=== PATIENT | female | born 1950 | race Caucasian/White ===

== ENCOUNTER 2023-09-02 16:12 | Inpatient (IN) | payer OTHER, SELFPAY ==
[2023-09-02] VITALS (14 sets, daily range): BP systolic 115–148; BP diastolic 41–96; BMI 27.7; BMI 26.8
[2023-09-02 12:37] LABS: % Basophils 0.7 % (0-2); % Eosinophils 0.2 % (0-6); % Immature Granulocytes 1.4 % (0-0.5); % Lymphocytes 5.1 % (20.5-51.1); % Monocytes 4.2 % (1.7-9.3); % Neutrophils 88.4 % (42.2-75.2); Absolute Basophils 0.1 10^3/uL (0-0.2); Absolute Immature Granulocytes 0.2 10^3/uL (0-0.05); Absolute Lymphocytes 0.6 10^3/uL (1.2-3.4); Absolute Monocytes 0.5 10^3/uL (0.1-0.6); Absolute Neutrophils 9.5 10^3/uL (1.4-6.5); Mean Corp Hgb Conc. 31.5 g/dL (33.0-37.0); Mean Corpuscular Hgb 29.1 pg (27.0-31.0); Mean Corpuscular Volume 92.5 fL (81.0-99.0); Mean Platelet Volume 11.7 fL (7.4-10.4); Nucleated Red Blood Cells % 0.3 %; Platelet Count 225 10^3/uL (130-400); Red Blood Cell Count 2.13 10^6/uL (4.20-5.40); Red Cell Dist. Width 14.7 % (11.5-14.5); White Blood Cell Count 10.7 10^3/uL (4.8-10.8)
[2023-09-02 12:46] LABS: Hematocrit 19.7 % (37.0-47.0); Hemoglobin 6.2 g/dL (12.0-16.0)
[2023-09-02 12:59] LABS: Lactic Acid 2.3 mmol/L (0.7-2.0)
[2023-09-02 13:05] LABS: ALT (SGPT) 12 U/L (0-35); AST (SGOT) 21 U/L (14-36); Albumin 3.8 g/dl (3.5-5.0); Alkaline Phosphatase 58 U/L (38-126); Blood Urea Nitrogen 110 mg/dl (7-17); Calcium 8.9 mg/dl (8.4-10.2); Carbon Dioxide 23 mmol/L (22-30); Chloride 100 mmol/L (98-107); Estimated Creatinine Clearance 21 ml/min; Glucose 164 mg/dl (70-99); Potassium 3.6 mmol/L (3.5-5.1); Sodium 133 mmol/L (135-145); Total Bilirubin 0.3 mg/dl (0.2-1.3); Total Protein 6.1 g/dl (6.3-8.2); eGFR 22.81
--- NOTE | 2023-09-02 13:30 | ED.GENMED ---
History of Present Illness
General
Chief Complaint: Breathing Problem
Source: patient and family (Daughter)
Time Seen by Provider: 09/02/23 12:30
Travel History
Have you had any contact with someone who has COVID-19?: No
Do you have any symptoms of coronavirus? Fever > 100 degrees, chills, cough, shortness of breath, sore throat, loss of taste or smell, muscle aches, or headache?: No
History of Present Illness
History of Present Illness:
73-year-old female presents emergency room complaint shortness of breath. Patient states she noticed increased shortness of breath over the past 3 to 4 days. Patient does have a history of COPD. She was using her rescue inhaler without
improvement. She is on home oxygen at 4 L. Patient is about 2 weeks status post endovascular stent placement in her right leg. This was performed at [place]. Patient denies any swelling in her groins. Her visiting nurse from [place] checked her groin
yesterday and everything looked good. Patient denies chest pain. She denies fever or chills. She has a cough which is minimally productive.
Past History
Past History
ED Past Medical History: CAD (2 stents), Cancer (lung-finshed 5 txs of XRT in November 2018), COPD, CVA (TIA), HTN and Hypercholesterolemia
ED Past Surgical History: Cardiac (cath w/ 2 stents) and Other (Carotid endarterectomy)
Social History
Tobacco: Former smoker (Quit July 2017)
Alcohol: None
Drug: None
Personal: Other
Living: with family
Employment: Other
Family History
Family History: Hypertension
Phy Exam
Physical Exam
Physical Exam:
General: Awake, Alert, Oriented X3. No acute distress, appears chronically ill, appears somewhat pale
Vitals: unremarkable
Head: Atraumatic
Eyes: Pupils equal, EOMI
Throat: Airway intact, no exudates
Neck: Trachea midline
Lungs: Clear and equal b/l
Heart: Regular rate, no murmurs
Abd: Soft, Nontender, No pulsatile mass
Rectal:
Neuro: Nonfocal
Skin: Warm, dry, no rash
Extremities: pulses equal b/l, no edema, no pseudoaneurysm or abnormal groin swelling noted
Scores
Heart Failure Risk
Heart Failure Risk Score: Not Applicable
Course
Orders/Labs/Results
Orders:
Orders
09/02/23 12:19
Electrocardiogram (*1) Urgent
Reason for Study: Other
Other Reason for Exam: Possible Sepsis
Cardiac Monitoring- Treatment ONCE
EKG- Treatment ONCE
IV Insert/Care/Rem.- Treatment PRN
O2 Therapy [RESP] Urgent
Titrate/Wean O2 to maintain O2 sat greater than (%): 93
Special Instructions: TO MAINTAIN CONTINUOUS O2 SATS > OR = 93%
Pulse Ox/cont/shift [RESP] Urgent
Quantity: 1
Special Instructions: CONTINUOUS
09/02/23 12:22
Complete Blood Count/With Diff Urgent
Comprehensive Metabolic Panel Urgent
Lactic Acid Q4H
Comment: ON ICE, CANCEL 2ND ORDER IF FIRST LACTIC ACID LEVEL <2
Blood Culture Q30M
CHUY Source: Blood/Venous
Specimen Description:
Comment: FROM 2 SEPARATE SITES
09/02/23 13:00
Blood Culture Q30M
[facility] Source: Blood/Venous
Specimen Description:
Comment: FROM 2 SEPARATE SITES
09/02/23 13:10
Type+Screen Urgent
09/02/23 13:26
* Blood Bank Products Urgent
Blood Bank Products: *Packed RBC Leuko(PRBC's)
Quantity: 2
Transfuse Today: Yes
Reason: Anemia
IV Insert/Care/Rem.- Treatment PRN
Pantoprazole 80 mg/100 ml Nss [Protonix] 80 mg in 100 ml IV NOW
Pantoprazole [Protonix IV] 80 mg IV NOW STA
09/02/23 16:30
Lactic Acid Q4H
Comment: ON ICE, CANCEL 2ND ORDER IF FIRST LACTIC ACID LEVEL <2
Abnormal Lab Results
09/02/23 09/02/23
12:22 13:10
RBC 2.13 L 10^6/uL
(4.20-5.40)
Hgb 6.2 L* g/dL
(12.0-16.0)
Hct 19.7 L* %
(37.0-47.0)
MCHC 31.5 L g/dL
(33.0-37.0)
RDW 14.7 H %
(11.5-14.5)
MPV 11.7 H fL
(7.4-10.4)
Abs Immat Gran (auto) 0.2 H 10^3/uL
(0-0.05)
Absolute Neuts (auto) 9.5 H 10^3/uL
(1.4-6.5)
Absolute Lymphs (auto) 0.6 L 10^3/uL
(1.2-3.4)
Immature Gran % 1.4 H %
(0-0.5)
Neutrophils % 88.4 H %
(42.2-75.2)
Lymphocytes % 5.1 L %
(20.5-51.1)
Sodium 133 L mmol/L
(135-145)
BUN 110 H* mg/dl
(7-17)
Creatinine 2.2 H mg/dL
(0.6-1.0)
Glucose 164 H mg/dl
(70-99)
Lactic Acid 2.3 H mmol/L
(0.7-2.0)
Total Protein 6.1 L g/dl
(6.3-8.2)
Crossmatch IS Only See Detail
09/02/23 12:22
09/02/23 12:22
Vital Signs
Initial and Last Documented VS:
Initial Vital Signs
Temp
98.5 F
09/02/23 12:14
Last Documented Vital Signs
Temp Pulse Resp BP Pulse Ox
98.5 F 72 15 122/50 99
09/02/23 12:14 09/02/23 13:15 09/02/23 13:15 09/02/23 13:00 09/02/23 12:30
MDM/Problems Addressed
Differential Diagnosis Includes:
COPD exacerbation, anemia, pneumonia, pneumothorax
MDM/Problems Addressed:
Patient presents with significant shortness of breath. Testing reveals a hemoglobin of 6.2. Patient does endorse change in her stools to very black stools over the past couple days. She denies any abdominal pain. Patient does take Plavix and
aspirin 81 mg. She has also been taking ibuprofen from time to time for the groin and leg pain. We will transfuse her 2 units. Protonix drip started. Admit to the hospitalist. Will also let GI know about her
Chronic conditions affecting care: CAD and COPD
*Pulse Oximetry
Patient hypoxic: no
*EKG
Interpreted by ED Provider?: Yes
Interpretation: normal
Heart Rate: 77
Rate: normal
Rhythm: sinus
Interval: first degree heart block
QRS Pattern: normal QRS
Ischemia: no ischemia
*Chair Trimmer Interpretation
Rate: normal
Heart Rate: 77
Rhythm: sinus
*Critical Care Note
Total Time (30-74mins, 75-104mins- exclusive of procedures): 35 min
comment:
Critical care statement: A total of 35 minutes of critical care time was provided for this patient. This includes management of unstable vital signs, evaluation of the patient at bedside, reviewing the patient's pertinent medical records, discussion
with consultants, review of old EKGs and review of pertinent medical records. This time with separate from time utilized to perform the aforementioned documented procedures
ED Attending Note
-
Portions of this chart may have been created with voice recognition software.� Occasional wrong word or��sound alike� substitutions may have occurred due to the inherent limitations of voice recognition software.
Discharge Plan
Departure
Patient Disposition: Admit
Date of Disposition: 09/02/23
Time of Disposition: 13:37
Admit to: IMU
Presentation/result/management discussed w/ accepting MD/DO: Hospitalist
Condition: Fair
Discharge Problem:
Acute dyspnea, Acute upper GI bleeding, Symptomatic anemia
Prescriptions:
No Action
acetaminophen [Tylenol] 325 mg Tablet
650 mg PO Q4HPRN PRN (Reason: mild pain)
bumetanide [Bumex] 2 mg Tablet
6 mg PO BID
albuterol sulfate 2.5 mg /3 mL (0.083 %) Solution For Nebulization
2.5 mg INHALATION R Q4HPRN PRN (Reason: sob)
polyethylene glycol 3350 [Miralax] 17 gram Powder In Packet
17 g PO DAILYPRN PRN (Reason: constipation)
potassium chloride 10 mEq Tablet Extended Release
10 meq PO DAILYPRN PRN (Reason: when taking metolazone)
aspirin 81 mg Tablet,Delayed Release (Dr/Ec)
81 mg PO DAILY
spironolactone 25 mg Tablet
25 mg PO DAILY
alprazolam [Xanax] 0.25 mg Tablet
0.25 mg PO BID
levothyroxine [Synthroid] 50 mcg Tablet
50 mcg PO DAILY
pantoprazole [Protonix] 40 mg Tablet,Delayed Release (Dr/Ec)
40 mg PO DAILY
ferrous sulfate 325 mg (65 mg iron) Tablet
325 mg PO DAILY
albuterol sulfate [ProAir HFA] 90 mcg/actuation Hfa Aerosol Inhaler
2 puff INHALATION R Q6HPRN PRN (Reason: sob)
rosuvastatin [Crestor] 10 mg Tablet
10 mg PO DAILY
cholecalciferol (vitamin D3) [Vitamin D3] 50 mcg (2,000 unit) Tablet
50 mcg PO DAILY
Opsumit 10 mg Tablet
10 mg PO DAILY
Anoro Ellipta 62.5-25 mcg/actuation Blister With Device
1 inh INHALATION R DAILY
tadalafil (pulm. hypertension) 20 mg Tablet
40 mg PO DAILY
Referrals:
Reza Ortiz DO [Family Provider] -
Interventions
Interventions:
*Risk Screen - Suicide Last Done: 09/02/23 12:18
*General Assessment Last Done: 09/02/23 12:16
*Neglect/Abuse Screening Last Done: 09/02/23 12:18
ED- Fall Risk Assessment Last Done: 09/02/23 12:29
*ED COVID-19 Vaccine History Last Done: 09/02/23 12:16
ED- Cardiac Assessment Last Done: 09/02/23 12:29
ED- Pulmonary Assessment Last Done: 09/02/23 12:29
Discharge Date and Time
Print Language: LITHUANIAN
[2023-09-02] MEDS: PROTONIX IV 80 MG IV (13:41)
[2023-09-02] MEDS: PROTONIX 100 IV ×2 (13:41→22:32)
--- NOTE | 2023-09-02 14:59 | CON.GI ---
Addendum entered and electronically signed by MIGUEL Pittman 09/03/23 06:50:
Pt also with hx scleraderma and chronic pericardial effusion
Addendum entered and electronically signed by Hernandez Nuñez MD 09/02/23 17:12:
I saw and examined the patient.
The PA's note was reviewed and I agree with the note.
Comment:
Pt is a 73 year old female with h/o CAD s/p stent, COPD, CHF, lung CA with prior radiation, TIA, HTN, CEA, CKD, hypothyroidism, and PAD with recent LE pain with stent placement at [place] 2 weeks ago p/w fatigue, dyspnea, and melena. Pt had
progressively worsening fatigue and had multiple melena yesterday. Admits to taking Ibuprofen up to 12 tabs daily for months. With stent placement she was started back on Plavix in addition to ASA 81mg daily. Hgb was 10.0 on day of surgery
(08/19) and 8.8 post-op. Hgb on admission is down to 6.2 and BUN 110 and lactate 2.3. NO prior EGD. Colonoscopy 2008 with benign polyps.
Impression / Rec:
1. Fatigue, dyspnea, melena - having symptomatic anemia in setting of likely UGIB evidenced by melena. Admits to significant NSAID use, although stopped using NSAIDs about 2 weeks ago after her vascular surgery (stent). Currently on DAPT for her
vascular stent. She also has CKD which is likely contributing to her anemia. Will plan on EGD for further eval/possible treatment (limited intervention given DAPT), keep NPO from midnight for possible scope tomorrow. Will follow Hgb.
Original Note:
Consultation
-
Date/Time Consultation Requested: 09/02/23 1345
Date/Time Consultation Performed: 09/02/23 1500
Requesting Provider: Keenan Pratt DO
Performing Provider: MIGUEL Pacheco, Hernandez Nuñez MD
Reason for Consultation: anemia
Medical History
Chief Complaint / HPI
Chief Complaint: weakness, shortness of breath
History of Present Illness:
Pt is a 73yo presents with hx cardiac stent, COPD CHF with cardiac mems, lung CA with prior radiation, TIA, HTN, CEA, PAD, CKD, hypothyroidism with recent LE pain with stent placement at [place] [address] Arun Choudhury. Pt reports prior to
stent placement she was having increased leg pain with NSAID use and admits to taking Ibuprofen up to 12 tabs daily for months. With stent placement she was started back on Plavix as had taken several years ago in addition to ASA 81mg daily. hbg
was 10.0 08/20/23 on day of surgery and 8.8 08/11/23 post -op. She now presents with increased shortness of breath with dizziness and noted with hbg 6.2 and BUN 110 and lactate 2.3.
Pt admits to some indigestion with antiacid use but could not recall name and also profound dizziness. She also saw black stool yesterday prior to admission. She otherwise denies dysphagia, nausea, vomiting, abdominal pain, diarrhea, or
red stools. No prior EGD. Last colonoscopy [address] Trivedi with benign polyps in rectum and diverticulosis. No urinary bleeding or recent falls.
Past Medical History
Past Medical History: CAD (with prior stents ), Cancer (lung CA with 5 treatment XRT November 2018 ), CHF, COPD, CVA (TIA), HTN, Hypercholesterolemia, Hypothyroidism, Renal Failure (CKD) and Other (pericardial effusion, pulm HTN, scleroderma, PAD,
former smoker, SAURABH)
Past Surgical History: Other (caroid endarterectomy, recent LE stent x 2 at [place])
Social History
Tobacco: Former Smoker (quit 2017)
Alcohol: None
Drug: None
Living: With Family
Employment: Retired
Family History
Family History: Other (no family hx colon Ca or GI cancers )
Allergies / Home Medications
Allergy/AdvReac Type Severity Reaction Status Date / Time
iodine Allergy allergic Verified 09/02/23 12:18
to shrimp
shrimp Allergy VIOLENTLY Verified 09/02/23 12:18
SICK
�Medication �Instructions �Recorded
acetaminophen 325 mg tablet 650 mg PO Q4HPRN PRN mild pain 09/02/23
(Tylenol)
albuterol sulfate 2.5 mg/3 mL 2.5 mg inhalation R Q4HPRN PRN sob 09/02/23
(0.083 %) solution for nebulization
albuterol sulfate 90 mcg/actuation 2 puff inhalation R Q6HPRN PRN sob 09/02/23
aerosol inhaler (ProAir HFA)
alprazolam 0.25 mg tablet (Xanax) 0.25 mg PO BID Mental 09/02/23
Health/Anxiety
aspirin 81 mg tablet,delayed 81 mg PO DAILY Blood Clot 09/02/23
release Prevention/Tx
bumetanide 2 mg tablet 6 mg PO BID Fluid 09/02/23
Retention/Swelling
cholecalciferol (vitamin D3) 50 50 mcg PO DAILY Supplement 09/02/23
mcg (2,000 unit) tablet (Vitamin
D3)
ferrous sulfate 325 mg (65 mg 325 mg PO DAILY Supplement 09/02/23
iron) tablet
levothyroxine 50 mcg tablet 50 mcg PO DAILY Thyroid 09/02/23
(Synthroid)
macitentan 10 mg tablet (Opsumit) 10 mg PO DAILY Lung Issues 09/02/23
pantoprazole 40 mg tablet,delayed 40 mg PO DAILY Gastrointestinal 09/02/23
release (Protonix) Issue
polyethylene glycol 3350 17 gram 17 g PO DAILYPRN PRN constipation 09/02/23
oral powder packet (Miralax)
potassium chloride 10 mEq 10 meq PO DAILYPRN PRN when taking 09/02/23
tablet,extended release metolazone
rosuvastatin 10 mg tablet (Crestor) 10 mg PO DAILY High Cholesterol 09/02/23
spironolactone 25 mg tablet 25 mg PO DAILY Heart 09/02/23
Disease/Condition
tadalafil (pulm. hypertension) 20 40 mg PO DAILY pulmonary 09/02/23
mg tablet (pulmonary hypertension) hypertension
umeclidinium 62.5 mcg-vilanterol 1 inh inhalation R DAILY 09/02/23
25 mcg/actuation powdr for Lung/Breathing Issues
inhalation (Anoro Ellipta)
Review of Systems
-
History Source: Patient
Constitutional: Reports Fatigue
EENT: Reports No Symptoms
Respiratory: Reports Trouble Breathing
Cardiac: Reports No Symptoms
Abdomen/GI: Reports Black Stools and Other (+ GERD)
: Reports No Symptoms
Musculoskeletal: Reports No Symptoms
Skin: Reports No Symptoms
Neurological: Reports Dizzy
Endocrine: Reports No Symptoms
Hematologic/Lymphatic: Reports Bleeding
Vital Signs
Temp Pulse Resp BP Pulse Ox
98.5 F 70 16 118/41 98
09/02/23 14:50 09/02/23 14:50 09/02/23 14:50 09/02/23 14:50 09/02/23 14:50
Physical Exam
Exam
General: Other (elderly female with mild dyspnea at rest )
HEENT: Normocephalic and Anicteric
Respiratory: Other (decreased )
Cardiac: Regular Rhythm
GI: Soft, Non Tender and Non Distended
Rectal: Other (no rectal but stool examined green/black heme +)
Musculoskeletal: No Clubbing and No Cyanosis
Skin: Warm and Dry
Neuro: Awake, Alert and AO x 3
Psych: Calm
Results
WBC 10.7 10^3/uL (4.8-10.8) 09/02/23 12:22
Hgb 6.2 g/dL (12.0-16.0) L* 09/02/23 12:22
Hct 19.7 % (37.0-47.0) L* 09/02/23 12:22
MCV 92.5 fL (81.0-99.0) 09/02/23 12:22
Plt Count 225 10^3/uL (130-400) 09/02/23 12:22
Absolute Neuts (auto) 9.5 10^3/uL (1.4-6.5) H 09/02/23 12:22
Sodium 133 mmol/L (135-145) L 09/02/23 12:22
Potassium 3.6 mmol/L (3.5-5.1) 09/02/23 12:22
Chloride 100 mmol/L (98-107) 09/02/23 12:22
Carbon Dioxide 23 mmol/L (22-30) 09/02/23 12:22
BUN 110 mg/dl (7-17) H* 09/02/23 12:22
Creatinine 2.2 mg/dL (0.6-1.0) H 09/02/23 12:22
Calcium 8.9 mg/dl (8.4-10.2) 09/02/23 12:22
Total Bilirubin 0.3 mg/dl (0.2-1.3) 09/02/23 12:22
AST 21 U/L (14-36) 09/02/23 12:22
ALT 12 U/L (0-35) 09/02/23 12:22
Alkaline Phosphatase 58 U/L (38-126) 09/02/23 12:22
Diagnostic Image Results:
Prior GI Procedures:
EGD: none
Colonoscopy: [address] Trivedi with benign polyps in rectum and diverticulosis.
Assessment / Plan
-
Pt is a 73yo presents with hx cardiac stent, COPD CHF with cardiac mems, lung CA with prior radiation, TIA, HTN, CEA, PAD, CKD, hypothyroidism with recent LE pain with stent placement at [place] [address] Arun Choudhury. Pt reports prior to
stent placement she was having increased leg pain with NSAID use and admits to taking Ibuprofen up to 12 tabs daily for months. With stent placement she was started back on Plavix as had taken several years ago in addition to ASA 81mg daily. hbg
was 10.0 410/24 on day of surgery and 8.8 08/11/23 post -op. She now presents with increased shortness of breath with dizziness, black stools and noted with hbg 6.2 and BUN 110 and lactate 2.3. NO prior EGD. Colonoscopy 2008 with benign polyps.
-symptomatic anemia
-melena
-recent NSAID use
-PAD recent right femoral endarterectomy with popliteal stent with restart of Plavix an continued ASA therapy
other medical problems:
-CAD with prior cardiac stents
-CHF
-cardiac mems
-COPD
-TIA
-CEA
-HTN
-CKD
-hypothyroidism
PLAN:
etiology of anemia with black stool related to PUD with recent increased NSAID use, vascular ectasia, mass vs other
may also be multi factorial with CKD with baseline hbg 10 on 08/19 and 8.8 on 08/21
plan for EGD in AM if medically stable overnight with transfusion
agree with transfusion
trend hbg
PPI gtt
monitor stool output
stressed to patient and family with hx GI bleeding and renal disease should avoid NSAID use
will follow
-
-
Thank you for consultation and allowing me to participate in the patient's care. Please call the construction equipment mechanic helper GI physician during the after hours with any questions or concerns.
--- NOTE | 2023-09-02 15:48 | HPS.HSE ---
Family Physician
-
Family Physician: Reza Ortiz
Chief Complaint
-
Shortness of breath with weakness and fatigue
History of Present Illness
Patient with history of CAD and prior coronary stents also has PAD. 2 weeks ago she had a right carotid endarterectomy and according to her vascular surgeon had a popliteal stent as well. Postsurgery she was placed on aspirin and Plavix. She is
normally on aspirin for her CAD.
She had used Plavix in the past after coronary stents.
Prior to surgery because of the leg pain she was using ibuprofen which according to the daughter may be as high as 800 milligrams twice a day.
After surgery she was feeling okay in the immediate postop. But later on she started to have shortness of breath with exertion. She was feeling exhausted and fatigued. She was sleeping a lot. Her appetite was poor. Yesterday she had dark stools.
Denies any prior history of GI bleed.
Denies any history of gastric issues including ulcers. No dyspepsia symptoms.
Last colonoscopy she thinks was in 2008.
No chest pains or palpitations.
No fever.
History of COPD and normally on 4 L. Denies any cough or productive phlegm. No recent steroid use either.
Medical History
Past Medical History
Past Medical History: Reports CAD, COPD, HTN, Hypercholesterolemia and Other (Pulmonary hypertension)
Past Surgical History: Reports Cardiac (Coronary stents) and Other (Right carotid stent, right femoral endarterectomy with popliteal stent recently)
Social History
Tobacco: Non-smoker
Alcohol: None
Living: With Family
Family History
Family History: Not pertinent
Allergies / Home Medications
Allergies reflects when Allergies were last updated in [employer].
Home Medications with original date entered in [employer]
Allergy/Medication List:
Allergies
Allergy/AdvReac Type Severity Reaction Status Date / Time
iodine Allergy allergic Verified 09/02/23 12:18
to shrimp
shrimp Allergy VIOLENTLY Verified 09/02/23 12:18
SICK
Home Medications
acetaminophen 325 mg tablet (Tylenol) 650 mg PO Q4HPRN PRN mild pain 09/02/23
albuterol sulfate 2.5 mg/3 mL (0.083 %) solution for nebulization 2.5 mg inhalation R Q4HPRN PRN sob 09/02/23
albuterol sulfate 90 mcg/actuation aerosol inhaler (ProAir HFA) 2 puff inhalation R Q6HPRN PRN sob 09/02/23
alprazolam 0.25 mg tablet (Xanax) 0.25 mg PO BID Mental Health/Anxiety 09/02/23
aspirin 81 mg tablet,delayed release 81 mg PO DAILY Blood Clot Prevention/Tx 09/02/23
bumetanide 2 mg tablet 6 mg PO BID Fluid Retention/Swelling 09/02/23
cholecalciferol (vitamin D3) 50 mcg (2,000 unit) tablet (Vitamin D3) 50 mcg PO DAILY Supplement 09/02/23
ferrous sulfate 325 mg (65 mg iron) tablet 325 mg PO DAILY Supplement 09/02/23
levothyroxine 50 mcg tablet (Synthroid) 50 mcg PO DAILY Thyroid 09/02/23
macitentan 10 mg tablet (Opsumit) 10 mg PO DAILY Lung Issues 09/02/23
pantoprazole 40 mg tablet,delayed release (Protonix) 40 mg PO DAILY Gastrointestinal Issue 09/02/23
polyethylene glycol 3350 17 gram oral powder packet (Miralax) 17 g PO DAILYPRN PRN constipation 09/02/23
potassium chloride 10 mEq tablet,extended release 10 meq PO DAILYPRN PRN when taking metolazone 09/02/23
rosuvastatin 10 mg tablet (Crestor) 10 mg PO DAILY High Cholesterol 09/02/23
spironolactone 25 mg tablet 25 mg PO DAILY Heart Disease/Condition 09/02/23
tadalafil (pulm. hypertension) 20 mg tablet (pulmonary hypertension) 40 mg PO DAILY pulmonary hypertension 09/02/23
umeclidinium 62.5 mcg-vilanterol 25 mcg/actuation powdr for inhalation (Anoro Ellipta) 1 inh inhalation R DAILY Lung/Breathing Issues 09/02/23
Review of Systems
-
A 12 point ROS was completed and negative except as noted: Yes
Physical Exam
Vital Signs
Vital Signs
Temp Pulse Resp BP Pulse Ox
98.4 F 74 15 148/47 100
09/02/23 15:05 09/02/23 15:30 09/02/23 15:30 09/02/23 15:05 09/02/23 15:30
Physical Exam
General: No Apparent Distress
HEENT: Moist mucous membranes
Respiratory: Non Labored Respirations and Other (On nasal cannula); No Wheezes, Crackles or Accessory Resp Muscle Use
Cardiac: S1/S2 and Regular Rhythm; No Tachycardia
GI: Soft, Non Tender, Non Distended and Normal Bowel Sounds
Neuro: AO x 3
Psych: Calm; No Confused
Laboratory Results
-
09/02/23 12:22
09/02/23 12:22
Laboratory Results
Lactic Acid 2.3 mmol/L (0.7-2.0) H 09/02/23 12:22
Total Bilirubin 0.3 mg/dl (0.2-1.3) 09/02/23 12:22
AST 21 U/L (14-36) 09/02/23 12:22
ALT 12 U/L (0-35) 09/02/23 12:22
Alkaline Phosphatase 58 U/L (38-126) 09/02/23 12:22
Data Reviewed
-
Lab Data: Labs Reviewed by me
Impression/Plan
-
Severe symptomatic anemia with acute GI blood loss-patient with recent history of right leg vascular surgery and stent placement. Currently on aspirin and Plavix and prior to that she was taking ibuprofen. Concerned about NSAID use gastric
pathology. She is currently hemodynamically stable. Keep her n.p.o. until seen by GI. Sidhu for home meds and sips of clears. Follow H&H closely. Transfuse as ordered in the ER. Start on Protonix pump. Hold Plavix. But in view of multiple
stents including recent 1 will continue with aspirin. GI consulted.
PAD-patient had recent right carotid endarterectomy and right popliteal stent. Spoke with Dr. Chalo Pollock the vascular surgeon today at [facility]. Resume Plavix when stable from GI standpoint.
CAD with prior coronary stents. Asymptomatic without chest pain or CHF. Continue with her home medication.
COPD with pulmonary hypertension-no acute exacerbation. Consult pulmonary for pre-endoscopic pulmonary eval.
Hypertension-continue home medication as BP permits.
Full code
--- NOTE | 2023-09-02 17:12 | W.PN.UPDATE ---
Update Note
Progress Note Update
billing note
--- NOTE | 2023-09-02 17:37 | CON.PUL ---
Consultation
Consultation Request
Date/Time Consultation Requested: 09/02/2023
Date/Time Consultation Performed: 09/02/2023
Requesting Provider: Dr. Lemus
Performing Provider: Dr. Dom Galo
Reason for Consultation: Shortness of breath due to anemia on top of pulmonary hypertension severe C
Medical History
-
History of Present Illness:
73-year-old woman with history of coronary Tory disease, prior coronary stents, peripheral arterial disease, about 2 weeks ago underwent right carotic endarterectomy and popliteal stents as well.
He was placed on aspirin and Plavix postoperatively.
He usually takes aspirin on a daily basis.
She has been taking NSAIDs as well.
Patient reports progressive shortness of breath, fatigue. In general she is able to walk and drive and run errands.
She felt really tired and was not able to perform any activity without developing shortness of breath.
Reports some dark stools yesterday.
We were consulted regarding her COPD.
She has severe COPD and also pulmonary hypertension. Follows up at [facility].
Currently on 4 L of supplemental oxygen which is her baseline.
Denies any cough, wheezing or phlegm production.
Denies LE edema.
She was able to tolerate vascular surgery with no problems.
She has been compliant with her pulmonary vasodilators.
Last acute exacerbation of COPD was in 2021.
Past Medical History
Past Medical History: Other (See assessment and plan section)
Social History
Tobacco: Non-smoker
Alcohol: None
Living: With Family
Employment: Retired
Family History
Family History: Reviewed & Not Pertinent
Allergies / Home Medications
Allergies
Allergy/AdvReac Type Severity Reaction Status Date / Time
iodine Allergy allergic Verified 09/02/23 12:18
to shrimp
shrimp Allergy VIOLENTLY Verified 09/02/23 12:18
SICK
Home Medications
�Medication �Instructions �Recorded �Confirmed �Last Taken �Type
acetaminophen 325 mg tablet 650 mg PO Q4HPRN PRN mild pain 09/02/23 09/02/23 Unknown History
(Tylenol)
albuterol sulfate 2.5 mg/3 mL 2.5 mg inhalation R Q4HPRN PRN sob 09/02/23 09/02/23 Unknown History
(0.083 %) solution for nebulization
albuterol sulfate 90 mcg/actuation 2 puff inhalation R Q6HPRN PRN sob 09/02/23 09/02/23 Unknown History
aerosol inhaler (ProAir HFA)
alprazolam 0.25 mg tablet (Xanax) 0.25 mg PO BID Mental 09/02/23 09/02/23 09/02/23 History
Health/Anxiety
aspirin 81 mg tablet,delayed 81 mg PO DAILY Blood Clot 09/02/23 09/02/23 09/02/23 History
release Prevention/Tx
bumetanide 2 mg tablet 6 mg PO BID Fluid 09/02/23 09/02/23 09/02/23 History
Retention/Swelling
cholecalciferol (vitamin D3) 50 50 mcg PO DAILY Supplement 09/02/23 09/02/23 09/02/23 History
mcg (2,000 unit) tablet (Vitamin
D3)
ferrous sulfate 325 mg (65 mg 325 mg PO DAILY Supplement 09/02/23 09/02/23 09/02/23 History
iron) tablet
levothyroxine 50 mcg tablet 50 mcg PO DAILY Thyroid 09/02/23 09/02/23 09/02/23 History
(Synthroid)
macitentan 10 mg tablet (Opsumit) 10 mg PO DAILY Lung Issues 09/02/23 09/02/23 09/02/23 History
pantoprazole 40 mg tablet,delayed 40 mg PO DAILY Gastrointestinal 09/02/23 09/02/23 09/02/23 History
release (Protonix) Issue
polyethylene glycol 3350 17 gram 17 g PO DAILYPRN PRN constipation 09/02/23 09/02/23 Unknown History
oral powder packet (Miralax)
potassium chloride 10 mEq 10 meq PO DAILYPRN PRN when taking 09/02/23 09/02/23 Unknown History
tablet,extended release metolazone
rosuvastatin 10 mg tablet (Crestor) 10 mg PO DAILY High Cholesterol 09/02/23 09/02/23 09/02/23 History
spironolactone 25 mg tablet 25 mg PO DAILY Heart 09/02/23 09/02/23 09/02/23 History
Disease/Condition
tadalafil (pulm. hypertension) 20 40 mg PO DAILY pulmonary 09/02/23 09/02/23 09/02/23 History
mg tablet (pulmonary hypertension) hypertension
umeclidinium 62.5 mcg-vilanterol 1 inh inhalation R DAILY 09/02/23 09/02/23 09/02/23 History
25 mcg/actuation powdr for Lung/Breathing Issues
inhalation (Anoro Ellipta)
Review of Systems
-
History Source: Patient
All other systems: Negative unless noted
Vitals / Labs / Diagnostic Testing
Vital Signs
Temp Pulse Resp BP Pulse Ox
98.2 F 68 18 120/46 98
09/02/23 17:06 09/02/23 17:06 09/02/23 17:06 09/02/23 17:06 09/02/23 17:06
Lab Data
09/02/23 12:22
09/02/23 12:22
Diagnostic Testing:
Physical Exam
-
HEENT: Normocephalic
Cardiovascular: S1/S2
Respiratory: Non-Labored Respirations
GI: Soft and Non Distended
Neurology: Awake, Alert, Oriented and AO x 3
Skin: Warm
General: Respiratory Distress (n)
Assessment
-
Shortness of breath due to acute blood loss anemia. Hemoglobin on admission 6.2.
Symptomatic anemia-from GI losses.
Possible upper GI bleed in the setting of aspirin/Plavix and NSAIDs.
Conditions present prior admission:
Status post carotic endarterectomy and popliteal stents about 2 months ago.
Pulmonary hypertension: group 1 (CTD, scleroderma), group 2 (LHD), group 3 (lung disease an/or hypoxia): on taladafil and ambrisentan
Scleroderma
HFpEF, moderate to severe LVH
Stage III DD
Mild MR, mild to moderate TR
Mildly enlarged RV size with normal systolic function
COPD, O2 at 3LPM
CAD s/p RCA stents 2002, on clopidogrel
Chronic pericardial effusion
Lung cancer, s/p XRT till November 2018
TIA, s/p R CEA
HTN
Hypothyroidism
Chronic kidney disease
HLD
Moderate to large pericardial effusion, chronic, never tapped
Former smoker, quit July 2017
Assessment and plan:
From the pulmonary perspective appears to be baseline.
Not bronchospastic on exam
On usual oxygen requirements.
Tolerated vascular surgery without complications about 2 weeks ago.
Symptoms are driven by severe anemia on top of her underlying severe COPD and pulmonary hypertension.
-
Continue with usual inhalers.
Continue with oxygen supplementation
Incentive spirometry
Minimize sedatives as able
Continue pulmonary vasodilators without change
-
Follow H&H, monitor respiratory status posttransfusion.
For EGD tomorrow, may proceed without additional interventions form pulmonary perspective.
PPI
Antiplatelets on hold for now per primary team
-
Will follow
-
DVT prophylaxis with SCDs
-
Family updated at the bedside by Dr. Galo 09/02/2023
[2023-09-02 20:32] LABS: Hematocrit 21.4 % (37.0-47.0); Hemoglobin 7.1 g/dL (12.0-16.0)
[2023-09-02] MEDS: XANAX 0.25 MG PO (22:29)
[2023-09-02] MEDS: BUMEX 6 MG PO (22:29)
[2023-09-02] MEDS: NSS 1000 IV (22:32)
[2023-09-03] VITALS (12 sets, daily range): BP systolic 14–143; BP diastolic 42–85; PULSE 70–80; BMI 26.8; BMI 26.6
--- NOTE | 2023-09-03 | PTCARENOTE ---
Pt is aaox3, no c/o pain. pt is assisted to bed x1. pt denies lightheadedness or dizziness, but is RIVERA w/ 4L O2. pt is on 4l at home. pt oriented to room w/ call pak in reach.
pt is ordered PRBC - 1unit transfused on the floor. VSS. no reaction noted.
[2023-09-03 00:36] LABS: Lactic Acid 0.7 mmol/L (0.7-2.0)
[2023-09-03] MEDS: SYNTHROID 50 MCG PO (04:22)
[2023-09-03 04:24] LABS: Hematocrit 23.5 % (37.0-47.0); Hemoglobin 7.8 g/dL (12.0-16.0); Mean Corp Hgb Conc. 33.2 g/dL (33.0-37.0); Mean Corpuscular Hgb 29.9 pg (27.0-31.0); Mean Platelet Volume 10.8 fL (7.4-10.4); Platelet Count 196 10^3/uL (130-400); Red Blood Cell Count 2.61 10^6/uL (4.20-5.40); White Blood Cell Count 7.3 10^3/uL (4.8-10.8)
[2023-09-03 04:59] LABS: Blood Urea Nitrogen 96 mg/dl (7-17); Calcium 8.7 mg/dl (8.4-10.2); Carbon Dioxide 24 mmol/L (22-30); Chloride 106 mmol/L (98-107); Estimated Creatinine Clearance 21 ml/min; Glucose 106 mg/dl (70-99); Potassium 3.5 mmol/L (3.5-5.1); Sodium 138 mmol/L (135-145); eGFR 24.12
[2023-09-03] MEDS: BUMEX 6 MG PO ×2 (08:58→19:53)
[2023-09-03] MEDS: VITAMIN D3 (cholecalciferol) 50 MCG PO (08:59)
[2023-09-03] MEDS: XANAX 0.25 MG PO ×2 (08:59→19:53)
[2023-09-03] MEDS: ASPIR LOW (ENTERIC COATED) 81 MG PO (08:59)
[2023-09-03] MEDS: ALDACTONE 25 MG PO (08:59)
[2023-09-03] MEDS: CRESTOR 10 MG PO (08:59)
--- NOTE | 2023-09-03 11:44 | W.PN.PUL3 ---
Today's Communication / Plan
-
From the pulmonary perspective continue with current care
Sign off
Outpatient pulmonary follow-up at [facility].
Assessment
-
Shortness of breath due to acute blood loss anemia. Hemoglobin on admission 6.2.
Symptomatic anemia-from GI losses.
Possible upper GI bleed in the setting of aspirin/Plavix and NSAIDs.
Conditions present prior admission:
Status post carotic endarterectomy and popliteal stents about 2 months ago.
Pulmonary hypertension: group 1 (CTD, scleroderma), group 2 (LHD), group 3 (lung disease an/or hypoxia): on taladafil and ambrisentan
Scleroderma
HFpEF, moderate to severe LVH
Stage III DD
Mild MR, mild to moderate TR
Mildly enlarged RV size with normal systolic function
COPD, O2 at 3LPM
CAD s/p RCA stents 2002, on clopidogrel
Chronic pericardial effusion
Lung cancer, s/p XRT till November 2018
TIA, s/p R CEA
HTN
Hypothyroidism
Chronic kidney disease
HLD
Moderate to large pericardial effusion, chronic, never tapped
Former smoker, quit July 2017
Assessment and plan:
Patient at baseline from the pulmonary perspective
Tolerated EGD well: Results noted. No active bleeding noted.GI following.
Angiectasia's and some erosions noted.
-
On usual oxygen requirements.
-
Symptoms are driven by severe anemia on top of her underlying severe COPD and pulmonary hypertension.
-
Continue with usual inhalers.
Continue with oxygen supplementation
Incentive spirometry
Minimize sedatives as able
Continue pulmonary vasodilators without change
-
Follow H&H, monitor respiratory status posttransfusion.
Hemoglobin is stable
PPI
-
Antiplatelets on hold for now per primary team
-
DVT prophylaxis with SCDs
-
Family updated at the bedside by Dr. Galo 09/02/2023
-
No additional recommendation from the pulmonary perspective.
Continue follow-up at [facility] With her pulmonary doctor.
Sign off
Subjective Data
-
Date of Service:
Date of Service: September 03, 2023
Chief Complaint: Pulmonary Follow Up (COPD/pulmonary hypertension)
Subjective:
No pulmonary complaints.
Stable oxygen needs.
Review of Systems
General: Fever (n)
Cardiopulmonary: Dyspnea (none at rest)
GI: Abdominal Pain (n) and Nausea (n)
Objective Data
Data Reviewed
Vital Signs / I&O / Oxygen:
Vital Signs
Temp Pulse Resp BP Pulse Ox
98.0 F 65 17 126/48 98
09/03/23 10:45 09/03/23 10:45 09/03/23 10:45 09/03/23 10:45 09/03/23 10:45
Intake and Output
09/02/23 09/03/23 09/04/23
06:59 06:59 06:59
Intake Total 1100 / 1100
Output Total 1575 / 1575
Balance -475 / -475
SaO2 98
Nasal Cannula flow liters per 4
minute
Physical Exam
General: Respiratory Distress (n) and Comfortable
HEENT: Normocephalic
Cardiovascular: S1-S2
Respiratory: Clear and Non-Labored Respirations
GI: Soft and Non Distended
Neurology: Awake
Skin: Warm
Labs/Micro/Reports
Lab Data
09/03/23 04:16
[2023-09-03 11:49] LABS: Hematocrit 23.5 % (37.0-47.0); Hemoglobin 7.8 g/dL (12.0-16.0)
--- NOTE | 2023-09-03 12:16 | CM ---
Patient seen bedside, initial assessment completed. Patient reports she lives in a multiple story home, one step to enter from [facility], with her daughter, daughters boyfriend, and grandchildren. Patient on home O2 through [facility], denies
other DME. Patient current with [facility], denies SNF. Patient confirms PCP Reza Ortiz, pharmacy [facility] in [place], confirms she has prescription coverage. Patient denies food insecurities. CM will send updated clinicals to [facility], will continue
to follow for discharge planning needs.
Plan; return home with [facility] when stable.
[2023-09-03] MEDS: PROTONIX IV (13:20)
--- NOTE | 2023-09-03 14:17 | W.PN.HOSP.TC ---
Addendum entered and electronically signed by Irene Thorpe MD 09/04/23 11:53:
Borderline troponin [id number] type-secondary to renal failure and also anemia
Addendum entered and electronically signed by Irene Thorpe MD 09/03/23 15:32:
Non-[place] troponin elevation likely secondary to anemia. Check 1 more set
Original Note:
Today's Communication/Plan
-
Repeat hemoglobin later tonight, if dropping will give 1 more unit of blood
We will start Plavix tomorrow
His hemoglobin is stable.
Repeat hemoglobin again tomorrow
If stable discharge tomorrow
Assessment / Plan
Assessment / Plan
72-year-old female admitted because of shortness of breath weakness and fatigue.
CVS: S1-S2 normal, SM at apex
Chest: CTA B/L
Abdomen: Soft, NT / Bowel sounds present
Extremities: No edema, normal pulses
# Severe symptomatic anemia with acute GI blood loss
Patient on aspirin and Plavix currently and was taking ibuprofen prior to that.
EGD-09/03/2023-multiple erosions and 3 small AVMs treated with APC
Hemodynamically stable
Got 2 units of packed red blood cells
Continue PPI twice daily
Started diet per GI
Check Iron and B 12 levels
# Mild lactic acidosis-likely secondary to anemia-resolved
# History of right lower extremity vascular disease with stents
Continue aspirin. Plavix can be restarted per GI will restart tomorrow.
#PAD-patient had recent right carotid endarterectomy and right popliteal stent.
Dr. Chalo Pollock the vascular surgeon at [facility].
Restart Plavix
#CAD with prior coronary stents. Asymptomatic without chest pain
History of RCA stents
Continue Plavix, aspirin, statin
#COPD with pulmonary hypertension-no acute exacerbation.
Chronic hypoxic respiratory failure on 3 L of oxygen at home
Tadalafil and Ambrisentan
Continue Anoro Ellipta or equivalent
Continue Opsumit
Continue albuterol
# Chronic pericardial effusion
# Mild MR and mild to moderate TR
# Hypertension-continue Aldactone
# Hyperlipidemia-continue Crestor
# Hypothyroidism-continue Synthroid
# Anxiety-continue Xanax as needed
# Chronic heart failure. Ejection fraction, moderate to severe LVH, stage III diastolic dysfunction
Continue Bumex
# Lung cancer with history of radiation treatment till November 2018
# History of TIA status post right CEA
# CKD Stage 4
# [id number] in July 2017
# DVT prophylaxis-SCDs
# Full code
D/W GI
D/W Daughter and updated.
Anticipated Discharge: Within 24 hours
Subjective/Interval History
-
Date of Service: September 03, 2023
Objective Data
-
Labs:
Laboratory Results
09/03/23 09/03/23 09/03/23
04:16 04:16 04:16
WBC 7.3
Hgb Cancelled 7.8 L
Hct Cancelled 23.5 L
Plt Count 196
Sodium 138
Potassium 3.5
Chloride 106
Carbon Dioxide 24
BUN 96 H
Creatinine 2.1 H
Glucose 106 H
Calcium 8.7
09/03/23
11:37
WBC
Hgb 7.8 L
Hct 23.5 L
Plt Count
Sodium
Potassium
Chloride
Carbon Dioxide
BUN
Creatinine
Glucose
Calcium
Vital Signs:
Vital Signs
Temp Pulse Resp BP Pulse Ox
97.8 F 64 18 141/52 98
09/03/23 12:16 09/03/23 12:16 09/03/23 12:16 09/03/23 12:16 09/03/23 12:16
I&O
09/02/23 09/03/23 09/04/23
06:59 06:59 06:59
Intake Total 1100 / 1100
Output Total 1575 / 1575
Balance -475 / -475
[2023-09-03 14:55] LABS: Iron 142 ug/dl (37-170)
[2023-09-03 15:04] LABS: Percent Saturation 32 % (20-50); Total Iron Binding Capacity 442 ug/dl (265-497)
[2023-09-03 15:09] LABS: Troponin I 0.051 ng/ml
[2023-09-03] MEDS: NSS IV (15:11)
[2023-09-03 15:45] LABS: Vitamin B12 > 1000 pg/ml (239-931)
[2023-09-03 18:37] LABS: Hematocrit 23.4 % (37.0-47.0); Hemoglobin 7.6 g/dL (12.0-16.0)
[2023-09-03] MEDS: PROTONIX 40 MG PO (19:53)
[2023-09-04 06:00] VITALS: BMI 26.5
[2023-09-04] MEDS: SYNTHROID 50 MCG PO (06:34)
[2023-09-04 07:30] VITALS: BP 128/54
[2023-09-04 07:44] LABS: Hematocrit 24.3 % (37.0-47.0); Hemoglobin 7.9 g/dL (12.0-16.0)
[2023-09-04] MEDS: ALDACTONE 25 MG PO (08:22)
[2023-09-04] MEDS: FEOSOL 325 MG PO (08:23)
[2023-09-04] MEDS: VITAMIN D3 (cholecalciferol) 50 MCG PO (08:23)
[2023-09-04] MEDS: CRESTOR 10 MG PO (08:23)
[2023-09-04] MEDS: BUMEX 6 MG PO ×2 (08:23→19:52)
[2023-09-04] MEDS: PROTONIX 40 MG PO ×2 (08:23→19:51)
[2023-09-04] MEDS: ASPIR LOW (ENTERIC COATED) 81 MG PO (08:23)
[2023-09-04] MEDS: XANAX 0.25 MG PO ×2 (08:23→19:52)
[2023-09-04] MEDS: ZOFRAN 4 MG IV (10:18)
[2023-09-04 11:39] VITALS: BP 107/56
--- NOTE | 2023-09-04 11:47 | W.PN.HOSP.TC ---
Today's Communication/Plan
-
See how pt feels with nausea
Assessment / Plan
Assessment / Plan
72-year-old female admitted because of shortness of breath weakness and fatigue.
CVS: S1-S2 normal, SM at apex
Chest: CTA B/L
Abdomen: Soft, NT / Bowel sounds present
Extremities: No edema, normal pulses
# Severe symptomatic anemia with acute GI blood loss
Patient on aspirin and Plavix currently and was taking ibuprofen prior to that.
EGD-09/03/2023-multiple erosions and 3 small AVMs treated with APC
Hemodynamically stable
Got 2 units of packed red blood cells
Continue PPI twice daily
Started diet per GI
No TOPHER or B 12 Def
She has some nausea today
# Mild lactic acidosis-likely secondary to anemia-resolved
# History of right lower extremity vascular disease with stents
Continue aspirin. Plavix can be restarted
#PAD-patient had recent right carotid endarterectomy and right popliteal stent.
Dr. Chalo Pollock the vascular surgeon at [facility].
Restart Plavix
#CAD with prior coronary stents. Asymptomatic without chest pain
History of RCA stents
Continue Plavix, aspirin, statin
#COPD with pulmonary hypertension-no acute exacerbation.
Chronic hypoxic respiratory failure on 3 L of oxygen at home
Tadalafil and Ambrisentan
Continue Anoro Ellipta or equivalent
Continue Opsumit
Continue albuterol
# Chronic pericardial effusion
# Mild MR and mild to moderate TR
# Hypertension-continue Aldactone
# Hyperlipidemia-continue Crestor
# Hypothyroidism-continue Synthroid
# Anxiety-continue Xanax as needed
# Chronic heart failure. Ejection fraction, moderate to severe LVH, stage III diastolic dysfunction
Continue Bumex
# Lung cancer with history of radiation treatment till November 2018
# History of TIA status post right CEA
# CKD Stage 4
# [id number] in July 2017
# DVT prophylaxis-SCDs
# Full code
D/W RN at bed side
D/W Daughter and updated 09/03/23
Anticipated Discharge: Within 24 hours
Subjective/Interval History
-
Date of Service: September 04, 2023
Objective Data
-
Labs:
Laboratory Results
09/04/23
06:51
Hgb 7.9 L
Hct 24.3 L
Vital Signs:
Vital Signs
Temp Pulse Resp BP Pulse Ox
97.7 F 80 18 107/56 98
09/04/23 11:39 09/04/23 11:39 09/04/23 11:39 09/04/23 11:39 09/04/23 11:39
I&O
09/03/23 09/04/23 09/05/23
06:59 06:59 06:59
Intake Total 1100 / 1100 1440 / 1440
Output Total 1575 / 1575 2850 / 2850
Balance -475 / -475 -1410 / -1410
[2023-09-04] MEDS: PLAVIX 75 MG PO (12:48)
[2023-09-04 15:39] VITALS: BP 132/48
[2023-09-04 19:10] VITALS: BP 142/47
[2023-09-04 23:17] VITALS: BP 120/65
[2023-09-05 03:15] VITALS: BP 138/54
[2023-09-05] MEDS: SYNTHROID 50 MCG PO (05:41)
[2023-09-05 06:00] VITALS: BMI 26.1
[2023-09-05 07:10] LABS: Hematocrit 27.8 % (37.0-47.0); Hemoglobin 8.7 g/dL (12.0-16.0)
[2023-09-05 07:30] VITALS: BP 108/45
[2023-09-05] MEDS: BUMEX 6 MG PO (08:27)
[2023-09-05] MEDS: XANAX 0.25 MG PO (08:27)
[2023-09-05] MEDS: CRESTOR 10 MG PO (08:27)
[2023-09-05] MEDS: FEOSOL 325 MG PO (08:27)
[2023-09-05] MEDS: PLAVIX 75 MG PO (08:27)
[2023-09-05] MEDS: ASPIR LOW (ENTERIC COATED) 81 MG PO (08:27)
[2023-09-05] MEDS: PROTONIX 40 MG PO (08:27)
[2023-09-05] MEDS: VITAMIN D3 (cholecalciferol) 50 MCG PO (08:27)
[2023-09-05] MEDS: ALDACTONE 25 MG PO (08:27)
[2023-09-05 08:54] VITALS: BP 108/45
[2023-09-05 11:44] VITALS: BP 120/80; PULSE 86; O2SAT 96
--- NOTE | 2023-09-05 11:54 | W.PN.HOSP.TC ---
Today's Communication/Plan
-
Discharge
Assessment / Plan
Assessment / Plan
72-year-old female admitted because of shortness of breath weakness and fatigue.
CVS: S1-S2 normal, SM at apex
Chest: CTA B/L
Abdomen: Soft, NT / Bowel sounds present
Extremities: No edema, normal pulses
feels '100% better'
# Severe symptomatic anemia with acute GI blood loss
Patient on aspirin and Plavix currently and was taking ibuprofen prior to that.
EGD-09/03/2023-multiple erosions and 3 small AVMs treated with APC
Hemodynamically stable
Got 2 units of packed red blood cells
Continue PPI twice daily
Started diet per GI
No TOPHER or B 12 Def
Tolerating diet
# Mild lactic acidosis-likely secondary to anemia-resolved
# History of right lower extremity vascular disease with stents
Continue aspirin. Plavix restarted
#PAD-patient had recent right carotid endarterectomy and right popliteal stent.
Dr. Chalo Pollock the vascular surgeon at [facility].
Plavix
#CAD with prior coronary stents. Asymptomatic without chest pain
History of RCA stents
Continue Plavix, aspirin, statin
#COPD with pulmonary hypertension-no acute exacerbation.
Chronic hypoxic respiratory failure on 3 L of oxygen at home
Tadalafil and Ambrisentan
Continue Anoro Ellipta or equivalent
Continue Opsumit
Continue albuterol
# Chronic pericardial effusion
# Mild MR and mild to moderate TR
# Hypertension-continue Aldactone
# Hyperlipidemia-continue Crestor
# Hypothyroidism-continue Synthroid
# Anxiety-continue Xanax as needed
# Chronic heart failure. Ejection fraction, moderate to severe LVH, stage III diastolic dysfunction
Continue Bumex
# Lung cancer with history of radiation treatment till November 2018
# History of TIA status post right CEA
# CKD Stage 4
# [id number] in July 2017
# DVT prophylaxis-SCDs
# Full code
D/W RN at bed side
D/W Case management
Discharge time 31 min
Anticipated Discharge: Today
Subjective/Interval History
-
Date of Service: September 05, 2023
Objective Data
-
Labs:
Laboratory Results
09/05/23
06:52
Hgb 8.7 L
Hct 27.8 L
Vital Signs:
Vital Signs
Temp Pulse Resp BP Pulse Ox
98.3 F 66 18 108/45 100
09/05/23 07:30 09/05/23 07:30 09/05/23 07:30 09/05/23 07:30 09/05/23 08:40
I&O
09/04/23 09/05/23 09/06/23
06:59 06:59 06:59
Intake Total 1440 / 1440 840 / 840
Output Total 2850 / 2850 2200 / 2200
Balance -1410 / -1410 -1360 / -1360
--- NOTE | 2023-09-05 11:55 | W.DS.TRANS ---
Addendum entered and electronically signed by Irene Thorpe MD 09/05/23 16:43:
Dictation- [id number]
Original Note:
DC Summary - [employer]
-
Discharge Instructions:
Sleep Apnea Risk Intermediate
Discharge Diagnosis/Procedures Severe symptomatic anemia, acute GI blood loss,
patient vascular disease, coronary artery
disease with history of stents, COPD with
pulmonary hypertension, mild mitral
regurgitation and mild to moderate TR,
hypertension, hyperlipidemia, hypothyroidism,
anxiety, chronic heart failure with preserved
ejection fraction, history of lung cancer,
history of TIA, chronic kidney disease
Diet Restrict fluids to 48 oz,2 Gram Sodium
Activity As tolerated
Driving Restrictions As prior to admission
Blood Work cbc,bmp 1 week
Other Services VN
Specialty Instructions Weigh Daily
Instructions:
Stand-Alone Forms:
Changes to Home Medications: Yes
Discharge Medications:
DC Medications w/original date entered in [facility]
acetaminophen 325 mg tablet (Tylenol) 650 mg PO Q4HPRN PRN mild pain 09/02/23
albuterol sulfate 2.5 mg/3 mL (0.083 %) solution for nebulization 2.5 mg inhalation R Q4HPRN PRN sob 09/02/23
albuterol sulfate 90 mcg/actuation aerosol inhaler (ProAir HFA) 2 puff inhalation R Q6HPRN PRN sob 09/02/23
alprazolam 0.25 mg tablet (Xanax) 0.25 mg PO BID Mental Health/Anxiety 09/02/23
aspirin 81 mg tablet,delayed release 81 mg PO DAILY Blood Clot Prevention/Tx 09/02/23
bumetanide 2 mg tablet 6 mg PO BID Fluid Retention/Swelling 09/02/23
cholecalciferol (vitamin D3) 50 mcg (2,000 unit) tablet (Vitamin D3) 50 mcg PO DAILY Supplement 09/02/23
ferrous sulfate 325 mg (65 mg iron) tablet 325 mg PO DAILY Supplement 09/02/23
levothyroxine 50 mcg tablet (Synthroid) 50 mcg PO DAILY Thyroid 09/02/23
macitentan 10 mg tablet (Opsumit) 10 mg PO DAILY Lung Issues 09/02/23
polyethylene glycol 3350 17 gram oral powder packet (Miralax) 17 g PO DAILYPRN PRN constipation 09/02/23
potassium chloride 10 mEq tablet,extended release 10 meq PO DAILYPRN PRN when taking metolazone 09/02/23
rosuvastatin 10 mg tablet (Crestor) 10 mg PO DAILY High Cholesterol 09/02/23
spironolactone 25 mg tablet 25 mg PO DAILY Heart Disease/Condition 09/02/23
tadalafil (pulm. hypertension) 20 mg tablet (pulmonary hypertension) 40 mg PO DAILY pulmonary hypertension 09/02/23
umeclidinium 62.5 mcg-vilanterol 25 mcg/actuation powdr for inhalation (Anoro Ellipta) 1 inh inhalation R DAILY Lung/Breathing Issues 09/02/23
clopidogrel 75 mg tablet 75 mg PO DAILY Blood clot prevention/tx #0 tabs 09/04/23
pantoprazole 40 mg tablet,delayed release 40 mg PO BID Gastrointestinal issue #60 tabs 09/04/23
Home Medication Changes
new
PPI changed to BID
Pending Results: No
--- NOTE | 2023-09-05 12:01 | CM ---
Addendum entered by Amarilis Smith 09/05/23 12:49:
Fax for [facility] :
[phone]
Original Note:
Patient seen bedside, discussed plan for discharge today. Patient reports her daughter is on her way to bring her home. CM reviewed IMM, signed, placed in patients chart. CM will send updated clinicals to [place] .
Plan; home with return of care [facility] .
[2023-09-05 12:40] VITALS: BP 120/80
== END 2023-09-05 13:38 | disposition home health service (06) | DRG 378 ==
LOC: 4 WEST ACU 16:12
PROVIDERS: ADMITTING PHYSICIAN Internal Medicine; ATTENDING PHYSICIAN Hospitalist; CONSULT PHYSICIAN Internal Medicine Critical Care Medicine; CONSULT PHYSICIAN Internal Medicine Gastroenterology; EMERGENCY PHYSICIAN Emergency Medicine; FAMILY PHYSICIAN Family Medicine
PROC: 30233N1 Transfusion of Nonautologous Red Blood Cells into Peripheral Vein, Percutaneous Approach (ICD-10-PCS; 2023-09-02)
PROC: 0D568ZZ Destruction of Stomach, Via Natural or Artificial Opening Endoscopic (ICD-10-PCS; 2023-09-03)
DX: K31.811 Angiodysplasia of stomach and duodenum with bleeding (principal); D62 Acute posthemorrhagic anemia; I50.32 Chronic diastolic (congestive) heart failure; I13.0 Hypertensive heart and chronic kidney disease with heart failure and stage 1 through stage 4 chronic kidney disease, or unspecified chronic kidney disease; J96.11 Chronic respiratory failure with hypoxia; I31.39 Other pericardial effusion (noninflammatory); N18.4 Chronic kidney disease, stage 4 (severe); E87.20 Acidosis, unspecified; I44.0 Atrioventricular block, first degree; E89.0 Postprocedural hypothyroidism; I27.21 Secondary pulmonary arterial hypertension; I27.23 Pulmonary hypertension due to lung diseases and hypoxia; D50.9 Iron deficiency anemia, unspecified; F41.9 Anxiety disorder, unspecified; I07.1 Rheumatic tricuspid insufficiency; M34.9 Systemic sclerosis, unspecified; I73.9 Peripheral vascular disease, unspecified; J44.9 Chronic obstructive pulmonary disease, unspecified; E78.00 Pure hypercholesterolemia, unspecified; I25.10 Atherosclerotic heart disease of native coronary artery without angina pectoris; Z99.81 Dependence on supplemental oxygen; Z95.820 Peripheral vascular angioplasty status with implants and grafts; Z92.3 Personal history of irradiation; Z85.118 Personal history of other malignant neoplasm of bronchus and lung; Z87.891 Personal history of nicotine dependence; Z95.5 Presence of coronary angioplasty implant and graft; Z86.73 Personal history of transient ischemic attack (TIA), and cerebral infarction without residual deficits; Z79.890 Hormone replacement therapy; Z79.82 Long term (current) use of aspirin; Z79.51 Long term (current) use of inhaled steroids; Z91.041 Radiographic dye allergy status; Z91.013 Allergy to seafood; Z79.02 Long term (current) use of antithrombotics/antiplatelets
CPT/HCPCS: 80048; 80053; 82607; 82728; 83540; 83550; 83605; 84484; 85014; 85018; 85025; 85027; 86850; 86900; 86901; 86920; 87040; 93005; 96374; 96376; 97161; 99291; P9016

== ENCOUNTER 2024-04-22 19:48 | Inpatient (IN) | payer OTHER, SELFPAY ==
[2024-04-22] VITALS (8 sets, daily range): BP systolic 131–152; BP diastolic 46–134; BMI 23.9
[2024-04-22 16:18] LABS: % Basophils 0.5 % (0-2); % Immature Granulocytes 0.5 % (0-0.5); % Lymphocytes 3.3 % (20.5-51.1); % Monocytes 2.7 % (1.7-9.3); Absolute Lymphocytes 0.2 10^3/uL (1.2-3.4); Absolute Monocytes 0.2 10^3/uL (0.1-0.6); Absolute Neutrophils 6.1 10^3/uL (1.4-6.5); Hematocrit 28.1 % (37.0-47.0); Mean Corp Hgb Conc. 28.5 g/dL (33.0-37.0); Mean Corpuscular Hgb 20.7 pg (27.0-31.0); Mean Corpuscular Volume 72.8 fL (81.0-99.0); Mean Platelet Volume 10.7 fL (7.4-10.4); Nucleated Red Blood Cells % 0 %; Platelet Count 209 10^3/uL (130-400); Red Blood Cell Count 3.86 10^6/uL (4.20-5.40); White Blood Cell Count 6.6 10^3/uL (4.8-10.8)
[2024-04-22 16:22] LABS: Normal RBC Morphology No
[2024-04-22 16:23] LABS: Anisocytosis 1+; Hypochromasia 1+; Macrocytosis 2+; Microcytosis Slight
[2024-04-22 16:24] LABS: Ovalocytes 1+; Target Cells Slight
[2024-04-22 16:27] LABS: Stomatocytes Slight
[2024-04-22 16:34] LABS: NT-proBNP > 27000 pg/ml
[2024-04-22 16:36] LABS: ALT (SGPT) 13 U/L (0-35); AST (SGOT) 20 U/L (14-36); Albumin 4.4 g/dl (3.5-5.0); Alkaline Phosphatase 57 U/L (38-126); Calcium 8.8 mg/dl (8.4-10.2); Carbon Dioxide 25 mmol/L (22-30); Chloride 91 mmol/L (98-107); Glucose 160 mg/dl (70-99); Potassium 3.7 mmol/L (3.5-5.1); Sodium 135 mmol/L (135-145); Total Bilirubin 0.7 mg/dl (0.2-1.3); Total Protein 7.1 g/dl (6.3-8.2); eGFR 15.02
[2024-04-22 16:59] LABS: Blood Urea Nitrogen 124 mg/dl (7-17)
--- NOTE | 2024-04-22 18:03 | ED.GENMED ---
History of Present Illness
General
Chief Complaint: Breathing Problem
Source: patient, records and family
Exam Limitations: none
Time Seen by Provider: 04/22/24 17:29
Nursing documentation reviewed up to this point in time: agreed with
History of Present Illness
History of Present Illness:
74-year-old female acute on chronic shortness of breath COPD heart failure she is on Bumex twice daily metolazone as needed she has had anemia previously followed previously by Dr. White also by heart failure specialist at [facility]
[place] she has a device implanted they can tell her when fluid is high around her heart, she had a call from her air reduction equipment operator today apparently was feeling dizzy told to come to the ER, no dark or bloody stools, been compliant with her diuretic
Past History
Past History
ED Past Medical History: Arrthythmia, CAD (2 stents), Cancer (lung-finshed 5 txs of XRT in November 2018), CHF, COPD, CVA (TIA), HTN and Hypercholesterolemia
ED Past Surgical History: Cardiac (cath w/ 2 stents) and Other (Carotid endarterectomy)
Social History
Tobacco: Former smoker (Quit July 2017)
Alcohol: None
Drug: None
Personal: Other
Living: with family
Employment: Retired
Family History
Family History: Hypertension
Review of Systems
Review of Systems
All Other Systems: Not applicable
Constitutional: Denies fever, fatigue or chills
EENT: Reports no symptoms
Respiratory: Reports cough and trouble breathing
Cardiac: Reports no symptoms
ABD/GI: Reports no symptoms
: Reports no symptoms
Musculoskeletal: Reports no symptoms
Endocrine: Reports no symptoms
Hematologic/Lymphatic: Reports no symptoms
Psychiatric: Reports no symptoms
Phy Exam
Physical Exam
Physical Exam:
Insert Arvind physical
Scores
Heart Failure Risk
Heart Failure Risk Score: Yes
History of Stroke or TIA: No
History of intubation for respiratory distress: No
Heart rate on ED arrival >/= 110: No
SaO2 <90% on arrival on room air: Yes
HR >/=110 during 3min walk test (or too ill to perform test): Yes
ECG has acute ischemic changes: No
Urea >/=12mmol/L (BUN 33.6mg/dL): Yes
Serum CO2>/=35mmol/L: Yes
Troponin I or T elevated to [place] Level (0.4mg/dL): No
NT-proBNP >/=5,000ng/L (5,000pg/ml): Yes
HF Risk Score: 7
Admission Status: VERY HIGH RISK 69.8% Consider admission to hospital
Course
Orders/Labs/Results
Orders:
Orders
04/22/24 Dinner
Cholesterol Lowering
At Your Request: Limited Participation
Does patient need a safe tray?: No
Cholesterol Lowering: Sodium, 2 Gram
04/22/24 15:35
Electrocardiogram (*1) Urgent
Reason for Study: Shortness of Breath
EKG- Treatment ONCE
04/22/24 16:03
Complete Blood Count/With Diff Urgent
Comprehensive Metabolic Panel Urgent
NT-proBNP Urgent
04/22/24 17:03
CR Chest - 2 Views Urgent
Comment:
Reason For Exam: sooob
04/22/24 17:50
Bumetanide [Bumex] 2 mg IV NOW STA
Ipratropium/Albuterol Sulfate [Duoneb] 3 ml INH R NOW STA
04/22/24 19:16
Admit/Transfer Patient As Directed
Co-Sign Provider:
Level of Care: Inpatient admission
Assign to:: Telemetry
Physician / Group: Monica Sanchez
Diagnosis: HF exacerbation
Reason for Telemetry: Acute Heart Failure
Date to Stop Telemetry: 04/25/24
Time to Stop Telemetry: 11:00
Reason for Hospitalization: HF exacerbation
Expected length of stay greater than two midnights?: Yes
ELOS- Estimated Length of Stay in days: 3
I certify the patient meets the requirements for IP care: Yes
PRN Pain Medication Management As Directed
May give lesser potent ordered pain med per pt: Yes
preference::
Protocol:: Medication orders for pain may be administered in a
manner that supports deferring to patient preference
when the pt is:
- Requesting an ordered lesser potent pain medication.
Least to most potent pain medications are defined
as: acetaminophen < NSAID < tramadol < opioids
(morphine, oxycodone, hydromorphone).
- Requesting a lesser dose of the same medication IF
ORDERED.
- Requesting a less intrusive route of administration
if both routes are prescribed by the provider (PO <
IV).
04/22/24 19:18
Code Status As Directed
Resuscitation Status: Do not resuscitate
Reached after discussion with pt or family/Healthcare POA: Yes
Decision communicated with: Patient
DNR Bracelet Application ONCE
04/22/24 20:46
Albuterol Nebs [Ventolin Nebules] 2.5 mg INH R Q4HPRN PRN
Albuterol [ProAIR HFA INHALER] 2 puff INH R Q6HPRN PRN
Alprazolam [Xanax] 0.25 mg PO DAILYPRN PRN
04/22/24 20:46
CARDIOLOGY CONSULT Routine
Consulting Provider: Dick Schafer
Was physician already notified: Yes
HF DIETARY CONSULT Routine
HF EDUCATOR CONSULT Routine
Comment:
Activity As Directed
Activity Level: Ambulate
Intake/ Output As Directed
Frequency: Per unit guidelines
Patient Education As Directed
Type: CHF folder
Comment: give on admission. Document in Interdisciplinary Education record
Sleep Apnea Assessment by RN As Directed
Comment:
Physician Instructions:
Vital Signs As Directed
Frequency: Other
Additional Instructions:: Q12 or per unit guidelines if more frequent.
Weight As Directed
Frequency: Daily
Type of Scale: Standing Scale
Comment: Daily morning weight. If unable to stand, use balanced bed scale.
Weight As Directed
Frequency: Once
Type of Scale: Standing Scale
Comment: Upon Admission. If unable to stand, use balanced bed scale.
Pulse Ox/cont/shift [RESP] Routine
Quantity: 1
Special Instructions: Daily pulse oximetry at rest. If greater than 92% at rest also obtain pulse oximetry
while ambulating as tolerated.
DX Deep Vein Thrombosis Video Routine
04/22/24 22:00
Alprazolam [Xanax] 0.25 mg PO HS
04/23/24 00:00
Heparin 5,000 units SC Q8
04/23/24 06:00
Echo 2D MMode Color/Doppler IN AM
Reason for Study: heart failure
Basic Metabolic Panel IN AM
Cardiovascular Evaluation IN AM
Complete Blood Count/No Diff IN AM
Levothyroxine [Synthroid] 50 mcg PO DAILY @ 0600
04/23/24 08:00
Aspirin Low Dose EC [Aspir Low (Enteric Coated)] 81 mg PO DAILY
Bumetanide [Bumex] 4 mg PO BID@0800,1600
Cholecalciferol (Vitamin D3) [VITAMIN D3 (cholecalciferol)] 50 mcg PO DAILY
Clopidogrel Bisulfate [Plavix] 75 mg PO DAILY
Ferrous Sulfate [Feosol] 325 mg PO Q48H
Fluoxetine HCl [Prozac] 20 mg PO DAILY
Pantoprazole [Protonix] 40 mg PO DAILY
Rosuvastatin Calcium [Crestor] 10 mg PO DAILY
Spironolactone [Aldactone] 25 mg PO DAILY
macitentan [Opsumit] 10 mg PO DAILY
tadalafil (pulm. hypertension) 40 mg PO DAILY
umeclidinium-vilanterol [Anoro Ellipta] 1 inh INH R DAILY
04/24/24 06:00
Basic Metabolic Panel IN AM
Complete Blood Count/No Diff IN AM
04/25/24 06:00
Basic Metabolic Panel IN AM
Complete Blood Count/No Diff IN AM
04/25/24 11:00
DC Protocol for Telemetry ONCE
Abnormal Lab Results
04/22/24
16:03
RBC 3.86 L 10^6/uL
(4.20-5.40)
Hgb 8.0 L g/dL
(12.0-16.0)
Hct 28.1 L %
(37.0-47.0)
MCV 72.8 L fL
(81.0-99.0)
MCH 20.7 L pg
(27.0-31.0)
MCHC 28.5 L g/dL
(33.0-37.0)
RDW 18.0 H %
(11.5-14.5)
MPV 10.7 H fL
(7.4-10.4)
Absolute Lymphs (auto) 0.2 L 10^3/uL
(1.2-3.4)
Neutrophils % 93.0 H %
(42.2-75.2)
Lymphocytes % 3.3 L %
(20.5-51.1)
Chloride 91 L mmol/L
(98-107)
BUN 124 H* mg/dl
(7-17)
Creatinine 3.1 H mg/dL
(0.6-1.0)
Glucose 160 H mg/dl
(70-99)
12/12/24 16:03
04/22/24 16:03
Vital Signs
Initial and Last Documented VS:
Initial Vital Signs
Temp Pulse Resp BP Pulse Ox
98.1 F 50 22 131/46 94
04/22/24 15:32 04/22/24 15:32 04/22/24 15:32 04/22/24 15:32 04/22/24 15:32
Last Documented Vital Signs
Temp Pulse Resp BP Pulse Ox
97.7 F 50 20 137/60 99
04/22/24 20:50 04/22/24 20:50 04/22/24 20:50 04/22/24 20:50 04/22/24 20:50
MDM/Problems Addressed
Differential Diagnosis Includes:
Heart failure pneumonia less likely DVT or PE
MDM/Problems Addressed:
Shortness of breath
Chronic conditions affecting care: HTN, Cardiomyopathy, Arrhythmia and COPD
Acute Exacerbation and/or Progression of Chronic Illness: HTN, Cardiomyopathy, Arrhythmia and COPD
*EKG
Interpreted by ED Provider?: Yes
Interpretation: abnormal
Comparison EKG: no comparison EKG present
Heart Rate: 78
Rate: normal
Rhythm: sinus
Ischemia: non-specific ST changes
*Equipment Specialist Interpretation
Rate: normal
Interpretation: normal
Heart Rate: 78
Rhythm: sinus
*Critical Care Note
Total Time (30-74mins, 75-104mins- exclusive of procedures): 12
Data Reviewed
Review of Other/Old Records Reveals: Labs and Discharge Summary
Source: patient and spouse
Prescriptions/Medications Considered But Not Given:
Packed cells
Further Testing Considered But Not Given:
CT scan
Patient Management
Social determinants of health affecting care: Living situation
Discussion with other providers: Hospitalist
Escalation/DeEscalation of care consider admission/obs:
Patient medically complex already on high dose of diuretic will require
ED Attending Note
-
Portions of this chart may have been created with voice recognition software.� Occasional wrong word or��sound alike� substitutions may have occurred due to the inherent limitations of voice recognition software.
Discharge Plan
Departure
Patient Disposition: Admit
Date of Disposition: 04/22/24
Time of Disposition: 18:13
Presentation/result/management discussed w/ accepting MD/DO: Hospitalist
Patient with high blood pressure during this ER visit?: No
Condition: Fair
Covid-19: Not Applicable
Discharge Problem:
Pulmonary hypertension, Chronic hypoxemic respiratory failure, CAD (coronary artery disease), Diabetes, Hypothyroid, Peripheral edema, History of lung cancer, CKD (chronic kidney disease), Scleroderma, Chronic obstructive pulmonary disease, Acute
dyspnea, CKD (chronic kidney disease), stage IV, Chronic heart failure with preserved ejection fraction (HFpEF)
Interventions
Interventions:
*Risk Screen - Suicide Last Done: 04/22/24 21:42
*General Assessment Last Done: 04/22/24 15:32
*Neglect/Abuse Screening Last Done: 04/22/24 15:32
*ED COVID-19 Vaccine History Last Done: 04/22/24 21:42
*Nursing Disposition Last Done: 04/22/24 21:09
ED- Cardiac Assessment Last Done: 04/22/24 16:04
ED- Pulmonary Assessment Last Done: 04/22/24 16:04
Discharge Date and Time
Discharge Date/Time: 04/22/24 21:09
[2024-04-22] MEDS: DUONEB 3 ML INH (18:08)
[2024-04-22] MEDS: BUMEX 2 MG IV (18:08)
--- NOTE | 2024-04-22 18:25 | HPS.HSE ---
Family Physician
-
Family Physician: Reza Ortiz
Chief Complaint
-
Shortness of breath with exertion
History of Present Illness
Patient is a 74-year-old female with past medical history significant for HFpEF, pulmonary hypertension, CAD, COPD, HTN, hypercholesterolemia and hypothyroidism who presented to [place] ED for evaluation of shortness of breath with exertion.
Patient states she has had increased shortness of breath with exertion since but yesterday and today was significantly worse. Today she reached out to her heart failure doctor, Dr. Elliott Toro with [facility], to read her Cardiomems
reading. Cardiomems is an implanted device in her pulmonary artery for pressure readings. She states they want reading </=30 and today was 35 so office told her to report to hospital for CHF exacerbation. She denies any recent fever, chills, cough,
chest pain, nausea, vomiting, constipation, diarrhea or urinary symptoms. She utilizes home oxygen at 4 Liters continuous and is on 4Liters here with SpO2 in low 90s.
Medical History
Past Medical History
Past Medical History: Reports Other
Additional Past Medical History:
HFpEF
pulmonary hypertension
CAD
COPD
HTN
hypercholesterolemia
hypothyroidism
Past Surgical History: Reports Other
Additional Past Surgical History:
coronary stents
right carotid stent
right femoral endarterectomy with popliteal stent
hysterectomy
Social History
Tobacco: Former Smoker
Alcohol: None
Drug: None
Living: With Family
Employment: Retired
Family History
Family History: Not pertinent
Allergies / Home Medications
Allergies reflects when Allergies were last updated in [facility].
Home Medications with original date entered in [facility]
Allergy/Medication List:
Allergies
Allergy/AdvReac Type Severity Reaction Status Date / Time
iodine Allergy allergic Verified 04/22/24 15:36
to shrimp
shrimp Allergy VIOLENTLY Verified 04/22/24 15:36
SICK
Home Medications
acetaminophen 325 mg tablet (Tylenol) 975 mg PO Q6HPRN PRN mild pain/headache 09/02/23
albuterol sulfate 2.5 mg/3 mL (0.083 %) solution for nebulization 2.5 mg inhalation R Q4HPRN PRN sob 09/02/23
alprazolam 0.25 mg tablet (Xanax) 0.25 mg PO HS Mental Health/Anxiety 09/02/23
aspirin 81 mg tablet,delayed release 81 mg PO DAILY Blood Clot Prevention/Tx 09/02/23
bumetanide 2 mg tablet 6 mg PO BID Fluid Retention/Swelling 09/02/23
cholecalciferol (vitamin D3) 50 mcg (2,000 unit) tablet (Vitamin D3) 50 mcg PO DAILY Supplement 09/02/23
ferrous sulfate 325 mg (65 mg iron) tablet 325 mg PO Q48H Supplement 09/02/23
levothyroxine 50 mcg tablet (Synthroid) 50 mcg PO DAILY Thyroid 09/02/23
macitentan 10 mg tablet (Opsumit) 10 mg PO DAILY Lung Issues 09/02/23
polyethylene glycol 3350 17 gram oral powder packet (Miralax) 17 g PO DAILYPRN PRN constipation 09/02/23
potassium chloride 10 mEq tablet,extended release 10 meq PO DAILYPRN PRN when taking metolazone 09/02/23
rosuvastatin 10 mg tablet (Crestor) 10 mg PO DAILY High Cholesterol 09/02/23
spironolactone 25 mg tablet 25 mg PO DAILY Heart Disease/Condition 09/02/23
tadalafil (pulm. hypertension) 20 mg tablet (pulmonary hypertension) 40 mg PO DAILY pulmonary hypertension 09/02/23
umeclidinium 62.5 mcg-vilanterol 25 mcg/actuation powdr for inhalation (Anoro Ellipta) 1 inh inhalation R DAILY Lung/Breathing Issues 09/02/23
clopidogrel 75 mg tablet 75 mg PO DAILY Blood clot prevention/tx #0 tabs 09/04/23
albuterol sulfate 90 mcg/actuation aerosol inhaler 2 puff inhalation R Q6HPRN PRN sob 04/22/24
alprazolam 0.25 mg tablet 0.25 mg PO DAILYPRN PRN anxiety 04/22/24
fluoxetine 20 mg capsule 20 mg PO DAILY 04/22/24
hydrocortisone 2.5 % topical ointment 1 applic topical BIDPRN PRN psoriasis 04/22/24
methylprednisolone 4 mg tablets in a dose pack 0 mg PO PER PKG DIR 04/22/24
metolazone 2.5 mg tablet 2.5 mg PO DAILYPRN PRN when instructed by cardiology 04/22/24
pantoprazole 40 mg tablet,delayed release 40 mg PO DAILY Gastrointestinal issue 04/22/24
tramadol 50 mg tablet 50 mg PO Q6HPRN PRN severe pain 04/22/24
Review of Systems
-
History Source: Patient
Constitutional: Reports No Symptoms
EENT: Reports No Symptoms
Respiratory: Reports Trouble Breathing (shortness of breath with exertion)
Cardiac: Reports No Symptoms
Abdomen/GI: Reports No Symptoms
: Reports No Symptoms
Musculoskeletal: Reports No Symptoms
Skin: Reports No Symptoms
Neurological: Reports No Symptoms
Endocrine: Reports No Symptoms
Hematologic/Lymphatic: Reports No Symptoms
Psych: Reports No Symptoms
Physical Exam
Vital Signs
Vital Signs
Temp Pulse Resp BP Pulse Ox
98.1 F 46 14 152/134 97
04/22/24 15:32 04/22/24 18:08 04/22/24 17:00 04/22/24 18:08 04/22/24 17:00
Physical Exam
General: Well Developed, Well Nourished, No Apparent Distress, Comfortable and Conversant
HEENT: NormoCephalic, Moist mucous membranes, Atraumatic, Nose Appears Normal and Ears Appear Normal
Respiratory: Clear, Rhonchi, Accessory Resp Muscle Use and Decreased Breath Sounds
Cardiac: S1/S2 and Regular Rhythm; No Murmur, Rub or Gallop
Breast: Deferred by me
GI: Soft, Non Tender, Non Distended and Normal Bowel Sounds; No Organomegaly
Rectal: Deferred by Provider
Genito-urinary: Deferred by me
Musculoskeletal: No Clubbing, No Cyanosis and No Edema
Skin: Warm and IV/Catheter Site; No Rash
Neuro: Awake, Alert, AO x 3 and Nonfocal/grossly intact
Hematologic/Lymphatic: No Lymphadenopathy
Psych: Calm and Intact Judgment/Insight
Laboratory Results
-
04/22/24 16:03
04/22/24 16:03
Laboratory Results
Total Bilirubin 0.7 mg/dl (0.2-1.3) 04/22/24 16:03
AST 20 U/L (14-36) 04/22/24 16:03
ALT 13 U/L (0-35) 04/22/24 16:03
Alkaline Phosphatase 57 U/L (38-126) 04/22/24 16:03
Data Reviewed
-
Diagnostic Radiology: Report Reviewed by me (CXR: Increased left midlung probable atelectasis/scarring.)
Medical Tests (Nuc Med, Echo, EKG etc): Report Reviewed by me (EKG: SINUS RHYTHM WITH 2ND DEGREE A-V BLOCK (MOBITZ I) WITH 2:1 A-V CONDUCTION RIGHTWARD AXIS INCOMPLETE RIGHT BUNDLE BRANCH BLOCK ANTERIOR INFARCT (CITED ON OR BEFORE 30-JUL-2021))
Lab Data: Labs Reviewed by me (Hgb 8.0, Hct 28.1, BUN 124, Creat 3.1, BNP >93534, )
Impression/Plan
-
IMPRESSION/PLAN:
#HFpEF exacerbation
Implanted CardioMems device to read pressures by Heart Failure doctor
Pressures elevated today and office instructed to go to ED for evaluation and treatment
- Admit Telemetry
- Consult Cardiology
- Echo
- IV Bumex
#pulmonary hypertension
- continue Ellipta, Opsumit, and tadalafil
#CAD
- continue aspirin and rosuvastatin
#COPD
CXR: Increased left midlung probable atelectasis/scarring.
- continue albuterol Nebs PRN
#HTN
- continue spironolactone
#hypercholesterolemia
- continue rosuvastatin
#hypothyroidism
- continue levothyroxine
#anxiety
- continue alprazolam and fluoxetine
Code Status: DNR
DVT Prophylaxis: Heparin Sq
--- NOTE | 2024-04-22 19:32 | W.PN.UPDATE ---
Update Note
Progress Note Update
This is an addendum to the H&P written by Lia Amado on 04/22/2024. Patient seen and examined independently with ASSOCIATE ENGINEER.
74-year-old female past medical history of CAD status post 2 stents, right lower extremity PAD with right popliteal stents, right carotid endarterectomy, non-small cell lung cancer status post radiation, scleroderma, CHF, mild MR, mild to moderate
TR, chronic pericardial effusion, COPD on 4 L baseline, pulmonary hypertension, CVA, hypertension, CKD 4, hypercholesteremia, hypothyroidism, diabetes, obesity, anemia, anxiety, presenting with shortness of breath with exertion/productive cough and
increased pulmonary artery pressure of 36 on Cardio Mems monitored at [place]. She states her pressure is usually 30.
Chest x-ray shows increased left midlung probable atelectasis/scarring. Cardiac BNP greater than 27,000 from 10,000 previously. Creatinine increased from 2.1-3.1. Patient went chronic microcytic anemia with hemoglobin 8 which is stable.
Patient likely with acute CHF exacerbation with right heart failure with STEVEN secondary to cardiorenal syndrome. Increase Bumex to 4 mg twice daily since she already takes 6 mg twice daily at baseline. May benefit from Metolazone but defer to
cardiology. Check echo. Cardiology consulted.
--- NOTE | 2024-04-22 20:50 | PTCARENOTE ---
Pt arrived from ED via stretcher and ambulated with the walker to bed. Pt is AAOx3, VSS sating 99% on 4L NC that she chronically wears at home, and w/o complaints of pain. Pt is resting comfortably with call pak within reach.
[2024-04-22] MEDS: XANAX 0.25 MG PO (22:30)
[2024-04-22] MEDS: HEPARIN 5000 UNITS SC (23:47)
[2024-04-23] VITALS (8 sets, daily range): BP systolic 126–174; BP diastolic 32–130; BMI 25.3; BMI 25.6
[2024-04-23] MEDS: SYNTHROID 50 MCG PO (05:17)
[2024-04-23] MEDS: VENTOLIN NEBULES 2.5 MG INH ×4 (05:54→19:10)
[2024-04-23] MEDS: STRIVERDI RESPIMAT 2 PUFF INH (07:48)
[2024-04-23] MEDS: SPIRIVA RESPIMAT 2.5 MCG 2 PUFF INH (07:48)
[2024-04-23] MEDS: TYLENOL 975 MG PO (08:01)
[2024-04-23] MEDS: VITAMIN D3 (cholecalciferol) 50 MCG PO (08:02)
[2024-04-23] MEDS: PROZAC 20 MG PO (08:02)
[2024-04-23] MEDS: PLAVIX 75 MG PO (08:02)
[2024-04-23] MEDS: PROTONIX 40 MG PO (08:02)
[2024-04-23] MEDS: ASPIR LOW (ENTERIC COATED) 81 MG PO (08:02)
[2024-04-23] MEDS: CRESTOR 10 MG PO (08:03)
[2024-04-23] MEDS: FEOSOL 325 MG PO (08:03)
[2024-04-23] MEDS: HEPARIN 5000 UNITS SC (08:03)
[2024-04-23] MEDS: ALDACTONE 25 MG PO (08:04)
[2024-04-23 10:48] LABS: Hematocrit 28.4 % (37.0-47.0); Mean Corp Hgb Conc. 28.2 g/dL (33.0-37.0); Mean Corpuscular Hgb 20.9 pg (27.0-31.0); Mean Corpuscular Volume 74.3 fL (81.0-99.0); Mean Platelet Volume 11.3 fL (7.4-10.4); Platelet Count 303 10^3/uL (130-400); Red Blood Cell Count 3.82 10^6/uL (4.20-5.40); Red Cell Dist. Width 18.1 % (11.5-14.5); White Blood Cell Count 7.5 10^3/uL (4.8-10.8)
[2024-04-23 10:53] LABS: Calcium 9.1 mg/dl (8.4-10.2); Carbon Dioxide 29 mmol/L (22-30); Chloride 93 mmol/L (98-107); Estimated Creatinine Clearance 11 ml/min; Glucose 123 mg/dl (70-99); HDL Cholesterol 51 mg/dl; LDL Cholesterol, Calculated 53 mg/dl; Potassium 3.4 mmol/L (3.5-5.1); Sodium 138 mmol/L (135-145); Total Cholesterol 148 mg/dl (50-199); Triglyceride 222 mg/dl (10-149); Very Low Density Lipoprotein 44 mg/dl (0-30); eGFR 13.93
--- NOTE | 2024-04-23 11:04 | CON.CAR ---
Addendum entered and electronically signed by Vidya Borjas MD 04/23/24 17:12:
I saw and examined the patient.
The Anode Builder's note was reviewed and I agree with the note.
Comment: Ms. Kelly is a 74-year-old female with significant past medical problems including hypertension, hyperlipidemia, former smoker, obstructive sleep apnea, hypothyroidism, type 2 diabetes mellitus, peripheral artery disease status post
carotid endarterectomy and lower extremity stents, most recently in August 2023 on dual antiplatelet therapy, history of TIA/CVA, lung cancer s/p radiation therapy in 2018, CKD stage III with baseline creatinines in the mid twos, severe pulmonary
hypertension due to scleroderma, chronic moderate pericardial effusion, coronary artery disease with inferior ST elevation IA with RCA stents in 2002, chronic hypoxemic respiratory failure secondary to COPD on 4 L of oxygen at home, chronic heart
failure with preserved ejection fraction with CardioMEMS device in place being followed at [facility] who presents today with progressive shortness of breath concerning for acute on chronic heart failure exacerbation. She also has
chronic anemia with baseline hemoglobins in the mid eights from unclear etiology. No documented or known history of atrial fibrillation.
On exam patient appears older than stated age, no acute distress, awake, alert and oriented x 3, regular rate, normal S1 and S2, no murmurs, rubs or gallops, morbidly obese, decreased breath sounds at bilateral bases, abdomen is obese but otherwise
soft, nontender, nondistended with active bowel sounds, warm extremities
Recommendations:
1. IV diuresis with strict ins and outs, daily upright weights and close monitoring of electrolytes with repletion as warranted.
2. With possible STEVEN on CKD, recommend nephrology input given she is not known to any one outside of the hospitalization.
3. Initiate IV heparin in the setting of atrial fibrillation noted on EKG given high CHADS2 Vascor. If seems to tolerate this well in the setting of chronic anemia, would consider discharging on Eliquis and aspirin to minimize risk for bleeding
and avoid triple therapy.
4. Awaiting callback/discussion with outpatient private investigator surveillance. I had reach out to him earlier this morning. We reviewed records sent over from [facility] from visit back in January where her creatinine was noted to be 2.1 and a
hemoglobin of 8.7. Patient does not really currently any complaints concerning for bleeding complications.
Vidya Borjas MD, [facility]
Original Note:
Consultation
Consultation Request
Date/Time Consultation Requested: 04/23/2024
Date/Time Consultation Performed: 04/23/2024
Requesting Provider: Dr. Sanchez
Performing Provider: Sonali Packer PA-C
Reason for Consultation: CHF
Medical History
-
History of Present Illness:
HPI: Yani is a 74 year old female with PMH of chronic respiratory failure on 4L NC, chronic HFpEF w/ cardioMEMs implant, CAD w/ prior stenting, chronic pericardial effusion, pulmonary hypertension, scleroderma, CKD, lung cancer, prior TIA,
carotid artery disease, PAD, HTN, HLD, SAURABH, and hypothyroidism. Presented to [facility] for evaluation of worsening SOB. Symptoms started a few weeks ago after Thanksgiving when she noted worsening SOB, however she states yesterday she felt dramatically
worse, so she called her private investigator surveillance and reported her CardioMEMs device showed she was at 35 mmHg and her goal she states is to be below 30 mmHg. She was told to come to ER for evaluation given concern for acute heart failure. She notes typically
she takes bumex 3mg BID as OP with metolazone 2.5mg PRN. She believes she took metolazone on Friday and Friday this week. Weight has been down trending over the past few weeks due to lack of appetite and she denies any worsening edema. On arrival
to ER, ProBNP was elevated at > 27,000. Creat elevated at 3.1. She was given a single dose of bumex 2mg in ER 12/12 PM, however states she did not notice any significant diuresis with this. She feels slightly better this AM compared to when she came
in to ER. Remains on 4L NC which she reports is her baseline.
PMH:
Chronic hypoxemic respiratory failure on 4L NC
Chronic HFpEF
CardioMEMs implant
CAD
Distant inferior wall IA with RCA stents 05/06/2003.
Chronic pericardial effusion
Severe Pulmonary hypertension
Scleroderma
Mild MR, mild to moderate TR
CKD 3
Lung CA s/p XRT
h/o TIA
s/p carotid endarterectomy 02/07/2012
PAD
HTN
HLD
Former smoker
SAURABH
Hypothyroidism
Past Medical History
Past Medical History: Other (In HPI)
Past Surgical History: Cardiac (PCI to mid RCA 05/06/2003) and Other (peripheral vascular stenting, carotid endarterectomy)
Social History
Tobacco: Former Smoker
Alcohol: None
Drug: None
Personal:
Employment: Retired
Family History
Family History: Hypertension
Allergies / Home Medications
Allergy/AdvReac Type Severity Reaction Status Date / Time
iodine Allergy allergic Verified 04/22/24 15:36
to shrimp
shrimp Allergy VIOLENTLY Verified 04/22/24 15:36
SICK
�Medication �Instructions �Recorded �Confirmed �Type
acetaminophen 325 mg tablet 975 mg PO Q6HPRN PRN mild 09/02/23 04/22/24 History
(Tylenol) pain/headache
albuterol sulfate 2.5 mg/3 mL 2.5 mg inhalation R Q4HPRN PRN sob 09/02/23 04/22/24 History
(0.083 %) solution for nebulization
alprazolam 0.25 mg tablet (Xanax) 0.25 mg PO HS Mental Health/Anxiety 09/02/23 04/22/24 History
aspirin 81 mg tablet,delayed 81 mg PO DAILY Blood Clot 09/02/23 04/22/24 History
release Prevention/Tx
bumetanide 2 mg tablet 6 mg PO BID Fluid 09/02/23 04/22/24 History
Retention/Swelling
cholecalciferol (vitamin D3) 50 50 mcg PO DAILY Supplement 09/02/23 04/22/24 History
mcg (2,000 unit) tablet (Vitamin
D3)
ferrous sulfate 325 mg (65 mg 325 mg PO Q48H Supplement 09/02/23 04/22/24 History
iron) tablet
levothyroxine 50 mcg tablet 50 mcg PO DAILY Thyroid 09/02/23 04/22/24 History
(Synthroid)
macitentan 10 mg tablet (Opsumit) 10 mg PO DAILY Lung Issues 09/02/23 04/22/24 History
polyethylene glycol 3350 17 gram 17 g PO DAILYPRN PRN constipation 09/02/23 04/22/24 History
oral powder packet (Miralax)
potassium chloride 10 mEq 10 meq PO DAILYPRN PRN when taking 09/02/23 04/22/24 History
tablet,extended release metolazone
rosuvastatin 10 mg tablet (Crestor) 10 mg PO DAILY High Cholesterol 09/02/23 04/22/24 History
spironolactone 25 mg tablet 25 mg PO DAILY Heart 09/02/23 04/22/24 History
Disease/Condition
tadalafil (pulm. hypertension) 20 40 mg PO DAILY pulmonary 09/02/23 04/22/24 History
mg tablet (pulmonary hypertension) hypertension
umeclidinium 62.5 mcg-vilanterol 1 inh inhalation R DAILY 09/02/23 04/22/24 History
25 mcg/actuation powdr for Lung/Breathing Issues
inhalation (Anoro Ellipta)
clopidogrel 75 mg tablet 75 mg PO DAILY Blood clot 09/04/23 04/22/24 Rx
prevention/tx #0 tabs
albuterol sulfate 90 mcg/actuation 2 puff inhalation R Q6HPRN PRN sob 04/22/24 04/22/24 History
aerosol inhaler
alprazolam 0.25 mg tablet 0.25 mg PO DAILYPRN PRN anxiety 04/22/24 04/22/24 History
fluoxetine 20 mg capsule 20 mg PO DAILY 04/22/24 04/22/24 History
hydrocortisone 2.5 % topical 1 applic topical BIDPRN PRN 04/22/24 04/22/24 History
ointment psoriasis
methylprednisolone 4 mg tablets in 0 mg PO PER PKG DIR 04/22/24 04/22/24 History
a dose pack
metolazone 2.5 mg tablet 2.5 mg PO DAILYPRN PRN when 04/22/24 04/22/24 History
instructed by cardiology
pantoprazole 40 mg tablet,delayed 40 mg PO DAILY Gastrointestinal 04/22/24 04/22/24 History
release issue
tramadol 50 mg tablet 50 mg PO Q6HPRN PRN severe pain 04/22/24 04/22/24 History
Review of Systems
-
History Source: Patient
All other systems: Negative unless noted
Physical Exam
Vital Signs
Temp Pulse Resp BP Pulse Ox
98.2 F 48 18 126/63 99
04/23/24 07:25 04/23/24 08:04 04/23/24 07:51 04/23/24 08:04 04/23/24 07:51
Lab Results
04/23/24 10:15
04/23/24 10:15
Unc-W-Igzspfeuigg Pept > 74322 pg/ml 04/22/24 16:03
Physical Exam
General: Well Developed, Well Nourished and No Apparent Distress
HEENT: Normocephalic, Anicteric and Moist Mucous Membranes
Respiratory: Non Labored Respirations
Cardiac: S1/S2 and Irregular Rhythm
Musculoskeletal: No Clubbing, No Cyanosis and No Edema
Skin: Warm and Dry
Neuro: AO x 3 and Nonfocal/Grossly Intact
Psych: Calm
Impression / Plan
-
PCP: Dr. Reza Ortiz
Repair Coil Winder: Dr. Elliott Stokes ([facility] [place])
Impression:
Presented with worsening SOB
Acute on chronic HFpEF
CardioMEMs implant
Chronic hypoxemic respiratory failure on 4L NC
Newly diagnosed atrial fibrillation
CAD
Distant inferior wall IA with RCA stents 05/06/2003.
Chronic pericardial effusion
Severe pulmonary hypertension
Scleroderma
Mild MR, mild to moderate TR
CKD 3
Lung CA s/p XRT
h/o TIA
s/p carotid endarterectomy 02/07/2012
PAD
HTN
HLD
Former smoker
SAURABH
Hypothyroidism
Echo November 2012: revealed normal LV function, LVH and mild mitral regurgitation.
Echo 07/23/2021: EF 60% with mod to severe LVH, mild MR, biatrial enlargement. Mild to moderate TR, PASP 69 mmHg. Moderate to large pericardial effusion without hemodynamic compromise, 2.7 posteriorly and 2.3 laterally, mildly dilated aortic root.
Echo 08/03/2021: EF 65-70%, moderate to large pericardial effusion without evidence of hemodynamic compromise
Echo 04/23/2024: Study completed, report pending.
Plan:
-Presented with worsening SOB. Admitted with acute heart failure. ProBNP >27,000.
-Given a single dose of IV bumex 2mg in ER, without significant response. On bumex 3mg BID as OP with PRN metolazone as OP.
-Will give an additional 4mg IV bumex this AM. Follow response.
-Will need to use caution w/ diuresis given creat up to 3.3. May consider nephrology consult if creat does not improve.
-Hold spironolactone.
-Continue tadalafil and Opsumit for pulmonary hypertension.
-Echo completed 04/23, report pending. Preliminary read w/ small-mod pericardial effusion.
-Continue aspirin and plavix. Patient reports recent peripheral vascular procedure in August or September 2023.
-Initial ECG reviewed, SR with 2nd degree AV block type 1.
-ECG from this AM appears to be rate controlled atrial fibrillation. Patient denies any known history of afib.
-HR stable, not on any rate control medications currently.
-Will follow on telemetry for now. Discussed anticoagulation with patient. She has h/o GIB related to NSAID use earlier in 2023.
-Hgb 8.0 this AM, no bleeding noted by patient. Will have CM assess the cost of Eliquis 5mg BID and plan to start.
-Continue Crestor 10mg daily. LDL 53
-K 3.4, will replete. Check mag.
-Check TSH w/ reflex to free T4
-Records requested from primary private investigator surveillance.
HPI: Yani is a 74 year old female with PMH of chronic respiratory failure on 4L NC, chronic HFpEF w/ cardioMEMs implant, CAD w/ prior stenting, chronic pericardial effusion, pulmonary hypertension, scleroderma, CKD, lung cancer, prior TIA,
carotid artery disease, PAD, HTN, HLD, SAURABH, and hypothyroidism. Presented to [facility] for evaluation of worsening SOB. Symptoms started a few weeks ago after Thanksgiving when she noted worsening SOB, however she states yesterday she felt dramatically
worse, so she called her private investigator surveillance and reported her CardioMEMs device showed she was at 35 mmHg and her goal she states is to be below 30 mmHg. She was told to come to ER for evaluation given concern for acute heart failure. She notes typically
she takes bumex 3mg BID as OP with metolazone 2.5mg PRN. She believes she took metolazone on Friday and Friday this week. Weight has been down trending over the past few weeks due to lack of appetite and she denies any worsening edema. On arrival
to ER, ProBNP was elevated at > 27,000. Creat elevated at 3.1. She was given a single dose of bumex 2mg in ER 12/12 PM, however states she did not notice any significant diuresis with this. She feels slightly better this AM compared to when she came
in to ER. Remains on 4L NC which she reports is her baseline.
Data Reviewed
-
EKG: Tracing Personally Visualized and interpreted
Radiology: Report Reviewed by me
Labs: Labs Reviewed by me
Old Records: Requested and Reviewed
[2024-04-23] MEDS: BUMEX 4 MG IV (11:11)
[2024-04-23] MEDS: KCL 40 MEQ PO (11:11)
[2024-04-23 11:12] LABS: Blood Urea Nitrogen 129 mg/dl (7-17)
--- NOTE | 2024-04-23 12:29 | CM ---
Addendum entered by Bonnie Frey 04/23/24 14:19:
Patient confirmed logistics and stated that she has 2 insurances and doesn't normally have to pay for any prescriptions. Patient declined coupon. Patient indicated that her O2 level at home is 4 liters. CM will continue to follow for discharge
planning needs.
plan; home with VN watch for home O2 needs.
Addendum entered by Bonnie Frey 04/23/24 13:02:
CM called to [facility] and they indicated the cost for Eliquis 5mg BID currently for patient would be zero.
Original Note:
Patient seen at bedside in [facility]. Patient was very uncomfortable and unable to continue the conversation. Patient previously had indicated that she lived in a basement apartment in daughter's house and was independent with care. Patient is on home
O2 through [facility]. CM will confirm patient PCP is still Dr. Ortiz and she still uses [facility] in [place]. CM will continue to follow for discharge planning needs.
Plan; home with VN/vs home with no needs; watch for home O2 increase or changes
[2024-04-23 14:20] LABS: Magnesium 2.3 mg/dl (1.6-2.3)
[2024-04-23] MEDS: XANAX 0.25 MG PO ×2 (15:54→22:52)
[2024-04-23 16:30] LABS: TSH Reflex To Free T4 4.95 uIU/ml (0.47-4.68)
--- NOTE | 2024-04-23 16:30 | W.PN.UPDATE ---
Update Note
Progress Note Update
Records received from primary food consultant, Dr. Wade. Summarized below:
PMH :
Chronic hypoxemic respiratory failure on 4L NC
Chronic HFpEF
CardioMEMs implant
CAD
Distant inferior wall NM with RCA stents 05/06/2003.
Chronic pericardial effusion
Severe Pulmonary hypertension
Scleroderma
Mild MR, mild to moderate TR
CKD 3 (Baseline creat 2.1)
Lung CA s/p XRT
h/o TIA
s/p carotid endarterectomy 02/07/2012
PAD
s/p fem/popliteal artery angioplasty/stent 08/20/2023
HTN
HLD
Former smoker
SAURABH
Hypothyroidism
Echo 06/13/2023: EF 75-80%, moderate cLVH, grade II diastolic dysfunction, mild MAC, trace MR, mild AI, trace TR, small-moderate pericardial effusion
On 6mg bumex BID (this AM patient reported 3mg BID, however may have meant she takes three 2mg tablets BID)
No h/o Afib noted.
[2024-04-23 16:44] LABS: APTT 28.5 Sec (23.4-35.0)
[2024-04-23] MEDS: HEPARIN 25000 UNITS/250 ML IV (16:56)
[2024-04-23 16:59] LABS: Free T4 1.58 ng/dl (0.78-2.19)
[2024-04-23 17:16] LABS: Hemoglobin 8.2 g/dL (12.0-16.0); Mean Corp Hgb Conc. 28.3 g/dL (33.0-37.0); Mean Corpuscular Hgb 20.9 pg (27.0-31.0); Mean Corpuscular Volume 73.8 fL (81.0-99.0); Mean Platelet Volume 10.8 fL (7.4-10.4); Platelet Count 311 10^3/uL (130-400); Red Blood Cell Count 3.93 10^6/uL (4.20-5.40); Red Cell Dist. Width 17.9 % (11.5-14.5); White Blood Cell Count 7.8 10^3/uL (4.8-10.8)
--- NOTE | 2024-04-23 18:28 | W.PN.HOSP.TC ---
Today's Communication/Plan
-
Nephro consult
check Fe studies, consider GI consult
Assessment / Plan
Assessment / Plan
#HFpEF exacerbation
BNP >81861
Implanted CardioMems device to read pressures by Heart Failure doctor
Pressures elevated today and office instructed to go to ED for evaluation and treatment
- Admit Telemetry
- Consult Cardiology
- Echo: Left ventricle is normal in size. Normal left ventricular systolic function.
Normal regional wall motion. LV ejection fraction is 65-70% by visual
assessment. Moderate concentric left ventricular hypertrophy. Diastolic
function indeterminate due to atrial fibrillation.
Normal right ventricular size and function.
Mild tricuspid regurgitation. Estimated pulmonary artery pressure of 35-40
mmHg. Assuming a right atrial pressure of 8 mmHg.
Small to moderate pericardial effusion without clear evidence of hemodynamic
compromise.
Compared to prior study dated 07/23/2021, estimated pulmonary artery systolic
pressure was previously 69 mmHg and pericardial effusion was previously
moderate to large in size.
- IV Bumex
As per cardiology contacting Dr. Wade office at [address] Office:
'Chronic hypoxemic respiratory failure on 4L NC
Chronic HFpEF
CardioMEMs implantCAD
Distant inferior wall [place] with RCA stents 05/06/2003.Chronic pericardial effusion
Severe Pulmonary hypertension
Scleroderma
Mild MR, mild to moderate TR
CKD 3 (Baseline creat 2.1)
Lung CA s/p XRT
h/o TIA
s/p carotid endarterectomy 02/07/2012
PAD
s/p fem/popliteal artery angioplasty/stent 08/20/2023HTN
HLD
Former smoker
SAURABH
Hypothyroidism'
#pulmonary hypertension
- continue Ellipta, Opsumit, and tadalafil
#CAD
- continue aspirin and rosuvastatin
Anemia
Hgb 8.2
will check Fe studies, in August was %sat 32% with Ferritin 20
follow Hgb, microcytic, hypochromic indices are concern for recurrent bleeding
consider GI consult
Hx of GI bleed
underwent EGD 09/03/23 with angioectasias noted in stomach with APC used for coagulation
#COPD
CXR: Increased left midlung probable atelectasis/scarring.
- continue albuterol Nebs PRN
STEVEN on CKD3b
BUN/Creat 129/3.3
in August 2023 was 96/2.1
Renal consult
#HTN
- continue spironolactone
#hypercholesterolemia
- continue rosuvastatin
#hypothyroidism
- continue levothyroxine
#anxiety
- continue alprazolam and fluoxetine
time spent in extensive review of chart and general management 60 minutes
Code Status: DNR
DVT Prophylaxis: Heparin Sq
Anticipated Discharge: > 48 hours
Subjective/Interval History
-
Date of Service: April 23, 2024
Currently comfortable
Objective Data
-
Labs:
Laboratory Results
04/23/24 04/23/24 04/23/24
10:15 16:27 23:00
WBC 7.5 7.8
Hgb 8.0 L 8.2 L
Hct 28.4 L 29.0 L
Plt Count 303 D 311
APTT 28.5 Pending
Sodium 138
Potassium 3.4 L
Chloride 93 L
Carbon Dioxide 29
BUN 129 H*
Creatinine 3.3 H
Glucose 123 H
Calcium 9.1
Vital Signs:
Vital Signs
Temp Pulse Resp BP Pulse Ox
97.3 F 51 16 151/52 97
04/23/24 15:10 04/23/24 15:10 04/23/24 15:10 04/23/24 15:10 04/23/24 15:10
I&O
04/22/24 04/23/24 04/24/24
06:59 06:59 06:59
Intake Total 480 / 480
Balance 480 / 480
Review of Systems
-
History Source: Patient and Coordinated Provider
Constitutional: Denies Fever
EENT: Reports No Symptoms Reported
Respiratory: Reports Trouble Breathing
Cardiac: Denies Chest Pain
Abdomen/GI: Reports No Symptoms
Genitourinary: Reports No Symptoms
Musculoskeletal: Reports No Symptoms
Neuro: Reports No Symptoms
Physical Exam
-
General: Well Developed, Well Nourished and No Apparent Distress
HEENT: Normocephalic, Atraumatic and Moist Mucous Membranes
Respiratory: Rales (bibasilar rales)
Cardiac: S1/S2 and Irregular Rhythm
GI: Soft, Nontender and Nondistended
Musculoskeletal: No Clubbing, No Cyanosis and No Edema
Neuro: Awake, Alert and Oriented
Psych: Calm
[2024-04-23 19:04] LABS: Glucose - Point of Care 200 mg/dl (70-99)
[2024-04-23 19:16] LABS: Hematocrit 29.7 % (37.0-47.0); Hemoglobin 8.6 g/dL (12.0-16.0); Mean Corpuscular Hgb 21.3 pg (27.0-31.0); Mean Corpuscular Volume 73.7 fL (81.0-99.0); Mean Platelet Volume 10.7 fL (7.4-10.4); Platelet Count 274 10^3/uL (130-400); Red Blood Cell Count 4.03 10^6/uL (4.20-5.40); Red Cell Dist. Width 18.2 % (11.5-14.5); White Blood Cell Count 9.8 10^3/uL (4.8-10.8)
[2024-04-23 19:25] LABS: INR 0.96; PT 13.1 Sec (11.4-14.6)
[2024-04-23 19:27] LABS: APTT 36.6 Sec (23.4-35.0)
[2024-04-23 19:31] LABS: B.E. -1.3 mmol/L; HCO3 24.3 mmol/L (21-28); PCO2 44 mmHg (32-35); PO2 117 mmHg (83-108); pH 7.35 (7.35-7.45)
[2024-04-23] MEDS: MORPHINE SULFATE 2 MG IV (19:33)
--- NOTE | 2024-04-23 19:40 | RR ---
A Rapid Response was called on this patient, please see Rapid Response form.
--- NOTE | 2024-04-23 19:40 | PTCARENOTE ---
pt out of bed to a bed side commode. Pt complained of extreme sob, states 'I can't breathe'. pt in 4L oxygen at baseline. pulse ox 95-99% on ear. Rapid Response called. pt transferred to IMU.
[2024-04-23 19:43] LABS: ALT (SGPT) 17 U/L (0-35); AST (SGOT) 26 U/L (14-36); Albumin 4.6 g/dl (3.5-5.0); Alkaline Phosphatase 67 U/L (38-126); Calcium 9.2 mg/dl (8.4-10.2); Carbon Dioxide 23 mmol/L (22-30); Chloride 93 mmol/L (98-107); Estimated Creatinine Clearance 12 ml/min; Glucose 234 mg/dl (70-99); Potassium 4.3 mmol/L (3.5-5.1); Sodium 135 mmol/L (135-145); Total Bilirubin 0.5 mg/dl (0.2-1.3); Total Protein 7.2 g/dl (6.3-8.2); eGFR 15.62
--- NOTE | 2024-04-23 19:44 | W.PN.UPDATE ---
Update Note
Progress Note Update
[employer] [employer] OPERATOR for respiratory distress
Per RN after getting back from [facility] pt started with resp distress. Increased WOB, tripoding. Receiving nebulizer at this time. Pt states nebulizer is not improving symptoms.
Lungs with wheezing throughout.
complex pt with hx of copd, heart failure, pulm HTN. She states she has received bumex iv today but does not feel like she has diuresed alot. 800ml urine documented for dayshift.
Plan: cxr, morphine iv, ABG,transfer to imu. Not sure she will be able to tolerate bipap.
1944 pt did feel some improvement after morphine
[2024-04-23 19:46] LABS: Troponin I 0.114 ng/ml
[2024-04-23 19:59] LABS: Blood Urea Nitrogen 127 mg/dl (7-17)
[2024-04-23] MEDS: NON-FORMULARY ITEM 10 MG PO (20:55)
[2024-04-23] MEDS: NON-FORMULARY ITEM 40 MG PO (20:55)
[2024-04-23 23:14] LABS: APTT 43.6 Sec (23.4-35.0)
[2024-04-24] VITALS (18 sets, daily range): BP systolic 127–176; BP diastolic 41–76; BMI 27.0
--- NOTE | 2024-04-24 00:44 | PTCARENOTE ---
pt transferred from floor post rapid response for trouble breathing. pt arrived from 4E on 6L oxygen. pt slightly SOB on exertion, tachypneic. very anxious. pt is 100% on 6L. PW placed on patient at this time d/t respiratory status. was given
morphine prior to transfer and stated it helped and she feels better. heparin gtt infusing at 750ml/hr into R FA. PTT drawn per orders and gtt adjusted accordingly. pt admits to breaking her left 2nd toe, toe is splinted. no c/o pain. pt oriented to
new room, call pak within reach, care ongoing.
[2024-04-24] MEDS: MORPHINE SULFATE 2 MG IV ×4 (02:29→23:52)
[2024-04-24 05:54] LABS: APTT 60.9 Sec (23.4-35.0)
[2024-04-24 06:09] LABS: Calcium 9.1 mg/dl (8.4-10.2); Carbon Dioxide 24 mmol/L (22-30); Chloride 96 mmol/L (98-107); Estimated Creatinine Clearance 15 ml/min; Glucose 112 mg/dl (70-99); Iron 44 ug/dl (37-170); Potassium 3.7 mmol/L (3.5-5.1); Sodium 137 mmol/L (135-145); eGFR 17.73
[2024-04-24] MEDS: SYNTHROID 50 MCG PO (06:20)
[2024-04-24 06:23] LABS: Blood Urea Nitrogen 132 mg/dl (7-17); Percent Saturation 9 % (20-50); Total Iron Binding Capacity 464 ug/dl (265-497); Troponin I 0.207 ng/ml
--- NOTE | 2024-04-24 06:30 | PTCARENOTE ---
pt with two more episodes of SOB, sitting on side of the bed having trouble breathing, tachypneic. oxygen stable 99% 6L, PRN morphine given during both episodes and patient stated it helped a lot. pt also having hand and leg tremors? pt did admit to
this RN that she was taking steroids at home d/t broken toe. care ongoing.
[2024-04-24 06:42] LABS: Ferritin 15.4 ng/ml (11.1-264.0)
[2024-04-24 07:20] LABS: Hematocrit 27.7 % (37.0-47.0); Hemoglobin 7.7 g/dL (12.0-16.0); Mean Corp Hgb Conc. 27.8 g/dL (33.0-37.0); Mean Corpuscular Hgb 20.6 pg (27.0-31.0); Mean Corpuscular Volume 74.3 fL (81.0-99.0); Platelet Count 245 10^3/uL (130-400); Red Blood Cell Count 3.73 10^6/uL (4.20-5.40)
[2024-04-24] MEDS: SPIRIVA RESPIMAT 2.5 MCG 2 PUFF INH (07:37)
[2024-04-24] MEDS: STRIVERDI RESPIMAT 2 PUFF INH (07:38)
--- NOTE | 2024-04-24 07:40 | W.PN.CARDCBS ---
Addendum entered and electronically signed by Ivan Sinha DO 04/24/24 09:59:
I saw and examined the patient.
The Fuel Cell Builder's note was reviewed and I agree with the note.
Comment:
Patient reporting mild improvement in her breathing overall. Still notes shortness of breath and conversational dyspnea. Telemetry demonstrated sinus rhythm/sinus bradycardia occasional PVC, brief NSVT.
A/P as below
Appreciate input from nephrology, unclear at this time if patient's respiratory status is related to acute on chronic heart failure, pulmonary hypertension, or pulmonary disease. Likely to benefit from input from pulmonology service and assistance
of her management. For now, we will attempt continued diuresis with IV Bumex and additional metolazone. Review of records reported from her primary office 365 consultant at [facility] notes that with elevated pulmonary artery
pressures measured by CardioMEMS device, patient receiving additional diuresis with metolazone. Monitor renal function. Tentative plan for right heart catheterization Friday for further assessment and evaluation of patient's ongoing
cardio/pulmonary status.
Original Note:
Today's Communication / Plan
-
Bumex 6 mg IV and metolazone 2.5 mg PO x1 on 04/24/24
Nephrology consulted
Hgb drifting down
Will hold off on transitioning Heparin gtt to Eliquis
Back in SR
57 min face to face, coordination of care
Impression / Plan
-
PCP: Dr. Reza Ortiz
Carrier Washer: Dr. Elliott Stokes ([facility] @ [place])
Impression:
Presented with worsening SOB
Acute on chronic HFpEF
CardioMEMs implant
Chronic hypoxemic respiratory failure on 4L NC
Newly diagnosed atrial fibrillation
CAD
Distant inferior wall NE with RCA stents 05/06/2003.
Chronic pericardial effusion
Severe pulmonary hypertension
Scleroderma
Mild MR, mild to moderate TR
CKD 3
Lung CA s/p XRT
h/o TIA
s/p carotid endarterectomy 02/07/2012
PAD
s/p fem/popliteal artery angioplasty/stent 08/20/2023
HTN
HLD
Former smoker
SAURABH
Hypothyroidism
Echo November 2012: revealed normal LV function, LVH and mild mitral regurgitation.
Echo 07/23/2021: EF 60% with mod to severe LVH, mild MR, biatrial enlargement. Mild to moderate TR, PASP 69 mmHg. Moderate to large pericardial effusion without hemodynamic compromise, 2.7 posteriorly and 2.3 laterally, mildly dilated aortic root.
Echo 08/03/2021: EF 65-70%, moderate to large pericardial effusion without evidence of hemodynamic compromise
Echo 06/13/2023: EF 75-80%, moderate cLVH, grade II diastolic dysfunction, mild MAC, trace MR, mild AI, trace TR, small-moderate pericardial effusion
Echo 04/23/2024: EF 65-70%, mod conc LVH, normal RV size and function, mild TR with PAP 35-40 mmHg
Plan:
-Overnight events noted, patient with respiratory distress after using commode and no improvement with nebulizers. Patient had received Bumex 4 mg IV x1 on 04/23/24 and reported less than expected urine output. Cardiology obtained records from
primary office 365 consultant that listed Bumex 6 mg PO BID as opposed to the '3 twice a day' that patient reported and assume patient meant three 2 mg tablets. Regardless, we now know that patient is chronically on Bumex 6 mg PO BID at home and takes
metolazone 2.5 mg daily as needed for increased volume based on CardioMEMS reports for that day.
-Ordered Bumex 6 mg IV and metolazone 2.5 mg PO x1 on 04/24/24 AM. Will follow weight and urine output.
-Cre as high as 3.3 this admission has improved to 2.7 on 04/24/24. Will follow Cre
-Nephrology consulted
-Outpatient dose of spironolactone 25 mg daily is on hold
-Patient is not chronically on BB due to wheezing and h/o Mobitz 1.
-EF preserved at 65% by echo 04/23/24 and stable compared to echo from primary office 365 consultant 06/13/23
-Patient with known severe PHTN and outpatient doses of tadalafil 40 mg daily and Opsumit 10 mg daily have been continued.
-Patient is chronically on aspirin and Plavix for PAD with fem/popliteal artery angioplasty/stent 08/20/2023
-Patient with an episode of paroxysmal Afib this admission seen on ECG 04/23/24. Tele reviewed by me 04/24/24 and patient is back in SR. No awareness of palpitations.
-Afib is a new diagnosis. Heparin gtt started when Afib seen so patient is now on Heparin gtt, aspirin and Plavix. Cont heparin gtt for now with plans for possible GI consult due ot h/o GIB.
-Eventually transition to Eliquis 5 mg BID (Cre 2.7, wt 64.9 kg, age 74). Would consider stopping aspirin or Plavix once on Eliquis.
-Potassium 3.7 on 04/24/24 and with plans for higher dose Bumex IV and metolazone will give additional KCl 40 meq now.
-Troponin up to 0.207 and 3rd Troponin pending for 04/24/24 AM. No chest pain and no acute ischemic changes on ECG. EF stable without WMA. Will manage as a nonischemic myocardial injury Troponin elevation due to STEVEN and CHF.
-Continue Crestor 10mg daily. LDL 53
HPI: Yani is a 74 year old female with PMH of chronic respiratory failure on 4L NC, chronic HFpEF w/ cardioMEMs implant, CAD w/ prior stenting, chronic pericardial effusion, pulmonary hypertension, scleroderma, CKD, lung cancer, prior TIA,
carotid artery disease, PAD, HTN, HLD, SAURABH, and hypothyroidism. Presented to [facility] for evaluation of worsening SOB. Symptoms started a few weeks ago after Thanksgiving when she noted worsening SOB, however she states yesterday she felt dramatically
worse, so she called her office 365 consultant and reported her CardioMEMs device showed she was at 35 mmHg and her goal she states is to be below 30 mmHg. She was told to come to ER for evaluation given concern for acute heart failure. She notes typically
she takes bumex 3mg BID as OP with metolazone 2.5mg PRN. She believes she took metolazone on Friday and Friday this week. Weight has been down trending over the past few weeks due to lack of appetite and she denies any worsening edema. On arrival
to ER, ProBNP was elevated at > 27,000. Creat elevated at 3.1. She was given a single dose of bumex 2mg in ER 12/ PM, however states she did not notice any significant diuresis with this. She feels slightly better this AM compared to when she came
in to ER. Remains on 4L NC which she reports is her baseline.
Progress Note - Carrier Washer
Subjective
Date of Service: April 24, 2024
Still SOB, does not feel urine output has been high enough
Objective
Labs:
04/24/24 05:14
04/24/24 05:14
Labs
Hgb 7.7 g/dL (12.0-16.0) L 04/24/24 05:14
Hct 27.7 % (37.0-47.0) L 04/24/24 05:14
Plt Count 245 10^3/uL (130-400) 04/24/24 05:14
PT 13.1 Sec (11.4-14.6) 04/23/24 19:12
INR 0.96 04/23/24 19:12
APTT 60.9 Sec (23.4-35.0) H 04/24/24 05:14
Sodium 137 mmol/L (135-145) 04/24/24 05:14
Potassium 3.7 mmol/L (3.5-5.1) 04/24/24 05:14
BUN 132 mg/dl (7-17) H* 04/24/24 05:14
Creatinine 2.7 mg/dL (0.6-1.0) H 04/24/24 05:14
Glucose 112 mg/dl (70-99) H 04/24/24 05:14
Troponins
04/23/24 04/24/24
19:12 05:14
Troponin I 0.114 H* 0.207 H*
Vital Signs and I&O:
Vital Signs
Temp Pulse Resp BP Pulse Ox
97.7 F 47 17 156/49 100
04/24/24 04:06 04/24/24 06:00 04/24/24 06:00 04/24/24 06:00 04/24/24 06:00
Vital Signs
Temp Pulse Resp BP Pulse Ox
97.7 F 47 17 156/49 100
04/24/24 04:06 04/24/24 06:00 04/24/24 06:00 04/24/24 06:00 04/24/24 06:00
Intake & Output
04/22/24 04/23/24 04/24/24 04/25/24
06:59 06:59 06:59 06:59
Intake Total 480 / 480 650 / 650
Output Total 800 / 800
Balance 480 / 480 -150 / -150
Physical Exam
Physical Exam
GEN: NAD, AAOx3
HEENT: EOMI
LUNGS: 5 L NC. No audible wheeze
CV: SR on tele.
ABD: ND
EXT: No edema B/L
NEURO: Gross non-focal
SKIN: No rash
--- NOTE | 2024-04-24 08:31 | W.CON.NEPH ---
Consultation
-
Date/Time Consultation Requested: 04/23/2024 10:00 PM
Date/Time Consultation Performed: 04/24/2024 8:30 AM
Requesting Provider: Dr. Ferro
Performing Provider: Dr. Loomis
Medical History
-
Chief Complaint: STEVEN
History of Present Illness:
Patient is a 74-year-old female with past medical history significant for HFpEF (maintained on Bumex metolazone and Aldactone), CKD (baseline creatinine around 2), pulmonary hypertension (with cardiomems inplant), CAD on plavix ,asa, and statin
therapy), COPD, HTN hypercholesterolemia and hypothyroidism who presented to [place] ED for evaluation of shortness of breath with exertion. Patient states she has had increased shortness of breath with exertion since Thanks but yesterday
and today was significantly worse. Today she reached out to her heart failure doctor, Dr. Elliott Toro with [facility], to read her Cardiomems reading. Cardiomems is an implanted device in her pulmonary artery for pressure readings. She states they
want reading </=30 and today was 35 so office told her to report to hospital for CHF exacerbation. She denies any recent fever, chills, cough, chest pain, nausea, vomiting, constipation, diarrhea or urinary symptoms. She utilizes home oxygen at 4
Liters continuous and is on 4Liters here with SpO2 in low 90s. Nephrology was consulted as her creatinine was 3.1 on admission off her baseline of 2 point with profound azotemia with a BUN level of 132)
Past Medical History
HFpEF
pulmonary hypertension
CAD
COPD
HTN
hypercholesterolemia
hypothyroidism
CKD 4 ~2
Social History
Tobacco: Former Smoker
Alcohol: None
Drug: None
Family History
no ckd
Allergies / Home Medications
Allergy/AdvReac Type Severity Reaction Status Date / Time
iodine Allergy allergic Verified 04/22/24 15:36
to shrimp
shrimp Allergy VIOLENTLY Verified 04/22/24 15:36
SICK
�Medication �Instructions �Recorded �Confirmed �Type
acetaminophen 325 mg tablet 975 mg PO Q6HPRN PRN mild 09/02/23 04/22/24 History
(Tylenol) pain/headache
albuterol sulfate 2.5 mg/3 mL 2.5 mg inhalation R Q4HPRN PRN sob 09/02/23 04/22/24 History
(0.083 %) solution for nebulization
alprazolam 0.25 mg tablet (Xanax) 0.25 mg PO HS Mental Health/Anxiety 09/02/23 04/22/24 History
aspirin 81 mg tablet,delayed 81 mg PO DAILY Blood Clot 09/02/23 04/22/24 History
release Prevention/Tx
bumetanide 2 mg tablet 6 mg PO BID Fluid 09/02/23 04/22/24 History
Retention/Swelling
cholecalciferol (vitamin D3) 50 50 mcg PO DAILY Supplement 09/02/23 04/22/24 History
mcg (2,000 unit) tablet (Vitamin
D3)
ferrous sulfate 325 mg (65 mg 325 mg PO Q48H Supplement 09/02/23 04/22/24 History
iron) tablet
levothyroxine 50 mcg tablet 50 mcg PO DAILY Thyroid 09/02/23 04/22/24 History
(Synthroid)
macitentan 10 mg tablet (Opsumit) 10 mg PO DAILY Lung Issues 09/02/23 04/22/24 History
polyethylene glycol 3350 17 gram 17 g PO DAILYPRN PRN constipation 09/02/23 04/22/24 History
oral powder packet (Miralax)
potassium chloride 10 mEq 10 meq PO DAILYPRN PRN when taking 09/02/23 04/22/24 History
tablet,extended release metolazone
rosuvastatin 10 mg tablet (Crestor) 10 mg PO DAILY High Cholesterol 09/02/23 04/22/24 History
spironolactone 25 mg tablet 25 mg PO DAILY Heart 09/02/23 04/22/24 History
Disease/Condition
tadalafil (pulm. hypertension) 20 40 mg PO DAILY pulmonary 09/02/23 04/22/24 History
mg tablet (pulmonary hypertension) hypertension
umeclidinium 62.5 mcg-vilanterol 1 inh inhalation R DAILY 09/02/23 04/22/24 History
25 mcg/actuation powdr for Lung/Breathing Issues
inhalation (Anoro Ellipta)
clopidogrel 75 mg tablet 75 mg PO DAILY Blood clot 09/04/23 04/22/24 Rx
prevention/tx #0 tabs
albuterol sulfate 90 mcg/actuation 2 puff inhalation R Q6HPRN PRN sob 04/22/24 04/22/24 History
aerosol inhaler
alprazolam 0.25 mg tablet 0.25 mg PO DAILYPRN PRN anxiety 04/22/24 04/22/24 History
fluoxetine 20 mg capsule 20 mg PO DAILY 04/22/24 04/22/24 History
hydrocortisone 2.5 % topical 1 applic topical BIDPRN PRN 04/22/24 04/22/24 History
ointment psoriasis
methylprednisolone 4 mg tablets in 0 mg PO PER PKG DIR 04/22/24 04/22/24 History
a dose pack
metolazone 2.5 mg tablet 2.5 mg PO DAILYPRN PRN when 04/22/24 04/22/24 History
instructed by cardiology
pantoprazole 40 mg tablet,delayed 40 mg PO DAILY Gastrointestinal 04/22/24 04/22/24 History
release issue
tramadol 50 mg tablet 50 mg PO Q6HPRN PRN severe pain 04/22/24 04/22/24 History
Review of Systems
-
History Source: Patient
All other systems: Negative unless noted
Respiratory: Trouble Breathing
Physical Exam
Vital Signs
Vital Signs
Temp Pulse Resp BP Pulse Ox
97.7 F 77 20 156/49 98
04/24/24 04:06 04/24/24 07:41 04/24/24 07:41 04/24/24 06:00 04/24/24 07:41
Lab Results
04/24/24 05:14
04/24/24 05:14
WBC 8.0 10^3/uL (4.8-10.8) 04/24/24 05:14
RBC 3.73 10^6/uL (4.20-5.40) L 04/24/24 05:14
Hgb 7.7 g/dL (12.0-16.0) L 04/24/24 05:14
Hct 27.7 % (37.0-47.0) L 04/24/24 05:14
Plt Count 245 10^3/uL (130-400) 04/24/24 05:14
Sodium 137 mmol/L (135-145) 04/24/24 05:14
Potassium 3.7 mmol/L (3.5-5.1) 04/24/24 05:14
Chloride 96 mmol/L (98-107) L 04/24/24 05:14
Carbon Dioxide 24 mmol/L (22-30) 04/24/24 05:14
BUN 132 mg/dl (7-17) H* 04/24/24 05:14
Creatinine 2.7 mg/dL (0.6-1.0) H 04/24/24 05:14
eGFR 17.73 04/24/24 05:14
Glucose 112 mg/dl (70-99) H 04/24/24 05:14
Calcium 9.1 mg/dl (8.4-10.2) 04/24/24 05:14
Szy-Z-Nnvebevokox Pept > 50455 pg/ml 04/22/24 16:03
Albumin 4.6 g/dl (3.5-5.0) 04/23/24 19:12
Physical Exam
General: AOx3, Nontoxic , moderate respiratory distress, muscle wasting
HEENT: PERRL, EOMI, Anicteric, Conjunctivae Clear, Ear/Nose Intact, Hearing Normal, Oropharynx Clear/Moist, Dentition Intact, Facial Symmetry, Neck Supple, Neck: Trachea Midline, No JVD and No Thyromegaly, no Bruits
Respiratory: Coarse with wheezing to auscultation bilaterally with normal lung excursion, profoundly decreased breath sounds bilaterally
Cardiac: S1/S2 and Regular Rate/Rhythm tachy
Breast: Deferred by me
Abdomen: Soft, Nontender, Nondistended, Normal Bowel Sounds and No Hepatosplenomegaly
Rectal: Deferred by Provider
Genito-urinary: No Costovertebral Tenderness
Extremities: No Clubbing, No Cyanosis and No Edema
Skin: No Rash or open lesions
Neuro: Nonfocal/Grossly Intact, CN II-XII (Intact) and Strength (Musculoskeletal exam 5 out of 5 both upper and lower extremities)
Hematologic/Lymphatic: No Cervical Lymphadenopathy, No Submandibular Lymphadenopathy and No Supraclavicular Lymphadenopathy
Psych: Mood/afflect pleasant, Insight/judgement good and Appropriate
Vascular: plus 2 pedal and radial pulses
Data Reviewed
-
Radiology: Image Personally Visualized and interpreted (Chest x-ray personally reviewed on admission mild interstitial edema)
Labs: Labs Reviewed by me (BMP CBC)
Old Records: Reviewed (Creatinine at 2.1 as per review of EMR records August 2023)
Assessment/Plan
-
Impression:
Congestive heart failure decompensated
Acute renal failure
Chronic kidney disease stage IV with baseline creatinine of 2
Pulmonary hypertension (has Cardiomems)
Coronary artery disease
COPD (home 4L O2)
Hypertension
Hypothyroidism
PAD
History of TIA
History of lung cancer status post XRT
New onset A-fib
Chronic pericardial effusion
History of endarterectomy in January 2012
Plan:
STEVEN:
-Likely a function of worsening cardiorenal syndrome in the setting of pulmonary hypertension
-I am not sure what I have to offer at this point in setting of profound azotemia potentiated by diuresis
-I would strongly suggest obtaining a right heart cath in the near future to evaluate for true volume status, patient says her weights were decreasing prior to ER admission (discussed case with cardiology)
-Shortness of breath could be simply related to worsening COPD
-Diuresis per cardiology
-Check bladder scan and kidney and bladder ultrasound to evaluate for obstructive process
-Hemodynamically stable
-check UA
[2024-04-24] MEDS: ASPIR LOW (ENTERIC COATED) 81 MG PO (08:32)
[2024-04-24] MEDS: VITAMIN D3 (cholecalciferol) 50 MCG PO (08:32)
[2024-04-24] MEDS: CRESTOR 10 MG PO (08:32)
[2024-04-24] MEDS: PROTONIX 40 MG PO (08:33)
[2024-04-24] MEDS: PLAVIX 75 MG PO (08:33)
[2024-04-24] MEDS: NON-FORMULARY ITEM 40 MG PO (08:33)
[2024-04-24] MEDS: PROZAC 20 MG PO (08:33)
[2024-04-24] MEDS: ZAROXOLYN 2.5 MG PO (08:33)
[2024-04-24] MEDS: NON-FORMULARY ITEM 10 MG PO (08:34)
[2024-04-24] MEDS: BUMEX 6 MG IV (08:42)
[2024-04-24 11:02] LABS: Hemoglobin 7.9 g/dL (12.0-16.0)
[2024-04-24 11:31] LABS: Troponin I 0.188 ng/ml
--- NOTE | 2024-04-24 12:29 | PTCARENOTE ---
pt w/ episode of SOB and needing to sit on side of bed. Pt did not desat. PRN morphine provided at this time. Pt w/ leg tremors, pt does state that this happens at home as well.
[2024-04-24 13:20] LABS: APTT 93.1 Sec (23.4-35.0)
--- NOTE | 2024-04-24 17:04 | W.PN.HOSP.TC ---
Today's Communication/Plan
-
transfuse 1 unit PRBC
IV Ferrlecit
stop oral Fe
Pulm consult
Assessment / Plan
Assessment / Plan
#HFpEF exacerbation
BNP >82942
Implanted CardioMems device to read pressures by Heart Failure doctor
Pressures elevated today and office instructed to go to ED for evaluation and treatment
- Admit Telemetry
- Consult Cardiology
- Echo: Left ventricle is normal in size. Normal left ventricular systolic function.
Normal regional wall motion. LV ejection fraction is 65-70% by visual
assessment. Moderate concentric left ventricular hypertrophy. Diastolic
function indeterminate due to atrial fibrillation.
Normal right ventricular size and function.
Mild tricuspid regurgitation. Estimated pulmonary artery pressure of 35-40
mmHg. Assuming a right atrial pressure of 8 mmHg.
Small to moderate pericardial effusion without clear evidence of hemodynamic
compromise.
Compared to prior study dated 07/23/2021, estimated pulmonary artery systolic
pressure was previously 69 mmHg and pericardial effusion was previously
moderate to large in size.
- IV Bumex now on hold
As per cardiology contacting Dr. Wade office at [address] Office:
'Chronic hypoxemic respiratory failure on 4L NC
Chronic HFpEF
CardioMEMs implantCAD
Distant inferior wall AL with RCA stents 05/06/2003.Chronic pericardial effusion
Severe Pulmonary hypertension
Scleroderma
Mild MR, mild to moderate TR
CKD 3 (Baseline creat 2.1)
Lung CA s/p XRT
h/o TIA
s/p carotid endarterectomy 02/07/2012
PAD
s/p fem/popliteal artery angioplasty/stent 08/20/2023HTN
HLD
Former smoker
SAURABH
Hypothyroidism'
#pulmonary hypertension
- continue Ellipta, Opsumit, and tadalafil
Cardio planning to do Rt heart Cath on 04/26. Cardio requesting input from puldaniel
Atrial Fibrillation
now back in NSR
#CAD
- continue aspirin and rosuvastatin
Anemia
Hgb 8.2-->7.7 this morning (on recheck noted to be 7.9) will transfuse 1 unit
Fe studies, in August was %sat 32% with Ferritin 20, now Fe sat 9%, Ferritin 15.4
will order 1 dose of Ferrlecit
follow Hgb, microcytic, hypochromic indices are concern for recurrent bleeding. Check stools for occult blood
consider GI consult, will wait until cardiac eval on 04/26
Hx of GI bleed
underwent EGD 09/03/23 with angioectasia noted in stomach with APC used for coagulation
#COPD
CXR: Increased left midlung probable atelectasis/scarring.
- continue albuterol Nebs PRN. On chronic oxygen 4 L/M at home
STEVEN on CKD3b
BUN/Creat 129/3.3-->132/2.7
in August 2023 was 96/2.1
Renal consult appreciated
#HTN
- continue spironolactone
#hypercholesterolemia
- continue rosuvastatin
#hypothyroidism
- continue levothyroxine
#anxiety
- continue alprazolam and fluoxetine
Hx of Lung Cancer
s/p XRT
Code Status: DNR
DVT Prophylaxis: Heparin Sq
Anticipated Discharge: > 48 hours
Subjective/Interval History
-
Date of Service: April 24, 2024
Remains weak, but feels better when compared to yesterday
Objective Data
-
Labs:
Laboratory Results
04/24/24 04/24/24 04/24/24
05:14 10:55 12:53
WBC 8.0
Hgb 7.7 L 7.9 L
Hct 27.7 L 28.0 L
Plt Count 245
APTT 60.9 H 93.1 H
Sodium 137
Potassium 3.7
Chloride 96 L
Carbon Dioxide 24
BUN 132 H*
Creatinine 2.7 H
Glucose 112 H
Calcium 9.1
04/24/24
19:00
WBC
Hgb
Hct
Plt Count
APTT Pending
Sodium
Potassium
Chloride
Carbon Dioxide
BUN
Creatinine
Glucose
Calcium
Vital Signs:
Vital Signs
Temp Pulse Resp BP Pulse Ox
97.9 F 46 19 176/48 100
04/24/24 16:30 04/24/24 14:51 04/24/24 14:51 04/24/24 14:51 04/24/24 14:51
I&O
04/23/24 04/24/24 04/25/24
06:59 06:59 06:59
Intake Total 480 / 480 650 / 650 0 / 0
Output Total 800 / 800
Balance 480 / 480 -150 / -150 0 / 0
Review of Systems
-
History Source: Patient, Physician (reviewed with Dr. Loomis and Dr. Hopson) and Coordinated Provider
Constitutional: Denies Fever
EENT: Reports No Symptoms Reported
Respiratory: Reports Trouble Breathing
Cardiac: Denies Chest Pain
Abdomen/GI: Reports No Symptoms
Genitourinary: Reports No Symptoms
Musculoskeletal: Reports No Symptoms
Neuro: Reports No Symptoms
Physical Exam
-
General: Well Developed, Well Nourished and No Apparent Distress
HEENT: Normocephalic, Atraumatic and Moist Mucous Membranes
Respiratory: Rales (bibasilar rales)
Cardiac: Regular Rhythm (was in A. Fib, now back in NSR) and S1/S2
GI: Soft, Nontender and Nondistended
Musculoskeletal: No Clubbing, No Cyanosis and No Edema
Neuro: Awake, Alert and Oriented
Psych: Calm
[2024-04-24] MEDS: HEPARIN 25000 UNITS/250 ML IV (17:29)
[2024-04-24] MEDS: TYLENOL 975 MG PO (19:25)
[2024-04-24 19:29] LABS: Urine Albumin Negative (Neg - Trace); Urine Bilirubin Negative (Negative); Urine Character Clear (Clear); Urine Color Yellow; Urine Glucose Negative (Negative); Urine Ketone Negative (Negative); Urine Leukocyte Trace (Negative); Urine Nitrite Negative (Negative); Urine Occult Blood Negative (Negative); Urine Specific Gravity 1.015 (<1.030); Urine Urobilinogen Negative (Neg - 1+)
[2024-04-24 19:58] LABS: Urine Red Blood Cell 0-2 /HPF (0-2); Urine Squamous Cell 0-2 /LPF (Few); Urine White Cell 0-2 /HPF (0-5)
[2024-04-24] MEDS: XANAX 0.25 MG PO (21:41)
[2024-04-25] VITALS (12 sets, daily range): BP systolic 116–141; BP diastolic 41–104; BMI 25.7
[2024-04-25] MEDS: SYNTHROID 50 MCG PO (04:30)
[2024-04-25] MEDS: VENTOLIN NEBULES 2.5 MG INH (04:48)
[2024-04-25 04:49] LABS: Hemoglobin 8.4 g/dL (12.0-16.0); Mean Corpuscular Hgb 21.5 pg (27.0-31.0); Mean Corpuscular Volume 74.4 fL (81.0-99.0); Platelet Count 258 10^3/uL (130-400); White Blood Cell Count 7.3 10^3/uL (4.8-10.8)
[2024-04-25 05:27] LABS: Calcium 9.4 mg/dl (8.4-10.2); Carbon Dioxide 24 mmol/L (22-30); Chloride 96 mmol/L (98-107); Estimated Creatinine Clearance 14 ml/min; Glucose 113 mg/dl (70-99); Sodium 136 mmol/L (135-145); eGFR 18.55
[2024-04-25 05:33] LABS: Blood Urea Nitrogen 128 mg/dl (7-17)
--- NOTE | 2024-04-25 05:47 | PTCARENOTE ---
assumed care of patient. pt AAOx3 able to make needs known, very anxious at times. PRN morphine given x1 so far for shift d/t SOB. neb treatment given for wheezes. PW in place. on 6L NC 99%. care ongoing.
[2024-04-25] MEDS: SPIRIVA RESPIMAT 2.5 MCG 2 PUFF INH (07:55)
[2024-04-25] MEDS: STRIVERDI RESPIMAT 2 PUFF INH (07:55)
--- NOTE | 2024-04-25 08:15 | W.PN.NEPH.PH ---
Today's Communication / Plan
-
Holding diuretic
Patient feeling better today
Creatinine down to 2.6
For right heart cath tomorrow to evaluate volume status
Assessment/Plan
-
Impression:
Congestive heart failure decompensated
Acute renal failure
Chronic kidney disease stage IV with baseline creatinine of 2
Pulmonary hypertension (has Cardiomems)
Coronary artery disease
COPD (home 4L O2)
Hypertension
Hypothyroidism
PAD
History of TIA
History of lung cancer status post XRT
New onset A-fib
Chronic pericardial effusion
History of endarterectomy in January 2012
Plan:
STEVEN:
-Likely a function of worsening cardiorenal syndrome in the setting of pulmonary hypertension
-Creatinine down to 2.6 with BUN of 128, remains nonoliguric with dropping weights, currently holding diuretics
-Status post 1 unit of blood provided yesterday with hemoglobin now up to 8.4
-I am not sure what I have to offer at this point in setting of profound azotemia potentiated by diuresis
- right heart cath tomorrow to evaluate for true volume status, patient says her weights were decreasing prior to ER admission (discussed case with cardiology)
-Shortness of breath could be simply related to worsening COPD
-Diuresis per cardiology
-Renal ultrasound reviewed: No hydronephrosis bilateral benign renal cyst noted associated focal area of intermediate echogenicity superior to right kidney likely within the right adrenal gland
-Hemodynamically stable
-check UA: bland
-
-
Date of Service: April 25, 2024
CC / HPI / ROS
-
Chief Complaint:
Chronic kidney disease
History of Present Illness:
Creatinine down to 2.6
Hemoglobin up to 8.4 after transfusion given on 04/24/2024
Hemodynamically stable
Review of Systems:
Weights down
Nonoliguric
No fever
Remain short of breath but somewhat better than yesterday
Labs
-
Labs:
WBC 7.3 10^3/uL (4.8-10.8) 04/25/24 04:34
RBC 3.90 10^6/uL (4.20-5.40) L 04/25/24 04:34
Hgb 8.4 g/dL (12.0-16.0) L 04/25/24 04:34
Hct 29.0 % (37.0-47.0) L 04/25/24 04:34
Plt Count 258 10^3/uL (130-400) 04/25/24 04:34
Sodium 136 mmol/L (135-145) 04/25/24 04:34
Potassium 4.0 mmol/L (3.5-5.1) 04/25/24 04:34
Chloride 96 mmol/L (98-107) L 04/25/24 04:34
Carbon Dioxide 24 mmol/L (22-30) 04/25/24 04:34
BUN 128 mg/dl (7-17) H* 04/25/24 04:34
Creatinine 2.6 mg/dL (0.6-1.0) H 04/25/24 04:34
eGFR 18.55 04/25/24 04:34
Glucose 113 mg/dl (70-99) H 04/25/24 04:34
Calcium 9.4 mg/dl (8.4-10.2) 04/25/24 04:34
Kbq-C-Gtbgzljgnmv Pept > 76829 pg/ml 04/22/24 16:03
Albumin 4.6 g/dl (3.5-5.0) 04/23/24 19:12
Physical Exam
-
Vital Signs:
Vital Signs
Temp Pulse Resp BP Pulse Ox
98.0 F 50 16 126/45 99
04/25/24 03:00 04/25/24 07:59 04/25/24 07:59 04/25/24 06:00 04/25/24 06:00
Cardiovascular:: Regular rate and rhythm
Respiratory:: Bilateral: Coarse and Bilateral: Wheeze
Lung Excursion:: Normal
Abdomen:: Nontender and Soft
Bowel Sounds:: Normal
Extremity Edema:: None: Bilateral:
Martin Catheter: No
[2024-04-25] MEDS: PROTONIX 40 MG PO (09:43)
[2024-04-25] MEDS: PLAVIX 75 MG PO (09:43)
[2024-04-25] MEDS: PROZAC 20 MG PO (09:43)
[2024-04-25] MEDS: CRESTOR 10 MG PO (09:43)
[2024-04-25] MEDS: ASPIR LOW (ENTERIC COATED) 81 MG PO (09:43)
[2024-04-25] MEDS: VITAMIN D3 (cholecalciferol) 50 MCG PO (09:43)
[2024-04-25] MEDS: NON-FORMULARY ITEM 10 MG PO (09:44)
[2024-04-25] MEDS: NON-FORMULARY ITEM 40 MG PO (09:45)
--- NOTE | 2024-04-25 10:20 | W.PN.CARDCBS ---
Today's Communication / Plan
-
Diuretic on hold, no evidence of significant volume overload on examination
Monitor on telemetry given AF, second-degree type I with possible high degree AV block
Tentative right heart catheterization tomorrow for reassessment of pulmonary pressures
Appreciate input from pulmonology and nephrology regarding her care and her multifactorial shortness of breath
Impression / Plan
-
PCP: Dr. Reza Ortiz
Elephant Tamer: Dr. Elliott Stokes ([facility] @ [place])
Impression:
Presented with worsening SOB, improving
Acute on chronic HFpEF, improving
CardioMEMs implant
Chronic hypoxemic respiratory failure on 4L NC
Newly diagnosed atrial fibrillation
Second-degree AV block type I, asymptomatic
History second-degree type I; currently rate controlled AF; noted high degree block on telemetry while sleeping (2: 1 versus complete heart block) no evidence during waking hours
No reported prior history of discussion of for possible pacemaker
CAD
Distant inferior wall MD with RCA stents 05/06/2003.
Chronic pericardial effusion
Severe pulmonary hypertension
Scleroderma
Mild MR, mild to moderate TR
CKD 3
Lung CA s/p XRT
h/o TIA
s/p carotid endarterectomy 02/07/2012
PAD
s/p fem/popliteal artery angioplasty/stent 08/20/2023
HTN
HLD
Former smoker
SAURABH
Hypothyroidism
Echo November 2012: revealed normal LV function, LVH and mild mitral regurgitation.
Echo 07/23/2021: EF 60% with mod to severe LVH, mild MR, biatrial enlargement. Mild to moderate TR, PASP 69 mmHg. Moderate to large pericardial effusion without hemodynamic compromise, 2.7 posteriorly and 2.3 laterally, mildly dilated aortic root.
Echo 08/03/2021: EF 65-70%, moderate to large pericardial effusion without evidence of hemodynamic compromise
Echo 06/13/2023: EF 75-80%, moderate cLVH, grade II diastolic dysfunction, mild MAC, trace MR, mild AI, trace TR, small-moderate pericardial effusion
Echo 04/23/2024: EF 65-70%, mod conc LVH, normal RV size and function, mild TR with PAP 35-40 mmHg
Plan:
-Overnight events noted, patient with respiratory distress after using commode and no improvement with nebulizers. Patient had received Bumex 4 mg IV x1 on 04/23/24 and reported less than expected urine output. Cardiology obtained records from
primary staff occupational therapist that listed Bumex 6 mg PO BID as opposed to the '3 twice a day' that patient reported and assume patient meant three 2 mg tablets. Regardless, we now know that patient is chronically on Bumex 6 mg PO BID at home and takes
metolazone 2.5 mg daily as needed for increased volume based on CardioMEMS reports for that day.
-Ordered Bumex 6 mg IV and metolazone 2.5 mg PO x1 on 04/24/24 AM. Will follow weight and urine output.; Diuretic on hold by nephrology
-Cre as high as 3.3 this admission has improved to 2.7 on 04/24/24, improved to 2.6. Will follow Cre
-Nephrology following
-Outpatient dose of spironolactone 25 mg daily is on hold
-Patient is not chronically on BB due to wheezing and h/o Mobitz 1.
-EF preserved at 65% by echo 04/23/24 and stable compared to echo from primary staff occupational therapist 06/13/23
-Patient with known severe PHTN and outpatient doses of tadalafil 40 mg daily and Opsumit 10 mg daily have been continued.
-Patient is chronically on aspirin and Plavix for PAD with fem/popliteal artery angioplasty/stent 08/20/2023
-Patient with an episode of paroxysmal Afib this admission seen on ECG 04/23/24. Tele reviewed by me 04/24/24 and patient is back in SR. No awareness of palpitations.
-Afib is a new diagnosis. Heparin gtt started when Afib seen so patient is now on Heparin gtt, aspirin and Plavix. Cont heparin gtt for now with plans for possible GI consult due ot h/o GIB.
-Eventually transition to Eliquis 5 mg BID (Cre 2.7, wt 64.9 kg, age 74). Would consider stopping aspirin or Plavix once on Eliquis.
-Troponin up to 0.207 and 3rd Troponin pending for 04/24/24 AM. No chest pain and no acute ischemic changes on ECG. EF stable without WMA. Will manage as a nonischemic myocardial injury Troponin elevation due to STEVEN and CHF.
-Continue Crestor 10mg daily. LDL 53
HPI: Yani is a 74 year old female with PMH of chronic respiratory failure on 4L NC, chronic HFpEF w/ cardioMEMs implant, CAD w/ prior stenting, chronic pericardial effusion, pulmonary hypertension, scleroderma, CKD, lung cancer, prior TIA,
carotid artery disease, PAD, HTN, HLD, SAURABH, and hypothyroidism. Presented to [facility] for evaluation of worsening SOB. Symptoms started a few weeks ago after Thanksgiving when she noted worsening SOB, however she states yesterday she felt dramatically
worse, so she called her staff occupational therapist and reported her CardioMEMs device showed she was at 35 mmHg and her goal she states is to be below 30 mmHg. She was told to come to ER for evaluation given concern for acute heart failure. She notes typically
she takes bumex 3mg BID as OP with metolazone 2.5mg PRN. She believes she took metolazone on Friday and Friday this week. Weight has been down trending over the past few weeks due to lack of appetite and she denies any worsening edema. On arrival
to ER, ProBNP was elevated at > 27,000. Creat elevated at 3.1. She was given a single dose of bumex 2mg in ER 12/12 PM, however states she did not notice any significant diuresis with this. She feels slightly better this AM compared to when she came
in to ER. Remains on 4L NC which she reports is her baseline.
Progress Note - Elephant Tamer
Subjective
Date of Service: April 25, 2024
Patient seen and examined. No acute events overnight. Telemetry demonstrated rate controlled atrial fibrillation. Patient had return to sinus rhythm while sleeping with what appears to be high degree AV block. Patient returned AF. Patient
denies any chest pain, palpitations, lightheadedness, dizziness, near-syncope, syncope, PND, orthopnea, edema, or weakness. Patient noting overall improvement in shortness of breath but still present. Patient laying flat, remains on oxygen.
Objective
Labs:
04/25/24 04:34
04/25/24 04:34
Labs
Hgb 8.4 g/dL (12.0-16.0) L 04/25/24 04:34
Hct 29.0 % (37.0-47.0) L 04/25/24 04:34
Plt Count 258 10^3/uL (130-400) 04/25/24 04:34
PT 13.1 Sec (11.4-14.6) 04/23/24 19:12
INR 0.96 04/23/24 19:12
APTT 140.0 Sec (23.4-35.0) H 04/25/24 04:34
Sodium 136 mmol/L (135-145) 04/25/24 04:34
Potassium 4.0 mmol/L (3.5-5.1) 04/25/24 04:34
BUN 128 mg/dl (7-17) H* 04/25/24 04:34
Creatinine 2.6 mg/dL (0.6-1.0) H 04/25/24 04:34
Glucose 113 mg/dl (70-99) H 04/25/24 04:34
Troponins
04/23/24 04/24/24 04/24/24
19:12 05:14 10:55
Troponin I 0.114 H* 0.207 H* 0.188 H*
Vital Signs and I&O:
Vital Signs
Temp Pulse Resp BP Pulse Ox
97.7 F 50 16 126/45 99
04/25/24 08:35 04/25/24 07:59 04/25/24 07:59 04/25/24 06:00 04/25/24 06:00
Vital Signs
Temp Pulse Resp BP Pulse Ox
97.7 F 50 16 126/45 99
04/25/24 08:35 04/25/24 07:59 04/25/24 07:59 04/25/24 06:00 04/25/24 06:00
Intake & Output
04/23/24 04/24/24 04/25/24 04/26/24
06:59 06:59 06:59 06:59
Intake Total 480 / 480 650 / 650 730 / 730
Output Total 800 / 800 600 / 600
Balance 480 / 480 -150 / -150 130 / 130
Physical Exam
Physical Exam
GENERAL: no acute distress, nasal cannula
EYE: sclera anicteric
NECK: Supple, no JVD, no carotid bruit appreciated
ENT: normal nose, moist mucosal membranes
CARDIAC: Irregularly irregular, rate controlled, +S1/S2, no murmur, rubs, or gallops
CHEST/PULMONARY: Global decreased breath sounds, no rales, rhonchi, wheeze
ABDOMEN: Soft, without focal tenderness or distention
NEUROLOGICAL: Alert and oriented x3
SKIN: Warm and dry, no rash; no edema
PSYCH: Normal and appropriate interaction.
--- NOTE | 2024-04-25 11:29 | CON.PUL ---
Consultation
Consultation Request
Date/Time Consultation Requested: 04/25/2024
Date/Time Consultation Performed: 04/25/2024
Requesting Provider: Dr. Ferro
Performing Provider: Dr. Dom Galo
Reason for Consultation: Hypoxemic respiratory failure/severe pulmonary hypertension
Medical History
-
History of Present Illness:
73-year-old woman with history of coronary artery disease, COPD on chronic oxygen therapy, scleroderma, pulmonary hypertension with multiple mechanism on pulmonary vasodilators, prior coronary stents, peripheral arterial disease, history of right
carotid endarterectomy 06/2023 and popliteal stents as well, GI bleed with symptomatic anemia August 2023. Who follows up at [facility].
-
Admitted to the hospital 04/22/2024 for evaluation of shortness of breath with exertion. Patient reports shortness of breath since Thanks[place] but the day prior admission was significantly worse with minimal activity.
The day of admission patient: Patient called her pulmonary doctor at [facility] Dr. Elliott Stokes and her Cardiomems and her readings where 35 mmHg and she was told to present for possible CHF exacerbation.
Patient denies any cough, fever, wheezing, hemoptysis, nausea vomiting or diarrhea.
Currently at baseline 4 L of supplemental oxygen.
She has been compliant with pulmonary vasodilators, her weight is not significantly elevated compared to prior. In fact, weight is trending lower.
We were consulted on 04/24/2024 for evaluation and possibility of an ongoing pulmonary decompensation.
-
Past Medical History
Past Medical History: Other (See assessment and plan)
Social History
Tobacco: Non-smoker
Alcohol: None
Drug: None
Living: With Family
Employment: Retired
Family History
Family History: Reviewed & Not Pertinent
Allergies / Home Medications
Allergies
Allergy/AdvReac Type Severity Reaction Status Date / Time
iodine Allergy allergic Verified 04/22/24 15:36
to shrimp
shrimp Allergy VIOLENTLY Verified 04/22/24 15:36
SICK
Home Medications
�Medication �Instructions �Recorded �Confirmed �Last Taken �Type
acetaminophen 325 mg tablet 975 mg PO Q6HPRN PRN mild 09/02/23 04/22/24 Unknown History
(Tylenol) pain/headache
albuterol sulfate 2.5 mg/3 mL 2.5 mg inhalation R Q4HPRN PRN sob 09/02/23 04/22/24 Unknown History
(0.083 %) solution for nebulization
alprazolam 0.25 mg tablet (Xanax) 0.25 mg PO HS Mental Health/Anxiety 09/02/23 04/22/24 09/02/23 History
aspirin 81 mg tablet,delayed 81 mg PO DAILY Blood Clot 09/02/23 04/22/24 09/02/23 History
release Prevention/Tx
bumetanide 2 mg tablet 6 mg PO BID Fluid 09/02/23 04/22/24 09/02/23 History
Retention/Swelling
cholecalciferol (vitamin D3) 50 50 mcg PO DAILY Supplement 09/02/23 04/22/24 09/02/23 History
mcg (2,000 unit) tablet (Vitamin
D3)
ferrous sulfate 325 mg (65 mg 325 mg PO Q48H Supplement 09/02/23 04/22/24 09/02/23 History
iron) tablet
levothyroxine 50 mcg tablet 50 mcg PO DAILY Thyroid 09/02/23 04/22/24 09/02/23 History
(Synthroid)
macitentan 10 mg tablet (Opsumit) 10 mg PO DAILY Lung Issues 09/02/23 04/22/24 09/02/23 History
polyethylene glycol 3350 17 gram 17 g PO DAILYPRN PRN constipation 09/02/23 04/22/24 Unknown History
oral powder packet (Miralax)
potassium chloride 10 mEq 10 meq PO DAILYPRN PRN when taking 09/02/23 04/22/24 Unknown History
tablet,extended release metolazone
rosuvastatin 10 mg tablet (Crestor) 10 mg PO DAILY High Cholesterol 09/02/23 04/22/24 09/02/23 History
spironolactone 25 mg tablet 25 mg PO DAILY Heart 09/02/23 04/22/24 09/02/23 History
Disease/Condition
tadalafil (pulm. hypertension) 20 40 mg PO DAILY pulmonary 09/02/23 04/22/24 09/02/23 History
mg tablet (pulmonary hypertension) hypertension
umeclidinium 62.5 mcg-vilanterol 1 inh inhalation R DAILY 09/02/23 04/22/24 09/02/23 History
25 mcg/actuation powdr for Lung/Breathing Issues
inhalation (Anoro Ellipta)
clopidogrel 75 mg tablet 75 mg PO DAILY Blood clot 09/04/23 04/22/24 Unknown Rx
prevention/tx #0 tabs
albuterol sulfate 90 mcg/actuation 2 puff inhalation R Q6HPRN PRN sob 04/22/24 04/22/24 Unknown History
aerosol inhaler
alprazolam 0.25 mg tablet 0.25 mg PO DAILYPRN PRN anxiety 04/22/24 04/22/24 Unknown History
fluoxetine 20 mg capsule 20 mg PO DAILY 04/22/24 04/22/24 Unknown History
hydrocortisone 2.5 % topical 1 applic topical BIDPRN PRN 04/22/24 04/22/24 Unknown History
ointment psoriasis
methylprednisolone 4 mg tablets in 0 mg PO PER PKG DIR 04/22/24 04/22/24 Unknown History
a dose pack
metolazone 2.5 mg tablet 2.5 mg PO DAILYPRN PRN when 04/22/24 04/22/24 Unknown History
instructed by cardiology
pantoprazole 40 mg tablet,delayed 40 mg PO DAILY Gastrointestinal 04/22/24 04/22/24 Unknown History
release issue
tramadol 50 mg tablet 50 mg PO Q6HPRN PRN severe pain 04/22/24 04/22/24 Unknown History
Review of Systems
Vitals / Labs / Diagnostic Testing
Vital Signs
Temp Pulse Resp BP Pulse Ox
97.7 F 50 16 126/45 99
04/25/24 08:35 04/25/24 07:59 04/25/24 07:59 04/25/24 06:00 04/25/24 06:00
Lab Data
04/25/24 04:34
04/25/24 04:34
Laboratory Results
04/24/24 04/24/24 04/25/24
12:53 19:17 04:34
APTT 93.1 H 110.0 H 140.0 H
Diagnostic Testing:
Physical Exam
-
HEENT: Normocephalic
Cardiovascular: Regular Rhythm
Respiratory: Clear, Non-Labored Respirations and Other (Prolonged expiratory phase)
GI: Soft and Non Distended
Neurology: Awake, Alert and No Motor Deficits
Skin: Warm
General: Respiratory Distress
Assessment
-
74-year-old woman with complex past medical history noted, admitted with progressive shortness of breath since . Her oxygen supplementation is at baseline. Evaluated by cardiology and nephrology. Difficult to evaluate volume status.
Given history of pulmonary arterial hypertension, scleroderma and COPD on chronic oxygen therapy pulmonary was consulted for evaluation of possible pulmonary source of worsening shortness of breath.
Exertional dyspnea: Suspect multiple mechanisms.
Chronic kidney disease with BUN greater than 100.
proBNP greater than 27,000
Chronic anemia-likely contributing to symptoms
Bradycardia with underlying atrial fibrillation-likely contributing to symptoms
COPD without acute exacerbation
Chest x-ray: Cardiomegaly without acute abnormalities.
Conditions present prior admission:
Upper GI bleed with symptomatic anemia on 08/2023
Status post carotid endarterectomy and popliteal stents 2023
Pulmonary hypertension: group 1 (CTD, scleroderma), group 2 (LHD), group 3 (lung disease an/or hypoxia): on taladafil and macitetan.
Scleroderma
History of atrial fibrillation-not on anticoagulants.
Chronic anemia
HFpEF, moderate to severe LVH
Stage III DD
Mild MR, mild to moderate TR
Mildly enlarged RV size with normal systolic function
COPD, O2 at 3LPM
CAD s/p RCA stents 2002, on clopidogrel
Peripheral arterial disease status post [place] popliteal artery angioplasty/stent 08/20/2023
Chronic pericardial effusion
Lung cancer, s/p XRT till November 2018
TIA, s/p R CEA
HTN
Obstructive sleep apnea
Hypothyroidism
Chronic kidney disease creatinine between 2 and 3.
HLD
Moderate to large pericardial effusion, chronic, never tapped
Former smoker, quit July 2017
Assessment and plan:
Exertional dyspnea-suspect multiple mechanisms as above.
From the pulmonary perspective I see no evidence for acute decompensation of COPD, chest x-ray without significant parenchymal lung abnormalities
Oxygen supplementation at baseline 4 L
-
Cardiology and nephrology correspondence reviewed: Patient's weight not significantly elevated and clinically difficult to evaluate volume status. Does not appear volume overloaded.
-
Patient bradycardic with underlying atrial fibrillation-now back to sinus. Being monitored for AV block. Atrial fibrillation is new for her.
Heparin drip started-follow PTT follow anemia, high risk for bleeding.
Paroxysmal atrial fibrillation may be contributing to symptoms if there is no other component to explain her shortness of breath.
There is a pericardial effusion that is moderate (apparently chronic) on echocardiogram, normal LVEF, normal right ventricular size and function, PA pressure 35 to 40 mmHg, may be contributing to symptoms as well.
-
Agree with right heart catheterization to determine if there is any decompensation of pulmonary arterial hypertension component versus postcapillary pulmonary hypertension from volume overload.
-
Diuretics on hold today due to being increased creatinine and BUN. BUN greater than 100
Renal ultrasound without hydronephrosis.
Nephrology following
Will continue to monitor
-
From the COPD perspective: Not bronchospastic
Patient on baseline supplemental oxygen.
As a trial will transition to nebulized therapy Pulmicort/DuoNebs
Hold ANORO for now.
No indication for systemic corticosteroids.
Patient recently completed a short steroid course for a toe fracture/pain.
-
Depending on right heart catheterization numbers, may need to consider VQ scan, for now we will obtain lower extremity Dopplers-patient already on heparin drip for atrial fibrillation
-
For now continue with tadalafil and Opsumit for pulmonary arterial hypertension. Been managed at [facility].
-
Patient has severe anemia which is stable and may be contributing to symptoms as well.
-
Will continue to follow
-
Upon discharge she will continue to follow-up with her pulmonary/cardiology doctor at [facility]

Data reviewed:
Echocardiogram 04/23/2024:
Report reviewed, normal left ventricular size and function. No regional wall motion abnormalities. Ejection fraction 65-70%. Moderate LVH. Diastolic function indeterminate due to atrial fibrillation. Normal right ventricle size and function.
Mild TR. Estimated pulmonary pressure 35 to 40 mmHg. Small to moderate pericardial effusion without evidence of hemodynamic compromise.
Data Reviewed
-
EKG: Tracing personally visualized and interpreted
Radiology: Image personally visualized and interpreted
CT Scan: Image personally visualized and interpreted
--- NOTE | 2024-04-25 13:25 | PTCARENOTE ---
pt daughter asking numerous questions regarding plan of care. This RN answering questions and referencing pulmonary/cardiology updates while updating pt daughter. Pt daughter frustrated this RN didn't have more information requesting to speak
directly w/ doctors. Relayed this request to physicians.
[2024-04-25] MEDS: DUONEB 3 ML INH ×2 (13:56→19:49)
[2024-04-25] MEDS: PULMICORT 0.5 MG INH ×2 (13:56→19:49)
[2024-04-25] MEDS: FERRLECIT 110 MG IV (15:30)
--- NOTE | 2024-04-25 16:15 | W.PN.HOSP.TC ---
Today's Communication/Plan
-
will adjust timing of prn Xanax
for Rt heart cath
Assessment / Plan
Assessment / Plan
#HFpEF exacerbation
BNP >75222
Implanted CardioMems device to read pressures by Heart Failure doctor
Pressures elevated on day of admission and office instructed to go to ED for evaluation and treatment
- Admit Telemetry
- Consulted Cardiology
for potential Rt heart cath tomorrow
- Echo: Left ventricle is normal in size. Normal left ventricular systolic function.
Normal regional wall motion. LV ejection fraction is 65-70% by visual
assessment. Moderate concentric left ventricular hypertrophy. Diastolic
function indeterminate due to atrial fibrillation.
Normal right ventricular size and function.
Mild tricuspid regurgitation. Estimated pulmonary artery pressure of 35-40
mmHg. Assuming a right atrial pressure of 8 mmHg.
Small to moderate pericardial effusion without clear evidence of hemodynamic
compromise.
Compared to prior study dated 07/23/2021, estimated pulmonary artery systolic
pressure was previously 69 mmHg and pericardial effusion was previously
moderate to large in size.
- IV Bumex now on hold
As per cardiology contacting Dr. Wade office at [address] Office:
'Chronic hypoxemic respiratory failure on 4L NC
Chronic HFpEF
CardioMEMs implantCAD
Distant inferior wall AL with RCA stents 05/06/2003.Chronic pericardial effusion
Severe Pulmonary hypertension
Scleroderma
Mild MR, mild to moderate TR
CKD 3 (Baseline creat 2.1)
Lung CA s/p XRT
h/o TIA
s/p carotid endarterectomy 02/07/2012
PAD
s/p fem/popliteal artery angioplasty/stent 08/20/2023HTN
HLD
Former smoker
SAURABH
Hypothyroidism'
#pulmonary hypertension
- continue Ellipta, Opsumit, and tadalafil
Cardio planning to do Rt heart Cath on 04/26. Cardio requested input from pulm, noted and appreciated
Atrial Fibrillation
now back in NSR
#CAD
- continue aspirin and rosuvastatin
Anemia
Hgb 8.2-->7.7 morning (on recheck noted to be 7.9) and transfused 1 unit PRBC, repeat Hgb 04/25 8.4
Fe studies, in August was %sat 32% with Ferritin 20, now Fe sat 9%, Ferritin 15.4
ordered 1 dose of Ferrlecit
follow Hgb, microcytic, hypochromic indices are concern for recurrent bleeding. Check stools for occult blood
consider GI consult, will wait until cardiac eval on 04/26
Hx of GI bleed
underwent EGD 09/03/23 with angioectasia noted in stomach with APC used for coagulation
#COPD
CXR: Increased left midlung probable atelectasis/scarring.
- continue albuterol Nebs PRN. On chronic oxygen 4 L/M at home
STEVEN on CKD3b
BUN/Creat 129/3.3-->132/2.7-->128/2.6
in August 2023 was 96/2.1
Renal consult appreciated
#HTN
- continue spironolactone
#hypercholesterolemia
- continue rosuvastatin
#hypothyroidism
- continue levothyroxine
#anxiety
- continue alprazolam and fluoxetine, will adjust timing of Xanax prn
Hx of Lung Cancer
s/p XRT
Code Status: DNR
DVT Prophylaxis: Heparin Sq
Anticipated Discharge: > 48 hours
Subjective/Interval History
-
Date of Service: April 25, 2024
Pt is having mahjor anxiety issues and asking if can changes scheduled of prn Xanax
Objective Data
-
Labs:
Laboratory Results
12/04/25/24 04/25/24
04:34 13:15 19:45
WBC 7.3
Hgb 8.4 L
Hct 29.0 L
Plt Count 258
APTT 140.0 H 63.0 H Pending
Sodium 136
Potassium 4.0
Chloride 96 L
Carbon Dioxide 24
BUN 128 H*
Creatinine 2.6 H
Glucose 113 H
Calcium 9.4
Vital Signs:
Vital Signs
Temp Pulse Resp BP Pulse Ox
97.9 F 46 11 132/42 100
04/25/24 11:45 04/25/24 14:00 04/25/24 14:00 04/25/24 14:00 04/25/24 14:00
I&O
04/24/24 04/25/24 04/26/24
06:59 06:59 06:59
Intake Total 650 / 650 730 / 730 240 / 240
Output Total 800 / 800 600 / 600 50 / 50
Balance -150 / -150 130 / 130 190 / 190
Review of Systems
-
History Source: Patient and Coordinated Provider
Constitutional: Denies Fever
EENT: Reports No Symptoms Reported
Respiratory: Reports Trouble Breathing
Cardiac: Denies Chest Pain
Abdomen/GI: Reports No Symptoms
Genitourinary: Reports No Symptoms
Musculoskeletal: Reports No Symptoms
Neuro: Reports No Symptoms
Physical Exam
-
General: Well Developed, Well Nourished and No Apparent Distress
HEENT: Normocephalic, Atraumatic and Moist Mucous Membranes
Respiratory: Wheezes (improved air movement with mid-end expiratory wheeze) and Rales (bibasilar rales)
Cardiac: Regular Rhythm (was in A. Fib, now back in NSR) and S1/S2
GI: Soft, Nontender and Nondistended
Musculoskeletal: No Clubbing, No Cyanosis and No Edema
Neuro: Awake, Alert and Oriented
Psych: Calm
[2024-04-25] MEDS: XANAX 0.25 MG PO ×2 (17:37→21:05)
[2024-04-25] MEDS: HEPARIN 25000 UNITS/250 ML IV (18:05)
[2024-04-25] MEDS: TYLENOL 975 MG PO (18:08)
--- NOTE | 2024-04-25 19:08 | PTCARENOTE ---
spoke w/ dr cunha regarding heparin gtt and RHC. Per Dr. Cunha, heparin gtt does not need to be turned off and cardiology will reevaluate this in the AM.
[2024-04-26] VITALS (18 sets, daily range): BP systolic 102–171; BP diastolic 35–93; BMI 25.2
[2024-04-26] MEDS: TYLENOL 975 MG PO (00:39)
[2024-04-26] MEDS: XANAX 0.25 MG PO ×2 (04:24→21:12)
[2024-04-26] MEDS: SYNTHROID 50 MCG PO (04:24)
[2024-04-26 04:41] LABS: APTT 100.3 Sec (23.4-35.0)
[2024-04-26] MEDS: MORPHINE SULFATE 2 MG IV (04:52)
[2024-04-26 05:16] LABS: Calcium 9.3 mg/dl (8.4-10.2); Carbon Dioxide 23 mmol/L (22-30); Chloride 94 mmol/L (98-107); Estimated Creatinine Clearance 13 ml/min; Glucose 108 mg/dl (70-99); Potassium 3.5 mmol/L (3.5-5.1); Sodium 133 mmol/L (135-145); eGFR 16.97
[2024-04-26 05:22] LABS: Blood Urea Nitrogen 130 mg/dl (7-17)
[2024-04-26] MEDS: PULMICORT 0.5 MG INH ×2 (07:18→19:13)
[2024-04-26] MEDS: DUONEB 3 ML INH ×4 (07:18→19:13)
[2024-04-26] MEDS: STRIVERDI RESPIMAT 2 PUFF INH (07:18)
[2024-04-26] MEDS: PROZAC 20 MG PO (08:41)
[2024-04-26] MEDS: CRESTOR 10 MG PO (08:41)
[2024-04-26] MEDS: PROTONIX 40 MG PO (08:41)
[2024-04-26] MEDS: NON-FORMULARY ITEM 40 MG PO (08:41)
[2024-04-26] MEDS: VITAMIN D3 (cholecalciferol) 50 MCG PO (08:41)
[2024-04-26] MEDS: ASPIR LOW (ENTERIC COATED) 81 MG PO (08:41)
[2024-04-26] MEDS: PLAVIX 75 MG PO (08:41)
[2024-04-26] MEDS: NON-FORMULARY ITEM 10 MG PO (08:42)
--- NOTE | 2024-04-26 09:09 | W.PN.PUL.V3 ---
Today's Communication / Plan
-
Diuretics on hold
Wean oxygen
Analgesia for toe fracture per primary service
Right heart catheterization pending
Assessment
-
74-year-old woman with complex past medical history noted, admitted with progressive shortness of breath since . Her oxygen supplementation is at baseline. Evaluated by cardiology and nephrology. Difficult to evaluate volume status.
Given history of pulmonary arterial hypertension, scleroderma and COPD on chronic oxygen therapy pulmonary was consulted for evaluation of possible pulmonary source of worsening shortness of breath.
Exertional dyspnea: Suspect multiple mechanisms.
Chronic kidney disease with BUN greater than 100.
proBNP greater than 27,000
Chronic anemia-likely contributing to symptoms
Bradycardia with underlying atrial fibrillation-likely contributing to symptoms
COPD without acute exacerbation
Chest x-ray: Cardiomegaly without acute abnormalities.
Conditions present prior admission:
Upper GI bleed with symptomatic anemia on 08/2023
Status post carotid endarterectomy and popliteal stents 2023
Pulmonary hypertension: group 1 (CTD, scleroderma), group 2 (LHD), group 3 (lung disease an/or hypoxia): on taladafil and macitetan.
Scleroderma
History of atrial fibrillation-not on anticoagulants.
Chronic anemia
HFpEF, moderate to severe LVH
Stage III DD
Mild MR, mild to moderate TR
Mildly enlarged RV size with normal systolic function
COPD, O2 at 3LPM
CAD s/p RCA stents 2002, on clopidogrel
Peripheral arterial disease status post Finch popliteal artery angioplasty/stent 08/20/2023
Chronic pericardial effusion
Lung cancer, s/p XRT till November 2018
TIA, s/p R CEA
HTN
Obstructive sleep apnea
Hypothyroidism
Chronic kidney disease creatinine between 2 and 3.
HLD
Moderate to large pericardial effusion, chronic, never tapped
Former smoker, quit July 2017
Plan
Respiratory status slowly improving-major complaint is toe fracture pain
Supplemental oxygen-at baseline she is on 4 L
Assess discharge supplemental oxygen needs prior to discharge
Increase activity
Nebulizers as needed-on Pulmicort and DuoNebs
Anoro held
Aspiration precautions
Observe off steroids-completed a course for toe fracture/pain
Continue with tadalafil and Opsumit for pulmonary arterial hypertension-managed at [facility].
Diuresis as tolerated
Diuresis note
Cardiology and nephrology following-correspondence reviewed monitor renal function, electrolytes, intake/output, lower extremity edema and weight
Echocardiogram summarized below
Replace electrolytes as needed
Monitor rhythm-atrial fibrillation now back in sinus rhythm
Atrial fibrillation paroxysmal new for her
Heparin drip initiated
Moderate pericardial effusion apparently chronic
Right heart catheterization pending
Consideration towards VQ scan if still unexplained shortness of breath/pulm hypertension-already on heparin
DVT prophylaxis on heparin
GI prophylaxis-on pantoprazole
Nutrition
Early mobilization
Upon discharge she will continue to follow-up with her pulmonary/cardiology doctor at [facility]
Data reviewed:
Echocardiogram 04/23/2024: EF 65-70%, diastolic function intermediate due to atrial fibrillation, PA systolic 35-40, small to moderate pericardial effusion
Subjective Data
-
Date of Service:
Date of Service: April 26, 2024
Chief Complaint: Pulmonary Follow Up and Dyspnea Follow Up
Subjective:
Complains of toe fracture pain, no increased shortness of breath, overall better from a pulmonary perspective, no chest pain or abdominal pain
Review of Systems
General: Other (Per HPI)
Objective Data
Data Reviewed
Vital Signs / I&O:
Vital Signs
Temp Pulse Resp BP Pulse Ox
97.8 F 55 18 125/50 100
04/26/24 03:52 04/26/24 07:38 04/26/24 07:38 04/25/24 20:01 04/26/24 07:20
Intake and Output
1204/26/24 04/27/24
06:59 06:59 06:59
Intake Total 730 / 730 584.5 / 584.5
Output Total 600 / 600 200 / 200
Balance 130 / 130 384.5 / 384.5
SaO2: 100
Nasal Cannula flow liters per minute: 4
Physical Exam
General: Respiratory Distress (n) and Comfortable
HEENT: Normocephalic, Anicteric and Moist Mucous Membranes
Cardiovascular: Regular Rhythm
Respiratory: Clear (Diminished breath sounds, prolonged expiratory time), Wheeze (Forced wheezes), Crackles (Rare basilar), Rhonchi (n), Non-Labored Respirations, Accessory Resp Muscle Use (n) and Stridor
GI: Soft, Non Distended and Non Tender
Neurology: Awake, Alert and No Motor Deficits
Skin: Warm, Good Color, Cyanosis (n) and Jaundice (n)
Labs/Micro/Reports
Lab Data
04/25/24 04:34
04/26/24 04:20
Laboratory Results
04/25/24 04/25/24 04/26/24
13:15 20:06 04:20
APTT 63.0 H 132.0 H 100.3 H
[2024-04-26] MEDS: ROXICODONE 5 MG PO ×2 (09:23→18:05)
--- NOTE | 2024-04-26 10:16 | W.PN.NEPH.PH ---
Today's Communication / Plan
-
See above
Assessment/Plan
-
Impression:
Congestive heart failure decompensated
Acute renal failure
Chronic kidney disease stage IV with baseline creatinine of 2
Pulmonary hypertension (has Cardiomems)
Coronary artery disease
COPD (home 4L O2)
Hypertension
Hypothyroidism
PAD
History of TIA
History of lung cancer status post XRT
New onset A-fib
Chronic pericardial effusion
History of endarterectomy in January 2012
Plan:
STEVEN:
-Likely a function of worsening cardiorenal syndrome in the setting of pulmonary hypertension
-Creatinine peaked at 3 from admission down to 2.8 with BUN of 130, remains nonoliguric with dropping weights, currently holding diuretics
-Continues to have a shortness of breath is on chronic 4 L
-Renal ultrasound reviewed: No hydronephrosis bilateral benign renal cyst noted associated focal area of intermediate echogenicity superior to right kidney likely within the right adrenal gland
-check UA: bland
Pending right heart catheterization today
Shortness of breath multifactorial: COPD on chronic oxygen, severe pulmonary hypertension, CHF preserved EF
Continue to hold diuretics there is no acute need for hemodialysis at this time from a electrolyte standpoint pending RHC and volume status
-
-
Date of Service: April 26, 2024
CC / HPI / ROS
-
Chief Complaint:
Chronic kidney disease
History of Present Illness:
Acute kidney injury stable with some improvement
Review of Systems:
Weights down
Nonoliguric
No fever
Remain short of breath with mild improvement since admission
Labs
-
Labs:
WBC 7.3 10^3/uL (4.8-10.8) 04/25/24 04:34
RBC 3.90 10^6/uL (4.20-5.40) L 04/25/24 04:34
Hgb 8.4 g/dL (12.0-16.0) L 04/25/24 04:34
Hct 29.0 % (37.0-47.0) L 04/25/24 04:34
Plt Count 258 10^3/uL (130-400) 04/25/24 04:34
Sodium 133 mmol/L (135-145) L 04/26/24 04:20
Potassium 3.5 mmol/L (3.5-5.1) 04/26/24 04:20
Chloride 94 mmol/L (98-107) L 04/26/24 04:20
Carbon Dioxide 23 mmol/L (22-30) 04/26/24 04:20
BUN 130 mg/dl (7-17) H* 04/26/24 04:20
Creatinine 2.8 mg/dL (0.6-1.0) H 04/26/24 04:20
eGFR 16.97 04/26/24 04:20
Glucose 108 mg/dl (70-99) H 04/26/24 04:20
Calcium 9.3 mg/dl (8.4-10.2) 04/26/24 04:20
Puw-A-Kforvjopunw Pept > 79263 pg/ml 04/22/24 16:03
Albumin 4.6 g/dl (3.5-5.0) 04/23/24 19:12
Physical Exam
-
Vital Signs:
Vital Signs
Temp Pulse Resp BP Pulse Ox
97.7 F 55 18 125/50 100
04/26/24 07:45 04/26/24 07:38 04/26/24 07:38 04/25/24 20:01 04/26/24 09:09
Cardiovascular:: Irregular rate and rhythm
Respiratory:: Bilateral: Coarse, Bilateral: Rhonchi and Bilateral: Wheeze
Lung Excursion:: Normal
Abdomen:: Soft
Bowel Sounds:: Normal
Extremity Edema:: None: Bilateral:
Martin Catheter: No
--- NOTE | 2024-04-26 11:37 | PTCARENOTE ---
pt aaox3. states pain in left toe. dr made aware pain med ordered. pt went to u/s and returned. nc4l breath sounds diminished with ex wheezing. hand arm tremors noted increasing to full body when standing. pt states these started when she began
steroids at home. inc of urine pure wick in place.
[2024-04-26 11:43] LABS: APTT 88.2 Sec (23.4-35.0)
--- NOTE | 2024-04-26 13:36 | PTCARENOTE ---
pt taken to cathodic protection technician
--- NOTE | 2024-04-26 14:01 | W.PN.HOSP.TC ---
Today's Communication/Plan
-
Lower extremity venous Doppler negative
Plan for right heart cath
Continue with heparin drip
Trend BMP daily
start IV iron
Assessment / Plan
Assessment / Plan
#Dyspnea which seems to be multifactorial secondary to pulmonary hypertension, COPD, atrial fibrillation, intermittent bradycardia, chronic anemia
# Chronic hypoxic respiratory failure on 4 L
# Acute on chronic HFpEF
BNP >99198
Implanted CardioMems device to read pressures by Heart Failure doctor
Pressures elevated on day of admission and office instructed to go to ED for evaluation and treatment
Diuretics with Bumex has been held
Plan is for right heart cardiac catheterization
As per cardiology contacting Dr. Wade office at [address] Office:
# Severe pulmonary hypertension
continue Ellipta, Opsumit, and tadalafil
Cardio planning to do Rt heart Cath on 04/26. Cardio requested input from pulm, noted and appreciated
Atrial Fibrillation with intermittent bradycardia newly diagnosed
now back in NSR
Eliquis has been held and heparin drip has been continued as plan for RHC
#CAD
continue aspirin and rosuvastatin
Anemia
Hemoglobin of 8.4 status post 1 unit of PRBC so far.
With iron deficiency and will start patient on IV iron
Monitor for any luminal bleeding.
Hx of GI bleed
underwent EGD 09/03/23 with angioectasia noted in stomach with APC used for coagulation
#COPD
CXR: Increased left midlung probable atelectasis/scarring.
- continue bronchodilators
STEVEN on CKD3b
Diuretics is being held. Plan is for right heart catheterization to assess volume status.
BUN continues to remain significantly elevated.
#HTN
- continue spironolactone
#hypercholesterolemia
- continue rosuvastatin
#hypothyroidism
- continue levothyroxine
#anxiety
- continue alprazolam and fluoxetine, will adjust timing of Xanax prn
Hx of Lung Cancer
s/p XRT
TOE fracture
-pain control
Code Status: DNR
DVT Prophylaxis: Heparin gtt
Anticipated Discharge: > 48 hours
Subjective/Interval History
-
Date of Service: April 26, 2024
remains on oxygen
returned from [facility] [place]
awaiting to go [facility]
Objective Data
-
Labs:
Laboratory Results
04/26/24 04/26/24
04:20 11:20
APTT 100.3 H 88.2 H
Sodium 133 L
Potassium 3.5
Chloride 94 L
Carbon Dioxide 23
BUN 130 H*
Creatinine 2.8 H
Glucose 108 H
Calcium 9.3
Vital Signs:
Vital Signs
Temp Pulse Resp BP Pulse Ox
97.7 F 51 17 115/51 95
04/26/24 07:45 04/26/24 12:00 04/26/24 12:00 04/26/24 12:00 04/26/24 11:15
I&O
04/25/24 04/26/24 04/27/24
06:59 06:59 06:59
Intake Total 730 / 730 584.5 / 584.5
Output Total 600 / 600 200 / 200
Balance 130 / 130 384.5 / 384.5
Data Reviewed
-
Total Time Spent with Patient (in minutes): 55
--- NOTE | 2024-04-26 14:28 | ITS.CL.CATH ---
Instrument Technician - Catheterization
Cardiac Catheterization
Procedure Report:
RIGHT HEART CATHETERIZATION
Date of Procedure: April 26, 2024
Referring: Dr. Ivan Sinha
INDICATION: This is a 73-year-old female with a history of coronary artery disease, COPD on chronic oxygen, scleroderma and pulmonary hypertension. She has developed progressive renal insufficiency with diuresis and is now referred for right heart
catheterization
Hemodynamics (mmHg):
RA (m) : 20
RV (s/d,m) : 78/9, 18
PA (s/d, m) : 76/29, 44
PCWP (m) : 28
Aortic Cuff (s/d,m) : 182/74, 106
Cardiac Output : 2.67 L/min and Cardiac Index : 1.68 L/min/m-2
Systemic vascular resistance: 32.2 Wood units or 2568 [id number](-5)
Pulmonary vascular resistance: 6.0 Wood units or 479 [id number](-5)
RADIATION SUMMARY: Fluoro Time (min): 1.9, Dose (mGy): 27.1, DAP (Gy.cm2) : 4.0
CONCLUSION:
1. Elevated right and left ventricular filling pressures. Severe pre and post capillary pulmonary hypertension consistent with WHO Class V
Copy to: Dr. Luke Vega, Dr. Robe Ly
--- NOTE | 2024-04-26 16:41 | CM ---
O2 4L. Receiving IV Ferric Na Gluconate, Heparin gtt. Plan right heart cath today. Per nurse assessment; weak gait/transferring.
As per prior CM notes, patient has home O2 in place.
Patient may benefit from PT/OT Evals---> message to Dr Franklin.
Plan follow up after seen by PT/OT.
[2024-04-27] VITALS (16 sets, daily range): BP systolic 121–165; BP diastolic 34–115; PULSE 52–56; O2SAT 96–97; BMI 25.4
[2024-04-27] MEDS: ROXICODONE 5 MG PO ×2 (00:34→05:46)
[2024-04-27 01:01] LABS: APTT 74.1 Sec (23.4-35.0)
[2024-04-27] MEDS: HEPARIN 25000 UNITS/250 ML IV (02:21)
[2024-04-27] MEDS: SYNTHROID 50 MCG PO (05:46)
[2024-04-27] MEDS: PULMICORT 0.5 MG INH ×2 (07:26→19:47)
[2024-04-27] MEDS: DUONEB 3 ML INH ×4 (07:26→19:47)
[2024-04-27] MEDS: STRIVERDI RESPIMAT 2 PUFF INH (07:29)
[2024-04-27] MEDS: PROZAC 20 MG PO (08:04)
[2024-04-27] MEDS: PROTONIX 40 MG PO (08:04)
[2024-04-27] MEDS: ASPIR LOW (ENTERIC COATED) 81 MG PO (08:04)
[2024-04-27] MEDS: CRESTOR 10 MG PO (08:04)
[2024-04-27] MEDS: PLAVIX 75 MG PO (08:04)
[2024-04-27] MEDS: VITAMIN D3 (cholecalciferol) 50 MCG PO (08:04)
[2024-04-27] MEDS: NON-FORMULARY ITEM 10 MG PO (08:05)
[2024-04-27] MEDS: NON-FORMULARY ITEM 40 MG PO (08:06)
[2024-04-27 08:21] LABS: APTT 66.4 Sec (23.4-35.0)
[2024-04-27 08:30] LABS: % Basophils 0.9 % (0-2); % Eosinophils 3.6 % (0-6); % Immature Granulocytes 0.7 % (0-0.5); % Lymphocytes 5.8 % (20.5-51.1); % Monocytes 10.1 % (1.7-9.3); % Neutrophils 78.9 % (42.2-75.2); Absolute Basophils 0.1 10^3/uL (0-0.2); Absolute Eosinophils 0.2 10^3/uL (0-0.7); Absolute Lymphocytes 0.3 10^3/uL (1.2-3.4); Absolute Monocytes 0.6 10^3/uL (0.1-0.6); Absolute Neutrophils 4.6 10^3/uL (1.4-6.5); Hematocrit 28.4 % (37.0-47.0); Hemoglobin 8.1 g/dL (12.0-16.0); Mean Corp Hgb Conc. 28.5 g/dL (33.0-37.0); Mean Corpuscular Hgb 21.4 pg (27.0-31.0); Mean Corpuscular Volume 74.9 fL (81.0-99.0); Mean Platelet Volume 11.4 fL (7.4-10.4); Nucleated Red Blood Cells % 0.7 %; Platelet Count 192 10^3/uL (130-400); Red Blood Cell Count 3.79 10^6/uL (4.20-5.40); Red Cell Dist. Width 19.1 % (11.5-14.5); White Blood Cell Count 5.9 10^3/uL (4.8-10.8)
--- NOTE | 2024-04-27 08:34 | PN.CDI ---
CDI
- -
CDI:
Physician Documentation Request
Admit Date: 04/22/24 19:48
Dear Doctor Rigoberto,
Please review the following and provide your response in the progress notes.
Clinical Indicators:
- 04/26 PN 'STEVEN on CKD 3b'
- 04/26 Nephrology 'Acute renal failure...Chronic kidney disease stage IV with baseline creatinine of 2'
- 'Likely a function of worsening cardiorenal syndrome in the setting of pulmonary hypertension'
Laboratory Tests
04/22/24 04/23/24 04/23/24
16:03 10:15 19:12
Creatinine 3.1 H 3.3 H 3.0 H
eGFR 15.02 13.93 15.62
04/24/24 04/25/24 04/26/24
05:14 04:34 04:20
Creatinine 2.7 H 2.6 H 2.8 H
eGFR 17.73 18.55 16.97
Please clarify which of the following accurately represents the patient's renal status:
STEVEN on CKD 3b
STEVEN on CKD 4
Other (please specify)
Stages of Chronic Kidney Disease*
Level Description GFR
G1 Normal or High >90
G2 Mildly decreased 60-89
G3a Mildly to moderately decreased 45-59
G3b Moderately to severely decreased 30-44
G4 Severely decreased 15-29
G5 Kidney failure <15
Use of terms such as suspected, likely, concern for, or probable (associated with a specific diagnosis that is being evaluated, monitored, or treated as if it exists) are acceptable and can be coded in the inpatient setting, when documented at the
time of discharge.
Thank you,
Ricki Sanders RN
CDI Specialist
Please use your independent medical judgment in providing your response.
*Source: Kidney Disease: Improving Global Outcomes (KDIGO) 2012
[2024-04-27 09:00] LABS: Calcium 9.3 mg/dl (8.4-10.2); Carbon Dioxide 25 mmol/L (22-30); Chloride 93 mmol/L (98-107); Estimated Creatinine Clearance 12 ml/min; Glucose 120 mg/dl (70-99); Magnesium 2.4 mg/dl (1.6-2.3); Sodium 133 mmol/L (135-145); eGFR 15.02
[2024-04-27 09:16] LABS: Blood Urea Nitrogen 129 mg/dl (7-17)
--- NOTE | 2024-04-27 09:48 | W.PN.PUL.V3 ---
Today's Communication / Plan
-
Wean oxygen
Diuresis per cardiology
Initiate steroids with ongoing significant wheezing
Assessment
-
74-year-old woman with complex past medical history noted, admitted with progressive shortness of breath since . Her oxygen supplementation is at baseline. Evaluated by cardiology and nephrology. Difficult to evaluate volume status.
Given history of pulmonary arterial hypertension, scleroderma and COPD on chronic oxygen therapy pulmonary was consulted for evaluation of possible pulmonary source of worsening shortness of breath.
Exertional dyspnea: Suspect multiple mechanisms.
Chronic kidney disease with BUN greater than 100.
proBNP greater than 27,000
Chronic anemia-likely contributing to symptoms
Bradycardia with underlying atrial fibrillation-likely contributing to symptoms
COPD without acute exacerbation
Chest x-ray: Cardiomegaly without acute abnormalities.
Conditions present prior admission:
Upper GI bleed with symptomatic anemia on 08/2023
Status post carotid endarterectomy and popliteal stents 2023
Pulmonary hypertension: group 1 (CTD, scleroderma), group 2 (LHD), group 3 (lung disease an/or hypoxia): on taladafil and macitetan.
Scleroderma
History of atrial fibrillation-not on anticoagulants.
Chronic anemia
HFpEF, moderate to severe LVH
Stage III DD
Mild MR, mild to moderate TR
Mildly enlarged RV size with normal systolic function
COPD, O2 at 3LPM
CAD s/p RCA stents 2002, on clopidogrel
Peripheral arterial disease status post Finch popliteal artery angioplasty/stent 08/20/2023
Chronic pericardial effusion
Lung cancer, s/p XRT till November 2018
TIA, s/p R CEA
HTN
Obstructive sleep apnea
Hypothyroidism
Chronic kidney disease creatinine between 2 and 3.
HLD
Moderate to large pericardial effusion, chronic, never tapped
Former smoker, quit July 2017
Plan
Respiratory status slowly improving-major complaint is toe fracture pain
Supplemental oxygen-at baseline she is on 4 L
Assess discharge supplemental oxygen needs prior to discharge
Increase activity
Nebulizers as needed-on Pulmicort and DuoNebs
Anoro held
Aspiration precautions
Currently off steroids-completed a course for toe fracture/pain
With ongoing wheezing that is not completely 'cardiac wheezing' will initiate steroids
Continue with tadalafil and Opsumit for pulmonary arterial hypertension-managed at [facility].
Diuresis as tolerated
Monitor renal function, electrolytes, intake/output, lower extremity edema and weight
Replace electrolytes as needed
Cardiology and nephrology following-correspondence reviewed monitor renal function, electrolytes, intake/output, lower extremity edema and weight
Echocardiogram summarized below
Heparin-eventually changed to oral anticoagulant
Right heart catheterization 04/22/2024-elevated right and left ventricular pressures, RA 20, PA 76/29, PCWP-28, RV 78/9, cardiac index 1.68, consistent with WHO class V
Monitor rhythm-atrial fibrillation now back in sinus rhythm
Atrial fibrillation paroxysmal new for her
Heparin drip initiated
Moderate pericardial effusion apparently chronic
Right heart catheterization pending
Consideration towards VQ scan if still unexplained shortness of breath/pulm hypertension-already on heparin
DVT prophylaxis on heparin
GI prophylaxis-on pantoprazole
Nutrition
Early mobilization
Upon discharge she will continue to follow-up with her pulmonary/cardiology doctor at [facility]
Data reviewed:
Echocardiogram 04/23/2024: EF 65-70%, diastolic function intermediate due to atrial fibrillation, PA systolic 35-40, small to moderate pericardial effusion
Subjective Data
-
Date of Service:
Date of Service: April 27, 2024
Chief Complaint: Pulmonary Follow Up and Dyspnea Follow Up
Subjective:
Feels about the same, still has significant wheezing, nonproductive cough, no chest pain or abdominal pain
Review of Systems
General: Other (Per HPI)
Objective Data
Data Reviewed
Vital Signs / I&O:
Vital Signs
Temp Pulse Resp BP Pulse Ox
98.6 F 48 16 139/52 98
04/27/24 07:31 04/27/24 08:01 04/27/24 08:01 04/27/24 08:01 04/27/24 08:01
Intake and Output
04/26/24 04/27/24 04/28/24
06:59 06:59 06:59
Intake Total 584.5 / 584.5
Output Total 200 / 200
Balance 384.5 / 384.5
SaO2: 98
Nasal Cannula flow liters per minute: 4
Physical Exam
General: Respiratory Distress (n) and Comfortable
HEENT: Normocephalic, Anicteric and Moist Mucous Membranes
Cardiovascular: Regular Rhythm
Respiratory: Clear (Diminished breath sounds, prolonged expiratory time), Wheeze (Forced wheezes), Crackles (Rare basilar), Rhonchi (n), Non-Labored Respirations, Accessory Resp Muscle Use (n) and Stridor
GI: Soft, Non Distended and Non Tender
Neurology: Awake, Alert and No Motor Deficits
Skin: Warm, Good Color, Cyanosis (n) and Jaundice (n)
Labs/Micro/Reports
Lab Data
04/27/24 08:00
04/27/24 08:00
Laboratory Results
04/26/24 04/26/24 04/27/24
11:20 23:50 00:40
APTT 88.2 H Cancelled 74.1 H
04/27/24 04/27/24
06:00 08:00
APTT Cancelled 66.4 H
--- NOTE | 2024-04-27 11:22 | W.PN.NEPH.PH ---
Today's Communication / Plan
-
Steroid
Holding diuretic
Assessment/Plan
-
Impression:
Congestive heart failure decompensated
Acute renal failure
Chronic kidney disease stage IV with baseline creatinine of 2
Pulmonary hypertension (has Cardiomems)
Coronary artery disease
COPD (home 4L O2)
Hypertension
Hypothyroidism
PAD
History of TIA
History of lung cancer status post XRT
New onset A-fib
Chronic pericardial effusion
History of endarterectomy in January 2012
Plan:
STEVEN:
-Likely a function of worsening cardiorenal syndrome in the setting of pulmonary hypertension
-Creatinine remains elevated at 3.1 with a BUN of 129
-Continues to have a shortness of breath is on chronic 4 L
-Renal ultrasound reviewed: No hydronephrosis bilateral benign renal cyst noted associated focal area of intermediate echogenicity superior to right kidney likely within the right adrenal gland
-check UA: bland
right heart catheterization 04/26=Elevated right and left ventricular filling pressures. Severe pre and post capillary pulmonary hypertension consistent with WHO Class V= sildenafil
Steroids initiated by pulmonary
Will be difficult to continue diuresing with her BUN 130 and creatinine 3. See how she responds to steroid. Discussed the possibilities of dialysis going forward
-
-
Date of Service: April 27, 2024
CC / HPI / ROS
-
Chief Complaint:
Chronic kidney disease
History of Present Illness:
Acute kidney injury stable with some improvement
Review of Systems:
Weights down
Nonoliguric
No fever
Remain short of breath only on exertion
Labs
-
Labs:
WBC 5.9 10^3/uL (4.8-10.8) 04/27/24 08:00
RBC 3.79 10^6/uL (4.20-5.40) L 04/27/24 08:00
Hgb 8.1 g/dL (12.0-16.0) L 04/27/24 08:00
Hct 28.4 % (37.0-47.0) L 04/27/24 08:00
Plt Count 192 10^3/uL (130-400) D 04/27/24 08:00
Sodium 133 mmol/L (135-145) L 04/27/24 08:00
Potassium 4.0 mmol/L (3.5-5.1) 04/27/24 08:00
Chloride 93 mmol/L (98-107) L 04/27/24 08:00
Carbon Dioxide 25 mmol/L (22-30) 04/27/24 08:00
BUN 129 mg/dl (7-17) H* 04/27/24 08:00
Creatinine 3.1 mg/dL (0.6-1.0) H 04/27/24 08:00
eGFR 15.02 04/27/24 08:00
Glucose 120 mg/dl (70-99) H 04/27/24 08:00
Calcium 9.3 mg/dl (8.4-10.2) 04/27/24 08:00
Rla-R-Mxipzmypnhb Pept > 17108 pg/ml 04/22/24 16:03
Albumin 4.6 g/dl (3.5-5.0) 04/23/24 19:12
Physical Exam
-
Vital Signs:
Vital Signs
Temp Pulse Resp BP Pulse Ox
98.6 F 48 16 139/52 98
04/27/24 07:31 04/27/24 08:01 04/27/24 08:01 04/27/24 08:01 04/27/24 09:48
Cardiovascular:: Irregular rate and rhythm
Respiratory:: Bilateral: Coarse, Bilateral: Rhonchi and Bilateral: Wheeze
Lung Excursion:: Normal
Abdomen:: Soft
Bowel Sounds:: Normal
Extremity Edema:: None: Bilateral:
Martin Catheter: No
[2024-04-27] MEDS: DECADRON 4 MG IV ×2 (12:36→20:11)
--- NOTE | 2024-04-27 12:49 | W.PN.CARDCBS ---
Today's Communication / Plan
-
Continue diuresis as per nephrology
Reviewed cath with patient
Discussed with pulmonary
Transition from IV heparin to Eliquis once no further procedures are planned and likely continue Eliquis with Plavix. Aspirin can be stopped at that time.
Impression / Plan
-
PCP: Dr. Reza Ortiz
Consulting Networking Engineer: Dr. Elliott Stokes ([facility] @ [place])
Impression:
Presented with worsening SOB, improving
Acute on chronic HFpEF, improving
CardioMEMs implant
Chronic hypoxemic respiratory failure on 4L NC
Newly diagnosed atrial fibrillation
Second-degree AV block type I, asymptomatic
History second-degree type I; currently rate controlled AF; noted high degree block on telemetry while sleeping (2: 1 versus complete heart block) no evidence during waking hours
No reported prior history of discussion of for possible pacemaker
CAD
Distant inferior wall LA with RCA stents 05/06/2003.
Chronic pericardial effusion
Severe pulmonary hypertension
Scleroderma
Mild MR, mild to moderate TR
CKD 3
Lung CA s/p XRT
h/o TIA
s/p carotid endarterectomy 02/07/2012
PAD
s/p fem/popliteal artery angioplasty/stent 08/20/2023
HTN
HLD
Former smoker
SAURABH
Hypothyroidism
Echo November 2012: revealed normal LV function, LVH and mild mitral regurgitation.
Echo 07/23/2021: EF 60% with mod to severe LVH, mild MR, biatrial enlargement. Mild to moderate TR, PASP 69 mmHg. Moderate to large pericardial effusion without hemodynamic compromise, 2.7 posteriorly and 2.3 laterally, mildly dilated aortic root.
Echo 08/03/2021: EF 65-70%, moderate to large pericardial effusion without evidence of hemodynamic compromise
Echo 06/13/2023: EF 75-80%, moderate cLVH, grade II diastolic dysfunction, mild MAC, trace MR, mild AI, trace TR, small-moderate pericardial effusion
Echo 04/23/2024: EF 65-70%, mod conc LVH, normal RV size and function, mild TR with PAP 35-40 mmHg
Plan:
Reviewed cardiac catheterization findings with her. And discussed with pulmonary.
Continue Bumex diuresis as per nephrology (she takes Bumex 6 mg BID at home with metolazone 2.5 mg daily as needed based on volume by CardioMEMs report that day). Follow creatinine. Appreciate nephrology input.
Outpatient spironolactone has been on hold.
EF is preserved by echo April 23, 2024 and stable compared to prior echo from primary supervisor propellant charge loading June 2023.
Patient is not chronically on beta-elidia due to wheezing and history of Mobitz 1
Chronically on aspirin and Plavix for PAD with femoropopliteal angioplasty/stent August 2023
Paroxysmal atrial fibrillation is a new diagnosis. Check EKG. Patient is on IV heparin and can be transition to Eliquis and Plavix once no other procedures are planned.
Continue medical therapy of non-LA troponin with peak troponin 0.2
Continue Crestor. LDL at goal.
Outpatient follow-up with her outside supervisor propellant charge loading.
HPI: Yani is a 74 year old female with PMH of chronic respiratory failure on 4L NC, chronic HFpEF w/ cardioMEMs implant, CAD w/ prior stenting, chronic pericardial effusion, pulmonary hypertension, scleroderma, CKD, lung cancer, prior TIA,
carotid artery disease, PAD, HTN, HLD, SAURABH, and hypothyroidism. Presented to [facility] for evaluation of worsening SOB. Symptoms started a few weeks ago after [place] when she noted worsening SOB, however she states yesterday she felt dramatically
worse, so she called her supervisor propellant charge loading and reported her CardioMEMs device showed she was at 35 mmHg and her goal she states is to be below 30 mmHg. She was told to come to ER for evaluation given concern for acute heart failure. She notes typically
she takes bumex 3mg BID as OP with metolazone 2.5mg PRN. She believes she took metolazone on Friday and Friday this week. Weight has been down trending over the past few weeks due to lack of appetite and she denies any worsening edema. On arrival
to ER, ProBNP was elevated at > 27,000. Creat elevated at 3.1. She was given a single dose of bumex 2mg in ER 12/12 PM, however states she did not notice any significant diuresis with this. She feels slightly better this AM compared to when she came
in to ER. Remains on 4L NC which she reports is her baseline.
Progress Note - Consulting Networking Engineer
Subjective
Date of Service: April 27, 2024
Patient seen and examined. No chest pain breathing better
Objective
Labs:
04/27/24 08:00
04/27/24 08:00
Labs
Hgb 8.1 g/dL (12.0-16.0) L 04/27/24 08:00
Hct 28.4 % (37.0-47.0) L 04/27/24 08:00
Plt Count 192 10^3/uL (130-400) D 04/27/24 08:00
PT 13.1 Sec (11.4-14.6) 04/23/24 19:12
INR 0.96 04/23/24 19:12
APTT 66.4 Sec (23.4-35.0) H 04/27/24 08:00
Sodium 133 mmol/L (135-145) L 04/27/24 08:00
Potassium 4.0 mmol/L (3.5-5.1) 04/27/24 08:00
BUN 129 mg/dl (7-17) H* 04/27/24 08:00
Creatinine 3.1 mg/dL (0.6-1.0) H 04/27/24 08:00
Glucose 120 mg/dl (70-99) H 04/27/24 08:00
Vital Signs and I&O:
Vital Signs
Temp Pulse Resp BP Pulse Ox
98.6 F 50 16 139/52 94
04/27/24 07:31 04/27/24 11:29 04/27/24 11:29 04/27/24 08:01 04/27/24 11:29
Vital Signs
Temp Pulse Resp BP Pulse Ox
98.6 F 50 16 139/52 94
04/27/24 07:31 04/27/24 11:29 04/27/24 11:29 04/27/24 08:01 04/27/24 11:29
Intake & Output
04/25/24 04/26/24 04/27/24 04/28/24
06:59 06:59 06:59 06:59
Intake Total 730 / 730 584.5 / 584.5
Output Total 600 / 600 200 / 200
Balance 130 / 130 384.5 / 384.5
Physical Exam
Physical Exam
General: No acute distress, AAOX3
Neck: Negative JVD
Heart: Irregular irregular, Negative S3 positive S1/S2, Negative S4, No murmur
Lungs: CTA b/l, negative wheezes/rales/rhonchi
Abd: Positive BS, NT/ND, neg rebound/rigidity/guarding
Ext: Negative cyanosis/clubbing/edema
Neuro: nonfocal
[2024-04-27] MEDS: FERRLECIT 110 MG IV (14:21)
--- NOTE | 2024-04-27 14:23 | W.PN.HOSP.TC ---
Today's Communication/Plan
-
IV steroids
bronchodilators
OOB/PT/OT
hep gtt
trend cr
Assessment / Plan
Assessment / Plan
#Dyspnea which seems to be multifactorial secondary to severe pulmonary hypertension stage V, COPD, atrial fibrillation, intermittent bradycardia, chronic anemia
# Chronic hypoxic respiratory failure on 4 L
# Acute on chronic HFpEF
BNP >34122
Implanted CardioMems device to read pressures by Heart Failure doctor
Pressures elevated on day of admission and office instructed to go to ED for evaluation and treatment
Diuretics with Bumex has been held
s/p right heart cardiac catheterization on 04/26 with finding of Elevated right and left ventricular filling pressures. Severe pre and post capillary pulmonary hypertension consistent with WHO Class V
As per cardiology contacting Dr. Wade office at [address] Office:
# Severe pulmonary hypertension
continue Ellipta, Opsumit, and tadalafil
Cardio planning to do Rt heart Cath on 04/26. Cardio requested input from pulm, noted and appreciated
Atrial Fibrillation with intermittent bradycardia newly diagnosed
now back in NSR
Eliquis has been held and heparin drip has been continued
#CAD
continue aspirin and rosuvastatin
Anemia
Hemoglobin of 8.4 status post 1 unit of PRBC so far.
With iron deficiency and will start patient on IV iron
Monitor for any luminal bleeding.
Hx of GI bleed
underwent EGD 09/03/23 with angioectasia noted in stomach with APC used for coagulation
#COPD
CXR: Increased left midlung probable atelectasis/scarring.
- continue bronchodilators
-started on IV steroids.
STEVEN on CKD IV
Diuretics is being held.
BUN continues to remain significantly elevated.
Cr bumped to 3.1 today.
If no improvement may require HD.
#HTN
- continue spironolactone
#hypercholesterolemia
- continue rosuvastatin
#hypothyroidism
- continue levothyroxine
#anxiety
- continue alprazolam and fluoxetine, will adjust timing of Xanax prn
Hx of Lung Cancer
s/p XRT
TOE fracture
-pain control
Code Status: DNR
DVT Prophylaxis: Heparin gtt
PT/OT
Anticipated Discharge: > 48 hours
Subjective/Interval History
-
Date of Service: April 27, 2024
states not much appetite this morning
emotional/anxious as concern about going on possible HD
Objective Data
-
Labs:
Laboratory Results
04/27/24 04/27/24
08:00 16:00
WBC 5.9
Hgb 8.1 L
Hct 28.4 L
Plt Count 192 D
APTT 66.4 H Pending
Sodium 133 L
Potassium 4.0
Chloride 93 L
Carbon Dioxide 25
BUN 129 H*
Creatinine 3.1 H
Glucose 120 H
Calcium 9.3
Vital Signs:
Vital Signs
Temp Pulse Resp BP Pulse Ox
98.5 F 50 16 139/52 94
04/27/24 11:56 04/27/24 11:29 04/27/24 11:29 04/27/24 08:01 04/27/24 11:29
I&O
04/26/24 04/27/24 04/28/24
06:59 06:59 06:59
Intake Total 584.5 / 584.5
Output Total 200 / 200
Balance 384.5 / 384.5
Physical Exam
-
General: Well Developed, Well Nourished and No Apparent Distress
HEENT: Normocephalic, Atraumatic, Moist Mucous Membranes and Oxygen
Respiratory: Wheezes
Cardiac: Regular Rhythm (was in A. Fib, now back in NSR), S1/S2 and Bradycardic
GI: Soft, Nontender, Nondistended and Normal Bowel Sounds
Musculoskeletal: No Clubbing, No Cyanosis and No Edema
Neuro: Awake, Alert and Oriented
Psych: Calm
Data Reviewed
-
Total Time Spent with Patient (in minutes): 55
[2024-04-27 16:30] LABS: APTT 123.5 Sec (23.4-35.0)
--- NOTE | 2024-04-27 16:33 | CM ---
O2 4L. Receiving IV Ferric Na Gluconate, Heparin gtt, IV Decadron. PT/OT recommend home PT v skilled rehab.
Spoke with patient; discussed her current functional status as per PT/OT. Patient says she has been tremulous due to the steroids she is receiving while here, and feels her ambulation will improve once she is off the steroids. She would like to go
home at discharge with [facility] and will discuss this with her daughter. Patient confirms she has home O2 in place. She doesn't feel she will need a caregiver to assist her at home.
Referral to [facility].
Plan follow patient's progress with PT/OT.
Plan follow up with [facility] for acceptance.
--- NOTE | 2024-04-27 17:44 | PTCARENOTE ---
Assumed care of patient at beginning of this shift from previous RN with heparin infusing; see worklist for adjustments/titration. Patient worked with PT/OT today and was OOB to chair for approximately 2hrs; she was a 2 assist with RW back to bed.
Did not require pain med today. See worklist for full assessment and vital signs.
[2024-04-27] MEDS: BUMEX 3 MG IV (20:11)
[2024-04-27] MEDS: XANAX 0.25 MG PO ×2 (20:49→23:37)
--- NOTE | 2024-04-27 21:04 | PTCARENOTE ---
Addendum entered by Dania Carrillo 04/28/24 05:12:
Pt status improved, O2 100% on baseline 4L. HR remains nilda, 43 at this time. VS as documented. Resps do not appear labored at this time. Heparin gtt titrated per protocol, see worklist.
Original Note:
Pt with labored respirations, c/o SOB. 92% on 4L baseline O2. O2 increased to 6L with improvement. HR nilda 53 at this time. BPs slightly elevated, as documented. 3g Bumex given per JUL. PRN xanax given per JUL at [employer] recommendation for increased
anxiety d/t SOB. MIGUEL May ordered nasal spray for nasal congestion, awaiting med from pharmacy. Pt encouraged to alert this RN with additional concerns or worsening SOB.
[2024-04-27] MEDS: OCEAN, SALINE MIST 2 SPRAYS NASAL (21:12)
[2024-04-28] VITALS (14 sets, daily range): BP systolic 86–164; BP diastolic 13–99; PULSE 50; O2SAT 94; BMI 25.8
[2024-04-28] MEDS: HEPARIN 25000 UNITS/250 ML IV (05:00)
[2024-04-28] MEDS: SYNTHROID 50 MCG PO (05:39)
[2024-04-28 06:16] LABS: % Basophils 0.4 % (0-2); % Immature Granulocytes 1.6 % (0-0.5); % Lymphocytes 6.7 % (20.5-51.1); % Monocytes 5.1 % (1.7-9.3); % Neutrophils 86.2 % (42.2-75.2); Absolute Lymphocytes 0.2 10^3/uL (1.2-3.4); Absolute Monocytes 0.1 10^3/uL (0.1-0.6); Absolute Neutrophils 2.2 10^3/uL (1.4-6.5); Hematocrit 26.6 % (37.0-47.0); Hemoglobin 7.5 g/dL (12.0-16.0); Mean Corp Hgb Conc. 28.2 g/dL (33.0-37.0); Mean Corpuscular Hgb 21.4 pg (27.0-31.0); Mean Corpuscular Volume 75.8 fL (81.0-99.0); Mean Platelet Volume 11.6 fL (7.4-10.4); Platelet Count 245 10^3/uL (130-400); Red Blood Cell Count 3.51 10^6/uL (4.20-5.40); Red Cell Dist. Width 19.7 % (11.5-14.5); White Blood Cell Count 2.5 10^3/uL (4.8-10.8)
[2024-04-28 06:31] LABS: APTT 93.8 Sec (23.4-35.0)
[2024-04-28 06:41] LABS: Calcium 9.5 mg/dl (8.4-10.2); Carbon Dioxide 22 mmol/L (22-30); Estimated Creatinine Clearance 12 ml/min; Glucose 148 mg/dl (70-99); Potassium 4.2 mmol/L (3.5-5.1); Sodium 131 mmol/L (135-145); eGFR 15.02
[2024-04-28 06:51] LABS: Blood Urea Nitrogen 131 mg/dl (7-17); Chloride 91 mmol/L (98-107)
[2024-04-28] MEDS: DUONEB 3 ML INH ×4 (07:26→19:46)
[2024-04-28] MEDS: PULMICORT 0.5 MG INH ×2 (07:26→19:46)
[2024-04-28] MEDS: STRIVERDI RESPIMAT 2 PUFF INH (07:30)
[2024-04-28] MEDS: PROZAC 20 MG PO (08:25)
[2024-04-28] MEDS: CRESTOR 10 MG PO (08:25)
[2024-04-28] MEDS: ASPIR LOW (ENTERIC COATED) 81 MG PO (08:25)
[2024-04-28] MEDS: VITAMIN D3 (cholecalciferol) 50 MCG PO (08:25)
[2024-04-28] MEDS: PLAVIX 75 MG PO (08:25)
[2024-04-28] MEDS: DECADRON 4 MG IV ×2 (08:25→20:16)
[2024-04-28] MEDS: PROTONIX 40 MG PO (08:25)
[2024-04-28] MEDS: NON-FORMULARY ITEM 20 MG PO (08:26)
[2024-04-28] MEDS: NON-FORMULARY ITEM 10 MG PO (08:26)
--- NOTE | 2024-04-28 08:44 | W.PN.NEPH.PH ---
Today's Communication / Plan
-
Maintain IV diuresis
Urine output not recorded, check random bladder scan
STEVEN worsening in setting of advanced cardiorenal syndrome
Assessment/Plan
-
Impression:
Congestive heart failure decompensated
Acute renal failure
Chronic kidney disease stage IV with baseline creatinine of 2
Pulmonary hypertension (has Cardiomems)
Coronary artery disease
COPD (home 4L O2)
Hypertension
Hypothyroidism
PAD
History of TIA
History of lung cancer status post XRT
New onset A-fib
Chronic pericardial effusion
History of endarterectomy in January 2012
Plan:
STEVEN:
-Likely a function of worsening cardiorenal syndrome in the setting of pulmonary hypertension
-Creatinine remains elevated at 3.1 with a BUN of 131
-Right heart cath reviewed pulmonary capillary wedge pressure 28 cardiac output 2.6 cardiac index 1.68
-Continues to have a shortness of breath is on chronic 4 L
-Renal ultrasound reviewed: No hydronephrosis bilateral benign renal cyst noted associated focal area of intermediate echogenicity superior to right kidney likely within the right adrenal gland
-checked UA: bland
Steroids initiated by pulmonary
Will be difficult to continue diuresing with her BUN 130 and creatinine 3. See how she responds to steroid. Discussed the possibilities of dialysis going forward
Patient is an exceedingly poor candidate for dialysis given advanced cardiomyopathy with cardiac index less than 2
Maintain Bumex 3 mg IV twice daily to assess efficacy of more aggressive diuresis
discussed with cardiology whether or not more aggressive heart failure treatment is warranted. IV inotropics for possible transfer to [place]
Patient is at high clinical risk with persistent renal failure and ongoing congestive heart failure
-
-
Date of Service: April 28, 2024
CC / HPI / ROS
-
Chief Complaint:
Chronic kidney disease
History of Present Illness:
Acute kidney injury worsening
Hemodynamically stable
Anemia worsening
Review of Systems:
Weights unchanged
Nonoliguric subjectively
No fever
Remain short of breath only on exertion
Labs
-
Labs:
WBC 2.5 10^3/uL (4.8-10.8) L 04/28/24 05:43
RBC 3.51 10^6/uL (4.20-5.40) L 04/28/24 05:43
Hgb 7.5 g/dL (12.0-16.0) L 04/28/24 05:43
Hct 26.6 % (37.0-47.0) L 04/28/24 05:43
Plt Count 245 10^3/uL (130-400) D 04/28/24 05:43
Sodium 131 mmol/L (135-145) L 04/28/24 05:43
Potassium 4.2 mmol/L (3.5-5.1) 04/28/24 05:43
Chloride 91 mmol/L (98-107) L 04/28/24 05:43
Carbon Dioxide 22 mmol/L (22-30) 04/28/24 05:43
BUN 131 mg/dl (7-17) H* 04/28/24 05:43
Creatinine 3.1 mg/dL (0.6-1.0) H 04/28/24 05:43
eGFR 15.02 04/28/24 05:43
Glucose 148 mg/dl (70-99) H 04/28/24 05:43
Calcium 9.5 mg/dl (8.4-10.2) 04/28/24 05:43
Vso-A-Hzkzqfibfmm Pept > 15991 pg/ml 04/22/24 16:03
Albumin 4.6 g/dl (3.5-5.0) 04/23/24 19:12
Physical Exam
-
Vital Signs:
Vital Signs
Temp Pulse Resp BP Pulse Ox
97.9 F 50 14 139/64 98
04/28/24 02:59 04/28/24 07:28 04/28/24 07:28 04/28/24 04:00 04/28/24 07:28
Cardiovascular:: Irregular rate and rhythm
Respiratory:: Bilateral: Coarse, Bilateral: Rhonchi and Bilateral: Wheeze
Lung Excursion:: Normal
Abdomen:: Soft
Bowel Sounds:: Normal
Extremity Edema:: None: Bilateral:
Martin Catheter: No
--- NOTE | 2024-04-28 09:50 | W.PN.PUL.V3 ---
Today's Communication / Plan
-
Wean oxygen
Gentle diuresis
No change in Decadron
Assessment
-
74-year-old woman with complex past medical history noted, admitted with progressive shortness of breath since . Her oxygen supplementation is at baseline. Evaluated by cardiology and nephrology. Difficult to evaluate volume status.
Given history of pulmonary arterial hypertension, scleroderma and COPD on chronic oxygen therapy pulmonary was consulted for evaluation of possible pulmonary source of worsening shortness of breath.
Exertional dyspnea: Suspect multiple mechanisms.
Chronic kidney disease with BUN greater than 100.
proBNP greater than 27,000
Chronic anemia-likely contributing to symptoms
Bradycardia with underlying atrial fibrillation-likely contributing to symptoms
COPD without acute exacerbation
Chest x-ray: Cardiomegaly without acute abnormalities.
Conditions present prior admission:
Upper GI bleed with symptomatic anemia on 08/2023
Status post carotid endarterectomy and popliteal stents 2023
Pulmonary hypertension: group 1 (CTD, scleroderma), group 2 (LHD), group 3 (lung disease an/or hypoxia): on taladafil and macitetan.
Scleroderma
History of atrial fibrillation-not on anticoagulants.
Chronic anemia
HFpEF, moderate to severe LVH
Stage III DD
Mild MR, mild to moderate TR
Mildly enlarged RV size with normal systolic function
COPD, O2 at 3LPM
CAD s/p RCA stents 2002, on clopidogrel
Peripheral arterial disease status post [place] popliteal artery angioplasty/stent 08/20/2023
Chronic pericardial effusion
Lung cancer, s/p XRT till November 2018
TIA, s/p R CEA
HTN
Obstructive sleep apnea
Hypothyroidism
Chronic kidney disease creatinine between 2 and 3.
HLD
Moderate to large pericardial effusion, chronic, never tapped
Former smoker, quit July 2017
Plan
Respiratory status still somewhat tenuous with ongoing wheezing and dyspnea on exertion-major complaint is toe fracture pain
Supplemental oxygen-at baseline she is on 4 L
Assess discharge supplemental oxygen needs prior to discharge
Increase activity
Nebulizers as needed-on Pulmicort and DuoNebs
Anoro held
Aspiration precautions
Initially placed on steroids-completed a course for toe fracture/pain
Decadron initiated for ongoing wheezing not felt to be cardiac wheezing on 04/27/2024
Continue with tadalafil and Opsumit for pulmonary arterial hypertension-managed at [facility].
Continue gentle as tolerated-difficult with cardiorenal syndrome
Monitor renal function, electrolytes, intake/output, lower extremity edema and weight
Replace electrolytes as needed
Cardiology and nephrology following-correspondence reviewed monitor renal function, electrolytes, intake/output, lower extremity edema and weight
Echocardiogram summarized below
Heparin-eventually changed to oral anticoagulant
Note: Right heart catheterization 04/22/2024-elevated right and left ventricular pressures, RA 20, PA 76/29, PCWP-28, RV 78/9, cardiac index 1.68, consistent with WHO class V
Monitor rhythm-atrial fibrillation now back in sinus rhythm
Atrial fibrillation paroxysmal new for her
Heparin drip initiated
Moderate pericardial effusion apparently chronic
Consideration towards VQ scan if still unexplained shortness of breath/pulm hypertension-already on heparin
Nephrology following-cardiorenal syndrome suspected
Not not an ideal dialysis candidate
DVT prophylaxis on heparin
GI prophylaxis-on pantoprazole
Nutrition
Slowly increase activity/physical therapy
Upon discharge she will continue to follow-up with her pulmonary/cardiology doctor at [facility]-would like local blister rust eradicator as well
Data reviewed:
Echocardiogram 04/23/2024: EF 65-70%, diastolic function intermediate due to atrial fibrillation, PA systolic 35-40, small to moderate pericardial effusion
Subjective Data
-
Date of Service:
Date of Service: April 28, 2024
Chief Complaint: Pulmonary Follow Up and Dyspnea Follow Up
Subjective:
Feels a little better, still with wheezing, some shortness of breath with exertion, toe pain, no abdominal pain
Review of Systems
General: Other (Per HPI)
Objective Data
Data Reviewed
Vital Signs / I&O:
Vital Signs
Temp Pulse Resp BP Pulse Ox
97.9 F 50 14 139/64 98
04/28/24 02:59 04/28/24 07:28 04/28/24 07:28 04/28/24 04:00 04/28/24 07:28
Intake and Output
04/27/24 04/28/24 04/29/24
06:59 06:59 06:59
Intake Total 590 / 590
Output Total 300 / 300
Balance 290 / 290
SaO2: 98
Nasal Cannula flow liters per minute: 4
Physical Exam
General: Respiratory Distress (n) and Comfortable
HEENT: Normocephalic, Anicteric and Moist Mucous Membranes
Cardiovascular: Regular Rhythm
Respiratory: Clear (Diminished breath sounds, prolonged expiratory time), Wheeze (Forced wheezes), Crackles (Rare basilar), Rhonchi (n), Non-Labored Respirations, Accessory Resp Muscle Use (n) and Stridor
GI: Soft, Non Distended and Non Tender
Neurology: Awake, Alert and No Motor Deficits
Skin: Warm, Good Color, Cyanosis (n) and Jaundice (n)
Labs/Micro/Reports
Lab Data
04/28/24 05:43
04/28/24 05:43
Laboratory Results
04/27/24 04/28/24 04/28/24
16:01 00:25 05:43
APTT 123.5 H 103.0 H 93.8 H
[2024-04-28] MEDS: BUMEX 3 MG IV ×2 (09:53→20:16)
--- NOTE | 2024-04-28 10:55 | W.PN.CARDCBS ---
Today's Communication / Plan
-
Continues with worsening renal insufficiency
Doubt there is a role for inotropic normal RV and LV function
Might consider transferring to tertiary care center
Remains in A-fib and eventually change to Eliquis when no more procedures are planned and continue IV heparin for now
Impression / Plan
-
PCP: Dr. Reza Ortiz
Military Technology Specialist: Dr. Elliott Stokes ([facility])
Impression:
Presented with worsening SOB, improving
Acute on chronic HFpEF, improving
CardioMEMs implant
Chronic hypoxemic respiratory failure on 4L NC
Newly diagnosed atrial fibrillation
Second-degree AV block type I, asymptomatic
History second-degree type I; currently rate controlled AF; noted high degree block on telemetry while sleeping (2: 1 versus complete heart block) no evidence during waking hours
No reported prior history of discussion of for possible pacemaker
CAD
Distant inferior wall ND with RCA stents 05/06/2003.
Chronic pericardial effusion
Severe pulmonary hypertension
Scleroderma
Mild MR, mild to moderate TR
CKD 3
Lung CA s/p XRT
h/o TIA
s/p carotid endarterectomy 02/07/2012
PAD
s/p fem/popliteal artery angioplasty/stent 08/20/2023
HTN
HLD
Former smoker
SAURABH
Hypothyroidism
Echo November 2012: revealed normal LV function, LVH and mild mitral regurgitation.
Echo 07/23/2021: EF 60% with mod to severe LVH, mild MR, biatrial enlargement. Mild to moderate TR, PASP 69 mmHg. Moderate to large pericardial effusion without hemodynamic compromise, 2.7 posteriorly and 2.3 laterally, mildly dilated aortic root.
Echo 08/03/2021: EF 65-70%, moderate to large pericardial effusion without evidence of hemodynamic compromise
Echo 06/13/2023: EF 75-80%, moderate cLVH, grade II diastolic dysfunction, mild MAC, trace MR, mild AI, trace TR, small-moderate pericardial effusion
Echo 04/23/2024: EF 65-70%, mod conc LVH, normal RV size and function, mild TR with PAP 35-40 mmHg
Plan:
Discussed with nephrology
Renal function continues to be poor and not ideal candidate for dialysis
Nephrology is trying higher doses of Bumex
Nephrology asked about possible inotropes but reviewed echo and LV function and RV function are good and LV function appears hyperdynamic and inotropes could cause hypotension
May need to consider transferring to her tertiary care center that manages her pulmonary hypertension
Pulmonary is following and continuing steroids
Chronically on aspirin and Plavix for PAD with femoropopliteal angioplasty/stent August 2023 but paroxysmal atrial fibrillation is a new diagnosis. Check EKG. Patient is on IV heparin and can be transition to Eliquis and Plavix or perhaps Eliquis
alone if no other procedures are planned.
Continue medical therapy of non-ND troponin with peak troponin 0.2
Continue Crestor. LDL at goal.
Outpatient follow-up with her outside [employer] consultant.
HPI: Yani is a 74 year old female with PMH of chronic respiratory failure on 4L NC, chronic HFpEF w/ cardioMEMs implant, CAD w/ prior stenting, chronic pericardial effusion, pulmonary hypertension, scleroderma, CKD, lung cancer, prior TIA,
carotid artery disease, PAD, HTN, HLD, SAURABH, and hypothyroidism. Presented to [facility] for evaluation of worsening SOB. Symptoms started a few weeks ago after Thanksgiving when she noted worsening SOB, however she states yesterday she felt dramatically
worse, so she called her [employer] consultant and reported her CardioMEMs device showed she was at 35 mmHg and her goal she states is to be below 30 mmHg. She was told to come to ER for evaluation given concern for acute heart failure. She notes typically
she takes bumex 3mg BID as OP with metolazone 2.5mg PRN. She believes she took metolazone on Friday and Friday this week. Weight has been down trending over the past few weeks due to lack of appetite and she denies any worsening edema. On arrival
to ER, ProBNP was elevated at > 27,000. Creat elevated at 3.1. She was given a single dose of bumex 2mg in ER 12/12 PM, however states she did not notice any significant diuresis with this. She feels slightly better this AM compared to when she came
in to ER. Remains on 4L NC which she reports is her baseline.
Progress Note - Military Technology Specialist
Subjective
Date of Service: April 28, 2024
No complaints.
Objective
Labs:
04/28/24 05:43
04/28/24 05:43
Labs
Hgb 7.5 g/dL (12.0-16.0) L 04/28/24 05:43
Hct 26.6 % (37.0-47.0) L 04/28/24 05:43
Plt Count 245 10^3/uL (130-400) D 04/28/24 05:43
PT 13.1 Sec (11.4-14.6) 04/23/24 19:12
INR 0.96 04/23/24 19:12
APTT 93.8 Sec (23.4-35.0) H 04/28/24 05:43
Sodium 131 mmol/L (135-145) L 04/28/24 05:43
Potassium 4.2 mmol/L (3.5-5.1) 04/28/24 05:43
BUN 131 mg/dl (7-17) H* 04/28/24 05:43
Creatinine 3.1 mg/dL (0.6-1.0) H 04/28/24 05:43
Glucose 148 mg/dl (70-99) H 04/28/24 05:43
Vital Signs and I&O:
Vital Signs
Temp Pulse Resp BP Pulse Ox
97.9 F 46 16 164/51 100
04/28/24 02:59 04/28/24 10:00 04/28/24 10:00 04/28/24 10:00 04/28/24 10:00
Vital Signs
Temp Pulse Resp BP Pulse Ox
97.9 F 46 16 164/51 100
04/28/24 02:59 04/28/24 10:00 04/28/24 10:00 04/28/24 10:00 04/28/24 10:00
Intake & Output
04/26/24 04/27/24 04/28/24 04/29/24
06:59 06:59 06:59 06:59
Intake Total 584.5 / 584.5 590 / 590
Output Total 200 / 200 300 / 300
Balance 384.5 / 384.5 290 / 290
Physical Exam
Physical Exam
General: Well developed, well nourished in NAD.
Neck: Supple, no JVD, HJR, carotids +2 B/L, no bruits bilaterally.
Heart: Non displaced PMI, Irreg, no murmurs, No S3, S4, no rubs.
Lungs: Scattered rhonchi at the bases
Extremities: No clubbing, cyanosis or edema bilaterally.
Neuro: Grossly nonfocal, awake, alert and oriented x3.
--- NOTE | 2024-04-28 12:28 | W.PN.HOSP.TC ---
Today's Communication/Plan
-
IV steroids
IV bumex
Bronchodilators
Continue with therapy
Monitor creatinine closely
Assessment / Plan
Assessment / Plan
#Dyspnea which seems to be multifactorial secondary to severe pulmonary hypertension stage V, COPD, atrial fibrillation, intermittent bradycardia, chronic anemia
#Chronic hypoxic respiratory failure on 4 L
#Acute on chronic HFpEF
BNP >66262
Implanted CardioMems device to read pressures by Heart Failure doctor
Pressures elevated on day of admission and office instructed to go to ED for evaluation and treatment
Diuretics with Bumex has been restarted at 3mg IV BID
s/p right heart cardiac catheterization on 04/26 with finding of Elevated right and left ventricular filling pressures. Severe pre and post capillary pulmonary hypertension consistent with WHO Class V
As per cardiology contacting Dr. Wade office at [address] Office
per cards no role of inotropes.
#COPD exaceration
-continue bronchodilators
-started on IV steroids 4mg 12H.
-Pulmonary following along
#STEVEN on CKD IV
Bumex restarted.
BUN continues to remain significantly elevated.
Cr bumped to 3.1 today.
If no improvement may require HD.
Nephrology following along
#Severe pulmonary hypertension
continue Ellipta, Opsumit, and tadalafil
Cardio planning to do Rt heart Cath on 04/26. Cardio requested input from pulm, noted and appreciated
#Mild hyponatremia
trend for now
Atrial Fibrillation with intermittent bradycardia newly diagnosed
now back in NSR
Eliquis has been held and heparin drip has been continued
#CAD
continue aspirin and rosuvastatin
Anemia
Hemoglobin of 7.5 status post 1 unit of PRBC so far.
With iron deficiency and will start patient on IV iron
Monitor for any luminal bleeding.
#HTN
- continue bumex
#hypercholesterolemia
- continue rosuvastatin
#hypothyroidism
- continue levothyroxine
#anxiety
- continue alprazolam and fluoxetine, will adjust timing of Xanax prn
Hx of Lung Cancer
s/p XRT
TOE fracture
-pain control
Hx of GI bleed
underwent EGD 09/03/23 with angioectasia noted in stomach with APC used for coagulation
Code Status: DNR
DVT Prophylaxis: Heparin gtt
PT/OT
updated daughter Christine over the phone in details per patient request.
Anticipated Discharge: > 48 hours
Subjective/Interval History
-
Date of Service: April 28, 2024
states mild improvement in her breathing
remains on oxygen
states of nasal congestion
Objective Data
-
Labs:
Laboratory Results
04/28/24 04/28/24
00:25 05:43
WBC 2.5 L
Hgb 7.5 L
Hct 26.6 L
Plt Count 245 D
APTT 103.0 H 93.8 H
Sodium 131 L
Potassium 4.2
Chloride 91 L
Carbon Dioxide 22
BUN 131 H*
Creatinine 3.1 H
Glucose 148 H
Calcium 9.5
Vital Signs:
Vital Signs
Temp Pulse Resp BP Pulse Ox
97.3 F 54 15 164/51 97
04/28/24 11:29 04/28/24 11:12 04/28/24 11:12 04/28/24 10:00 04/28/24 11:12
I&O
04/27/24 04/28/24 04/29/24
06:59 06:59 06:59
Intake Total 590 / 590
Output Total 300 / 300
Balance 290 / 290
Physical Exam
-
General: Well Developed, Well Nourished, No Apparent Distress, Comfortable and Conversant; Negative Appears in Distress or Slurred Speech
HEENT: Normocephalic, Atraumatic, Moist Mucous Membranes, Nose Appears Normal, Ears Appear Normal and Oxygen
Respiratory: Wheezes (mild improvement )
Cardiac: Regular Rhythm (was in A. Fib, now back in NSR), S1/S2 and Bradycardic
GI: Soft, Nontender, Nondistended and Normal Bowel Sounds
Musculoskeletal: No Clubbing, No Cyanosis and No Edema
Neuro: Awake, Alert, Oriented and No Motor Deficits
Psych: Calm
Data Reviewed
-
Total Time Spent with Patient (in minutes): 55
[2024-04-28] MEDS: TYLENOL 975 MG PO (14:22)
[2024-04-28] MEDS: FERRLECIT 110 MG IV (14:23)
--- NOTE | 2024-04-28 14:59 | CM ---
Chart reviewed: Anticipated Discharge: > 48 hours
Per PT, post acute recommendation not determined (Home Health vs. SNF)
Plan: Rewinder Operator will continue to monitor hospital course and support coordination of disposition needs when determined
--- NOTE | 2024-04-28 16:34 | PTCARENOTE ---
Assumed care of patient at beginning of this shift from previous RN; cannot verify accuracy of vital signs prior to 0700. Patient OOB to chair for approximately 3hrs with 2 assist using RW, she then worked with PT. Remains afib on the monitor with
slow rate; cardiology in and aware. See worklist for full assessment and vital signs.
[2024-04-28] MEDS: XANAX 0.25 MG PO (22:32)
[2024-04-29] VITALS (11 sets, daily range): BP systolic 148–171; BP diastolic 52–92; BMI 25.5
[2024-04-29] MEDS: XANAX 0.25 MG PO ×3 (02:13→20:28)
[2024-04-29] MEDS: OCEAN, SALINE MIST 2 SPRAYS NASAL (02:19)
--- NOTE | 2024-04-29 02:23 | PTCARENOTE ---
Pt very anxious, complaining of SOB SaO2 remains >95%. PRN xanax given per MAR. Inc care provided. Repositioning provided. Call pak within reach
[2024-04-29] MEDS: SYNTHROID 50 MCG PO (05:12)
[2024-04-29] MEDS: HEPARIN 25000 UNITS/250 ML IV (05:19)
[2024-04-29 05:54] LABS: % Basophils 0.2 % (0-2); % Eosinophils 0.2 % (0-6); % Immature Granulocytes 1.6 % (0-0.5); % Lymphocytes 4.9 % (20.5-51.1); % Monocytes 6.5 % (1.7-9.3); % Neutrophils 86.6 % (42.2-75.2); Absolute Immature Granulocytes 0.1 10^3/uL (0-0.05); Absolute Lymphocytes 0.3 10^3/uL (1.2-3.4); Absolute Monocytes 0.4 10^3/uL (0.1-0.6); Absolute Neutrophils 5.4 10^3/uL (1.4-6.5); Hematocrit 26.7 % (37.0-47.0); Hemoglobin 8.1 g/dL (12.0-16.0); Mean Corp Hgb Conc. 30.3 g/dL (33.0-37.0); Mean Corpuscular Hgb 22.4 pg (27.0-31.0); Mean Platelet Volume 10.9 fL (7.4-10.4); Nucleated Red Blood Cells % 1.3 %; Platelet Count 221 10^3/uL (130-400); Red Blood Cell Count 3.61 10^6/uL (4.20-5.40); Red Cell Dist. Width 20.2 % (11.5-14.5); White Blood Cell Count 6.3 10^3/uL (4.8-10.8)
[2024-04-29 06:12] LABS: APTT 101.4 Sec (23.4-35.0)
[2024-04-29 06:25] LABS: Calcium 9.6 mg/dl (8.4-10.2); Carbon Dioxide 22 mmol/L (22-30); Chloride 94 mmol/L (98-107); Estimated Creatinine Clearance 11 ml/min; Glucose 135 mg/dl (70-99); Potassium 4.6 mmol/L (3.5-5.1); Sodium 131 mmol/L (135-145); eGFR 13.93
[2024-04-29 06:39] LABS: Blood Urea Nitrogen 146 mg/dl (7-17)
[2024-04-29] MEDS: STRIVERDI RESPIMAT 2 PUFF INH (07:32)
[2024-04-29] MEDS: DUONEB 3 ML INH ×4 (07:32→19:21)
[2024-04-29] MEDS: PULMICORT 0.5 MG INH ×2 (07:32→19:21)
[2024-04-29] MEDS: ASPIR LOW (ENTERIC COATED) 81 MG PO (07:43)
[2024-04-29] MEDS: CRESTOR 10 MG PO (07:43)
[2024-04-29] MEDS: PLAVIX 75 MG PO (07:43)
[2024-04-29] MEDS: PROTONIX 40 MG PO (07:44)
[2024-04-29] MEDS: PROZAC 20 MG PO (07:44)
[2024-04-29] MEDS: VITAMIN D3 (cholecalciferol) 50 MCG PO (07:44)
[2024-04-29] MEDS: DECADRON 4 MG IV (07:44)
[2024-04-29] MEDS: BUMEX 3 MG IV ×2 (07:46→20:28)
--- NOTE | 2024-04-29 08:22 | W.PN.NEPH.PH ---
Today's Communication / Plan
-
observe on diuretics
Strongly suggest transfer to tertiary care center if aggressive care to be pursued
Discussion with cardiology as to whether or not afterload reduction will be helpful with congestive heart failure decompensation in setting of worsening cardiorenal syndrome
Assessment/Plan
-
Impression:
Congestive heart failure decompensated
Acute renal failure
Chronic kidney disease stage IV with baseline creatinine of 2
Pulmonary hypertension (has Cardiomems)
Coronary artery disease
COPD (home 4L O2)
Hypertension
Hypothyroidism
PAD
History of TIA
History of lung cancer status post XRT
New onset A-fib
Chronic pericardial effusion
History of endarterectomy in January 2012
Plan:
STEVEN:
-Likely a function of worsening cardiorenal syndrome in the setting of pulmonary hypertension
-Creatinine remains elevated at 3.3 with a BUN of 146, steroids likely exacerbating azotemia
-Right heart cath reviewed pulmonary capillary wedge pressure 28 cardiac output 2.6 cardiac index 1.68
-Continues to have a shortness of breath is on chronic 4 L
-Renal ultrasound reviewed: No hydronephrosis bilateral benign renal cyst noted associated focal area of intermediate echogenicity superior to right kidney likely within the right adrenal gland
-checked UA: bland
Steroids initiated by pulmonary
Will be difficult to continue diuresing with her BUN 146 and creatinine 3.3. See how she responds to steroid. Discussed the possibilities of dialysis going forward
Patient is an exceedingly poor candidate for dialysis given advanced cardiomyopathy with cardiac index less than 2
Maintain Bumex 3 mg IV twice daily to assess efficacy of more aggressive diuresis,weights unchanged, oliguric
discussed with cardiology whether or not more aggressive heart failure treatment is warranted. afterload reduction for possible transfer to [place]
Patient is at high clinical risk with persistent renal failure and ongoing congestive heart failure
-
-
Date of Service: April 29, 2024
CC / HPI / ROS
-
Chief Complaint:
Chronic kidney disease
History of Present Illness:
Acute kidney injury worsening
Hemodynamically stable
Anemia worsening
Review of Systems:
Weights unchanged
Nonoliguric subjectively
No fever
Remain short of breath only on exertion
Labs
-
Labs:
WBC 6.3 10^3/uL (4.8-10.8) 04/29/24 05:18
RBC 3.61 10^6/uL (4.20-5.40) L 04/29/24 05:18
Hgb 8.1 g/dL (12.0-16.0) L 04/29/24 05:18
Hct 26.7 % (37.0-47.0) L 04/29/24 05:18
Plt Count 221 10^3/uL (130-400) 04/29/24 05:18
Sodium 131 mmol/L (135-145) L 04/29/24 05:18
Potassium 4.6 mmol/L (3.5-5.1) 04/29/24 05:18
Chloride 94 mmol/L (98-107) L 04/29/24 05:18
Carbon Dioxide 22 mmol/L (22-30) 04/29/24 05:18
BUN 146 mg/dl (7-17) H* 04/29/24 05:18
Creatinine 3.3 mg/dL (0.6-1.0) H 04/29/24 05:18
eGFR 13.93 04/29/24 05:18
Glucose 135 mg/dl (70-99) H 04/29/24 05:18
Calcium 9.6 mg/dl (8.4-10.2) 04/29/24 05:18
Qfp-Z-Gksugpjuebs Pept > 74653 pg/ml 04/22/24 16:03
Albumin 4.6 g/dl (3.5-5.0) 04/23/24 19:12
Physical Exam
-
Vital Signs:
Vital Signs
Temp Pulse Resp BP Pulse Ox
97.7 F 55 18 169/54 99
04/29/24 03:57 04/29/24 07:46 04/29/24 07:44 04/29/24 07:46 04/29/24 07:44
Cardiovascular:: Irregular rate and rhythm
Respiratory:: Bilateral: Coarse, Bilateral: Rhonchi and Bilateral: Wheeze
Lung Excursion:: Normal
Abdomen:: Soft
Bowel Sounds:: Normal
Extremity Edema:: None: Bilateral:
Martin Catheter: No
[2024-04-29] MEDS: NON-FORMULARY ITEM 40 MG PO (08:41)
[2024-04-29] MEDS: NON-FORMULARY ITEM 10 MG PO (08:42)
--- NOTE | 2024-04-29 10:22 | W.PN.PUL.V3 ---
Today's Communication / Plan
-
Wean oxygen
Changed Decadron to prednisone with less wheezing
Assessment
-
74-year-old woman with complex past medical history noted, admitted with progressive shortness of breath since . Her oxygen supplementation is at baseline. Evaluated by cardiology and nephrology. Difficult to evaluate volume status.
Given history of pulmonary arterial hypertension, scleroderma and COPD on chronic oxygen therapy pulmonary was consulted for evaluation of possible pulmonary source of worsening shortness of breath.
Exertional dyspnea: Suspect multiple mechanisms.
Chronic kidney disease with BUN greater than 100.
proBNP greater than 27,000
Chronic anemia-likely contributing to symptoms
Bradycardia with underlying atrial fibrillation-likely contributing to symptoms
COPD without acute exacerbation
Chest x-ray: Cardiomegaly without acute abnormalities.
Conditions present prior admission:
Upper GI bleed with symptomatic anemia on 08/2023
Status post carotid endarterectomy and popliteal stents 2023
Pulmonary hypertension: group 1 (CTD, scleroderma), group 2 (LHD), group 3 (lung disease an/or hypoxia): on taladafil and macitetan.
Scleroderma
History of atrial fibrillation-not on anticoagulants.
Chronic anemia
HFpEF, moderate to severe LVH
Stage III DD
Mild MR, mild to moderate TR
Mildly enlarged RV size with normal systolic function
COPD, O2 at 3LPM
CAD s/p RCA stents 2002, on clopidogrel
Peripheral arterial disease status post [place] popliteal artery angioplasty/stent 08/20/2023
Chronic pericardial effusion
Lung cancer, s/p XRT till November 2018
TIA, s/p R CEA
HTN
Obstructive sleep apnea
Hypothyroidism
Chronic kidney disease creatinine between 2 and 3.
HLD
Moderate to large pericardial effusion, chronic, never tapped
Former smoker, quit July 2017
Plan
Respiratory status still somewhat tenuous with ongoing wheezing and dyspnea on exertion-major complaint is toe fracture pain
Supplemental oxygen-at baseline she is on 4 L
Assess discharge supplemental oxygen needs prior to discharge
Increase activity
Nebulizers as needed-on Pulmicort and DuoNebs
Anoro held
Aspiration precautions
Initially placed on steroids-completed a course for toe fracture/pain
Decadron initiated for ongoing wheezing not felt to be cardiac wheezing on 04/27/2024-changed to prednisone 30 mg daily 04/29/2024
Continue with tadalafil and Opsumit for pulmonary arterial hypertension-managed at [facility].
Continue gentle as tolerated-difficult with cardiorenal syndrome
Monitor renal function, electrolytes, intake/output, lower extremity edema and weight
Replace electrolytes as needed
Cardiology and nephrology following-correspondence reviewed monitor renal function, electrolytes, intake/output, lower extremity edema and weight
Echocardiogram summarized below
Heparin-eventually changed to oral anticoagulant
Note: Right heart catheterization 04/22/2024-elevated right and left ventricular pressures, RA 20, PA 76/29, PCWP-28, RV 78/9, cardiac index 1.68, consistent with WHO class V
Monitor rhythm-atrial fibrillation now back in sinus rhythm
Atrial fibrillation paroxysmal new for her
Heparin drip initiated
Moderate pericardial effusion apparently chronic
Consideration towards VQ scan if still unexplained shortness of breath/pulm hypertension-already on heparin
Nephrology following-cardiorenal syndrome suspected
Not not an ideal dialysis candidate
Potential port placement
DVT prophylaxis on heparin
GI prophylaxis-on pantoprazole
Nutrition
Slowly increase activity/physical therapy
Upon discharge she will continue to follow-up with her pulmonary/cardiology doctor at [facility]-would like local sand molder as well
Data reviewed:
Echocardiogram 04/23/2024: EF 65-70%, diastolic function intermediate due to atrial fibrillation, PA systolic 35-40, small to moderate pericardial effusion
Subjective Data
-
Date of Service:
Date of Service: April 29, 2024
Chief Complaint: Pulmonary Follow Up and Dyspnea Follow Up
Subjective:
Anxious about port placement and potential need for dialysis, no increase shortness of breath, wheezing somewhat improved, no chest pain or abdominal pain
Review of Systems
General: Other (Per HPI)
Objective Data
Data Reviewed
Vital Signs / I&O:
Vital Signs
Temp Pulse Resp BP Pulse Ox
98.1 F 55 18 169/54 99
04/29/24 07:38 04/29/24 07:46 04/29/24 07:44 04/29/24 07:46 04/29/24 07:44
Intake and Output
04/28/24 04/29/24 04/30/24
06:59 06:59 06:59
Intake Total 590 / 590 110 / 110
Output Total 300 / 300 350 / 350
Balance 290 / 290 -240 / -240
SaO2: 99
Nasal Cannula flow liters per minute: 4
Physical Exam
General: Respiratory Distress (n) and Comfortable
HEENT: Normocephalic, Anicteric and Moist Mucous Membranes
Cardiovascular: Regular Rhythm
Respiratory: Clear (Diminished breath sounds, prolonged expiratory time), Wheeze (Forced wheezes), Crackles (Rare basilar), Rhonchi (n), Non-Labored Respirations, Accessory Resp Muscle Use (n) and Stridor
GI: Soft, Non Distended and Non Tender
Neurology: Awake, Alert and No Motor Deficits
Skin: Warm, Good Color, Cyanosis (n) and Jaundice (n)
Labs/Micro/Reports
Lab Data
04/29/24 05:18
04/29/24 05:18
Laboratory Results
04/29/24
05:18
APTT 101.4 H
--- NOTE | 2024-04-29 11:07 | W.PN.CARDCBS ---
Today's Communication / Plan
-
Transfer to [facility]
Impression / Plan
-
PCP: Dr. Reza Ortiz
Domestic Violence Counselor: Dr. Elliott Stokes ([facility] @ [place])
Impression:
Presented with worsening SOB, improving
Acute on chronic HFpEF, improving
CardioMEMs implant
Chronic hypoxemic respiratory failure on 4L NC
Newly diagnosed atrial fibrillation
Second-degree AV block type I, asymptomatic
History second-degree type I; currently rate controlled AF; noted high degree block on telemetry while sleeping (2: 1 versus complete heart block) no evidence during waking hours
No reported prior history of discussion of for possible pacemaker
CAD
Distant inferior wall NC with RCA stents 05/06/2003.
Chronic pericardial effusion
Severe pulmonary hypertension
Scleroderma
Mild MR, mild to moderate TR
CKD 3
Lung CA s/p XRT
h/o TIA
s/p carotid endarterectomy 02/07/2012
PAD
s/p fem/popliteal artery angioplasty/stent 08/20/2023
HTN
HLD
Former smoker
SAURABH
Hypothyroidism
Echo November 2012: revealed normal LV function, LVH and mild mitral regurgitation.
Echo 07/23/2021: EF 60% with mod to severe LVH, mild MR, biatrial enlargement. Mild to moderate TR, PASP 69 mmHg. Moderate to large pericardial effusion without hemodynamic compromise, 2.7 posteriorly and 2.3 laterally, mildly dilated aortic root.
Echo 08/03/2021: EF 65-70%, moderate to large pericardial effusion without evidence of hemodynamic compromise
Echo 06/13/2023: EF 75-80%, moderate cLVH, grade II diastolic dysfunction, mild MAC, trace MR, mild AI, trace TR, small-moderate pericardial effusion
Echo 04/23/2024: EF 65-70%, mod conc LVH, normal RV size and function, mild TR with PAP 35-40 mmHg
Plan:
She remains very tenuous, is hypertensive, and has STEVEN on CKD related to aggressive diuresis. Her pulmonary capillary wedge pressure remains elevated and she remains with severe pulmonary hypertension.
I suspect that she was compensated until around when heart block and possibly atrial fibrillation became problematic and her rhythm issues are the underlying cause of her current decompensation. Given combination of both heart block
and now A-fib with a slow ventricular response, I think that pacemaker implantation will be required prior to addressing her atrial fibrillation. Cardioversion alone would probably result in bradycardia/heart block and could be hazardous given all
her comorbidities.
She might benefit from afterload reduction, would like to add hydralazine and nitrates, but would favor that this be initiated at her final destination.
I have discussed with her primary weed eradicator Dr. Denis Toro. He is in agreement that pacemaker implantation is likely indicated. We discussed the best strategy and he would like to accept her in transfer to [facility].
Anticipate transfer, hopefully later today. Patient and daughter are both aware.
HPI: Yani is a 74 year old female with PMH of chronic respiratory failure on 4L NC, chronic HFpEF w/ cardioMEMs implant, CAD w/ prior stenting, chronic pericardial effusion, pulmonary hypertension, scleroderma, CKD, lung cancer, prior TIA,
carotid artery disease, PAD, HTN, HLD, SAURABH, and hypothyroidism. Presented to [facility] for evaluation of worsening SOB. Symptoms started a few weeks ago after when she noted worsening SOB, however she states yesterday she felt dramatically
worse, so she called her weed eradicator and reported her CardioMEMs device showed she was at 35 mmHg and her goal she states is to be below 30 mmHg. She was told to come to ER for evaluation given concern for acute heart failure. She notes typically
she takes bumex 3mg BID as OP with metolazone 2.5mg PRN. She believes she took metolazone on Friday and Friday this week. Weight has been down trending over the past few weeks due to lack of appetite and she denies any worsening edema. On arrival
to ER, ProBNP was elevated at > 27,000. Creat elevated at 3.1. She was given a single dose of bumex 2mg in ER 12/12 PM, however states she did not notice any significant diuresis with this. She feels slightly better this AM compared to when she came
in to ER. Remains on 4L NC which she reports is her baseline.
Progress Note - Domestic Violence Counselor
Subjective
Date of Service: April 29, 2024:
74-year-old woman with chronic respiratory failure on 4 L nasal cannula, chronic HFpEF with CardioMEMS, CAD, prior stents, pericardial effusion, scleroderma, CKD, pulmonary hypertension, lung cancer, prior TIA, PAD, hypertension, hyperlipidemia,
sleep apnea and hypothyroidism, admitted with progressive dyspnea and elevated wedge by cardio mems, on Bumex twice daily and metolazone as needed, proBNP is greater than 27,000
PMH: As above
PSH/PSH/FH: Reviewed
Allergies: Shellfish
Outpatient meds: Reviewed, pertinent cardiac meds include bumetanide reportedly 6 twice daily, clopidogrel 75 mg a day, as needed metolazone, Opsumit 10 mg daily, potassium 10 mEq daily, rosuvastatin 10 mg a day, spironolactone 25 mg twice daily,
tadalafil 40 mg daily, tramadol
Current meds: Alprazolam 0.25 mg at bedtime, aspirin 81 mg daily, clopidogrel 75 mg a day, fluoxetine 20 mg daily, levothyroxine 50 mcg daily, Opsumit 10 mg daily, pantoprazole, rosuvastatin 10 mg a day, tadalafil 40 mg daily, Striverdi, Pulmicort,
DuoNebs, dexamethasone 4 IV every 12, Bumex 3 mg IV twice daily, IV heparin
169/54, pulse 55, respiratory rate 18, afebrile, sats 99%, weight is 61.3 kg, down 0.5 kg, admission weight was 64.2 kg
No acute distress at the moment, scattered rhonchi, JVD okay, regular rate and rhythm, abdomen benign not much edema
Hemoglobin is 8.1, had been 7.5 and 8.1 before that, MCV is 74, BUN and creatinine are 146 and 3.3, sodium is 131
Chest x-ray shows marked cardiomegaly
EKG shows atrial fibrillation/flutter with probable junctional escape, patient had heart block initially, A-fib is a new diagnosis
Objective
Labs:
04/29/24 05:18
04/29/24 05:18
Labs
Hgb 8.1 g/dL (12.0-16.0) L 04/29/24 05:18
Hct 26.7 % (37.0-47.0) L 04/29/24 05:18
Plt Count 221 10^3/uL (130-400) 04/29/24 05:18
PT 13.1 Sec (11.4-14.6) 04/23/24 19:12
INR 0.96 04/23/24 19:12
APTT 101.4 Sec (23.4-35.0) H 04/29/24 05:18
Sodium 131 mmol/L (135-145) L 04/29/24 05:18
Potassium 4.6 mmol/L (3.5-5.1) 04/29/24 05:18
BUN 146 mg/dl (7-17) H* 04/29/24 05:18
Creatinine 3.3 mg/dL (0.6-1.0) H 04/29/24 05:18
Glucose 135 mg/dl (70-99) H 04/29/24 05:18
Vital Signs and I&O:
Vital Signs
Temp Pulse Resp BP Pulse Ox
36.7 C 55 18 169/54 99
04/29/24 07:38 04/29/24 07:46 04/29/24 07:44 04/29/24 07:46 04/29/24 10:22
Vital Signs
Temp Pulse Resp BP Pulse Ox
36.7 C 55 18 169/54 99
04/29/24 07:38 04/29/24 07:46 04/29/24 07:44 04/29/24 07:46 04/29/24 10:22
Intake & Output
04/27/24 04/28/24 04/29/24 04/30/24
07:59 07:59 07:59 07:59
Intake Total 590 / 590 110 / 110
Output Total 300 / 300 350 / 350
Balance 290 / 290 -240 / -240
Physical Exam
Physical Exam
See above
--- NOTE | 2024-04-29 11:42 | CM ---
Patient with Hx Heart Failure. O2 4L. Heart rate 40s-50s. Receiving IV Bumex, IV Ferric Na Gluconate, Heparin gtt.
Notified by Dr Franklin of plan to transfer to [facility]. Will need cardiac monitoring enroute.
Met with patient who is aware of transfer to [facility] when bed is available, and she has notified her daughter. 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
Ambulance forms completed - requested ALS transport.
Plan transfer to [facility] when bed available.
--- NOTE | 2024-04-29 12:24 | W.PN.HOSP.TC ---
Today's Communication/Plan
-
Continue po steorids
IV Bumex
Trend creatinine
Await transfer
Assessment / Plan
Assessment / Plan
#Dyspnea which seems to be multifactorial secondary to severe pulmonary hypertension stage V, COPD, atrial fibrillation, intermittent bradycardia, chronic anemia
#Chronic hypoxic respiratory failure on 4 L
#Acute on chronic HFpEF
BNP >74118
Implanted CardioMems device to read pressures by Heart Failure doctor
Pressures elevated on day of admission and office instructed to go to ED for evaluation and treatment
Diuretics with Bumex has been restarted at 3mg IV BID
s/p right heart cardiac catheterization on 04/26 with finding of Elevated right and left ventricular filling pressures. Severe pre and post capillary pulmonary hypertension consistent with WHO Class V
Plan is for afterload reduction
per cards no role of inotropes.
#COPD exacerbation
-continue bronchodilators
-Off IV steroids to p.o. prednisone 30 mg daily
-Pulmonary following along
#STEVEN on CKD IV
Bumex restarted.
BUN continues to remain significantly elevated. Some component could be due to steroids.
Creatinine worsened to 3.3 today..
If no improvement may require HD. Per nephrology due to low cardiac index patient would not be a good dialysis candidate.
Nephrology following along
#Severe pulmonary hypertension
continue Ellipta, Opsumit, and tadalafil
Cardio planning to do Rt heart Cath on 04/26. Cardio requested input from pulm, noted and appreciated
#Mild hyponatremia
trend for now
Atrial Fibrillation with intermittent bradycardia newly diagnosed
Bradycardia persists which is also playing a huge factor in patient's symptomatology
Plan will be for pacemaker eventually at a tertiary care center.
Eliquis has been held and heparin drip has been continued
#CAD
continue aspirin and rosuvastatin
Anemia
Hemoglobin of 8.1. Status post 1 unit of PRBC so far.
With iron deficiency patient completed course of IV iron infusion x 5 days.
Monitor for any luminal bleeding. None noted so far.
#HTN
- continue bumex
#hypercholesterolemia
- continue rosuvastatin
#hypothyroidism
- continue levothyroxine
#anxiety
- continue alprazolam and fluoxetine, Xanax prn
Hx of Lung Cancer
s/p XRT
TOE fracture
-pain control
Hx of GI bleed
underwent EGD 09/03/23 with angioectasia noted in stomach with APC used for coagulation
Code Status: DNR
DVT Prophylaxis: Heparin gtt
PT/OT
updated daughter Christine over the phone in details on 04/28/24
Discussed case with cardiology. Plan is for transfer to [facility] today under Dr. Miguel Ángel Stokes patient primary ship pilot dispatcher. Appreciate cardiology assistance for initiation of transfer. Paperwork signed. Patient states she is
anxious but wants to get better. Patient stated family is aware of her transfer. Case management also informed of transfer.
Anticipated Discharge: Today
Subjective/Interval History
-
Date of Service: April 29, 2024
states of anxiety/tremors due to steroids
remains bradycardic
not much appetite
Objective Data
-
Labs:
Laboratory Results
04/29/24
05:18
WBC 6.3
Hgb 8.1 L
Hct 26.7 L
Plt Count 221
APTT 101.4 H
Sodium 131 L
Potassium 4.6
Chloride 94 L
Carbon Dioxide 22
BUN 146 H*
Creatinine 3.3 H
Glucose 135 H
Calcium 9.6
Vital Signs:
Vital Signs
Temp Pulse Resp BP Pulse Ox
98.4 F 47 17 160/79 95
04/29/24 11:52 04/29/24 11:43 04/29/24 11:43 04/29/24 11:43 04/29/24 11:55
I&O
04/28/24 04/29/24 04/30/24
06:59 06:59 06:59
Intake Total 590 / 590 110 / 110 120 / 120
Output Total 300 / 300 350 / 350
Balance 290 / 290 -240 / -240 120 / 120
Physical Exam
-
General: Well Developed, Well Nourished, No Apparent Distress, Comfortable and Conversant; Negative Appears in Distress or Slurred Speech
HEENT: Normocephalic, Atraumatic, Moist Mucous Membranes, Nose Appears Normal, Ears Appear Normal and Oxygen
Respiratory: Wheezes (mild improvement )
Cardiac: Regular Rhythm (was in A. Fib, now back in NSR), S1/S2 and Bradycardic
GI: Soft, Nontender, Nondistended and Normal Bowel Sounds
Musculoskeletal: No Clubbing, No Cyanosis and No Edema
Neuro: Awake, Alert, Oriented, No Motor Deficits and Tremors
Psych: Anxious
Data Reviewed
-
Total Time Spent with Patient (in minutes): 55
[2024-04-29] MEDS: TYLENOL 975 MG PO (12:56)
[2024-04-29] MEDS: FERRLECIT 110 MG IV (13:08)
--- NOTE | 2024-04-29 15:35 | PTCARENOTE ---
Update provided to Zelda from transfer [facility]. Will notify us when room is available. pt updated.
[2024-04-30] VITALS (15 sets, daily range): BP systolic 130–177; BP diastolic 47–111; BMI 25.5
[2024-04-30] MEDS: XANAX PO (00:22)
[2024-04-30] MEDS: XANAX 0.25 MG PO ×3 (01:04→21:36)
[2024-04-30 05:37] LABS: % Basophils 0.1 % (0-2); % Eosinophils 2.1 % (0-6); % Immature Granulocytes 2.8 % (0-0.5); % Lymphocytes 8.7 % (20.5-51.1); % Monocytes 6.7 % (1.7-9.3); % Neutrophils 79.6 % (42.2-75.2); Absolute Eosinophils 0.2 10^3/uL (0-0.7); Absolute Immature Granulocytes 0.2 10^3/uL (0-0.05); Absolute Lymphocytes 0.6 10^3/uL (1.2-3.4); Absolute Monocytes 0.5 10^3/uL (0.1-0.6); Absolute Neutrophils 5.7 10^3/uL (1.4-6.5); Hematocrit 28.2 % (37.0-47.0); Hemoglobin 8.2 g/dL (12.0-16.0); Mean Corp Hgb Conc. 29.1 g/dL (33.0-37.0); Mean Corpuscular Hgb 22.2 pg (27.0-31.0); Mean Corpuscular Volume 76.4 fL (81.0-99.0); Nucleated Red Blood Cells % 1.8 %; Platelet Count 232 10^3/uL (130-400); Red Blood Cell Count 3.69 10^6/uL (4.20-5.40); Red Cell Dist. Width 21.4 % (11.5-14.5); White Blood Cell Count 7.2 10^3/uL (4.8-10.8)
[2024-04-30 05:54] LABS: APTT 129.5 Sec (23.4-35.0)
[2024-04-30 06:10] LABS: Calcium 9.4 mg/dl (8.4-10.2); Carbon Dioxide 24 mmol/L (22-30); Chloride 93 mmol/L (98-107); Estimated Creatinine Clearance 10 ml/min; Glucose 105 mg/dl (70-99); Potassium 3.9 mmol/L (3.5-5.1); Sodium 133 mmol/L (135-145); eGFR 12.55
[2024-04-30 06:18] LABS: Blood Urea Nitrogen 147 mg/dl (7-17)
[2024-04-30] MEDS: HEPARIN 25000 UNITS/250 ML IV (06:45)
[2024-04-30] MEDS: SYNTHROID 50 MCG PO (06:49)
[2024-04-30] MEDS: PULMICORT 0.5 MG INH ×2 (07:18→20:25)
[2024-04-30] MEDS: STRIVERDI RESPIMAT 2 PUFF INH (07:18)
[2024-04-30] MEDS: DUONEB 3 ML INH ×4 (07:18→20:25)
[2024-04-30] MEDS: PROTONIX 40 MG PO (07:50)
[2024-04-30] MEDS: ASPIR LOW (ENTERIC COATED) 81 MG PO (07:50)
[2024-04-30] MEDS: CRESTOR 10 MG PO (07:50)
[2024-04-30] MEDS: PLAVIX 75 MG PO (07:50)
[2024-04-30] MEDS: PROZAC 20 MG PO (07:50)
[2024-04-30] MEDS: DELTASONE 30 MG PO (07:51)
[2024-04-30] MEDS: BUMEX 3 MG IV ×2 (07:51→21:36)
[2024-04-30] MEDS: VITAMIN D3 (cholecalciferol) 50 MCG PO (07:51)
[2024-04-30] MEDS: NON-FORMULARY ITEM 10 MG PO (07:54)
[2024-04-30] MEDS: NON-FORMULARY ITEM 40 MG PO (07:55)
--- NOTE | 2024-04-30 09:52 | W.PN.PUL.V3 ---
Today's Communication / Plan
-
Wean oxygen
Increase activity
Diuresis
No change in prednisone
Await transfer
Pulmonary will sign off
Assessment
-
74-year-old woman with complex past medical history noted, admitted with progressive shortness of breath since . Her oxygen supplementation is at baseline. Evaluated by cardiology and nephrology. Difficult to evaluate volume status.
Given history of pulmonary arterial hypertension, scleroderma and COPD on chronic oxygen therapy pulmonary was consulted for evaluation of possible pulmonary source of worsening shortness of breath.
Exertional dyspnea: Suspect multiple mechanisms.
Chronic kidney disease with BUN greater than 100.
proBNP greater than 27,000
Chronic anemia-likely contributing to symptoms
Bradycardia with underlying atrial fibrillation-likely contributing to symptoms
COPD without acute exacerbation
Chest x-ray: Cardiomegaly without acute abnormalities.
Conditions present prior admission:
Upper GI bleed with symptomatic anemia on 08/2023
Status post carotid endarterectomy and popliteal stents 2023
Pulmonary hypertension: group 1 (CTD, scleroderma), group 2 (LHD), group 3 (lung disease an/or hypoxia): on taladafil and macitetan.
Scleroderma
History of atrial fibrillation-not on anticoagulants.
Chronic anemia
HFpEF, moderate to severe LVH
Stage III DD
Mild MR, mild to moderate TR
Mildly enlarged RV size with normal systolic function
COPD, O2 at 3LPM
CAD s/p RCA stents 2002, on clopidogrel
Peripheral arterial disease status post [place] popliteal artery angioplasty/stent 08/20/2023
Chronic pericardial effusion
Lung cancer, s/p XRT till November 2018
TIA, s/p R CEA
HTN
Obstructive sleep apnea
Hypothyroidism
Chronic kidney disease creatinine between 2 and 3.
HLD
Moderate to large pericardial effusion, chronic, never tapped
Former smoker, quit July 2017
Plan
Respiratory status still somewhat tenuous with ongoing wheezing and dyspnea on exertion-major complaint is toe fracture pain
Supplemental oxygen-at baseline she is on 4 L
Assess discharge supplemental oxygen needs prior to discharge
Increase activity
Nebulizers as needed-on Pulmicort and DuoNebs
Anoro held
Aspiration precautions
Initially placed on steroids-completed a course for toe fracture/pain
Decadron initiated for ongoing wheezing not felt to be cardiac wheezing on 04/27/2024-changed to prednisone 30 mg daily 04/29/2024-no change for now
Continue with tadalafil and Opsumit for pulmonary arterial hypertension-managed at [facility].
Gentle diuresis as tolerated-difficult with cardiorenal syndrome
Monitor renal function, electrolytes, intake/output, lower extremity edema and weight
Replace electrolytes as needed
Cardiology and nephrology following-correspondence reviewed monitor renal function, electrolytes, intake/output, lower extremity edema and weight
Echocardiogram summarized below
Heparin-eventually changed to oral anticoagulant
Note: Right heart catheterization 04/22/2024-elevated right and left ventricular pressures, RA 20, PA 76/29, PCWP-28, RV 78/9, cardiac index 1.68, consistent with WHO class V
Monitor rhythm-atrial fibrillation now back in sinus rhythm
Atrial fibrillation paroxysmal new for her
Heparin drip initiated
Moderate pericardial effusion apparently chronic
Consideration towards VQ scan if still unexplained shortness of breath/pulm hypertension-already on heparin
Nephrology following-cardiorenal syndrome suspected
Not not an ideal dialysis candidate
Potential port placement and potential dialysis
DVT prophylaxis on heparin
GI prophylaxis-on pantoprazole
Nutrition
Slowly increase activity/physical therapy
Patient potentially transferred to [facility]-pulmonary will sign off
Upon discharge she will continue to follow-up with her pulmonary/cardiology doctor at [facility]-would like local parts salesperson as well
Data reviewed:
Echocardiogram 04/23/2024: EF 65-70%, diastolic function intermediate due to atrial fibrillation, PA systolic 35-40, small to moderate pericardial effusion
Subjective Data
-
Date of Service:
Date of Service: April 30, 2024
Chief Complaint: Pulmonary Follow Up and Dyspnea Follow Up
Subjective:
Still with shortness of breath, wheezing, no complaints of chest pain, productive cough
Review of Systems
General: Other (Per HPI)
Objective Data
Data Reviewed
Vital Signs / I&O:
Vital Signs
Temp Pulse Resp BP Pulse Ox
97.8 F 45 16 146/53 95
04/29/24 19:27 04/30/24 08:00 04/30/24 08:00 04/30/24 08:00 04/30/24 09:45
Intake and Output
04/29/24 04/30/24 05/01/24
06:59 06:59 06:59
Intake Total 110 / 110 929 / 929 240 / 240
Output Total 350 / 350 250 / 250
Balance -240 / -240 929 / 929 -10 / -10
SaO2: 95
Nasal Cannula flow liters per minute: 4
Physical Exam
General: Respiratory Distress (n) and Comfortable
HEENT: Normocephalic, Anicteric and Moist Mucous Membranes
Cardiovascular: Regular Rhythm
Respiratory: Clear (Diminished breath sounds, prolonged expiratory time), Wheeze (Forced wheezes), Crackles (Rare basilar), Rhonchi (n), Non-Labored Respirations, Accessory Resp Muscle Use (n) and Stridor
GI: Soft, Non Distended and Non Tender
Neurology: Awake, Alert and No Motor Deficits
Skin: Warm, Good Color, Cyanosis (n) and Jaundice (n)
Labs/Micro/Reports
Lab Data
04/30/24 05:26
04/30/24 05:26
Laboratory Results
04/30/24
05:26
APTT 129.5 H
--- NOTE | 2024-04-30 10:33 | W.PN.HOSP.TC ---
Today's Communication/Plan
-
awaiting transfer
po steroids
diuretics per nephro
IV hep
Assessment / Plan
Assessment / Plan
#Dyspnea which seems to be multifactorial secondary to severe pulmonary hypertension stage V, COPD, atrial fibrillation, intermittent bradycardia, chronic anemia, heart failure
#Chronic hypoxic respiratory failure on 4 L
#Acute on chronic HFpEF
BNP >46050
Implanted CardioMems device to read pressures by Heart Failure doctor
Pressures elevated on day of admission and office instructed to go to ED for evaluation and treatment
Diuretics with Bumex has been restarted at 3mg IV BID
s/p right heart cardiac catheterization on 04/26 with finding of Elevated right and left ventricular filling pressures. Severe pre and post capillary pulmonary hypertension consistent with WHO Class V
Plan is for afterload reduction eventually
per cards no role of inotropes.
#COPD exacerbation
-continue bronchodilators
-Off IV steroids to p.o. prednisone 30 mg daily. Plan to cont the current dose for now.
-Pulmonary following along
#STEVEN on CKD IV
Bumex restarted.
BUN continues to remain significantly elevated. Some component could be due to steroids.
Creatinine worsened to 3.6 today..
If no improvement may require HD. Per nephrology due to low cardiac index patient would not be a good dialysis candidate.
Nephrology following along
#Severe pulmonary hypertension
continue Ellipta, Opsumit, and tadalafil
Cardio planning to do Rt heart Cath on 04/26. Cardio requested input from pulm, noted and appreciated
#Mild hyponatremia
trend for now
Atrial Fibrillation with intermittent bradycardia newly diagnosed
Bradycardia persists which is also playing a huge factor in patient's symptomatology
Plan will be for pacemaker at a tertiary care center.
Eliquis has been held and heparin drip has been continued for procedures.
#CAD
continue aspirin and rosuvastatin
Anemia
Hemoglobin of 8.1. Status post 1 unit of PRBC so far.
With iron deficiency patient complete course of IV iron infusion x 5 days.
Monitor for any luminal bleeding. None noted so far.
#HTN
- continue bumex
#hypercholesterolemia
- continue rosuvastatin
#hypothyroidism
- continue levothyroxine
#anxiety
- continue alprazolam and fluoxetine, Xanax prn
Hx of Lung Cancer
s/p XRT
TOE fracture
-pain control
Constipation
-started bowel regimen
Hx of GI bleed
underwent EGD 09/03/23 with angioectasia noted in stomach with APC used for coagulation
Code Status: DNR
DVT Prophylaxis: Heparin gtt
PT/OT
Discussed case with cardiology 04/29. Plan is for transfer to [facility] under Dr. Miguel Ángel Stokes patient primary supervisor of instruction. Appreciate cardiology assistance for initiation of transfer. Paperwork signed. Patient states she is
anxious but wants to get better. Patient stated family is aware of her transfer. Case management also informed of transfer. Awaiting for bed availability.
Anticipated Discharge: Today
Subjective/Interval History
-
Date of Service: April 30, 2024
states not much appetite
states breathing remains same
no chest pain or lightheadedness
Objective Data
-
Labs:
Laboratory Results
04/30/24 04/30/24
05:26 12:45
WBC 7.2
Hgb 8.2 L
Hct 28.2 L
Plt Count 232
APTT 129.5 H Pending
Sodium 133 L
Potassium 3.9
Chloride 93 L
Carbon Dioxide 24
BUN 147 H*
Creatinine 3.6 H
Glucose 105 H
Calcium 9.4
Vital Signs:
Vital Signs
Temp Pulse Resp BP Pulse Ox
97.8 F 44 16 155/53 96
04/29/24 19:27 04/30/24 10:00 04/30/24 10:00 04/30/24 10:00 04/30/24 10:00
I&O
04/29/24 04/30/24 05/01/24
06:59 06:59 06:59
Intake Total 110 / 110 929 / 929 240 / 240
Output Total 350 / 350 250 / 250
Balance -240 / -240 929 / 929 -10 / -10
Physical Exam
-
General: Well Developed, Well Nourished, No Apparent Distress, Comfortable and Conversant; Negative Appears in Distress or Slurred Speech
HEENT: Normocephalic, Atraumatic, Moist Mucous Membranes, Nose Appears Normal, Ears Appear Normal and Oxygen
Respiratory: Wheezes (mild improvement )
Cardiac: Regular Rhythm (was in A. Fib, now back in NSR), S1/S2 and Bradycardic
GI: Soft, Nontender, Nondistended and Normal Bowel Sounds
Musculoskeletal: No Clubbing, No Cyanosis and No Edema
Neuro: Awake, Alert, Oriented, No Motor Deficits and Tremors
Psych: Anxious
[2024-04-30] MEDS: MILK OF MAGNESIA 30 ML PO (10:52)
--- NOTE | 2024-04-30 13:24 | W.PN.NEPH.PH ---
Today's Communication / Plan
-
Continue diuretics pending transfer to [facility]
Assessment/Plan
-
Impression:
Congestive heart failure decompensated
Acute renal failure
Chronic kidney disease stage IV with baseline creatinine of 2
Pulmonary hypertension (has Cardiomems)
Coronary artery disease
COPD (home 4L O2)
Hypertension
Hypothyroidism
PAD
History of TIA
History of lung cancer status post XRT
New onset A-fib
Chronic pericardial effusion
History of endarterectomy in January 2012
Plan:
STEVEN:
-Likely a function of worsening cardiorenal syndrome in the setting of pulmonary hypertension
-Creatinine remains elevated at 3.3 with a BUN of 146, steroids likely exacerbating azotemia
-Right heart cath reviewed pulmonary capillary wedge pressure 28 cardiac output 2.6 cardiac index 1.68
-Continues to have a shortness of breath is on chronic 4 L
-Renal ultrasound reviewed: No hydronephrosis bilateral benign renal cyst noted associated focal area of intermediate echogenicity superior to right kidney likely within the right adrenal gland
-checked UA: bland
Steroids initiated by pulmonary
Will be difficult to continue diuresing with her BUN 146 and creatinine 3.3. See how she responds to steroid. Discussed the possibilities of dialysis going forward
Patient is an exceedingly poor candidate for dialysis given advanced cardiomyopathy with cardiac index less than 2
Maintain Bumex 3 mg IV twice daily to assess efficacy of more aggressive diuresis,weights unchanged, oliguric
Patient awaiting transfer to [facility]
-
-
Date of Service: April 30, 2024
CC / HPI / ROS
-
Chief Complaint:
Chronic kidney disease
History of Present Illness:
Acute kidney injury worsening
Hemodynamically stable
Anemia worsening
Review of Systems:
Weights unchanged
Nonoliguric subjectively
No fever
Remain short of breath only on exertion
Labs
-
Labs:
WBC 7.2 10^3/uL (4.8-10.8) 04/30/24 05:26
RBC 3.69 10^6/uL (4.20-5.40) L 04/30/24 05:26
Hgb 8.2 g/dL (12.0-16.0) L 04/30/24 05:26
Hct 28.2 % (37.0-47.0) L 04/30/24 05:26
Plt Count 232 10^3/uL (130-400) 04/30/24 05:26
Sodium 133 mmol/L (135-145) L 04/30/24 05:26
Potassium 3.9 mmol/L (3.5-5.1) 04/30/24 05:26
Chloride 93 mmol/L (98-107) L 04/30/24 05:26
Carbon Dioxide 24 mmol/L (22-30) 04/30/24 05:26
BUN 147 mg/dl (7-17) H* 04/30/24 05:26
Creatinine 3.6 mg/dL (0.6-1.0) H 04/30/24 05:26
eGFR 12.55 04/30/24 05:26
Glucose 105 mg/dl (70-99) H 04/30/24 05:26
Calcium 9.4 mg/dl (8.4-10.2) 04/30/24 05:26
Kie-T-Nimoyrvrcis Pept > 22619 pg/ml 04/22/24 16:03
Albumin 4.6 g/dl (3.5-5.0) 04/23/24 19:12
Physical Exam
-
Vital Signs:
Vital Signs
Temp Pulse Resp BP Pulse Ox
97.8 F 44 12 144/60 98
04/30/24 11:31 04/30/24 12:53 04/30/24 12:53 04/30/24 12:53 04/30/24 12:53
Cardiovascular:: Irregular rate and rhythm
Respiratory:: Bilateral: Coarse, Bilateral: Rhonchi and Bilateral: Wheeze
Lung Excursion:: Normal
Abdomen:: Soft
Bowel Sounds:: Normal
Extremity Edema:: None: Bilateral:
Martin Catheter: No
[2024-04-30 13:36] LABS: APTT 75.1 Sec (23.4-35.0)
[2024-04-30] MEDS: FERRLECIT 110 MG IV (14:07)
[2024-04-30] MEDS: APRESOLINE 5 MG IV (16:50)
--- NOTE | 2024-04-30 17:01 | CM ---
Patient with Hx Heart Failure. O2 4L. Heart rate 40s-50s. Receiving IV Bumex, Heparin gtt.
Patient who is awaiting transfer to [facility].
Ambulance forms completed - requested ALS transport.
Plan transfer to [facility] when bed available.
[2024-04-30 19:31] LABS: APTT 128.6 Sec (23.4-35.0)
--- NOTE | 2024-04-30 22:41 | PTCARENOTE ---
Received pt from day shift, RN. pt aaox3, pt reports feeling less anxious this evening. Pt 98% on 4L NC. Heparin gtt infusing at 750 units, 7.5 mL/hr (see worklist). Pt OOBx1 with RW to [facility], and pt had a small BM. Spoke on the phone with Andreas from
transport, pt to be picked up around 2330 and transported to [facility]. Called and gave report to NEVILLE Delarosa who will be assuming care of the patient on arrival to [facility]. Called Brenden, the patient's daughter, and notified her that pt will be
transferred via EMS this evening. Pt's belonging packed and hygiene completed. Pt resting in bed with call pak in reach.
[2024-05-01] VITALS: BP 143/41
--- NOTE | 2024-05-01 00:55 | PTCARENOTE ---
Pt taken via stretcher by EMS. IV in place and patent, heparin gtt infusing at 7.5 mL/hr. All belongings with patient, including two of her home medications.
--- NOTE | 2024-05-01 08:48 | W.DCSUMMARY ---
Discharge Summary
Discharge Data
Date of Admission: 04/22/24
Date of Discharge: 05/01/24
-
Pending Results: No
Hospital Course
Primary diagnosis
#Dyspnea which seems to be multifactorial secondary to severe pulmonary hypertension stage V, COPD, atrial fibrillation, intermittent bradycardia, chronic anemia, heart failure
#Chronic hypoxic respiratory failure on 4 L
#Acute on chronic HFpEF
#COPD exacerbation .
#STEVEN on CKD IV
#Mild hyponatremia
#Atrial Fibrillation with intermittent bradycardia newly diagnosed
#Anemia
Secondary diagnosis
Primary hypertension
Hyperlipidemia
Hypothyroidism
Anxiety
History of lung cancer
Recent toe fracture
History of GI bleed
Consultation
Cardiology
Nephrology
Pulmonary
Procedures�right heart catheterization
Hospital course
74-year-old female with extensive past medical history who is presenting from home with Implanted CardioMems device to read pressures by Heart Failure doctor AND Pressures elevated on day of admission and office instructed to go to ED for evaluation
and treatment. Patient was complaining of dyspnea with prolonged point of time. Patient dyspnea was seem to be multifactorial as above. Patient was started on IV diuretics. Cardiology and pulmonary were consulted. Patient with increasing
creatinine and nephrology was consulted who is managing diuretics. Patient with persistent uptrend of creatinine. Patient underwent right heart catheterization with finding of severe pulmonary hypertension stage V and cardiac index of 2. Please
see cardiac cath report for complete details. Postprocedure patient was started on Bumex 3 mg IV twice daily. Pulmonary also started patient on IV steroids which was transitioned to p.o. prednisone. Patient was also found to be new onset of
atrial fibrillation and was started on heparin infusion. Patient also had intermittent bradycardia which is being a huge factor in patient symptomatology. Patient also with anemia and received monitor PRBC and 5-day course of IV iron. Patient
with severe complex pathology and was not deemed to be a good hemodialysis candidate. Cardiology called and discussed case with patient primary specialty therapist at [facility]. Patient will be transferred to [facility] for
further medical care.
Discharge Plan
-
Patient Disposition: Acute Care Hospital
Discharge Date and Time
Discharge Date/Time: 05/01/24 01:00
Print Language: PUERTO RICAN
== END 2024-05-01 01:00 | disposition short-term general hospital (02) | DRG 286 ==
LOC: IMU 19:48
PROVIDERS: Emergency Medicine; Internal Medicine; Internal Medicine Interventional Cardiology; Nurse Practitioner Family; Physician Assistant; Registered Nurse; ADMITTING PHYSICIAN Hospitalist; ATTENDING PHYSICIAN Hospitalist; CONSULT PHYSICIAN Internal Medicine Critical Care Medicine; CONSULT PHYSICIAN Specialist; EMERGENCY PHYSICIAN Emergency Medicine; FAMILY PHYSICIAN Family Medicine; OTHER PHYSICIAN Internal Medicine Interventional Cardiology
PROC: 30233N1 Transfusion of Nonautologous Red Blood Cells into Peripheral Vein, Percutaneous Approach (ICD-10-PCS; 2024-04-24)
PROC: 4A023N6 Measurement of Cardiac Sampling and Pressure, Right Heart, Percutaneous Approach (ICD-10-PCS; 2024-04-26)
DX: I13.0 Hypertensive heart and chronic kidney disease with heart failure and stage 1 through stage 4 chronic kidney disease, or unspecified chronic kidney disease (principal); I50.33 Acute on chronic diastolic (congestive) heart failure; N17.9 Acute kidney failure, unspecified; N18.4 Chronic kidney disease, stage 4 (severe); I31.39 Other pericardial effusion (noninflammatory); J96.11 Chronic respiratory failure with hypoxia; J44.1 Chronic obstructive pulmonary disease with (acute) exacerbation; E87.1 Hypo-osmolality and hyponatremia; Z66 Do not resuscitate; I25.10 Atherosclerotic heart disease of native coronary artery without angina pectoris; F41.9 Anxiety disorder, unspecified; I27.21 Secondary pulmonary arterial hypertension; E78.00 Pure hypercholesterolemia, unspecified; E03.9 Hypothyroidism, unspecified; G47.33 Obstructive sleep apnea (adult) (pediatric); E11.22 Type 2 diabetes mellitus with diabetic chronic kidney disease; E11.51 Type 2 diabetes mellitus with diabetic peripheral angiopathy without gangrene; M34.9 Systemic sclerosis, unspecified; D64.9 Anemia, unspecified; I48.0 Paroxysmal atrial fibrillation; I08.1 Rheumatic disorders of both mitral and tricuspid valves; I27.23 Pulmonary hypertension due to lung diseases and hypoxia; I44.1 Atrioventricular block, second degree; K59.00 Constipation, unspecified; R00.1 Bradycardia, unspecified; I25.2 Old myocardial infarction; Z79.02 Long term (current) use of antithrombotics/antiplatelets; Z79.82 Long term (current) use of aspirin; Z79.899 Other long term (current) drug therapy; Z85.118 Personal history of other malignant neoplasm of bronchus and lung; Z87.891 Personal history of nicotine dependence; Z86.73 Personal history of transient ischemic attack (TIA), and cerebral infarction without residual deficits; Z92.3 Personal history of irradiation; Z95.5 Presence of coronary angioplasty implant and graft; Z99.81 Dependence on supplemental oxygen
CPT/HCPCS: 36600; 71045; 71046; 76770; 80048; 80053; 80061; 81003; 81015; 82728; 82805; 82962; 83540; 83550; 83735; 83880; 84439; 84443; 84484; 85014; 85018; 85025; 85027; 85610; 85730; 86850; 86900; 86901; 86920; 93005; 93306; 93451; 93970; 94640; 96374; 97163; 97167; 97530; 99285; C1894; J2916; P9016

== ENCOUNTER 2024-05-15 02:36 | Inpatient (IN) | payer OTHER, SELFPAY ==
[2024-05-14 23:05] VITALS: BP 143/50
[2024-05-14 23:20] LABS: % Basophils 0.3 % (0-2); % Eosinophils 0.8 % (0-6); % Immature Granulocytes 0.8 % (0-0.5); % Lymphocytes 4.4 % (20.5-51.1); % Monocytes 6.9 % (1.7-9.3); % Neutrophils 86.8 % (42.2-75.2); Absolute Eosinophils 0.1 10^3/uL (0-0.7); Absolute Immature Granulocytes 0.1 10^3/uL (0-0.05); Absolute Lymphocytes 0.3 10^3/uL (1.2-3.4); Absolute Monocytes 0.4 10^3/uL (0.1-0.6); Absolute Neutrophils 5.5 10^3/uL (1.4-6.5); Hematocrit 27.9 % (37.0-47.0); Hemoglobin 8.1 g/dL (12.0-16.0); Mean Corpuscular Hgb 24.8 pg (27.0-31.0); Mean Corpuscular Volume 85.3 fL (81.0-99.0); Mean Platelet Volume 11.3 fL (7.4-10.4); Nucleated Red Blood Cells % 0 %; Platelet Count 212 10^3/uL (130-400); Red Blood Cell Count 3.27 10^6/uL (4.20-5.40); Red Cell Dist. Width 29.4 % (11.5-14.5); White Blood Cell Count 6.4 10^3/uL (4.8-10.8)
[2024-05-14 23:31] LABS: ALT (SGPT) 11 U/L (0-35); AST (SGOT) 27 U/L (14-36); Albumin 3.2 g/dl (3.5-5.0); Alkaline Phosphatase 60 U/L (38-126); Blood Urea Nitrogen 73 mg/dl (7-17); Calcium 8.3 mg/dl (8.4-10.2); Carbon Dioxide 28 mmol/L (22-30); Chloride 98 mmol/L (98-107); Estimated Creatinine Clearance 22 ml/min; Glucose 162 mg/dl (70-99); Potassium 4.2 mmol/L (3.5-5.1); Sodium 134 mmol/L (135-145); Total Bilirubin 0.8 mg/dl (0.2-1.3); Total Protein 5.5 g/dl (6.3-8.2); eGFR 28.84
[2024-05-14 23:42] LABS: Troponin I 0.087 ng/ml
--- NOTE | 2024-05-14 23:46 | ED.GENMED ---
History of Present Illness
General
Chief Complaint: Breathing Problem
Source: patient
Exam Limitations: none
Time Seen by Provider: 05/14/24 23:05
History of Present Illness
History of Present Illness:
This is a 74 year old female that is brought in by ambulance with c/o SOB. States that she has a Cardiomems implant and this monitors her fluid. State that for the past couple days her fluid level has been elevated. States that last night and today
she took Metolazone for this. States that when she got home form the hospital she believes it was Nellie mera she weighed 131. Last night she weighed 141 and this morning it was 138. States that tonight she was SOB and could not catch her breath.
States that she was nauseated and had a cough. States that she did have some chills. Denies any fever, chest pain, abd pain, vomiting, diarrhea, headache, dizziness, urinary burning.
Past History
Past History
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
) and Other (Ovarian cyst, Anemia)
ED Past Surgical History: Cardiac (cath w/ 2 stents, carotid artery stent, Cardiomems implant, Pacemaker, ), Gynecological (Hysterectomy) and Other (Carotid endarterectomy, cataracts, Right Popliteal stent)
Social History
Tobacco: Former smoker (Quit July 2017)
Alcohol: None
Drug: None
Personal: Other
Living: with family
Employment: Retired
Family History
Family History: Hypertension
Review of Systems
Review of Systems
All Other Systems: ROS reviewed and negative except as documented in HPI and ROS
Constitutional: Reports chills; Denies fever
EENT: Reports no symptoms
Respiratory: Reports cough and trouble breathing
Cardiac: Denies chest pain
ABD/GI: Reports nausea; Denies abdominal pain, vomiting or diarrhea
: Reports no symptoms; Denies dysuria, frequency or urgency
Musculoskeletal: Reports no symptoms
Skin: Reports no symptoms
Neurological: Reports no symptoms; Denies dizzy or headache
Psychiatric: Reports no symptoms
Phy Exam
General Physical Exam
General Presentation: mild distress
General age: appears stated age
General Skin: warm and dry
General Habitus: elderly
General Mental: alert
General Hydration: dry mucous membranes (Slightly dry)
ENT Exam
ENT Exam: TM's normal, pharynx normal and neck supple
Eye Exam
Eye Exam: EOMI
Cardiovascular Exam
Cardiovascular Exam: normal peripheral pulses, irregularly irregular and pacemaker
Pulmonary Exam
Pulmonary Exam: chest non tender, no rhonchi, no wheezing, decreased breath sounds and other (rales at bases)
Oxygen Status: oxygen 4 liters via NC
Gastrointestinal Exam
Gastrointestinal Exam: normal bowel sounds, non tender, soft, no organomegaly, no pulsatile mass and non distended
Musculoskeletal Exam
Musculoskeletal Exam: full ROM and edema (Pitting edema of the lower legs +2 bilateral)
Skin Exam
Skin Exam: normal color, warm/dry, no rash and no petechia
Psychiatric Exam
Psychiatric Exam: normal mood/affect
Scores
Heart Failure Risk
Heart Failure Risk Score: Yes
History of Stroke or TIA: Yes
History of intubation for respiratory distress: No
Heart rate on ED arrival >/= 110: No
SaO2 <90% on arrival on room air: No
HR >/=110 during 3min walk test (or too ill to perform test): Yes
ECG has acute ischemic changes: No
Urea >/=12mmol/L (BUN 33.6mg/dL): Yes
Serum CO2>/=35mmol/L: No
Troponin I or T elevated to CO Level (0.4mg/dL): Yes
NT-proBNP >/=5,000ng/L (5,000pg/ml): Yes
HF Risk Score: 7
Admission Status: VERY HIGH RISK 69.8% Consider admission to hospital
Course
Orders/Labs/Results
Orders:
Orders
05/14/24 22:57
EKG [Electrocardiogram (*1)] Urgent
Reason for Study: Shortness of Breath
EKG- Treatment ONCE
05/14/24 23:05
Complete Blood Count/With Diff Urgent
Comprehensive Metabolic Panel Urgent
NT-proBNP Urgent
Comment: ADD ON
Troponin I Urgent
05/14/24 23:45
Add On- LAB Urgent
Tests Added?: Pro-BNP
05/15/24 00:02
CR Chest - 2 Views Urgent
Reason For Exam: SOB
05/15/24 01:00
Metolazone [Zaroxolyn] 5 mg PO NOW STA
Abnormal Lab Results
05/14/24
23:05
RBC 3.27 L 10^6/uL
(4.20-5.40)
Hgb 8.1 L g/dL
(12.0-16.0)
Hct 27.9 L %
(37.0-47.0)
MCH 24.8 L pg
(27.0-31.0)
MCHC 29.0 L g/dL
(33.0-37.0)
RDW 29.4 H %
(11.5-14.5)
MPV 11.3 H fL
(7.4-10.4)
Abs Immat Gran (auto) 0.1 H 10^3/uL
(0-0.05)
Absolute Lymphs (auto) 0.3 L 10^3/uL
(1.2-3.4)
Immature Gran % 0.8 H %
(0-0.5)
Neutrophils % 86.8 H %
(42.2-75.2)
Lymphocytes % 4.4 L %
(20.5-51.1)
Sodium 134 L mmol/L
(135-145)
BUN 73 H mg/dl
(7-17)
Creatinine 1.8 H mg/dL
(0.6-1.0)
Glucose 162 H mg/dl
(70-99)
Calcium 8.3 L mg/dl
(8.4-10.2)
Troponin I 0.087 H* ng/ml
Total Protein 5.5 L g/dl
(6.3-8.2)
Albumin 3.2 L g/dl
(3.5-5.0)
05/14/24 23:05
05/14/24 23:05
H/H low but consistent with prior labs, Sodium slightly low. Chronic renal Insufficiency Much improved form prior labs, Hyperglycemia, calcium very slightly low. Troponin elevated at 0.087 lower then prior, Total protein slightly low. Albumin
slightly low. Pro-BNP 24,500
Vital Signs
Initial and Last Documented VS:
Initial Vital Signs
Temp Pulse Ox
99.5 F 96
05/14/24 22:58 05/14/24 22:58
Last Documented Vital Signs
Temp Pulse Resp BP Pulse Ox
99.5 F 83 26 117/82 98
05/14/24 23:07 05/15/24 00:00 05/15/24 00:00 05/15/24 00:00 05/14/24 23:45
MDM/Problems Addressed
Differential Diagnosis Includes:
CHF,
MDM/Problems Addressed:
This is a 74 year old female that is brought in by ambulance with c/o SOB.
Will check labs, chest x-ray and explained that she would be admitted.
back into see patient. Explained that she is in CHF. Will admit patient and given Metolazone 5mg oral now. Hospitalist notified.
Chronic conditions affecting care:
CHF
Acute Exacerbation and/or Progression of Chronic Illness:
CHf
*Radiology
Radiology exam reviewed: preliminary read by ED provider (Chest- Congestive heart failure with small effusion)
*Pulse Oximetry
Patient hypoxic: no
*EKG
Interpreted by ED Provider?: Yes
Heart Rate: 61
Rhythm: ventricular paced
*Chairman And Ceo Interpretation
Rate: normal
Heart Rate: 84
Rhythm: a-fib
*Critical Care Note
Total Time (30-74mins, 75-104mins- exclusive of procedures): Not Applicable
ED Attending Note
-
Portions of this chart may have been created with voice recognition software.� Occasional wrong word or��sound alike� substitutions may have occurred due to the inherent limitations of voice recognition software.
Discharge Plan
Departure
Patient Disposition: Admit
Date of Disposition: 05/15/24
Time of Disposition: 01:03
Admit to: Telemetry
Presentation/result/management discussed w/ accepting MD/DO: Hospitalist
Patient with high blood pressure during this ER visit?: No
Condition: Good
Covid-19: Not Applicable
Discharge Problem:
Congestive heart failure
Prescriptions:
No Action
acetaminophen [Tylenol] 325 mg Tablet
975 mg PO Q6HPRN PRN (Reason: mild pain/headache)
bumetanide 2 mg Tablet
6 mg PO BID
albuterol sulfate 2.5 mg /3 mL (0.083 %) Solution For Nebulization
2.5 mg INHALATION R Q4HPRN PRN (Reason: sob)
polyethylene glycol 3350 [Miralax] 17 gram Powder In Packet
17 g PO DAILYPRN PRN (Reason: constipation)
potassium chloride 10 mEq Tablet Extended Release
10 meq PO DAILYPRN PRN (Reason: when taking metolazone)
aspirin 81 mg Tablet,Delayed Release (Dr/Ec)
81 mg PO DAILY
spironolactone 25 mg Tablet
25 mg PO DAILY
alprazolam [Xanax] 0.25 mg Tablet
0.25 mg PO HS
levothyroxine [Synthroid] 50 mcg Tablet
50 mcg PO DAILY
ferrous sulfate 325 mg (65 mg iron) Tablet
325 mg PO Q48H
rosuvastatin [Crestor] 10 mg Tablet
10 mg PO DAILY
cholecalciferol (vitamin D3) [Vitamin D3] 50 mcg (2,000 unit) Tablet
50 mcg PO DAILY
Opsumit 10 mg Tablet
10 mg PO DAILY
Anoro Ellipta 62.5-25 mcg/actuation Blister With Device
1 inh INHALATION R DAILY
tadalafil (pulm. hypertension) 20 mg Tablet
40 mg PO DAILY
clopidogrel 75 mg Tablet
75 mg PO DAILY Qty: 0 0RF
metolazone 2.5 mg Tablet
2.5 mg PO DAILYPRN PRN (Reason: when instructed by cardiology)
tramadol 50 mg Tablet
50 mg PO Q6HPRN PRN (Reason: severe pain)
alprazolam 0.25 mg Tablet
0.25 mg PO DAILYPRN PRN (Reason: anxiety)
methylprednisolone 4 mg Tablets,Dose Pack
0 mg PO PER PKG DIR
albuterol sulfate 90 mcg/actuation Hfa Aerosol Inhaler
2 puff INHALATION R Q6HPRN PRN (Reason: sob)
hydrocortisone 2.5 % Ointment
1 applic TOPICAL BIDPRN PRN (Reason: psoriasis)
fluoxetine 20 mg Capsule
20 mg PO DAILY
pantoprazole 40 mg tablet,delayed release (DR/EC)
40 mg PO DAILY
Referrals:
[place],Reza H., DO [Family Provider] -
Interventions
Interventions:
*Risk Screen - Suicide Last Done: 05/14/24 22:58
*General Assessment Last Done: 05/14/24 22:58
*Neglect/Abuse Screening Last Done: 05/14/24 22:58
*ED COVID-19 Vaccine History Last Done: 05/14/24 22:58
ED- Cardiac Assessment Last Done: 05/14/24 22:58
ED- Pulmonary Assessment Last Done: 05/14/24 22:58
Discharge Date and Time
Print Language: TURKISH
[2024-05-15] VITALS (20 sets, daily range): BP systolic 117–158; BP diastolic 37–82; PULSE 61; O2SAT 95; BMI 24.4
[2024-05-15 00:12] LABS: NT-proBNP 24500 pg/ml
[2024-05-15 00:58] LABS: Anisocytosis 2+; Microcytosis 1+
[2024-05-15 00:59] LABS: Macrocytosis 1+; Ovalocytes 1+
[2024-05-15 01:00] LABS: Acanthocytes Slight
[2024-05-15] MEDS: ZAROXOLYN 5 MG PO (01:05)
--- NOTE | 2024-05-15 01:53 | HPS.HSE ---
Family Physician
-
Family Physician: Reza Ortiz
Chief Complaint
-
Shortness of breath
History of Present Illness
This is a 74-year-old female with complex past medical history as detailed below. She comes to the emergency department due to worsening shortness of breath over the last 2 days. She reports increasing dyspnea on exertion mostly, she reports her
weight gain. She also reports that mems device she reported increase the volume from 30-40.
Patient has a past medical history of scleroderma with pulmonary hypertension and congestive heart failure. She has both right and left failure. She recently was admitted to [facility] for CHF with a complex hospital course that eventually
led to be transferred to [facility]. She underwent a cardiac cath during that admission showing elevated filling pressures as well as increased pulmonary pre and postcapillary pressures consistent with pulmonary hypertension. Attempted diuresis that
then resulted in worsening renal failure. She was found to have multifactorial dyspnea including cardiac, atrial fibrillation and anemia. She was also treated with a course of prednisone. He is ultimately status post ventricular pacemaker, she
has also been started on anticoagulation for her atrial fibrillation. She reports that upon discharge to home from [facility] he had a weight of 131 pounds. She is now 138 within a week. She reported that 2 days ago mems devices alerted physician was
that to take extra dose of metolazone. She took the metolazone but did not feel any significant improvement. She took another dose of metolazone the day prior to coming to the ED and she also did not have any improvement. Ultimately in the
evening she said to come to the emergency department. She reported increased lower extremity edema as well. She denies fevers or chills. She denies any chest pain. She denies any known sick contacts.
On arrival in the emergency department she was normotensive with a blood pressure of 158/50, pulse was 84. She was satting around 97% on 4 L home O2. ECG shows atrial fibrillation with a ventricular paced rhythm at a rate of 61. Hemoglobin was
8.1 which is similar to her baseline. Creatinine is down to 1.8. BUN is elevated at 73 similar. Electrolytes were unremarkable. Chest x-ray shows bilateral pulmonary edema with small pleural effusion. Troponin is negative. BNP is elevated at
2400 similar to prior.
Medical History
Past Medical History
Past Medical History: Reports Arrhythmia, CHF, HTN, Hypercholesterolemia, Renal Failure (CKD) and Other (Pulmonary hypertension, scleroderma)
Additional Past Medical History:
Scleroderma
Pulmonary hypertension
Atrial fibrillation
Congestive heart failure
Chronic anemia
Bradycardia status post pacemaker
Past Surgical History: Reports Other
Social History
Tobacco: Non-smoker
Alcohol: None
Drug: None
Personal: Single
Living: With Family
Family History
Family History: Not pertinent
Allergies / Home Medications
Allergies reflects when Allergies were last updated in [employer].
Home Medications with original date entered in [employer]
Allergy/Medication List:
Allergies
Allergy/AdvReac Type Severity Reaction Status Date / Time
iodine Allergy allergic Verified 05/14/24 22:57
to shrimp
shrimp Allergy VIOLENTLY Verified 05/14/24 22:57
SICK
Home Medications
acetaminophen 325 mg tablet (Tylenol) 975 mg PO Q6HPRN PRN mild pain/headache 09/02/23
albuterol sulfate 2.5 mg/3 mL (0.083 %) solution for nebulization 2.5 mg inhalation R Q4HPRN PRN sob 09/02/23
alprazolam 0.25 mg tablet (Xanax) 0.25 mg PO HS Mental Health/Anxiety 09/02/23
aspirin 81 mg tablet,delayed release 81 mg PO DAILY Blood Clot Prevention/Tx 09/02/23
bumetanide 2 mg tablet 6 mg PO BID Fluid Retention/Swelling 09/02/23
cholecalciferol (vitamin D3) 50 mcg (2,000 unit) tablet (Vitamin D3) 50 mcg PO DAILY Supplement 09/02/23
ferrous sulfate 325 mg (65 mg iron) tablet 325 mg PO Q48H Supplement 09/02/23
levothyroxine 50 mcg tablet (Synthroid) 50 mcg PO DAILY Thyroid 09/02/23
macitentan 10 mg tablet (Opsumit) 10 mg PO DAILY Lung Issues 09/02/23
polyethylene glycol 3350 17 gram oral powder packet (Miralax) 17 g PO DAILYPRN PRN constipation 09/02/23
potassium chloride 10 mEq tablet,extended release 10 meq PO DAILYPRN PRN when taking metolazone 09/02/23
rosuvastatin 10 mg tablet (Crestor) 10 mg PO DAILY High Cholesterol 09/02/23
spironolactone 25 mg tablet 25 mg PO DAILY Heart Disease/Condition 09/02/23
tadalafil (pulm. hypertension) 20 mg tablet (pulmonary hypertension) 40 mg PO DAILY pulmonary hypertension 09/02/23
umeclidinium 62.5 mcg-vilanterol 25 mcg/actuation powdr for inhalation (Anoro Ellipta) 1 inh inhalation R DAILY Lung/Breathing Issues 09/02/23
clopidogrel 75 mg tablet 75 mg PO DAILY Blood clot prevention/tx #0 tabs 09/04/23
albuterol sulfate 90 mcg/actuation aerosol inhaler 2 puff inhalation R Q6HPRN PRN sob 04/22/24
alprazolam 0.25 mg tablet 0.25 mg PO DAILYPRN PRN anxiety 04/22/24
fluoxetine 20 mg capsule 20 mg PO DAILY 04/22/24
hydrocortisone 2.5 % topical ointment 1 applic topical BIDPRN PRN psoriasis 04/22/24
methylprednisolone 4 mg tablets in a dose pack 0 mg PO PER PKG DIR 04/22/24
metolazone 2.5 mg tablet 2.5 mg PO DAILYPRN PRN when instructed by cardiology 04/22/24
pantoprazole 40 mg tablet,delayed release 40 mg PO DAILY Gastrointestinal issue 04/22/24
tramadol 50 mg tablet 50 mg PO Q6HPRN PRN severe pain 04/22/24
Review of Systems
-
History Source: Patient
Constitutional: Reports No Symptoms
EENT: Reports No Symptoms
Respiratory: Reports Trouble Breathing
Cardiac: Reports No Symptoms
Abdomen/GI: Reports No Symptoms
: Reports No Symptoms
Musculoskeletal: Reports No Symptoms
Skin: Reports No Symptoms
Neurological: Reports No Symptoms
Endocrine: Reports No Symptoms
Hematologic/Lymphatic: Reports No Symptoms
Psych: Reports No Symptoms
Physical Exam
Vital Signs
Vital Signs
Temp Pulse Resp BP Pulse Ox
99.5 F 84 26 158/53 98
05/14/24 23:07 05/15/24 01:05 05/15/24 00:00 05/15/24 01:05 05/14/24 23:45
Physical Exam
General: Respiratory Distress
HEENT: NormoCephalic, Anicteric, Moist mucous membranes, Atraumatic and PERRLA
Respiratory: Crackles
Cardiac: S1/S2 and Regular Rhythm
Breast: Deferred by me
GI: Soft, Non Tender, Non Distended and Normal Bowel Sounds
Rectal: Deferred by Provider
Genito-urinary: Deferred by me
Musculoskeletal: No Clubbing, No Cyanosis, Edema, Left Lower Extremity (trace) and Edema, Right Lower Extremity (trace)
Skin: Warm
Neuro: AO x 3
Hematologic/Lymphatic: No Lymphadenopathy
Psych: Calm
Laboratory Results
-
05/14/24 23:05
05/14/24 23:05
Laboratory Results
Total Bilirubin 0.8 mg/dl (0.2-1.3) 05/14/24 23:05
AST 27 U/L (14-36) 05/14/24 23:05
ALT 11 U/L (0-35) 05/14/24 23:05
Alkaline Phosphatase 60 U/L (38-126) 05/14/24 23:05
Troponin I 0.087 ng/ml H* 05/14/24 23:05
Data Reviewed
-
Diagnostic Radiology: Image Personally Visualized and interpreted
Medical Tests (Nuc Med, Echo, EKG etc): Image Personally Visualized and interpreted
Lab Data: Labs Reviewed by me
Old Records: Reviewed
Impression/Plan
-
IMPRESSION:
PLAN:
1. Pulmonary Edema - Patient with pulmonary edema on xray. Satting 97% on home 4 L. Severe dyspnea on exertion. She has a mems device reporting increased volume status in the last 2 days. Crackles on exam and some amount of peripheral edema.
Failure to improve on additional metolazone at home. Picture c/w acute CHF exacerbation. She is now s/p PPM on eliquis for afib. Takes bumex 1mg bid at home since d/c after ppm placement.
- admit to telemetry
- will give metolazone 5 mg daily and bumex 2mg iv bid for now
- monitor weights and strict i/os
- continue spironolactone
- continue tadalafil and patients Opsumit
- cardiology consultation
2. AFIB - Patient started on eliquis and is now on aspirin/plavix and eliquis.
- s/p ppm, vpaced at 61
- continue eliquis
- cardiology consultation
3. Pulmonary HTN
- see above
[2024-05-15 02:27] LABS: Normal RBC Morphology No
[2024-05-15] MEDS: BUMEX 2 MG IV ×3 (02:38→15:39)
[2024-05-15] MEDS: FLUSH (NSS) 1 FLUSH IV (02:39)
[2024-05-15 03:45] LABS: Troponin I 0.086 ng/ml
--- NOTE | 2024-05-15 06:52 | PTCARENOTE ---
Received patient in room 3360 on a stretcher. Patient is AAOx3 and able to make her needs known. Plan of care for the shift reviewed with the patient. Admission assessment completed. MAEx4. Pupils are +3 and reactive. Skin is warm and dry. V paced
on the monitor with HR 62. Palpable pulse. Afebrile. Coarse and crackles breath sounds. Occasional cough. SpO2 at 96% on 4L/o2 nc. abdomen is round. audible bowel sound. Purewick is draining yellow urine. Labs drawn and sent. Fluid restriction
reviewed with the patient. 8 oz water provided. Bed in the lowest position. Call pak is within reach.
[2024-05-15] MEDS: SYNTHROID 50 MCG PO (07:05)
[2024-05-15 07:37] LABS: Blood Urea Nitrogen 71 mg/dl (7-17); Calcium 8.5 mg/dl (8.4-10.2); Carbon Dioxide 27 mmol/L (22-30); Chloride 98 mmol/L (98-107); Estimated Creatinine Clearance 21 ml/min; Glucose 122 mg/dl (70-99); Potassium 3.7 mmol/L (3.5-5.1); Sodium 135 mmol/L (135-145); eGFR 27.03
[2024-05-15] MEDS: SPIRIVA RESPIMAT 2.5 MCG 2 PUFF INH (07:58)
[2024-05-15] MEDS: STRIVERDI RESPIMAT 2 PUFF INH (07:58)
[2024-05-15] MEDS: PROTONIX 40 MG PO (08:25)
[2024-05-15] MEDS: FEOSOL 325 MG PO (08:25)
[2024-05-15] MEDS: ASPIR LOW (ENTERIC COATED) 81 MG PO (08:25)
[2024-05-15] MEDS: PROZAC 20 MG PO (08:25)
[2024-05-15] MEDS: NORVASC 5 MG PO (08:25)
[2024-05-15] MEDS: PLAVIX 75 MG PO (08:25)
--- NOTE | 2024-05-15 08:54 | CON.CAR ---
Addendum entered and electronically signed by Michael Crockett MD 05/15/24 10:49:
I saw and examined the patient.
The AUDIT OFFICER or PA's note was reviewed and I agree with the note.
Comment: General: Well developed, well nourished in NAD.
Neck: Supple, no JVD, HJR, carotids +2 B/L, no bruits bilaterally.
Heart: Non displaced PMI, RRR, no murmurs, No S3, S4, no rubs.
Lungs: Scattered rhonchi
Abdomen: Normal bowel sounds, soft, non-tender, non-distended.
Extremities: No clubbing, cyanosis or edema bilaterally.
Neuro: Grossly nonfocal, awake, alert and oriented x3.
Yani has a history of chronic respiratory failure on 4 L of oxygen, chronic diastolic CHF with CardioMEMS implant, CAD with prior stenting, chronic pericardial effusion, pulm hypertension, scleroderma, renal sufficiency, lung cancer, TIA, PAD,
hypertension, sleep apnea, hypothyroidism. She had been admitted [place] April 2024 for heart failure. She was transferred to [place] intermittent right heart cath which revealed CHF as well as pulmonary hypertension had further diuresis. She
underwent pacer implant while there was started on anticoagulation with Eliquis for new A-fib.
She presents now with worsening shortness of breath and evidence of heart failure and CardioMEMS. On admission proBNP was 24,700 and chest x-ray with pulmonary edema. She feels better with IV Lasix.
Will continue IV Lasix. Will need to follow renal function closely. Will creatinine was 3.0 on last admission. If she worsens may need to consider transfer to [place] again. Also if creatinine worsens may need to consider nephrology evaluation.
Discussed with patient and primary service
Original Note:
Consultation
Consultation Request
Date/Time Consultation Performed: 05/15/24
Requesting Provider: Dr. Busby
Performing Provider: Roxanne Weber PA-C for Dr. Crockett
Reason for Consultation: CHF
Medical History
-
Chief Complaint: SOB
History of Present Illness:
HPI: Yani is a 74 year old female with PMH of chronic respiratory failure on 4L NC, chronic HFpEF w/ cardioMEMs implant, CAD w/ prior stenting, chronic pericardial effusion, pulmonary hypertension, scleroderma, CKD, lung cancer, prior TIA,
carotid artery disease, PAD, HTN, HLD, SAURABH, and hypothyroidism. She was admitted 04/22 - 04/29 at [facility] for heart failure, however then given worsening renal failure was transferred down to [place] and reports she remained there until
[facility]. She underwent right heart cath which showed elevated filling pressures as well as pulmonary hypertension and underwent further diuresis. She also underwent pacemaker implant while there and was started on OAC with eliquis for new
afib. She states initially upon DC was doing ok, however then received call from her facility manager's office 2 days ago stating her volume was uptrending by cardioMEMs (her goal she states is to be below 30 mmHg and was up to 40mmHg) and was
recommended to take metolazone. She states she took metolazone 2 days ago and yesterday without improvement. States her breathing continued to worsen and states her weight jumped overnight (dry weight 131 pounds and states she was up to 141 pounds).
On admission proBNP 17935 and CXR with evidence of pulm edema. States she thinks she has been taking bumex 2mg BID at home (one tablet twice daily). Cr 1.8. No CP.
PMH:
chronic HFpEF
CardioMEMs implant
Chronic hypoxemic respiratory failure on 4L NC
Recently diagnosed atrial fibrillation 04/2024, OAC with eliquis
Second-degree AV block type I, asymptomatic
History second-degree type I; currently rate controlled AF; noted high degree block on telemetry while sleeping (2: 1 versus complete heart block) no evidence during waking hours
s/p PPM at [place] 04/2024
CAD
Distant inferior wall HI with RCA stents 05/06/2003
Chronic pericardial effusion
Severe pulmonary hypertension
Scleroderma
Mild MR, mild to moderate TR
CKD 3
Lung CA s/p XRT
h/o TIA
s/p carotid endarterectomy 02/07/2012
PAD
s/p fem/popliteal artery angioplasty/stent 08/20/2023HTN
HLD
Former smoker
SAURABH
Hypothyroidism
Past Medical History
Past Medical History: Other (In HPI)
Past Surgical History: Cardiac (PCI to mid RCA 05/06/2003) and Other (peripheral vascular stenting, carotid endarterectomy)
Social History
Tobacco: Former Smoker
Alcohol: None
Drug: None
Personal:
Employment: Retired
Family History
Family History: Hypertension
Allergies / Home Medications
Allergy/AdvReac Type Severity Reaction Status Date / Time
iodine Allergy allergic Verified 05/14/24 22:57
to shrimp
shrimp Allergy VIOLENTLY Verified 05/14/24 22:57
SICK
�Medication �Instructions �Recorded �Confirmed �Type
acetaminophen 325 mg tablet 975 mg PO Q6HPRN PRN mild 09/02/23 04/22/24 History
(Tylenol) pain/headache
albuterol sulfate 2.5 mg/3 mL 2.5 mg inhalation R Q4HPRN PRN sob 09/02/23 04/22/24 History
(0.083 %) solution for nebulization
alprazolam 0.25 mg tablet (Xanax) 0.25 mg PO HS Mental Health/Anxiety 09/02/23 04/22/24 History
aspirin 81 mg tablet,delayed 81 mg PO DAILY Blood Clot 09/02/23 04/22/24 History
release Prevention/Tx
bumetanide 2 mg tablet 6 mg PO BID Fluid 09/02/23 04/22/24 History
Retention/Swelling
cholecalciferol (vitamin D3) 50 50 mcg PO DAILY Supplement 09/02/23 04/22/24 History
mcg (2,000 unit) tablet (Vitamin
D3)
ferrous sulfate 325 mg (65 mg 325 mg PO Q48H Supplement 09/02/23 04/22/24 History
iron) tablet
levothyroxine 50 mcg tablet 50 mcg PO DAILY Thyroid 09/02/23 04/22/24 History
(Synthroid)
macitentan 10 mg tablet (Opsumit) 10 mg PO DAILY Lung Issues 09/02/23 04/22/24 History
polyethylene glycol 3350 17 gram 17 g PO DAILYPRN PRN constipation 09/02/23 04/22/24 History
oral powder packet (Miralax)
potassium chloride 10 mEq 10 meq PO DAILYPRN PRN when taking 09/02/23 04/22/24 History
tablet,extended release metolazone
rosuvastatin 10 mg tablet (Crestor) 10 mg PO DAILY High Cholesterol 09/02/23 04/22/24 History
spironolactone 25 mg tablet 25 mg PO DAILY Heart 09/02/23 04/22/24 History
Disease/Condition
tadalafil (pulm. hypertension) 20 40 mg PO DAILY pulmonary 09/02/23 04/22/24 History
mg tablet (pulmonary hypertension) hypertension
umeclidinium 62.5 mcg-vilanterol 1 inh inhalation R DAILY 09/02/23 04/22/24 History
25 mcg/actuation powdr for Lung/Breathing Issues
inhalation (Anoro Ellipta)
clopidogrel 75 mg tablet 75 mg PO DAILY Blood clot 09/04/23 04/22/24 Rx
prevention/tx #0 tabs
albuterol sulfate 90 mcg/actuation 2 puff inhalation R Q6HPRN PRN sob 04/22/24 04/22/24 History
aerosol inhaler
alprazolam 0.25 mg tablet 0.25 mg PO DAILYPRN PRN anxiety 04/22/24 04/22/24 History
fluoxetine 20 mg capsule 20 mg PO DAILY 04/22/24 04/22/24 History
hydrocortisone 2.5 % topical 1 applic topical BIDPRN PRN 04/22/24 04/22/24 History
ointment psoriasis
methylprednisolone 4 mg tablets in 0 mg PO PER PKG DIR 04/22/24 04/22/24 History
a dose pack
metolazone 2.5 mg tablet 2.5 mg PO DAILYPRN PRN when 04/22/24 04/22/24 History
instructed by cardiology
pantoprazole 40 mg tablet,delayed 40 mg PO DAILY Gastrointestinal 04/22/24 04/22/24 History
release issue
tramadol 50 mg tablet 50 mg PO Q6HPRN PRN severe pain 04/22/24 04/22/24 History
Review of Systems
-
History Source: Patient
All other systems: Negative unless noted
Physical Exam
Vital Signs
Temp Pulse Resp BP Pulse Ox
98.4 F 60 16 136/54 97
05/15/24 07:23 05/15/24 08:25 05/15/24 07:58 05/15/24 08:25 05/15/24 07:58
Lab Results
05/14/24 23:05
05/15/24 06:42
Troponin I 0.086 ng/ml H* 05/15/24 03:06
Wdy-F-Jtlkatpllxo Pept 76920 pg/ml 05/14/24 23:05
Physical Exam
General: No Apparent Distress, Comfortable and Other (on supp O2)
HEENT: Normocephalic, Anicteric and Moist Mucous Membranes
Respiratory: Crackles and Non Labored Respirations
Cardiac: S1/S2 and Irregular Rhythm
GI: Soft, Non Tender, Non Distended and Normal Bowel Sounds
Musculoskeletal: No Clubbing, No Cyanosis and No Edema
Skin: Warm and Dry
Neuro: AO x 3
Impression / Plan
-
PCP: Dr. Reza Ortiz
Septic Tank Cleaner: Dr. Elliott Stokes ([facility] @ [place])
Impression:
Presented with worsening SOB
Acute on chronic HFpEF
CardioMEMs implant
Chronic hypoxemic respiratory failure on 4L NC
Recently diagnosed atrial fibrillation 04/2024, OAC with eliquis
Second-degree AV block type I, asymptomatic
History second-degree type I; currently rate controlled AF; noted high degree block on telemetry while sleeping (2: 1 versus complete heart block) no evidence during waking hours
s/p PPM at [place] 04/2024
CAD
Distant inferior wall HI with RCA stents 05/06/2003.
Chronic pericardial effusion
Severe pulmonary hypertension
Scleroderma
Mild MR, mild to moderate TR
CKD 3
Lung CA s/p XRT
h/o TIA
s/p carotid endarterectomy 02/07/2012
PAD
s/p fem/popliteal artery angioplasty/stent 08/20/2023
HTN
HLD
Former smoker
SAURABH
Hypothyroidism
Echo November 2012: revealed normal LV function, LVH and mild mitral regurgitation.
Echo 07/23/2021: EF 60% with mod to severe LVH, mild MR, biatrial enlargement. Mild to moderate TR, PASP 69 mmHg. Moderate to large pericardial effusion without hemodynamic compromise, 2.7 posteriorly and 2.3 laterally, mildly dilated aortic root.
Echo 08/03/2021: EF 65-70%, moderate to large pericardial effusion without evidence of hemodynamic compromise
Echo 06/13/2023: EF 75-80%, moderate cLVH, grade II diastolic dysfunction, mild MAC, trace MR, mild AI, trace TR, small-moderate pericardial effusion
Echo 04/23/2024: EF 65-70%, mod conc LVH, normal RV size and function, mild TR with PAP 35-40 mmHg
Plan:
-Patient with recent admission to [facility] and subsequent transfer to [place] for CHF with STEVEN, pulmonary hypertension, status post pacemaker placement, discharge to home 05/04/2024 with worsening shortness of breath over the last 48 to 72
hours with minimal response to increasing outpatient diuretics
-proBNP elevated at 24,700 and chest x-ray with evidence of pulmonary edema
-Medically complex patient
-Diuresing with IV Bumex 2 mg twice daily. Patient does report improvement in breathing from admission
-Wean supplemental oxygen to baseline as able, chronically on 4 L
-Creatinine stable at 1.9, last admission was as high as 3.6. if uptrending, consider renal evaluation
-Prior to admission was taking p.o. Bumex 2 mg twice daily with Zaroxolyn 2.5 mg as needed as directed by her facility manager
-In V paced rhythm on telemetry with underlying A-fib. Pacemaker site healing, no open areas. Hemoglobin stable at 8.1
-On Plavix and Eliquis as outpatient, continue.
-Remains on Opsumit and tadalafil for pulmonary hypertension
-Last echo from 04/23/2024 with results as above
-d/w hospitalist via TT
Data Reviewed
-
EKG: Tracing Personally Visualized and interpreted
Radiology: Report Reviewed by me
Medical Tests (Nuc Med, Echo etc): Report Reviewed by me
Labs: Labs Reviewed by me
Old Records: Reviewed
--- NOTE | 2024-05-15 09:34 | PTCARENOTE ---
report received, assessments per work list. patient denies pain, nausea. c/o fatigue.monitor afib with Vpacing. lungs with crackles 1/3 up bilaterally. dry cough. pule oximeter 93-96 on 4 liters(patient baseline)abdomen soft, pure wick in place,
voiding yellow urine. call pak in reach
--- NOTE | 2024-05-15 10:07 | CM ---
CM met with pt bedside
Pt resides with her dtr/Christine and her family in a 3SH
1STE to enter home, pt's resides in the basement level, 13 steps down, pt has stairglide
Pt ambulates with a WW independently
Pt admitted to from 04/22-04/29 and was transferred to [facility]
Was recently released from [facility] and current with [facility]
Pt typically bathes independently but dtr now assisting in the past week
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
Unsure of how many hours pt approved for
Pt is on 4L 02 baseline through [employer]
Unsure if concentrator goes to 5 or 10L
PCP- Reza Ortiz
Rx- Srini
Pt currently in ICU on 4L 02
CM to watch for out of bed activity and pt to likely benefit from PT/OT once medically appropriate
Discharge Disposition- anticipate home with [facility] and continued home O2 support
[2024-05-15] MEDS: ELIQUIS 5 MG PO ×2 (11:18→19:42)
--- NOTE | 2024-05-15 15:52 | W.PN.HOSP.TC ---
Today's Communication/Plan
-
see outlined plan
Assessment / Plan
Assessment / Plan
Assessment:
Acute on chronic HFpEF
- has CardioMEMs implant
- continue IV Bumex - requires intensive monitoring of I/Os, weights, lytes
- follow DCA cards recs
Chronic hypoxemic respiratory failure on 4L NC
Recently diagnosed atrial fibrillation 04/2024
- continue Eliquis
Second-degree AV block type I, asymptomatic
- HX of PPM 05/04
CAD s/p RCA stents
HLD
- continue Plavix/Statin
Chronic pericardial effusion
Severe pulmonary hypertension
Scleroderma
Mild MR, mild to moderate TR
CKD 3b
Lung CA s/p XRT
h/o TIA s/p carotid endarterectomy 02/07/2012
- continue Plavix/Statin
PAD s/p fem/popliteal artery angioplasty/stent 08/20/2023
- continue Plavix/Statin
Essential HTN
- continue Norvasc
Former smoker
SAURABH
Hypothyroidism on replacement
DVT ppx: Eliquis
Code: DNR/DNI
Anticipated Discharge: > 48 hours
Subjective/Interval History
-
Date of Service: May 15, 2024
feels less SOB today compared to yesterday
Objective Data
-
Labs:
Laboratory Results
05/15/24
06:42
Sodium 135
Potassium 3.7
Chloride 98
Carbon Dioxide 27
BUN 71 H
Creatinine 1.9 H
Glucose 122 H
Calcium 8.5
Vital Signs:
Vital Signs
Temp Pulse Resp BP Pulse Ox
98.3 F 60 19 136/57 96
05/15/24 15:00 05/15/24 15:39 05/15/24 13:30 05/15/24 15:39 05/15/24 13:30
I&O
05/14/24 05/15/24 05/16/24
06:59 06:59 06:59
Intake Total 560 / 560
Output Total 1000 / 1000
Balance -440 / -440
Physical Exam
-
General: No Apparent Distress
HEENT: Normocephalic and Atraumatic
Respiratory: Crackles
Cardiac: Regular Rhythm and S1/S2
Musculoskeletal: Edema, Right Lower Extrem and Edema, Left Lower Extrem
Neuro: AO x 3
Psych: Calm
Data Reviewed
-
Total Time Spent with Patient (in minutes): 51
Labs: Labs Reviewed by me
[2024-05-15] MEDS: TYLENOL 650 MG PO (20:08)
--- NOTE | 2024-05-15 20:38 | PTCARENOTE ---
Received patient AAOx3, reporting headache, tylenol given. Afib/flutter in the 60s, v-paced. BP stable, 130s/50s, normothermic, palpable radial and pedal pulses b/l. 97% on 4 liters, crackles assisted up. Moist, productive cough with thick yellow
sputum. SOB on exertion, orthopneic. Abdomen round, soft, positive bowel sounds. Purewick in place draining yellow urine. Left chest pacer site ecchymotic, bruises throughout extremities. Call pak within reach.
[2024-05-15] MEDS: XANAX 0.25 MG PO (21:59)
[2024-05-16] VITALS (10 sets, daily range): BP systolic 91–159; BP diastolic 41–61; BMI 24.5
[2024-05-16] MEDS: SYNTHROID 50 MCG PO (04:56)
[2024-05-16 05:17] LABS: Hemoglobin 7.7 g/dL (12.0-16.0); Mean Corp Hgb Conc. 28.5 g/dL (33.0-37.0); Mean Corpuscular Hgb 24.5 pg (27.0-31.0); Platelet Count 162 10^3/uL (130-400); Red Blood Cell Count 3.14 10^6/uL (4.20-5.40); Red Cell Dist. Width 29.2 % (11.5-14.5); White Blood Cell Count 3.9 10^3/uL (4.8-10.8)
[2024-05-16 05:35] LABS: Blood Urea Nitrogen 74 mg/dl (7-17); Calcium 8.3 mg/dl (8.4-10.2); Carbon Dioxide 30 mmol/L (22-30); Chloride 97 mmol/L (98-107); Estimated Creatinine Clearance 23 ml/min; Glucose 99 mg/dl (70-99); Potassium 3.5 mmol/L (3.5-5.1); Sodium 135 mmol/L (135-145); eGFR 30.89
[2024-05-16] MEDS: STRIVERDI RESPIMAT 2 PUFF INH (07:22)
[2024-05-16] MEDS: SPIRIVA RESPIMAT 2.5 MCG 2 PUFF INH (07:22)
[2024-05-16] MEDS: ELIQUIS 5 MG PO ×2 (08:15→19:26)
[2024-05-16] MEDS: PROZAC 20 MG PO (08:15)
[2024-05-16] MEDS: BUMEX 2 MG IV ×2 (08:16→16:22)
[2024-05-16] MEDS: PROTONIX 40 MG PO (08:16)
[2024-05-16] MEDS: PLAVIX 75 MG PO (08:16)
[2024-05-16] MEDS: NORVASC 5 MG PO (08:16)
--- NOTE | 2024-05-16 10:05 | W.PN.CARDCBS ---
Addendum entered and electronically signed by Michael Crockett MD 05/16/24 10:10:
Hemoglobin has dropped. May need transfusion
Original Note:
Today's Communication / Plan
-
Continue IV Bumex with improving renal function
Impression / Plan
-
PCP: Dr. Reza Ortiz
Engraving Press Operator: Dr. Elliott Stokes ([facility] [place])
Impression:
Presented with worsening SOB
Acute on chronic HFpEF
CardioMEMs implant
Chronic hypoxemic respiratory failure on 4L NC
Recently diagnosed atrial fibrillation 04/2024, OAC with eliquis
Second-degree AV block type I, asymptomatic
History second-degree type I; currently rate controlled AF; noted high degree block on telemetry while sleeping (2: 1 versus complete heart block) no evidence during waking hours
s/p PPM at [place] 04/2024
CAD
Distant inferior wall WI with RCA stents 05/06/2003.
Chronic pericardial effusion
Severe pulmonary hypertension
Scleroderma
Mild MR, mild to moderate TR
CKD 3
Lung CA s/p XRT
h/o TIA
s/p carotid endarterectomy 02/07/2012
PAD
s/p fem/popliteal artery angioplasty/stent 08/20/2023
HTN
HLD
Former smoker
SAURABH
Hypothyroidism
Echo November 2012: revealed normal LV function, LVH and mild mitral regurgitation.
Echo 07/23/2021: EF 60% with mod to severe LVH, mild MR, biatrial enlargement. Mild to moderate TR, PASP 69 mmHg. Moderate to large pericardial effusion without hemodynamic compromise, 2.7 posteriorly and 2.3 laterally, mildly dilated aortic root.
Echo 08/03/2021: EF 65-70%, moderate to large pericardial effusion without evidence of hemodynamic compromise
Echo 06/13/2023: EF 75-80%, moderate cLVH, grade II diastolic dysfunction, mild MAC, trace MR, mild AI, trace TR, small-moderate pericardial effusion
Echo 04/23/2024: EF 65-70%, mod conc LVH, normal RV size and function, mild TR with PAP 35-40 mmHg
Plan:
She is difficult examination
Her weight has not changed much but creatinine has improved with IV Bumex and will continue IV Bumex
Creatinine improved from 1.9 on 05/15 to 1.7 on 05/16
Prior to admission was taking p.o. Bumex 2 mg twice daily with Zaroxolyn 2.5 mg as needed as directed by her nursing technician
Remains on Opsumit and tadalafil for pulmonary hypertension
Progress Note - Engraving Press Operator
Subjective
Date of Service: May 16, 2024
No complaints.
Objective
Labs:
05/16/24 04:52
05/16/24 04:52
Labs
Hgb 7.7 g/dL (12.0-16.0) L 05/16/24 04:52
Hct 27.0 % (37.0-47.0) L 05/16/24 04:52
Plt Count 162 10^3/uL (130-400) D 05/16/24 04:52
Sodium 135 mmol/L (135-145) 05/16/24 04:52
Potassium 3.5 mmol/L (3.5-5.1) 05/16/24 04:52
BUN 74 mg/dl (7-17) H 05/16/24 04:52
Creatinine 1.7 mg/dL (0.6-1.0) H 05/16/24 04:52
Glucose 99 mg/dl (70-99) 05/16/24 04:52
Troponins
05/14/24 05/15/24
23:05 03:06
Troponin I 0.087 H* 0.086 H*
Vital Signs and I&O:
Vital Signs
Temp Pulse Resp BP Pulse Ox
97.9 F 64 12 117/57 96
05/16/24 08:05 05/16/24 08:16 05/16/24 08:10 05/16/24 08:16 05/16/24 08:10
Vital Signs
Temp Pulse Resp BP Pulse Ox
97.9 F 64 12 117/57 96
05/16/24 08:05 05/16/24 08:16 05/16/24 08:10 05/16/24 08:16 05/16/24 08:10
Intake & Output
05/14/24 05/15/24 05/16/24 05/17/24
06:59 06:59 06:59 06:59
Intake Total 1040 / 1040 240 / 240
Output Total 1575 / 1575 200 / 200
Balance -535 / -535 40 / 40
Physical Exam
Physical Exam
General: Well developed, well nourished in NAD.
Neck: Supple, no JVD, HJR, carotids +2 B/L, no bruits bilaterally.
Heart: Non displaced PMI, RRR, no murmurs, No S3, S4, no rubs.
Lungs: Scattered rhonchi
Extremities: No clubbing, cyanosis or edema bilaterally.
Neuro: Grossly nonfocal, awake, alert and oriented x3.
--- NOTE | 2024-05-16 10:15 | W.PN.HOSP.TC ---
Today's Communication/Plan
-
IV Lasix continues; follow Cards recs
Assessment / Plan
Assessment / Plan
Assessment:
Acute on chronic HFpEF
- has CardioMEMs implant
- continue IV Bumex - requires intensive monitoring of I/Os, weights, lytes
- follow DCA cards recs
Chronic hypoxemic respiratory failure on 4L NC
Recently diagnosed atrial fibrillation 04/2024
- continue Eliquis
Second-degree AV block type I, asymptomatic
- HX of PPM 05/04
CAD s/p RCA stents
HLD
- continue Plavix/Statin
Chronic pericardial effusion
Severe pulmonary hypertension
Scleroderma
Mild MR, mild to moderate TR
CKD 3b
Lung CA s/p XRT
h/o TIA s/p carotid endarterectomy 02/07/2012
- continue Plavix/Statin
PAD s/p fem/popliteal artery angioplasty/stent 08/20/2023
- continue Plavix/Statin
Essential HTN
- continue Norvasc
Former smoker
SAURABH
Hypothyroidism on replacement
Chronic anemia
- did complete 5 day IV iron infusion in April
DVT ppx: Eliquis
Code: DNR/DNI
Anticipated Discharge: > 48 hours
Subjective/Interval History
-
Date of Service: May 16, 2024
breathing improving with IV Lasix
denies cp or sob
Objective Data
-
Labs:
Laboratory Results
05/16/24
04:52
WBC 3.9 L
Hgb 7.7 L
Hct 27.0 L
Plt Count 162 D
Sodium 135
Potassium 3.5
Chloride 97 L
Carbon Dioxide 30
BUN 74 H
Creatinine 1.7 H
Glucose 99
Calcium 8.3 L
Vital Signs:
Vital Signs
Temp Pulse Resp BP Pulse Ox
97.9 F 77 16 111/48 95
05/16/24 08:05 05/16/24 10:00 05/16/24 10:00 05/16/24 10:00 05/16/24 10:00
I&O
05/15/24 05/16/24 05/17/24
06:59 06:59 06:59
Intake Total 1040 / 1040 240 / 240
Output Total 1575 / 1575 200 / 200
Balance -535 / -535 40 / 40
Physical Exam
-
General: No Apparent Distress
HEENT: Normocephalic and Atraumatic
Respiratory: Crackles
Cardiac: Regular Rhythm and S1/S2
Musculoskeletal: Edema, Right Lower Extrem and Edema, Left Lower Extrem
Neuro: AO x 3
Hematologic / Lymphatic: No Lymphadenopathy
Psych: Calm
Data Reviewed
-
Total Time Spent with Patient (in minutes): 51
Labs: Labs Reviewed by me
--- NOTE | 2024-05-16 10:31 | PTCARENOTE ---
report received, assessments per work list. oob for breakfast, fair appetite. c/o fatigue, dyspnea with minimal exertion. monitor afib with vpacing. denies pain. remains on baseline of 4liters nasal cannula. lungs crackles as per work list
assessments. call pak in reach
--- NOTE | 2024-05-16 12:20 | TRANSFER ---
report to IVU RN, transfer to IVU by PCT, monitor,oxygen and belongings
--- NOTE | 2024-05-16 13:17 | PTCARENOTE ---
Assumed care of pt from pt upon tsf from ICU. Pt arrives awake and alert, Ox3. VSS, CM shows AFib/flutter with occ V/pacing. POX 96% on 4 l N/C. Pt urinating frequently utilizing bedside commode. Denies any pain or discomfort.
[2024-05-16] MEDS: NON-FORMULARY ITEM 40 MG PO (16:15)
[2024-05-16] MEDS: NON-FORMULARY ITEM 10 MG PO (16:16)
[2024-05-16] MEDS: TYLENOL 650 MG PO (16:17)
--- NOTE | 2024-05-16 20:23 | PTCARENOTE ---
Patient received at change of shift. Resting comfortably in bed. Atrial fibrillation on the monitor. Patient on 4L which is baseline for her, oxygen saturation 97%. Patient denies pain or discomfort at this time. Call pak within reach. Plan of care
ongoing.
[2024-05-16] MEDS: XANAX 0.25 MG PO (22:59)
[2024-05-17] VITALS (11 sets, daily range): BP systolic 102–144; BP diastolic 39–66; PULSE 81; BMI 23.6
[2024-05-17 04:33] LABS: Blood Urea Nitrogen 69 mg/dl (7-17); Calcium 8.3 mg/dl (8.4-10.2); Carbon Dioxide 34 mmol/L (22-30); Chloride 96 mmol/L (98-107); Estimated Creatinine Clearance 21 ml/min; Glucose 100 mg/dl (70-99); Potassium 3.4 mmol/L (3.5-5.1); Sodium 137 mmol/L (135-145); eGFR 27.03
[2024-05-17 05:25] LABS: Hematocrit 27.3 % (37.0-47.0); Mean Corp Hgb Conc. 29.3 g/dL (33.0-37.0); Mean Corpuscular Volume 85.3 fL (81.0-99.0); Mean Platelet Volume 10.3 fL (7.4-10.4); Platelet Count 172 10^3/uL (130-400); Red Cell Dist. Width 28.7 % (11.5-14.5); White Blood Cell Count 3.5 10^3/uL (4.8-10.8)
[2024-05-17] MEDS: SYNTHROID 50 MCG PO (05:36)
[2024-05-17] MEDS: PROTONIX 40 MG PO (07:49)
[2024-05-17] MEDS: PROZAC 20 MG PO (07:49)
[2024-05-17] MEDS: NORVASC 5 MG PO (07:49)
[2024-05-17] MEDS: PLAVIX 75 MG PO (07:50)
[2024-05-17] MEDS: FEOSOL 325 MG PO (07:50)
[2024-05-17] MEDS: ELIQUIS 5 MG PO ×2 (07:50→19:36)
[2024-05-17] MEDS: NON-FORMULARY ITEM 1 MG PO (07:50)
[2024-05-17] MEDS: NON-FORMULARY ITEM 2 MG PO (07:51)
[2024-05-17] MEDS: STRIVERDI RESPIMAT 2 PUFF INH (08:44)
[2024-05-17] MEDS: SPIRIVA RESPIMAT 2.5 MCG 2 PUFF INH (08:44)
--- NOTE | 2024-05-17 09:39 | W.PN.HOSP.TC ---
Today's Communication/Plan
-
IV bumex held per Dr. Crockett pending CardioMEMS interrogation
K replacement
Assessment / Plan
Assessment / Plan
Assessment:
Acute on chronic HFpEF
- has CardioMEMs implant; to be interrogated today per Cardiology
- continue IV Bumex - requires intensive monitoring of I/Os, weights, lytes
- follow DCA cards recs
Chronic hypoxemic respiratory failure on 4L NC
Recently diagnosed atrial fibrillation 04/2024
- continue Eliquis
Second-degree AV block type I, asymptomatic
- HX of PPM 05/04
CAD s/p RCA stents
HLD
- continue Plavix/Statin
Chronic pericardial effusion
Severe pulmonary hypertension
Scleroderma
Mild MR, mild to moderate TR
CKD 3b
- monitor Cr with diuretics
- consider Nephrology consult if worsening BMP
Lung CA s/p XRT
h/o TIA s/p carotid endarterectomy 02/07/2012
- continue Plavix/Statin
PAD s/p fem/popliteal artery angioplasty/stent 08/20/2023
- continue Plavix/Statin
Essential HTN
- continue Norvasc
Former smoker
SAURABH
Hypothyroidism on replacement
Chronic anemia
- did complete 5 day IV iron infusion in April
- monitor for signs of bleeding
Hypokalemia - replete prn
DVT ppx: Eliquis
Code: DNR/DNI
Anticipated Discharge: > 48 hours
Subjective/Interval History
-
Date of Service: May 17, 2024
denies any new complaints
visibly upset over Cr of 1.9 and perception of diuretics failing
Objective Data
-
Labs:
Laboratory Results
05/17/24
03:31
WBC 3.5 L
Hgb 8.0 L
Hct 27.3 L
Plt Count 172
Sodium 137
Potassium 3.4 L
Chloride 96 L
Carbon Dioxide 34 H
BUN 69 H
Creatinine 1.9 H
Glucose 100 H
Calcium 8.3 L
Vital Signs:
Vital Signs
Temp Pulse Resp BP Pulse Ox
98.2 F 81 16 102/55 93
05/17/24 03:22 05/17/24 08:46 05/17/24 08:46 05/17/24 03:23 05/17/24 08:46
I&O
05/16/24 05/17/24 05/18/24
06:59 06:59 06:59
Intake Total 1040 / 1040 240 / 240
Output Total 1575 / 1575 700 / 700
Balance -535 / -535 -460 / -460
Physical Exam
-
General: No Apparent Distress and Appears Chronically Ill
HEENT: Normocephalic and Atraumatic
Respiratory: Negative Wheezes
Cardiac: Regular Rhythm and S1/S2
GI: Soft and Nontender
Neuro: AO x 3
Hematologic / Lymphatic: No Lymphadenopathy
Psych: Calm
Data Reviewed
-
Total Time Spent with Patient (in minutes): 51
Labs: Labs Reviewed by me
[2024-05-17] MEDS: KCL 40 MEQ PO ×2 (09:45→16:28)
--- NOTE | 2024-05-17 10:05 | W.PN.CARDCBS ---
Addendum entered and electronically signed by Michael Crockett MD 05/17/24 10:25:
I saw and examined the patient.
The STAMP ANALYST or PA's note was reviewed and I agree with the note.
Comment: General: Well developed, well nourished in NAD.
Neck: Supple, no JVD, HJR, carotids +2 B/L, no bruits bilaterally.
Heart: Non displaced PMI, RRR, no murmurs, No S3, S4, no rubs.
Lungs: Scattered rhonchi
Extremities: No clubbing, cyanosis or edema bilaterally.
Neuro: Grossly nonfocal, awake, alert and oriented x3.
She is a very difficult examination and volume status is tenuous. Reluctant to continue Bumex with increasing creatinine but creatinine still remains below level on last admission (3.0). Will try to get CardioMEMS interrogated and decide about
Bumex based on those results. Discussed with primary service.
Original Note:
Today's Communication / Plan
-
Restarted Crestor
Cre up to 1.9 and Bumex 2 mg IV BID is on hold
Weight down 5 lbs overnight
Trying to get CardioMEMs interrogated
52 min face to face and coordination of care
Impression / Plan
-
PCP: Dr. Reza Ortiz
Bench Lay Out Technician: Dr. Elliott Stokes ([facility] @ [place])
Impression:
Presented with worsening SOB
Acute on chronic HFpEF
CardioMEMs implant
Chronic hypoxemic respiratory failure on 4L NC
Paroxysmal atrial fibrillation, initially diagnosed 04/2024
OAC with Eliquis
Second-degree AV block type I, asymptomatic
History second-degree type I; currently rate controlled AF; noted high degree block on telemetry while sleeping (2: 1 versus complete heart block) no evidence during waking hours
s/p PPM at [facility] 04/2024
CAD
Distant inferior wall [place] with RCA stents 05/06/2003.
Chronic pericardial effusion
Severe pulmonary hypertension
Scleroderma
Mild MR, mild to moderate TR
CKD 3
Lung CA s/p XRT
h/o TIA
s/p carotid endarterectomy 02/07/2012
PAD
s/p fem/popliteal artery angioplasty/stent 08/20/2023
HTN
HLD
Former smoker
SAURABH
Hypothyroidism
Echo November 2012: revealed normal LV function, LVH and mild mitral regurgitation.
Echo 07/23/2021: EF 60% with mod to severe LVH, mild MR, biatrial enlargement. Mild to moderate TR, PASP 69 mmHg. Moderate to large pericardial effusion without hemodynamic compromise, 2.7 posteriorly and 2.3 laterally, mildly dilated aortic root.
Echo 08/03/2021: EF 65-70%, moderate to large pericardial effusion without evidence of hemodynamic compromise
Echo 06/13/2023: EF 75-80%, moderate cLVH, grade II diastolic dysfunction, mild MAC, trace MR, mild AI, trace TR, small-moderate pericardial effusion
Echo 04/23/2024: EF 65-70%, mod conc LVH, normal RV size and function, mild TR with PAP 35-40 mmHg
Plan:
-Weight is down 5 lbs overnight with Bumex 2 mg IV BID. Cre up a bit to 1.9 on 05/17/24.
-Communicating with [facility] about obtaining a CardioMEMs interrogation to help guide ongoing diuretic therapy, await answer back.
-Patient was taking Bumex 4 mg BID prior to admission (patient refers to two a day but this actually means two 2 mg tablets twice a day)
-Patient takes metolazone 2.5 mg daily as needed for increased volume based on CardioMEMS reports for that day.
-Patient is not chronically on BB due to wheezing.
-EF preserved at 65% by echo 04/23/24 and stable compared to echo from primary underwater hunter trapper 06/13/23
-Patient with known severe PHTN and outpatient doses of tadalafil 40 mg daily and Opsumit 10 mg daily have been continued.
-Patient with known paroxysmal Afib and outpatient med list has aspirin, Plavix and Eliquis. Currently ordered Plavix and Eliquis 5 mg BID (Cre 1.9, age 74, wt 60.5 kg). Follow weight and if drops below 60 kg while Cre remains above 1.5 then would
switch to Eliquis 2.5 mg BID.
-Patient was previously on chronic aspirin and Plavix for PAD with fem/popliteal artery angioplasty/stent 08/20/2023
-Potassium down to 3.4 on 05/17/24 and hospitalist attending gave KCl 40 meq PO x1
-Troponin was 0.087 on admission and trended down thereafter. No chest pain and no acute ischemic changes on ECG. Will manage as a nonischemic myocardial injury Troponin elevation due to STEVEN and CHF.
-Outpatient dose of Crestor 10 mg daily was held on admission, will restart now, ordered by me.
Progress Note - Bench Lay Out Technician
Subjective
Date of Service: May 17, 2024
Feels less SOB
Objective
Labs:
05/17/24 03:31
05/17/24 03:31
Labs
Hgb 8.0 g/dL (12.0-16.0) L 05/17/24 03:31
Hct 27.3 % (37.0-47.0) L 05/17/24 03:31
Plt Count 172 10^3/uL (130-400) 05/17/24 03:31
Sodium 137 mmol/L (135-145) 05/17/24 03:31
Potassium 3.4 mmol/L (3.5-5.1) L 05/17/24 03:31
BUN 69 mg/dl (7-17) H 05/17/24 03:31
Creatinine 1.9 mg/dL (0.6-1.0) H 05/17/24 03:31
Glucose 100 mg/dl (70-99) H 05/17/24 03:31
Troponins
05/14/24 05/15/24
23:05 03:06
Troponin I 0.087 H* 0.086 H*
Vital Signs and I&O:
Vital Signs
Temp Pulse Resp BP Pulse Ox
98.2 F 81 16 102/55 93
05/17/24 03:22 05/17/24 08:46 05/17/24 08:46 05/17/24 03:23 05/17/24 08:46
Vital Signs
Temp Pulse Resp BP Pulse Ox
98.2 F 81 16 102/55 93
05/17/24 03:22 05/17/24 08:46 05/17/24 08:46 05/17/24 03:23 05/17/24 08:46
Intake & Output
05/15/24 05/16/24 05/17/24 05/18/24
06:59 06:59 06:59 06:59
Intake Total 1040 / 1040 240 / 240
Output Total 1575 / 1575 700 / 700
Balance -535 / -535 -460 / -460
Physical Exam
Physical Exam
GEN: NAD, AAOx3
HEENT: EOMI
LUNGS: 4 L NC. No audible wheeze
CV: SR on tele.
ABD: ND
EXT: No edema B/L
NEURO: Gross non-focal
SKIN: No rash
--- NOTE | 2024-05-17 14:08 | CM ---
Chart reviewed. Patient is independent of ADLS, lives with her daughter and family in a [address], 1 MISTY, lives in the basement, 13 steps down, has a stairglide and ambulates with a RW. Patient wears Home O2 4L NC. Oxygen supply company is [employer].
Patient is current with [facility]. 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 Referral sent to resume services with [facility] once medically stable for discharge. Plan is for the patient to return home with [facility]. CM to follow
[2024-05-17] MEDS: BUMEX IV (16:25)
[2024-05-17] MEDS: BUMEX 2 MG IV (16:29)
--- NOTE | 2024-05-17 16:35 | W.PN.UPDATE ---
Addendum entered and electronically signed by Clare Fierro PA-C 05/17/24 16:57:
Got a call back from the RN at Dr. Stokes's office and they confirmed that CardioMEMs was 36 which is above goal of [address]. [address] Stokes's office our plans for Bumex 2 mg IV BID which the RN noted in patient's office chart.
Original Note:
Update Note
Progress Note Update
Patient did not think her family would be able to bring her CardioMEMs so animal laboratory technician was able to find the original CardioMEMs in storage here and while it turned on it was reading the wrong date. Back in to update patient about hospital CardioMEMs and
that we would wait for her family to bring it in tomorrow.
Update: Patient's grandson was able to bring in CardioMEMs from home and I personally helped patient activate and get reading from device. Patient reports that Dr. Stokes's office usually calls her within an hour with the resutls and to update
patient on whether or not she needs to take a dose of metolazone.
Update: Patient got a call from Dr. Stokes's office and her level was 36, but should be 30. Patient told Mellisa at Dr. Stokes's office that she was in . Patient gave me the message form Mellisa and what she thought was Mellisa's phone # which I
called and it was the main number at [place]. Talked to someone there and they gave me the number for Dr. Stokes's office. Called Dr. Stokes's office at [phone] and left a message asking for a call back to review results. For now will give Bumex
2 mg IV.
32 min critical care time with multiple visits to patient, calling [facility], talking with nursing, helping patient obtain CardioMEMs reading.
[2024-05-17] MEDS: CRESTOR 10 MG PO (18:00)
--- NOTE | 2024-05-17 20:45 | PTCARENOTE ---
Patient received at change of shift resting comfortably in bed. Patient remains on baseline 4L NC with oxygen saturation 97%. Atrial fibrillation on the monitor with ventricular pacing at times. Patient denies SOB and chest pain/discomfort. Patient
states she is feeling improved since yesterday. Plan of care reviewed with patient. Call pak within reach. Care ongoing.
[2024-05-17] MEDS: XANAX 0.25 MG PO (23:01)
[2024-05-18] VITALS (7 sets, daily range): BP systolic 116–140; BP diastolic 46–66; BMI 23.8
[2024-05-18] MEDS: SYNTHROID 50 MCG PO (03:22)
[2024-05-18 04:21] LABS: Hematocrit 26.7 % (37.0-47.0); Hemoglobin 7.8 g/dL (12.0-16.0); Mean Corp Hgb Conc. 29.2 g/dL (33.0-37.0); Mean Corpuscular Volume 85.6 fL (81.0-99.0); Mean Platelet Volume 10.1 fL (7.4-10.4); Platelet Count 186 10^3/uL (130-400); Red Blood Cell Count 3.12 10^6/uL (4.20-5.40); Red Cell Dist. Width 28.7 % (11.5-14.5); White Blood Cell Count 3.4 10^3/uL (4.8-10.8)
[2024-05-18 04:42] LABS: Blood Urea Nitrogen 69 mg/dl (7-17); Calcium 8.3 mg/dl (8.4-10.2); Carbon Dioxide 32 mmol/L (22-30); Chloride 97 mmol/L (98-107); Estimated Creatinine Clearance 21 ml/min; Glucose 95 mg/dl (70-99); Potassium 4.1 mmol/L (3.5-5.1); Sodium 136 mmol/L (135-145); eGFR 27.03
[2024-05-18] MEDS: BUMEX 2 MG IV ×2 (07:54→16:05)
[2024-05-18] MEDS: PROZAC 20 MG PO (07:54)
[2024-05-18] MEDS: NORVASC 5 MG PO (07:54)
[2024-05-18] MEDS: PLAVIX 75 MG PO (07:54)
[2024-05-18] MEDS: PROTONIX 40 MG PO (07:54)
[2024-05-18] MEDS: NON-FORMULARY ITEM 1 MG PO (07:55)
[2024-05-18] MEDS: NON-FORMULARY ITEM 2 MG PO (07:55)
[2024-05-18] MEDS: ELIQUIS 5 MG PO ×2 (07:57→20:05)
[2024-05-18] MEDS: STRIVERDI RESPIMAT 2 PUFF INH (08:44)
[2024-05-18] MEDS: SPIRIVA RESPIMAT 2.5 MCG 2 PUFF INH (08:44)
--- NOTE | 2024-05-18 09:16 | W.PN.CARDCBS ---
Addendum entered and electronically signed by Antione Dennis MD 05/18/24 15:27:
I saw and examined the patient.
The Spa Receptionist's note was reviewed and I agree with the note.
Comment:
GEN: No distress, awake, Ox3
HEENT: supple, anicteric, mmm
LUNGS: CTA, no wheezes/rales
CV: Reg, S1/S2, 05/17 syst LSB, S3+
ABD: soft, BS+, NT/ND
EXT: No edema
NEURO: Gross non-focal
SKIN: No rash
Plan:
Remains volume overloaded. Will try to get repeat CardioMEMS reading. Had improved to May 17.
Continue Opsumit, tadalafil, and amlodipine.
Continue Bumex 2 mg IV twice daily. May need to add metolazone today. Creat is overall stable at 1.9. Cont to follow. Weight is overall down to 134.
Original Note:
Today's Communication / Plan
-
Await today's CardioMEMs reading, was 40 on day of admission and then 36 yesterday with a goal level of 30
Cont Bumex 2 mg IV BID, but was taking Bumex 4 mg PO BID prior to admission and if diuresis stalls then would increase Bumex dose or give a dose of metolazone
Impression / Plan
-
PCP: Dr. Reza Ortiz
Rack Washer: Dr. Elliott Stokes ([facility] @ [place])
Impression:
Presented with worsening SOB
Acute on chronic HFpEF
CardioMEMs implant
Chronic hypoxemic respiratory failure on 4L NC
Paroxysmal atrial fibrillation, initially diagnosed 04/2024
OAC with Eliquis
Second-degree AV block type I, asymptomatic
History second-degree type I; currently rate controlled AF; noted high degree block on telemetry while sleeping (2: 1 versus complete heart block) no evidence during waking hours
s/p PPM at [facility] 04/2024
CAD
Distant inferior wall [place] with RCA stents 05/06/2003.
Chronic pericardial effusion
Severe pulmonary hypertension
Scleroderma
Mild MR, mild to moderate TR
CKD 3
Lung CA s/p XRT
h/o TIA
s/p carotid endarterectomy 02/07/2012
PAD
s/p fem/popliteal artery angioplasty/stent 08/20/2023
HTN
HLD
Former smoker
SAURABH
Hypothyroidism
Echo November 2012: revealed normal LV function, LVH and mild mitral regurgitation.
Echo 07/23/2021: EF 60% with mod to severe LVH, mild MR, biatrial enlargement. Mild to moderate TR, PASP 69 mmHg. Moderate to large pericardial effusion without hemodynamic compromise, 2.7 posteriorly and 2.3 laterally, mildly dilated aortic root.
Echo 08/03/2021: EF 65-70%, moderate to large pericardial effusion without evidence of hemodynamic compromise
Echo 06/13/2023: EF 75-80%, moderate cLVH, grade II diastolic dysfunction, mild MAC, trace MR, mild AI, trace TR, small-moderate pericardial effusion
Echo 04/23/2024: EF 65-70%, mod conc LVH, normal RV size and function, mild TR with PAP 35-40 mmHg
Plan:
-Weight is up 1 lb overnight, probably due to only receiving a single dose of Bumex 2 mg IV on 05/17/24 instead of BID, but this was due to waiting to CardioMEMs pillow and results. Despite weight being up 1 lb the patient feels symptomatically
improved.
-CardioMEMs just prior to admission was 40, level improved to 36 on 05/17/24. Goal CardioMEMs level is 30. Patient repeated CardioMEMs reading 05/18/24 and await results.
-Cre stable at 1.9. Patient with known CKD 3
-Cont Bumex 2 mg IV BID and pending CardioMEMs and Cre could increase to Bumex 4 mg IV BID.
-Patient was taking Bumex 4 mg BID prior to admission (patient refers to two a day but this actually means two 2 mg tablets twice a day)
-Patient takes metolazone 2.5 mg daily as needed for increased volume based on CardioMEMS reports for that day and at the direction of Dr. Stokes's office.
-Patient is not chronically on BB due to wheezing.
-EF preserved at 65% by echo 04/23/24 and stable compared to echo from primary surveying teacher 06/13/23
-Patient with known severe PHTN and outpatient doses of tadalafil 40 mg daily and Opsumit 10 mg daily have been continued.
-Patient with known paroxysmal Afib and outpatient med list has aspirin, Plavix and Eliquis. Currently ordered Plavix and Eliquis 5 mg BID (Cre 1.9, age 74, wt 60.5 kg). Follow weight and if drops below 60 kg while Cre remains above 1.5 then would
switch to Eliquis 2.5 mg BID.
-Patient was previously on chronic aspirin and Plavix for PAD with fem/popliteal artery angioplasty/stent 08/20/2023
-Potassium improved to 4.1 on 05/18/24 after KCl 40 meq PO xq on 05/17/24. Will follow daily BMP.
-Troponin was 0.087 on admission and trended down thereafter. No chest pain and no acute ischemic changes on ECG. Will manage as a nonischemic myocardial injury Troponin elevation due to STEVEN and CHF.
-Outpatient dose of Crestor 10 mg daily has been continued
Progress Note - Rack Washer
Subjective
Date of Service: May 18, 2024
Feels better and stable SOB, but disappointed that her weight is up a bit today
Objective
Labs:
05/18/24 03:27
05/18/24 03:27
Labs
Hgb 7.8 g/dL (12.0-16.0) L 05/18/24 03:27
Hct 26.7 % (37.0-47.0) L 05/18/24 03:27
Plt Count 186 10^3/uL (130-400) 05/18/24 03:27
Sodium 136 mmol/L (135-145) 05/18/24 03:27
Potassium 4.1 mmol/L (3.5-5.1) 05/18/24 03:27
BUN 69 mg/dl (7-17) H 05/18/24 03:27
Creatinine 1.9 mg/dL (0.6-1.0) H 05/18/24 03:27
Glucose 95 mg/dl (70-99) 05/18/24 03:27
Vital Signs and I&O:
Vital Signs
Temp Pulse Resp BP Pulse Ox
98.4 F 80 16 128/50 96
05/18/24 06:44 05/18/24 08:47 05/18/24 08:47 05/18/24 06:43 05/18/24 08:47
Vital Signs
Temp Pulse Resp BP Pulse Ox
98.4 F 80 16 128/50 96
05/18/24 06:44 05/18/24 08:47 05/18/24 08:47 05/18/24 06:43 05/18/24 08:47
Intake & Output
05/16/24 05/17/24 05/18/24 05/19/24
06:59 06:59 06:59 06:59
Intake Total 1040 / 1040 240 / 240 720 / 720
Output Total 1575 / 1575 700 / 700
Balance -535 / -535 -460 / -460 720 / 720
Physical Exam
Physical Exam
GEN: NAD, AAOx3
HEENT: EOMI
LUNGS: 4 L NC. No audible wheeze
CV: SR on tele.
ABD: ND
EXT: No edema B/L
NEURO: Gross non-focal
SKIN: No rash
--- NOTE | 2024-05-18 11:30 | CM ---
Chart reviewed. Patient is independent of ADLS, lives with her daughter in a 3 S[address], 1 MISTY, lives in the basement 13 steps down, patient has a stairglide, ambulates with a RW. Patient wears Home O2 4l and uses [employer]. Patient
is current with [facility]. Referral sent to resume services once medically stable for discharge. Plan is for the patient to return home with [facility]. CM to follow
--- NOTE | 2024-05-18 11:31 | W.PN.HOSP.TC ---
Addendum entered and electronically signed by Rafael Westfall MD 05/18/24 14:30:
Acute on chronic hypoxic respiratory failure
Original Note:
Today's Communication/Plan
-
continue IV bumex per cards, follow BMP
Assessment / Plan
Assessment / Plan
Assessment:
Acute on chronic HFpEF
- has CardioMEMs implant which was interoggated 05/17 (reading of 36, goal is 30 or less)
- continue IV Bumex - requires intensive monitoring of I/Os, weights, lytes
- follow DCA cards recs
Chronic hypoxemic respiratory failure on 4L NC
Recently diagnosed atrial fibrillation 04/2024
- continue Eliquis
Second-degree AV block type I, asymptomatic
- HX of PPM 05/04
CAD s/p RCA stents
HLD
- continue Plavix/Statin
Chronic pericardial effusion
Severe pulmonary hypertension
Scleroderma
Mild MR, mild to moderate TR
CKD 3b
- monitor Cr with diuretics
- consider Nephrology consult if worsening BMP
Lung CA s/p XRT
h/o TIA s/p carotid endarterectomy 02/07/2012
- continue Plavix/Statin
PAD s/p fem/popliteal artery angioplasty/stent 08/20/2023
- continue Plavix/Statin
Essential HTN
- continue Norvasc
Former smoker
SAURABH
Hypothyroidism on replacement
Chronic anemia
- did complete 5 day IV iron infusion in April inpatient
- monitor for signs of bleeding
Hypokalemia - replete prn
DVT ppx: Eliquis
Code: DNR/DNI
Anticipated Discharge: > 48 hours
Subjective/Interval History
-
Date of Service: May 18, 2024
s/p CardioMEMS eval with reading of 36 (goal 30)
remains on IV Bumex
denies SOB
Objective Data
-
Labs:
Laboratory Results
05/18/24
03:27
WBC 3.4 L
Hgb 7.8 L
Hct 26.7 L
Plt Count 186
Sodium 136
Potassium 4.1
Chloride 97 L
Carbon Dioxide 32 H
BUN 69 H
Creatinine 1.9 H
Glucose 95
Calcium 8.3 L
Vital Signs:
Vital Signs
Temp Pulse Resp BP Pulse Ox
98.4 F 80 16 128/50 96
05/18/24 06:44 05/18/24 08:47 05/18/24 08:47 05/18/24 06:43 05/18/24 08:47
I&O
05/17/24 05/18/24 05/19/24
06:59 06:59 06:59
Intake Total 240 / 240 720 / 720
Output Total 700 / 700
Balance -460 / -460 720 / 720
Physical Exam
-
General: No Apparent Distress
HEENT: Normocephalic and Atraumatic
Respiratory: Negative Wheezes
Cardiac: Regular Rhythm
GI: Soft and Nontender
Musculoskeletal: No Edema
Neuro: AO x 3
Hematologic / Lymphatic: No Lymphadenopathy
Psych: Calm
Data Reviewed
-
Total Time Spent with Patient (in minutes): 52
Labs: Labs Reviewed by me
--- NOTE | 2024-05-18 12:59 | PN.CDI ---
CDI
- -
CDI:
Physician Documentation Request
Admit Date: 05/15/24 02:36
Dear Doctor Khoi,
Patient admitted with acute on chronic HFpEF.
05/15 EMS report, 'Primary Impression: Respiratory distress, acute....SPO2 75...15 Liters Per Minute Non- Rebreather Mask.'
05/18 PN, 'Chronic hypoxemic respiratory failure on 4L NC.'
Please clarify which of the following accurately represents the patient's respiratory status on admission:
Acute on chronic hypoxic respiratory failure
Chronic hypoxemic respiratory failure only
Other
Additional information for Respiratory Failure:
Recognized criteria for Respiratory Failure (Source: [facility] Hospitalist Mar 2013)
ABGs: (1 or more) Symptoms Please indicate type if known
1. p)2 <60 or RA SPO2 <91% on RA 1. Tachypnea, SOB, dyspnea Hypoxic
2. pCO2 50 and pH <7.35 2. Use of accessory muscles Hypercapnic
3. pO2 decrease of pCO2 increase by 3. Pallor or cyanosis Hypoxic and Hypercapnic
10 mmHg from baseline if known 4. Anxiety or restlessness Unable to determine
5. Unable to speak in full sentences
Supplemental O2 of > 40% (5LPM) Intubation is not required
Use of terms such as suspected, likely, concern for, or probable (associated with a specific diagnosis that is being evaluated, monitored, or treated as if it exists) are acceptable and can be coded in the inpatient setting, when documented at the
time of discharge.
Thank you,
Yolande SHARPE, RN,CCDS
CDI Specialist
Available via [place] text
Please use your independent medical judgment in providing your response.
[2024-05-18] MEDS: FLUSH (NSS) 2 FLUSH IV (16:06)
[2024-05-18] MEDS: ZAROXOLYN 2.5 MG PO (16:21)
[2024-05-18] MEDS: CRESTOR 10 MG PO (17:03)
--- NOTE | 2024-05-18 18:00 | PTCARENOTE ---
Pt received this am on 4LNC, sat 97%. Pt denies any chest pain or sob. OOB independently from the bed to the BSC. No c/o offered.
--- NOTE | 2024-05-18 21:05 | PTCARENOTE ---
pt. received at change of shift. pt. seen and assessed in room. pt AOx3, no complaints at this time. tele reading afib with occ. paced beats. plan of care explained to pt by this rn, CHF teaching done. call pak within reach. continuing to monitor
at this time.
[2024-05-18] MEDS: XANAX 0.25 MG PO (22:35)
[2024-05-19] VITALS (11 sets, daily range): BP systolic 105–128; BP diastolic 40–94; PULSE 95; O2SAT 97; BMI 23.4
[2024-05-19] MEDS: SYNTHROID 50 MCG PO (05:05)
[2024-05-19 05:34] LABS: Hematocrit 26.3 % (37.0-47.0); Hemoglobin 7.8 g/dL (12.0-16.0); Mean Corp Hgb Conc. 29.7 g/dL (33.0-37.0); Mean Corpuscular Hgb 25.2 pg (27.0-31.0); Mean Corpuscular Volume 85.1 fL (81.0-99.0); Mean Platelet Volume 9.8 fL (7.4-10.4); Platelet Count 197 10^3/uL (130-400); Red Blood Cell Count 3.09 10^6/uL (4.20-5.40); Red Cell Dist. Width 27.9 % (11.5-14.5); White Blood Cell Count 3.6 10^3/uL (4.8-10.8)
[2024-05-19 05:48] LABS: Blood Urea Nitrogen 74 mg/dl (7-17); Calcium 8.4 mg/dl (8.4-10.2); Carbon Dioxide 32 mmol/L (22-30); Chloride 96 mmol/L (98-107); Estimated Creatinine Clearance 23 ml/min; Glucose 92 mg/dl (70-99); Potassium 3.4 mmol/L (3.5-5.1); Sodium 135 mmol/L (135-145); eGFR 30.89
[2024-05-19] MEDS: SPIRIVA RESPIMAT 2.5 MCG 2 PUFF INH (07:59)
[2024-05-19] MEDS: STRIVERDI RESPIMAT 2 PUFF INH (08:00)
[2024-05-19] MEDS: BUMEX 2 MG IV ×2 (08:06→16:01)
[2024-05-19] MEDS: PROTONIX 40 MG PO (08:07)
[2024-05-19] MEDS: NON-FORMULARY ITEM 40 MG PO (08:07)
[2024-05-19] MEDS: PROZAC 20 MG PO (08:07)
[2024-05-19] MEDS: FEOSOL 325 MG PO (08:07)
[2024-05-19] MEDS: NON-FORMULARY ITEM 10 MG PO (08:07)
[2024-05-19] MEDS: ELIQUIS 5 MG PO ×2 (08:07→19:30)
[2024-05-19] MEDS: PLAVIX 75 MG PO (08:07)
[2024-05-19] MEDS: NORVASC 5 MG PO (08:07)
--- NOTE | 2024-05-19 08:27 | W.PN.HOSP.TC ---
Today's Communication/Plan
-
Continue Eliquis, Plavix, Bumex
Assessment / Plan
Assessment / Plan
Physical Exam
General: No Apparent Distress
HEENT: Normocephalic and Atraumatic
Respiratory: Negative Wheezes
Cardiac: Regular Rhythm
GI: Soft and Nontender
Musculoskeletal: No Edema
Neuro: AO x 3
Hematologic / Lymphatic: No Lymphadenopathy
Psych: Calm
Assessment/Plan
Acute on chronic hypoxic respiratory failure
Acute on chronic HFpEF
- has CardioMEMs implant which was interoggated 05/17 (reading of 36, goal is 30 or less)
- continue IV Bumex - requires intensive monitoring of I/Os, weights, lytes
- follow DCA cards recs
Chronic hypoxemic respiratory failure on 4L NC
Recently diagnosed atrial fibrillation 04/2024
- continue Eliquis
Second-degree AV block type I, asymptomatic
- HX of PPM 05/04
CAD s/p RCA stents
HLD
- continue Plavix/Statin
Chronic pericardial effusion
Severe pulmonary hypertension
Scleroderma
Mild MR, mild to moderate TR
CKD 3b
- monitor Cr with diuretics
- consider Nephrology consult if worsening BMP
Lung CA s/p XRT
h/o TIA s/p carotid endarterectomy 02/07/2012
- continue Plavix/Statin
PAD s/p fem/popliteal artery angioplasty/stent 08/20/2023
- continue Plavix/Statin
Essential HTN
- continue Norvasc
Former smoker
SAURABH
Hypothyroidism on replacement
Chronic anemia
- did complete 5 day IV iron infusion in April
- monitor for signs of bleeding
Hypokalemia - replete prn
DVT ppx: Eliquis
Code: DNR/DNI
Anticipated Discharge: Within 24 hours
Subjective/Interval History
-
Date of Service: May 19, 2024
Patient was seen and examined. She denied any chest pain or shortness of breath.
Objective Data
-
Labs:
Laboratory Results
05/19/24
05:04
WBC 3.6 L
Hgb 7.8 L
Hct 26.3 L
Plt Count 197
Sodium 135
Potassium 3.4 L
Chloride 96 L
Carbon Dioxide 32 H
BUN 74 H
Creatinine 1.7 H
Glucose 92
Calcium 8.4
Vital Signs:
Vital Signs
Temp Pulse Resp BP Pulse Ox
98.6 F 74 20 128/51 98
05/19/24 08:22 05/19/24 08:05 05/19/24 08:22 05/19/24 04:48 05/19/24 08:22
I&O
05/18/24 05/19/24 05/20/24
06:59 06:59 06:59
Intake Total 720 / 720
Output Total 500 / 500
Balance 720 / 720 -500 / -500
[2024-05-19] MEDS: KCL 20 MEQ PO (08:39)
--- NOTE | 2024-05-19 08:59 | PTCARENOTE ---
Assumed care. Patient awake denies pain. Oxygen 4 liters NC, dyspneic with exertion, crackles left base, faint expiratory wheezes left upper lobe, voice hoarse. V-paced BBB, PVC's. IV leaking replaced, IV Bumex given. Using bedside commode at
bedside, K.3.4 20 MEQ PO given. Call pak in reach
[2024-05-19] MEDS: TYLENOL 650 MG PO (11:37)
--- NOTE | 2024-05-19 11:44 | CM ---
Chart reviewed. Patient is independent of ADLS, lives with her daughter in a 3 STH, 1 MISTY, 13 steps down into the basement, has a stairglide and a RW. 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 Patient wears
home O2 3L and uses [employer]. Patient has been increased to 4L, but her home oxygen concentrator is set at 4L. [employer] needs a script for change in liters to be able to go out to her house to change this. I notified Dr. Rodriguez. Patient is current
with [facility]. Referral sent to resume care when medically stable for discharge. Plan is for the patient to return home with [facility] CM to follow
--- NOTE | 2024-05-19 13:43 | W.PN.CARDCBS ---
Addendum entered and electronically signed by Clare Fierro PA-C 05/19/24 16:22:
CardioMEMs down to 32 today.
Addendum entered and electronically signed by Antione Dennis MD 05/19/24 13:56:
I saw and examined the patient.
The Cement Patcher's note was reviewed and I agree with the note.
Comment:
GEN: No distress, awake, Ox3
HEENT: supple, anicteric, mmm
LUNGS: CTA, no wheezes/rales
CV: Reg, S1/S2, 1/6 syst LSB, no gallop
ABD: soft, BS+, NT/ND
EXT: No edema
NEURO: Gross non-focal
SKIN: No rash
Plan:
Clinically is improving doing better with metolazone. Creatinine down to 1.7. cont Bumex. Check cardio Mems today
Will likely convert to oral diuretics over the next 24 hours.
Cont Opsimut and Tadalfil .
Cotn Plavix/Eliquis.
Original Note:
Today's Communication / Plan
-
CardioMEMs pending for today
OK to shower
Cre and weight down after dose of metolazone last evening
Probably d/c to home tomorrow
Impression / Plan
-
PCP: Dr. Reza Ortiz
Fretted Instrument Repairer: Dr. Elliott Stokes ([facility] @ [place])
Impression:
Presented with worsening SOB
Acute on chronic HFpEF
CardioMEMs implant
Chronic hypoxemic respiratory failure on 4L NC
Paroxysmal atrial fibrillation, initially diagnosed 04/2024
OAC with Eliquis
Second-degree AV block type I, asymptomatic
History second-degree type I; currently rate controlled AF; noted high degree block on telemetry while sleeping (2: 1 versus complete heart block) no evidence during waking hours
s/p PPM at [facility] 04/2024
CAD
Distant inferior wall DC with RCA stents 05/06/2003.
Chronic pericardial effusion
Severe pulmonary hypertension
Scleroderma
Mild MR, mild to moderate TR
CKD 3
Lung CA s/p XRT
h/o TIA
s/p carotid endarterectomy 02/07/2012
PAD
s/p fem/popliteal artery angioplasty/stent 08/20/2023
HTN
HLD
Former smoker
SAURABH
Hypothyroidism
Echo November 2012: revealed normal LV function, LVH and mild mitral regurgitation.
Echo 07/23/2021: EF 60% with mod to severe LVH, mild MR, biatrial enlargement. Mild to moderate TR, PASP 69 mmHg. Moderate to large pericardial effusion without hemodynamic compromise, 2.7 posteriorly and 2.3 laterally, mildly dilated aortic root.
Echo 08/03/2021: EF 65-70%, moderate to large pericardial effusion without evidence of hemodynamic compromise
Echo 06/13/2023: EF 75-80%, moderate cLVH, grade II diastolic dysfunction, mild MAC, trace MR, mild AI, trace TR, small-moderate pericardial effusion
Echo 04/23/2024: EF 65-70%, mod conc LVH, normal RV size and function, mild TR with PAP 35-40 mmHg
Plan:
-Weight is down 2 lbs overnight and Cre improved to 1.7 after patient was given metolazone 2.5 mg PO x1 with her evening dose of Bumex 2 mg IV BID on 05/18/24.
-Patient to repeat her CardioMEMs reading 05/19/24, but was 40 on admission then 36 on 05/17/24 and then 35 on 05/18/24 with a goal reading of 30, so trending in the right direction.
-Patient was taking Bumex 4 mg BID prior to admission (patient refers to two a day but this actually means two 2 mg tablets twice a day)
-Patient takes metolazone 2.5 mg daily as needed for increased volume based on CardioMEMS reports for that day and at the direction of Dr. Stokes's office.
-Patient is not chronically on BB due to wheezing.
-EF preserved at 65% by echo 04/23/24 and stable compared to echo from primary progress developer 06/13/23
-Patient with known severe PHTN and outpatient doses of tadalafil 40 mg daily and Opsumit 10 mg daily have been continued.
-Patient with known paroxysmal Afib and outpatient med list has aspirin, Plavix and Eliquis. Currently ordered Plavix and Eliquis 5 mg BID (Cre 1.7, age 74, wt 59.9 kg). Follow weight and if drops below 60 kg while Cre remains above 1.5 then would
switch to Eliquis 2.5 mg BID.
-Patient was previously on chronic aspirin and Plavix for PAD with fem/popliteal artery angioplasty/stent 08/20/2023
-Potassium dropped to 3.4 on 05/19/24 likely due to increased urine output after metolazone 05/18/24 PM. Hospitalist attending suppelemted with KCl 40 meq on 05/19/24.
-Troponin was 0.087 on admission and trended down thereafter. No chest pain and no acute ischemic changes on ECG. Will manage as a nonischemic myocardial injury Troponin elevation due to STEVEN and CHF.
-Outpatient dose of Crestor 10 mg daily has been continued
Progress Note - Fretted Instrument Repairer
Subjective
Date of Service: May 19, 2024
She feels well, she thinks she is doing better, very relieved that her weight is down and Cre is better
Objective
Labs:
05/19/24 05:04
05/19/24 05:04
Labs
Hgb 7.8 g/dL (12.0-16.0) L 05/19/24 05:04
Hct 26.3 % (37.0-47.0) L 05/19/24 05:04
Plt Count 197 10^3/uL (130-400) 05/19/24 05:04
Sodium 135 mmol/L (135-145) 05/19/24 05:04
Potassium 3.4 mmol/L (3.5-5.1) L 05/19/24 05:04
BUN 74 mg/dl (7-17) H 05/19/24 05:04
Creatinine 1.7 mg/dL (0.6-1.0) H 05/19/24 05:04
Glucose 92 mg/dl (70-99) 05/19/24 05:04
Vital Signs and I&O:
Vital Signs
Temp Pulse Resp BP Pulse Ox
98.9 F 85 20 122/46 98
05/19/24 11:25 05/19/24 09:00 05/19/24 11:25 05/19/24 08:32 05/19/24 11:25
Vital Signs
Temp Pulse Resp BP Pulse Ox
98.9 F 85 20 122/46 98
05/19/24 11:25 05/19/24 09:00 05/19/24 11:25 05/19/24 08:32 05/19/24 11:25
Intake & Output
05/17/24 05/18/24 05/19/24 05/20/24
06:59 06:59 06:59 06:59
Intake Total 240 / 240 720 / 720
Output Total 700 / 700 500 / 500
Balance -460 / -460 720 / 720 -500 / -500
Physical Exam
Physical Exam
GEN: NAD, AAOx3
HEENT: EOMI
LUNGS: 4 L NC. No audible wheeze
CV: SR on tele.
ABD: ND
EXT: No edema B/L
NEURO: Gross non-focal
SKIN: No rash
--- NOTE | 2024-05-19 14:44 | PTCARENOTE ---
Addendum entered by Jose A Underwood RN 05/19/24 14:44:
CardioMEMS completed
Original Note:
MEMS completed
[2024-05-19] MEDS: CRESTOR 10 MG PO (16:01)
--- NOTE | 2024-05-19 18:25 | PTCARENOTE ---
Patient walking in the room, showered. Oxygen at 4 liters, less shortness of breath with exertion, call pak in reach
--- NOTE | 2024-05-19 22:04 | PTCARENOTE ---
pt received at change of shift. pt seen and assessed in room. pt aox3, no complaints of pain at this time. tele reading dorian, w occ. vpacing and PVCs. This RN discussed CHF teaching with pt. pt. verbalizes understanding. Call pak within reach.
continuing to monitor at this time.
[2024-05-19] MEDS: XANAX 0.25 MG PO (22:20)
[2024-05-20 02:44] VITALS: BP 111/52
[2024-05-20 02:46] VITALS: BP 111/52; BMI 23.2
[2024-05-20 03:37] LABS: Hematocrit 26.7 % (37.0-47.0); Hemoglobin 7.9 g/dL (12.0-16.0); Mean Corp Hgb Conc. 29.6 g/dL (33.0-37.0); Mean Corpuscular Hgb 25.2 pg (27.0-31.0); Mean Platelet Volume 9.7 fL (7.4-10.4); Platelet Count 195 10^3/uL (130-400); Red Blood Cell Count 3.14 10^6/uL (4.20-5.40); Red Cell Dist. Width 27.9 % (11.5-14.5)
[2024-05-20 03:44] LABS: Blood Urea Nitrogen 69 mg/dl (7-17); Calcium 8.4 mg/dl (8.4-10.2); Carbon Dioxide 33 mmol/L (22-30); Chloride 96 mmol/L (98-107); Estimated Creatinine Clearance 22 ml/min; Glucose 87 mg/dl (70-99); Potassium 3.3 mmol/L (3.5-5.1); Sodium 136 mmol/L (135-145); eGFR 28.84
[2024-05-20] MEDS: SYNTHROID 50 MCG PO (05:23)
--- NOTE | 2024-05-20 06:53 | W.PN.HOSP.TC ---
Addendum entered and electronically signed by Katt Gerber MD 05/20/24 14:24:
Addendum
Discussed with cardiology service, okay to discharge the patient. Given instructions.
Total discharge time spent to see the patient, examine the patient, review data and lab results, discuss discharge plan with patient, nursing staff around 65 minutes
Original Note:
Today's Communication/Plan
-
Possible dc today, f/w cardiology
Assessment / Plan
Assessment / Plan
Physical Exam
General: No Apparent Distress, chronically ill looking
HEENT: Normocephalic and Atraumatic
Respiratory: limited with no wheezes.
Cardiac: Regular Rhythm
GI: Soft and Nontender
Musculoskeletal: No Edema
Neuro: AO x 3, she followed commands
Psych: Calm
Assessment/Plan
Acute on chronic hypoxic respiratory failure
Acute on chronic HFpEF
- has Cardio MEMs implant which was interrogated 05/17 (reading of 36, goal is 30 or less)
- continue IV Bumex - requires intensive monitoring of I/Os, weights, lytes
- follow DCA cards recs
Chronic hypoxemic respiratory failure on 4L NC
Recently diagnosed atrial fibrillation 04/2024
- continue Eliquis
Second-degree AV block type I, asymptomatic
- HX of PPM 05/04
CAD s/p RCA stents
HLD
- continue Plavix/Statin
Chronic pericardial effusion
Severe pulmonary hypertension
Scleroderma
Mild MR, mild to moderate TR
CKD 3b
- monitor Cr with diuretics
- consider Nephrology consult if worsening BMP
Lung CA s/p XRT
h/o TIA s/p carotid endarterectomy 02/07/2012
- continue Plavix/Statin
PAD s/p fem/popliteal artery angioplasty/stent 08/20/2023
- continue Plavix/Statin
Essential HTN
- continue Norvasc
Former smoker
SAURABH
Hypothyroidism on replacement
Chronic anemia
- did complete 5 day IV iron infusion in April
- monitor for signs of bleeding
Hypokalemia - replete prn
DVT ppx: Eliquis
Code: DNR/DNI
Total time spent to see the patient, examine the patient, review data and lab results, discuss treatment plan with patient, nursing staff around 55 minutes
Anticipated Discharge: Within 24 hours
Subjective/Interval History
-
Date of Service: May 20, 2024
Denies chest pain, feels better
Objective Data
-
Labs:
Laboratory Results
05/20/24
02:49
WBC 4.0 L
Hgb 7.9 L
Hct 26.7 L
Plt Count 195
Sodium 136
Potassium 3.3 L
Chloride 96 L
Carbon Dioxide 33 H
BUN 69 H
Creatinine 1.8 H
Glucose 87
Calcium 8.4
Vital Signs:
Vital Signs
Temp Pulse Resp BP Pulse Ox
98.6 F 69 20 111/52 98
05/20/24 02:46 05/20/24 06:00 05/20/24 02:46 05/20/24 02:46 05/20/24 02:46
I&O
05/18/24 05/19/24 05/20/24
06:59 06:59 06:59
Intake Total 720 / 720 100 / 100
Output Total 500 / 500 1300 / 1300
Balance 720 / 720 -500 / -500 -1200 / -1200
[2024-05-20] MEDS: STRIVERDI RESPIMAT 2 PUFF INH (07:30)
[2024-05-20] MEDS: SPIRIVA RESPIMAT 2.5 MCG 2 PUFF INH (07:30)
[2024-05-20 07:50] VITALS: BP 120/58
[2024-05-20] MEDS: BUMEX 2 MG IV (07:51)
[2024-05-20] MEDS: ELIQUIS 5 MG PO (07:51)
[2024-05-20] MEDS: PROZAC 20 MG PO (07:51)
[2024-05-20] MEDS: PLAVIX 75 MG PO (07:51)
[2024-05-20] MEDS: PROTONIX 40 MG PO (07:51)
[2024-05-20] MEDS: NON-FORMULARY ITEM 10 MG PO (07:52)
[2024-05-20] MEDS: NON-FORMULARY ITEM 40 MG PO (07:52)
[2024-05-20] MEDS: NORVASC 5 MG PO (07:52)
--- NOTE | 2024-05-20 08:20 | W.PN.CARDCBS ---
Today's Communication / Plan
-
D/C to home today
Bumex 6 mg PO BID
KCl 20 meq daily
52 min face to face and coordination of care
Impression / Plan
-
PCP: Dr. Reza Ortiz
Pie Icer Machine: Dr. Elliott Stokes ([facility] @ [place])
Impression:
Presented with worsening SOB
Acute on chronic HFpEF
CardioMEMs implant
Chronic hypoxemic respiratory failure on 4L NC
Paroxysmal atrial fibrillation, initially diagnosed 04/2024
OAC with Eliquis
Second-degree AV block type I, asymptomatic
History second-degree type I; currently rate controlled AF; noted high degree block on telemetry while sleeping (2: 1 versus complete heart block) no evidence during waking hours
s/p PPM at [facility] 04/2024
CAD
Distant inferior wall [place] with RCA stents 05/06/2003.
Chronic pericardial effusion
Severe pulmonary hypertension
Scleroderma
Mild MR, mild to moderate TR
CKD 3
Lung CA s/p XRT
h/o TIA
s/p carotid endarterectomy 02/07/2012
PAD
s/p fem/popliteal artery angioplasty/stent 08/20/2023
HTN
HLD
Former smoker
SAURABH
Hypothyroidism
Echo November 2012: revealed normal LV function, LVH and mild mitral regurgitation.
Echo 07/23/2021: EF 60% with mod to severe LVH, mild MR, biatrial enlargement. Mild to moderate TR, PASP 69 mmHg. Moderate to large pericardial effusion without hemodynamic compromise, 2.7 posteriorly and 2.3 laterally, mildly dilated aortic root.
Echo 08/03/2021: EF 65-70%, moderate to large pericardial effusion without evidence of hemodynamic compromise
Echo 06/13/2023: EF 75-80%, moderate cLVH, grade II diastolic dysfunction, mild MAC, trace MR, mild AI, trace TR, small-moderate pericardial effusion
Echo 04/23/2024: EF 65-70%, mod conc LVH, normal RV size and function, mild TR with PAP 35-40 mmHg
Plan:
-Weight is down 1 lb overnight and overall patient has diuresed 7 lbs, maybe more depending on the accuracy of admission weight. Patient also symptomatically improved and CardioMEMs have been tranding down since admission.
-CardioMEMs 40 just prior to admission then 36 on 05/17/24, 35 on 05/18/24, 32 on 05/19/24 with a goal reading of 30, so trending in the right direction.
-Patient effectively diuresed with Bumex 2 mg IV BID plus a single dose of metolazone 2.5 mg x1 on 05/18/24 PM.
-Patient wishes to be d/c'd to home on Bumex 6 mg PO BID plus her usual regimen of metolazone 2.5 mg daily PRN CardioMEMs reading for that day. Patient was taking Bumex 4 mg BID prior to admission (patient refers to two a day but this actually means
two 2 mg tablets twice a day)
-Patient is not chronically on BB due to wheezing.
-EF preserved at 65% by echo 04/23/24 and stable compared to echo from primary corner bead operator 06/13/23
-Patient with known severe PHTN and outpatient doses of tadalafil 40 mg daily and Opsumit 10 mg daily have been continued. Patient was previously on chronic aspirin and Plavix for PAD with fem/popliteal artery angioplasty/stent 08/20/2023
-Patient with known paroxysmal Afib and outpatient med list has aspirin, Plavix and Eliquis. Aspirin stopped this admission.
-Currently ordered Plavix and Eliquis 5 mg BID (Cre 1.8, age 74, wt 59.5 kg). Technically Eliquis dose should be 2.5 mg BID, but Cre up with IV diuresis. Will d/c patient to home on her usual dose of Eliquis and recheck BMP in 3-4 days and if Cre
greater than 1.5 with wt less than 60 kg then she should probably switch to the lower dose.
-Potassium down to 3.3 on 05/20/24 and KCl 40 meq x1 ordered by me. Will sen patient home on KCl 20 meq daily. Magnesium 2.0 on 05/20/24
-Troponin was 0.087 on admission and trended down thereafter. No chest pain and no acute ischemic changes on ECG. Will manage as a nonischemic myocardial injury Troponin elevation due to STEVEN and CHF.
-Outpatient dose of Crestor 10 mg daily has been continued
-Patient remains on her chronic oxygen at 4 L TN for history of PHTN
-D/C to home 05/20/24 and follow up with Dr. Stokes's office
Progress Note - Pie Icer Machine
Subjective
Date of Service: May 20, 2024
Continues to feel dramatically better compared to admission
Objective
Labs:
05/20/24 02:49
05/20/24 02:49
Labs
Hgb 7.9 g/dL (12.0-16.0) L 05/20/24 02:49
Hct 26.7 % (37.0-47.0) L 05/20/24 02:49
Plt Count 195 10^3/uL (130-400) 05/20/24 02:49
Sodium 136 mmol/L (135-145) 05/20/24 02:49
Potassium 3.3 mmol/L (3.5-5.1) L 05/20/24 02:49
BUN 69 mg/dl (7-17) H 05/20/24 02:49
Creatinine 1.8 mg/dL (0.6-1.0) H 05/20/24 02:49
Glucose 87 mg/dl (70-99) 05/20/24 02:49
Vital Signs and I&O:
Vital Signs
Temp Pulse Resp BP Pulse Ox
98.6 F 78 20 120/58 96
05/20/24 07:47 05/20/24 07:51 05/20/24 07:47 05/20/24 07:51 05/20/24 07:47
Vital Signs
Temp Pulse Resp BP Pulse Ox
98.6 F 78 20 120/58 96
05/20/24 07:47 05/20/24 07:51 05/20/24 07:47 05/20/24 07:51 05/20/24 07:47
Intake & Output
05/18/24 05/19/24 05/20/24 05/21/24
06:59 06:59 06:59 06:59
Intake Total 720 / 720 100 / 100
Output Total 500 / 500 1300 / 1300
Balance 720 / 720 -500 / -500 -1200 / -1200
Physical Exam
Physical Exam
GEN: NAD, AAOx3
HEENT: EOMI
LUNGS: 4 L NC. No audible wheeze
CV: SR on tele.
ABD: ND
EXT: No edema B/L
NEURO: Gross non-focal
SKIN: No rash
[2024-05-20] MEDS: KCL 40 MEQ PO (08:30)
--- NOTE | 2024-05-20 11:10 | CM ---
Addendum entered by Miriam Patrick RN 05/20/24 13:19:
Reviewed with the patient why she currently doesn't qualify for the higher oxygen and she verbalized understanding
Original Note:
Chart reviewed. Patient is independent of ADLS, lives his daughter in a 3 STH, 1 MISTY, 13 steps down to the basement where patient lives, patient has a stairglide and a RW. Patient recently qualified for a PILE TRIMMER with [employer], unsure of how
many hours. Patient wears Home O2 4l through [employer]. Patient would like a higher flow concentrator to be able to turn up if needs more oxygen. Patient would need to be on a maintenance of 5l or greater to qualify. Patient is current with [facility].
Plan is for the patient to return home with [facility]. CM to follow
[2024-05-20 12:16] VITALS: BP 119/54
--- NOTE | 2024-05-20 13:41 | PTCARENOTE ---
The patient's home medication, 5 pills of Tramadol, that was being held in the Pharmacy was picked up and given to the patient to take home.
--- NOTE | 2024-05-20 13:44 | W.DCSUMMARY ---
Discharge Summary
Discharge Data
Date of Admission: 05/15/24
Date of Discharge: 05/20/24
-
Pending Results: No
Hospital Course
74 years old female presented to the hospital with acute on chronic heart failure. Patient reported that she received call from her cheese cooker's office for elevated volume status monitored by cardioMEMs (her goal was below 30 mmHg and was up to
40mmHg) and was recommended to take metolazone but it did not help. Patient had history of chronic hypoxemic respiratory failure on 4 L of nasal oxygen. Patient was evaluated by cheese cooker. She was started on intravenous Bumex therapy. Renal
function, volume status and electrolytes were monitored. She did not have worsening hypoxemia. Menswear Salesperson talk to her primary cheese cooker, Dr. Elliott tSokes ([facility] @ [place]). Patient remained hemodynamically stable. She was
discharged on Bumex oral treatment with instructions. Patient was discharged back to her place in a stable condition.
Discharge Plan
-
Patient Disposition: Home with Home Care
Discharge Diagnosis/Procedures: Acute heart failure preserved ejection fraction
Condition: Fair
Diet: 2 Gram Sodium and Restrict fluids to 64 oz
Activity: As tolerated
Driving Restrictions: As prior to admission
Bathing Restrictions: None
Blood Work: BMP in 3-4 days
Other Services: VN
Specialty Instructions: Weigh Daily- Call MD for wt gain/loss 3 lbs overnight/5 lbs in 1 week
Instructions: *PCP/Other Menswear Salesperson Heart Failure Instructions
Referrals:
[facility] [Other] ( )
Reza Ortiz DO [Family Provider] -
Elliott Stokes MD [Non-Admitting Privileges] - in one to two weeks
Additional Discharge Medication Instructions: -Take Bumex 6 mg (three 2 mg tablets) twice a day
-Start taking potassium (KCl) 20 meq one tablet once a day
-Check non-fasting blood work in 3-4 days to recheck kidney function and electrolytes
-Stop taking aspirin, but continue taking Plavix (clopidogrel) and Eliquis
Prescriptions:
New
bumetanide 2 mg tablet
6 mg PO BID Qty: 180 6RF
potassium chloride 20 mEq tablet extended release
20 meq PO DAILY Qty: 30 11RF
alprazolam 0.25 mg Tablet
0.25 mg PO HS Qty: 30 0RF
ferrous sulfate [FeroSul] 325 mg (65 mg iron) Tablet
325 mg PO Q48H Qty: 30 0RF
Continued
acetaminophen [Tylenol] 325 mg Tablet
650 mg PO TIDPRN PRN (Reason: mild pain/headache)
polyethylene glycol 3350 [Miralax] 17 gram Powder In Packet
17 g PO DAILYPRN PRN (Reason: constipation)
levothyroxine [Synthroid] 50 mcg Tablet
50 mcg PO DAILY
rosuvastatin [Crestor] 10 mg Tablet
10 mg PO DAILY
cholecalciferol (vitamin D3) [Vitamin D3] 50 mcg (2,000 unit) Tablet
50 mcg PO DAILY
Opsumit 10 mg Tablet
10 mg PO DAILY
Anoro Ellipta 62.5-25 mcg/actuation Blister With Device
1 inh INHALATION R DAILY
tadalafil (pulm. hypertension) 20 mg Tablet
40 mg PO DAILY
clopidogrel 75 mg Tablet
75 mg PO DAILY Qty: 0 0RF
metolazone 2.5 mg Tablet
2.5 mg PO DAILYPRN PRN (Reason: when instructed by cardiology)
alprazolam 0.25 mg Tablet
0.25 mg PO TID
fluoxetine 20 mg Capsule
20 mg PO DAILY
pantoprazole 40 mg tablet,delayed release (DR/EC)
40 mg PO DAILY
amlodipine [Norvasc] 5 mg Tablet
5 mg PO BID
albuterol sulfate 90 mcg/actuation Hfa Aerosol Inhaler
2 puff INHALATION R Q6HPRN PRN (Reason: SOB)
Eliquis 5 mg Tablet
5 mg PO BID
Discontinued
bumetanide 2 mg Tablet
4 mg PO BID
aspirin 81 mg Tablet,Delayed Release (Dr/Ec)
81 mg PO DAILY
Discharge Orders:
Discharge Patient (As Directed); Ordered 05/20/24
Ordered By: Katt Gerber
Care Plan Goals
Care Plan Goals:
Problem: Readiness for enhanced knowledge related to diagnosis and treatment plan
Goal: Understand your diagnosis and treatment plan needs, including medications if applicable.
Instructions: Know your diagnosis, underlying causes and treatment plan options, including medications if applicable. Consult with your health care team to learn about your diagnosis and treatment plan, including medications if applicable.
Discharge Date and Time
Print Language: VIETNAMESE
[2024-05-20 14:48] VITALS: BP 137/70
--- NOTE | 2024-05-20 16:00 | PTCARENOTE ---
Patient discharged to home, teaching completed, patient verbalized understanding. Patient escorted to main lobby with her grandson.
== END 2024-05-20 16:03 | disposition home health service (06) | DRG 291 ==
LOC: IVU 02:36
PROVIDERS: Clinical Nurse Specialist Family Health; Emergency Medicine; Hospitalist; Internal Medicine; ADMITTING PHYSICIAN Internal Medicine; ATTENDING PHYSICIAN Internal Medicine; EMERGENCY PHYSICIAN Emergency Medicine; FAMILY PHYSICIAN Family Medicine; OTHER PHYSICIAN Internal Medicine Cardiovascular Disease
DX: I13.0 Hypertensive heart and chronic kidney disease with heart failure and stage 1 through stage 4 chronic kidney disease, or unspecified chronic kidney disease (principal); I50.33 Acute on chronic diastolic (congestive) heart failure; J96.11 Chronic respiratory failure with hypoxia; I31.39 Other pericardial effusion (noninflammatory); M34.9 Systemic sclerosis, unspecified; I27.20 Pulmonary hypertension, unspecified; N18.32 Chronic kidney disease, stage 3b; I44.1 Atrioventricular block, second degree; Z95.0 Presence of cardiac pacemaker; Z87.891 Personal history of nicotine dependence; G47.33 Obstructive sleep apnea (adult) (pediatric); E03.9 Hypothyroidism, unspecified; D64.9 Anemia, unspecified; I25.10 Atherosclerotic heart disease of native coronary artery without angina pectoris; Z95.5 Presence of coronary angioplasty implant and graft; I25.2 Old myocardial infarction; Z85.118 Personal history of other malignant neoplasm of bronchus and lung; Z86.73 Personal history of transient ischemic attack (TIA), and cerebral infarction without residual deficits; E78.00 Pure hypercholesterolemia, unspecified; I48.91 Unspecified atrial fibrillation; Z92.3 Personal history of irradiation; Z91.041 Radiographic dye allergy status; Z79.82 Long term (current) use of aspirin; F41.9 Anxiety disorder, unspecified; Z79.890 Hormone replacement therapy; K59.00 Constipation, unspecified; Z79.899 Other long term (current) drug therapy; Z79.02 Long term (current) use of antithrombotics/antiplatelets; L40.9 Psoriasis, unspecified; E11.22 Type 2 diabetes mellitus with diabetic chronic kidney disease; J44.9 Chronic obstructive pulmonary disease, unspecified; Z79.01 Long term (current) use of anticoagulants; Z90.710 Acquired absence of both cervix and uterus
CPT/HCPCS: 71046; 80048; 80053; 83735; 83880; 84484; 85025; 85027; 93005; 94640; 97110; 97163; 97166; 97530; 99285

== ENCOUNTER 2024-06-07 18:04 | Inpatient (IN) | payer OTHER, SELFPAY ==
[2024-06-07] VITALS (20 sets, daily range): BP systolic 100–147; BP diastolic 38–89
[2024-06-07 12:39] LABS: % Basophils 0.9 % (0-2); % Eosinophils 0.4 % (0-6); % Immature Granulocytes 0.8 % (0-0.5); % Lymphocytes 8.1 % (20.5-51.1); % Monocytes 8.9 % (1.7-9.3); % Neutrophils 80.9 % (42.2-75.2); Absolute Basophils 0.1 10^3/uL (0-0.2); Absolute Immature Granulocytes 0.1 10^3/uL (0-0.05); Absolute Lymphocytes 0.7 10^3/uL (1.2-3.4); Absolute Monocytes 0.7 10^3/uL (0.1-0.6); Absolute Neutrophils 6.5 10^3/uL (1.4-6.5); Hematocrit 20.4 % (37.0-47.0); Hemoglobin 5.8 g/dL (12.0-16.0); Mean Corp Hgb Conc. 28.4 g/dL (33.0-37.0); Mean Corpuscular Hgb 23.7 pg (27.0-31.0); Mean Corpuscular Volume 83.3 fL (81.0-99.0); Mean Platelet Volume 10.4 fL (7.4-10.4); Nucleated Red Blood Cells % 0.5 %; Platelet Count 319 10^3/uL (130-400); Red Blood Cell Count 2.45 10^6/uL (4.20-5.40); Red Cell Dist. Width 21.7 % (11.5-14.5)
[2024-06-07 12:42] LABS: COVID-19 Antigen Negative (Negative)
[2024-06-07 12:51] LABS: ALT (SGPT) < 10 U/L (0-35); AST (SGOT) 17 U/L (14-36); Albumin 3.8 g/dl (3.5-5.0); Alkaline Phosphatase 64 U/L (38-126); Calcium 9.1 mg/dl (8.4-10.2); Carbon Dioxide 32 mmol/L (22-30); Chloride 84 mmol/L (98-107); Glucose 135 mg/dl (70-99); Sodium 129 mmol/L (135-145); Total Bilirubin 0.4 mg/dl (0.2-1.3); Total Protein 6.3 g/dl (6.3-8.2); eGFR 19.44
[2024-06-07 12:56] LABS: NT-proBNP 21500 pg/ml; Troponin I 0.046 ng/ml
[2024-06-07 13:01] LABS: Potassium 2.9 mmol/L (3.5-5.1)
[2024-06-07 13:02] LABS: Blood Urea Nitrogen 133 mg/dl (7-17)
[2024-06-07 13:12] LABS: Anisocytosis 1+; Hypochromasia 1+; Normal RBC Morphology No; Ovalocytes 1+; Polychromasia 2+; Target Cells 1+
--- NOTE | 2024-06-07 13:50 | ED.GENMED ---
History of Present Illness
General
Chief Complaint: Weakness
Source: patient
Exam Limitations: none
Time Seen by Provider: 06/07/24 13:27
History of Present Illness
History of Present Illness:
74 year old female with history of COPD, VA, CHF, pulmonary hypertension, on Elquis presents with fatigue and SOB. Recent admission to this hospital earlier this month for CHF flare. Has been on Bumex. She has not been taking potassium. They
also started metolazone. She accidentally took 6 pills of metolazone last week instead of 1. There has been no vomiting but she notes dark-colored stools. She is chronically on 4 L of nasal cannula oxygen. No significant abdominal pain or chest
pain. No other complaints at this time
Past History
Past History
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
) and Other (Ovarian cyst, Anemia)
ED Past Surgical History: Cardiac (cath w/ 2 stents, carotid artery stent, Cardiomems implant, Pacemaker, ), Gynecological (Hysterectomy) and Other (Carotid endarterectomy, cataracts, Right Popliteal stent)
Social History
Tobacco: Former smoker (Quit July 2017)
Alcohol: None
Drug: None
Personal: Other
Living: with family
Employment: Retired
Family History
Family History: Hypertension
Phy Exam
Physical Exam
Physical Exam:
General: Chronically ill-appearing female no acute respiratory distress
HEENT: Normocephalic atraumatic
Heart: Regular rate and rhythm no murmurs
Lungs: Diffuse wheeze with prolonge expiratory phased
Extremities: No edema
Abdomen soft nontender nondistended
Rectal exam: Black-colored stool heme positive
Course
Orders/Labs/Results
Orders:
Orders
06/07/24 11:33
Electrocardiogram (*1) Urgent
Reason for Study: Fatigue / Weakness
06/07/24 11:34
EKG- Treatment ONCE
06/07/24 12:11
Complete Blood Count/With Diff Urgent
Comprehensive Metabolic Panel Urgent
NT-proBNP Urgent
Troponin I Urgent
Influenza A+B Rapid Molecular Urgent
[facility] Source: Nasal Swab
Specimen Description:
06/07/24 12:12
COVID-19 Antigen Urgent
Source: Nasal Swab
06/07/24 13:51
Type And Crossmatch [Type+Screen] Urgent
06/07/24 14:43
Blood Bank Products [* Blood Bank Products] Urgent
Blood Bank Products: *Packed RBC Leuko(PRBC's)
Quantity: 1
Transfuse Today: Yes
Reason: Anemia
Potassium Chloride 10% Elixir [KCl Elixir] 40 meq PO NOW STA
Abnormal Lab Results
06/07/24
12:11
RBC 2.45 L 10^6/uL
(4.20-5.40)
Hgb 5.8 L* g/dL
(12.0-16.0)
Hct 20.4 L* %
(37.0-47.0)
MCH 23.7 L pg
(27.0-31.0)
MCHC 28.4 L g/dL
(33.0-37.0)
RDW 21.7 H %
(11.5-14.5)
Abs Immat Gran (auto) 0.1 H 10^3/uL
(0-0.05)
Absolute Lymphs (auto) 0.7 L 10^3/uL
(1.2-3.4)
Absolute Monos (auto) 0.7 H 10^3/uL
(0.1-0.6)
Immature Gran % 0.8 H %
(0-0.5)
Neutrophils % 80.9 H %
(42.2-75.2)
Lymphocytes % 8.1 L %
(20.5-51.1)
Sodium 129 L mmol/L
(135-145)
Potassium 2.9 L mmol/L
(3.5-5.1)
Chloride 84 L mmol/L
(98-107)
Carbon Dioxide 32 H mmol/L
(22-30)
BUN 133 H* mg/dl
(7-17)
Creatinine 2.5 H mg/dL
(0.6-1.0)
Glucose 135 H mg/dl
(70-99)
Troponin I 0.046 H* ng/ml
06/07/24 12:11
06/07/24 12:11
Vital Signs
Initial and Last Documented VS:
Initial Vital Signs
Temp Pulse Resp BP Pulse Ox
98.2 F 60 16 100/38 100
06/07/24 11:47 06/07/24 11:47 06/07/24 11:47 06/07/24 11:47 06/07/24 11:47
Last Documented Vital Signs
Temp Pulse Resp BP Pulse Ox
98.2 F 61 11 117/56 100
06/07/24 11:47 06/07/24 13:36 06/07/24 13:36 06/07/24 13:36 06/07/24 11:47
MDM/Problems Addressed
Differential Diagnosis Includes:
Patient with fatigue and increased shortness of breath with exertion on Eliquis noted black stools. Recent admission for CHF. Differential could include CHF flare versus anemia versus electrolyte abnormality. She is on her baseline 4 L of oxygen.
*Critical Care Note
Total Time (30-74mins, 75-104mins- exclusive of procedures): Not Applicable
Update Note
Update Note:
Hemoglobin 5.8. This is down from her baseline. Stool was black and heme positive. Vital signs are stable. Blood consent signed ordered 1 unit of packed red blood cells. Potassium is also low at 2.9. 40 of p.o. potassium ordered. Will admit
to hospitalist
ED Attending Note
-
Portions of this chart may have been created with voice recognition software.� Occasional wrong word or��sound alike� substitutions may have occurred due to the inherent limitations of voice recognition software.
Discharge Plan
Departure
Patient Disposition: Admit
Date of Disposition: 06/07/24
Time of Disposition: 14:48
Presentation/result/management discussed w/ accepting MD/DO: Hospitalist
Discharge Problem:
Acute GI bleeding, Anemia
Prescriptions:
No Action
polyethylene glycol 3350 [Miralax] 17 gram Powder In Packet
17 g PO DAILYPRN PRN (Reason: constipation)
levothyroxine [Synthroid] 50 mcg Tablet
50 mcg PO DAILY
rosuvastatin [Crestor] 10 mg Tablet
10 mg PO DAILY
cholecalciferol (vitamin D3) [Vitamin D3] 50 mcg (2,000 unit) Tablet
50 mcg PO DAILY
Opsumit 10 mg Tablet
10 mg PO DAILY
Anoro Ellipta 62.5-25 mcg/actuation Blister With Device
1 inh INHALATION R DAILY
tadalafil (pulm. hypertension) 20 mg Tablet
40 mg PO DAILY
clopidogrel 75 mg Tablet
75 mg PO DAILY Qty: 0 0RF
fluoxetine 20 mg Capsule
40 mg PO DAILY
pantoprazole 40 mg tablet,delayed release (DR/EC)
40 mg PO DAILY
amlodipine [Norvasc] 5 mg Tablet
5 mg PO DAILY
albuterol sulfate 90 mcg/actuation Hfa Aerosol Inhaler
2 puff INHALATION R Q6HPRN PRN (Reason: SOB)
Eliquis 5 mg Tablet
5 mg PO BID
bumetanide 2 mg tablet
6 mg PO BID Qty: 180 6RF
alprazolam 0.25 mg tablet
0.25 mg PO BID
acetaminophen [Tylenol] 325 mg Tablet
650 mg PO Q4HPRN PRN (Reason: mild pain)
tramadol 50 mg Tablet
50 mg PO TIDPRN PRN (Reason: moderate pains)
spironolactone 25 mg Tablet
25 mg PO DAILY
cyanocobalamin (vitamin B-12) 500 mcg Tablet
500 mcg PO DAILY
Referrals:
Reza Ortiz DO [Family Provider] -
Interventions
Interventions:
*Risk Screen - Suicide Last Done: 06/07/24 11:47
*Neglect/Abuse Screening Last Done: 06/07/24 11:47
*ED COVID-19 Vaccine History Last Done: 06/07/24 13:55
ED- Cardiac Assessment Last Done: 06/07/24 13:53
ED- Neurological Assessment Last Done: 06/07/24 13:53
ED- Pulmonary Assessment Last Done: 06/07/24 13:53
Discharge Date and Time
Print Language: CONGOLESE
[2024-06-07] MEDS: KCL ELIXIR 40 MEQ PO (14:50)
[2024-06-07] MEDS: PROTONIX IV 80 MG IV (15:18)
--- NOTE | 2024-06-07 15:34 | HPS.HSE ---
Family Physician
-
Family Physician: Reza Ortiz
Chief Complaint
-
weakness and shortness of breath
History of Present Illness
Patient is a 74-year-old female with past medical history significant for hypertension, hyperlipidemia, hypothyroidism, HFpEF, CAD, Hx CO, left carotid stenosis and TIA who presented to [facility] for evaluation of generalized weakness and
shortness of breath. Patient with recent hospitalization for heart failure exacerbation being discharged home 05/20/2024. Patient reports last week she accidentally took 6 metolazone instead of 1. Patient reports dark colored stools for
approximately a week. Patient reports coming to hospital today because of the severe fatigue and for evaluation following finding out that medication error at home with metolazone. She reports increased fatigue, shortness of breath, moist
non-reproductive cough, and nausea with an 11 pound weight loss in a week. Patient denies any fever, chills, chest pain, vomiting, constipation, diarrhea or urinary symptoms.
Medical History
Past Medical History
Past Medical History: Reports Other
Additional Past Medical History:
benign hypertension
hyperlipidemia
hypothyroidism
HFpEF
CAD
Hx CO
left carotid stenosis
TIA
Past Surgical History: Reports Other
Additional Past Surgical History:
cardiac stents
hysterectomy
ablation on varicose veins of LE
left carotid artery
Social History
Tobacco: Former Smoker
Alcohol: None
Drug: None
Living: With Family
Employment: Retired
Family History
Family History: Not pertinent
Allergies / Home Medications
Allergies reflects when Allergies were last updated in [employer].
Home Medications with original date entered in [employer]
Allergy/Medication List:
Allergies
Allergy/AdvReac Type Severity Reaction Status Date / Time
iodine Allergy allergic Verified 06/07/24 11:47
to shrimp
shrimp Allergy VIOLENTLY Verified 06/07/24 11:47
SICK
Home Medications
cholecalciferol (vitamin D3) 50 mcg (2,000 unit) tablet (Vitamin D3) 50 mcg PO DAILY Supplement 09/02/23
levothyroxine 50 mcg tablet (Synthroid) 50 mcg PO DAILY Thyroid 09/02/23
macitentan 10 mg tablet (Opsumit) 10 mg PO DAILY Lung Issues 09/02/23
polyethylene glycol 3350 17 gram oral powder packet (Miralax) 17 g PO DAILYPRN PRN constipation 09/02/23
rosuvastatin 10 mg tablet (Crestor) 10 mg PO DAILY High Cholesterol 09/02/23
tadalafil (pulm. hypertension) 20 mg tablet (pulmonary hypertension) 40 mg PO DAILY pulmonary hypertension 09/02/23
umeclidinium 62.5 mcg-vilanterol 25 mcg/actuation powdr for inhalation (Anoro Ellipta) 1 inh inhalation R DAILY Lung/Breathing Issues 09/02/23
clopidogrel 75 mg tablet 75 mg PO DAILY Blood clot prevention/tx #0 tabs 09/04/23
fluoxetine 20 mg capsule 40 mg PO DAILY Mental Health/Anxiety 04/22/24
pantoprazole 40 mg tablet,delayed release 40 mg PO DAILY Gastrointestinal issue 04/22/24
albuterol sulfate 90 mcg/actuation aerosol inhaler 2 puff inhalation R Q6HPRN PRN SOB 05/15/24
amlodipine 5 mg tablet (Norvasc) 5 mg PO DAILY Blood Pressure 05/15/24
apixaban 5 mg tablet (Eliquis) 5 mg PO BID Blood Clot Prevention/Tx 05/15/24
bumetanide 2 mg tablet 6 mg (3 x 2 mg) PO BID Heart Failure #180 tabs 05/20/24
acetaminophen 325 mg tablet (Tylenol) 650 mg PO Q4HPRN PRN mild pain 06/07/24
alprazolam 0.25 mg tablet 0.25 mg PO BID 06/07/24
cyanocobalamin (vitamin B-12) 500 mcg tablet 500 mcg PO DAILY 06/07/24
spironolactone 25 mg tablet 25 mg PO DAILY 06/07/24
tramadol 50 mg tablet 50 mg PO TIDPRN PRN moderate pains 06/07/24
Review of Systems
-
History Source: Patient
Constitutional: Reports Fatigue
EENT: Reports No Symptoms
Respiratory: Reports Cough and Trouble Breathing (shortness of breath)
Cardiac: Reports No Symptoms
Abdomen/GI: Reports Nausea and Black Stools
: Reports No Symptoms
Musculoskeletal: Reports No Symptoms
Skin: Reports No Symptoms
Neurological: Reports No Symptoms
Endocrine: Reports No Symptoms
Hematologic/Lymphatic: Reports No Symptoms
Psych: Reports No Symptoms
Physical Exam
Vital Signs
Vital Signs
Temp Pulse Resp BP Pulse Ox
98.2 F 61 11 117/56 100
06/07/24 11:47 06/07/24 13:36 06/07/24 13:36 06/07/24 13:36 06/07/24 11:47
Physical Exam
General: Well Developed, No Apparent Distress, Comfortable and Conversant
HEENT: NormoCephalic, Moist mucous membranes, Atraumatic, [place] Conjunctivae, Nose Appears Normal and Ears Appear Normal
Respiratory: Clear, Wheezes, Non Labored Respirations and Decreased Breath Sounds
Cardiac: S1/S2 and Regular Rhythm; No Murmur, Rub or Gallop
Breast: Deferred by me
GI: Soft, Non Tender, Non Distended and Normal Bowel Sounds; No Organomegaly
Rectal: Hem Positive
Genito-urinary: Deferred by me
Musculoskeletal: No Clubbing, No Cyanosis and No Edema
Skin: Warm and IV/Catheter Site; No Rash
Neuro: Awake, Alert, AO x 3 and Nonfocal/grossly intact
Psych: Calm and Intact Judgment/Insight
Laboratory Results
-
06/07/24 12:11
06/07/24 12:11
Laboratory Results
Total Bilirubin 0.4 mg/dl (0.2-1.3) 06/07/24 12:11
AST 17 U/L (14-36) 06/07/24 12:11
ALT < 10 U/L (0-35) 06/07/24 12:11
Alkaline Phosphatase 64 U/L (38-126) 06/07/24 12:11
Troponin I 0.046 ng/ml H* 06/07/24 12:11
Data Reviewed
-
Medical Tests (Nuc Med, Echo, EKG etc): Report Reviewed by me (EKG: poor ekg baseline with artifact Ventricular-paced rhythm ABNORMAL ECG)
Lab Data: Labs Reviewed by me (Hgb 5.8, HCT 20.4, Na 129, K+ 2.9, BUN 133, Creat 2.5, BNP 28207, )
Impression/Plan
-
IMPRESSION/PLAN:
#GI bleed
Hgb 5.8, Hct 20.4
dark stools for >1 week
- Admit to telemetry
- consult GI
- 2 units PRBCs
- monitor H/H
- clears, NPO at midnight
#STEVEN
BUN 133, Creat 2.5
Patient took metolazone 5mg daily for 6 days when she realized it should just be 2.5mg daily PRN
- consult nephrology
- consult cardiology
- monitor BMP
#benign hypertension
- hold amlodipine, bumetanide, and spironolactone
#hyperlipidemia
- continue rosuvastatin
#hypothyroidism
- continue levothyroxine
#HFpEF
BNP 43594
ECHO (04/22/2024): Left ventricle is normal in size. Normal left ventricular systolic function.
Normal regional wall motion. LV ejection fraction is 65-70% by visual
assessment. Moderate concentric left ventricular hypertrophy. Diastolic
function indeterminate due to atrial fibrillation.
Normal right ventricular size and function.
Mild tricuspid regurgitation. Estimated pulmonary artery pressure of 35-40
mmHg. Assuming a right atrial pressure of 8 mmHg.
Small to moderate pericardial effusion without clear evidence of hemodynamic
compromise.
- daily weights
- continue tadalafil
- hold amlodipine, bumetanide, and spironolactone
#depression/anxiety
- continue fluoxetine and alprazolam
#CAD
#Hx CO
#left carotid stenosis
#TIA
- hold clopidogrel, Eliquis
Code status: DNR
DVT prophylaxis: SCDs
--- NOTE | 2024-06-07 16:01 | CON.GI ---
Addendum entered and electronically signed by Miguel Gustafson MD 06/07/24 17:31:
The patient was seen and examined by me independently in collaboration with the nurse practitioner.
Past medical history/social history/medications/allergies/family history reviewed.
Lab data and imaging data reviewed.
74-year-old female past medical history of coronary disease status post stents, recent admission for acute on chronic heart failure with a EF 65 to 70% follows at [facility], chronic respiratory failure on 4 L nasal cannula, paroxysmal A-fib on Eliquis,
PAD on Plavix, severe pulmonary hypertension, scleroderma presents with melena for 1 week and acute kidney injury thought to be due to accidentally taken extra of her diuretics (metolazone). She also was complaining of dizziness, lightheadedness,
nausea. Denies NSAID use. Patient underwent upper endoscopy in August [address] Nuñez and was found to have gastric AVMs which he performed APC.
I suspect she again has bleeding from her gastric AVMs. She is stable hemodynamically.
She will need an eventual upper endoscopy which I discussed both with the patient and her daughter at bedside. Risk, alternatives, benefits of endoscopy risks including but not limited to bleeding, infection, perforation were reviewed and they are
agreeable. However, this will depend on her overall clinical status. She will need to be optimized cardiac mccarty with her recent acute on chronic heart failure and trop leak 0.046 (may be renal failure, heart failure) and BNP 37908. Additionally,
she took her Eliquis and Plavix yesterday. Her Na is 129, K 2.9 which also will need to corrected. BUN 133 could be mixed from UGIB and uremia. Renal has also been consulted.
At this time I recommend clear liquid diet and n.p.o. after midnight. Blood transfusion with goal hemoglobin of 7 which will need to be given slowly given her underlying cardiac issues. Can switch PPI drip to IV twice daily 40 mg. Timing of
endoscopy pending clinical course.
Last colonoscopy in 2008 however given her chronic medical conditions r/b if needed for screening purposes. May need during hospitalization if no source of melena found on EGD.
Dr. Newton is [facility] attorney for any questions and will see the patient tomorrow. Please call with any questions or issues.
Original Note:
Consultation
-
Date/Time Consultation Requested: 06/07/24 1545
Date/Time Consultation Performed: 06/07/24 1600
Requesting Provider: MIGUEL Arias
Performing Provider: Dr. Gustafson/Miguel Contreras
Reason for Consultation: OB positive stool, Hgb 5.8
Medical History
Chief Complaint / HPI
Chief Complaint: weakness, shortness of breath
History of Present Illness:
74 y/o female with PMH CAD with cardiac stents, COPD with chronic heart failure with cardio mems, lung CA with prior radiation, oxygen dependent currently on 4 L, chronic pericardial effusion, pulmonary hypertension, scleroderma, TIA, HTN, CEA, CKD,
hypothyroidism, renal insufficiency, PAD with femoropopliteal artery angioplasty/stent on Plavix, atrial fibrillation started on Eliquis, upper GI bleed with gastric angioectasias treated with APC 08/2023 who was recently admitted 05/14/2024 and
discharged on 05/20/2024 for acute heart failure. The patient states that last week she took 6 pills of metolazone instead of 1 by accident. She was vomiting and had dark-colored stools that are OB positive. She was found to have a hemoglobin of
5.8. We are asked to evaluate for the same. The patient states that not long after she left she noticed that her stools became darker and loose. She did not recognize this to be a possible sign of GI bleeding. She also did not realize that she
was not supposed to take 6 of her metolazone daily. She did have an episode of vomiting brown, she thought that this may have been her Ensure. She had severe fatigue as well as weakness and increasing shortness of breath. She denies any fevers,
chills, abdominal pain, hematochezia, dysphagia or odynophagia. No early satiety or unintentional weight loss. Her last dose of Plavix was yesterday morning. Her last dose of Eliquis was last evening. WBC 8.0, hemoglobin 5.8, hematocrit 20.4,
platelets 319, sodium 129, potassium 2.9, chloride 84, CO2 32, BUN 133, creatinine 2.5, glucose 135, total bilirubin 0.4, AST 17, ALT less than 10, alk phos 64, troponin 0.046, proBNP 13707.
Past Medical History
Past Medical History: CAD (with prior stents ), Cancer (lung CA with 5 treatment XRT November 2018 ), CHF, COPD, CVA (TIA), HTN, Hypercholesterolemia, Hypothyroidism, Renal Failure (CKD) and Other (pericardial effusion, pulm HTN, scleroderma, PAD,
former smoker, SAURABH)
Past Surgical History: Other (caroid endarterectomy, recent LE stent x 2 at [facility])
Social History
Tobacco: Former Smoker (quit 2017)
Alcohol: None
Drug: None
Living: With Family
Employment: Retired
Family History
Family History: Other (no family hx colon Ca or GI cancers )
Allergies / Home Medications
Allergy/AdvReac Type Severity Reaction Status Date / Time
iodine Allergy allergic Verified 06/07/24 11:47
to shrimp
shrimp Allergy VIOLENTLY Verified 06/07/24 11:47
SICK
�Medication �Instructions �Recorded
cholecalciferol (vitamin D3) 50 50 mcg PO DAILY Supplement 09/02/23
mcg (2,000 unit) tablet (Vitamin
D3)
levothyroxine 50 mcg tablet 50 mcg PO DAILY Thyroid 09/02/23
(Synthroid)
macitentan 10 mg tablet (Opsumit) 10 mg PO DAILY Lung Issues 09/02/23
polyethylene glycol 3350 17 gram 17 g PO DAILYPRN PRN constipation 09/02/23
oral powder packet (Miralax)
rosuvastatin 10 mg tablet (Crestor) 10 mg PO DAILY High Cholesterol 09/02/23
tadalafil (pulm. hypertension) 20 40 mg PO DAILY pulmonary 09/02/23
mg tablet (pulmonary hypertension) hypertension
umeclidinium 62.5 mcg-vilanterol 1 inh inhalation R DAILY 09/02/23
25 mcg/actuation powdr for Lung/Breathing Issues
inhalation (Anoro Ellipta)
clopidogrel 75 mg tablet 75 mg PO DAILY Blood clot 09/04/23
prevention/tx #0 tabs
fluoxetine 20 mg capsule 40 mg PO DAILY Mental 04/22/24
Health/Anxiety
pantoprazole 40 mg tablet,delayed 40 mg PO DAILY Gastrointestinal 04/22/24
release issue
albuterol sulfate 90 mcg/actuation 2 puff inhalation R Q6HPRN PRN SOB 05/15/24
aerosol inhaler
amlodipine 5 mg tablet (Norvasc) 5 mg PO DAILY Blood Pressure 05/15/24
apixaban 5 mg tablet (Eliquis) 5 mg PO BID Blood Clot 05/15/24
Prevention/Tx
bumetanide 2 mg tablet 6 mg (3 x 2 mg) PO BID Heart 05/20/24
Failure #180 tabs
acetaminophen 325 mg tablet 650 mg PO Q4HPRN PRN mild pain 06/07/24
(Tylenol)
alprazolam 0.25 mg tablet 0.25 mg PO BID 06/07/24
cyanocobalamin (vitamin B-12) 500 500 mcg PO DAILY 06/07/24
mcg tablet
spironolactone 25 mg tablet 25 mg PO DAILY 06/07/24
tramadol 50 mg tablet 50 mg PO TIDPRN PRN moderate pains 06/07/24
Review of Systems
Vital Signs
Temp Pulse Resp BP Pulse Ox
98.2 F 61 11 117/56 100
06/07/24 11:47 06/07/24 13:36 06/07/24 13:36 06/07/24 13:36 06/07/24 11:47
Physical Exam
Results
WBC 8.0 10^3/uL (4.8-10.8) 06/07/24 12:11
Hgb 5.8 g/dL (12.0-16.0) L* 06/07/24 12:11
Hct 20.4 % (37.0-47.0) L* 06/07/24 12:11
MCV 83.3 fL (81.0-99.0) 06/07/24 12:11
Plt Count 319 10^3/uL (130-400) 06/07/24 12:11
Absolute Neuts (auto) 6.5 10^3/uL (1.4-6.5) 06/07/24 12:11
Sodium 129 mmol/L (135-145) L 06/07/24 12:11
Potassium 2.9 mmol/L (3.5-5.1) L 06/07/24 12:11
Chloride 84 mmol/L (98-107) L 06/07/24 12:11
Carbon Dioxide 32 mmol/L (22-30) H 06/07/24 12:11
BUN 133 mg/dl (7-17) H* 06/07/24 12:11
Creatinine 2.5 mg/dL (0.6-1.0) H 06/07/24 12:11
Calcium 9.1 mg/dl (8.4-10.2) 06/07/24 12:11
Total Bilirubin 0.4 mg/dl (0.2-1.3) 06/07/24 12:11
AST 17 U/L (14-36) 06/07/24 12:11
ALT < 10 U/L (0-35) 06/07/24 12:11
Alkaline Phosphatase 64 U/L (38-126) 06/07/24 12:11
Diagnostic Image Results:
Prior GI Procedures:
EGD: 09/03/23 (Dr. Nuñez) - Normal esophagus.
- Gastric erosions with no bleeding.
- Three non-bleeding angioectasias in the stomach.
Treated with argon plasma coagulation (APC).
- Normal duodenal bulb, first portion of the duodenum
and second portion of the duodenum.
- No specimens collected.
Colonoscopy: [address] Trivedi with benign polyps in rectum and diverticulosis.
Assessment / Plan
-
74 y/o female with PMH CAD with cardiac stents, COPD with chronic heart failure with cardio mems, lung CA with prior radiation, oxygen dependent currently on 4 L, chronic pericardial effusion, pulmonary hypertension, scleroderma, TIA, HTN, CEA, CKD,
hypothyroidism, renal insufficiency, PAD with femoropopliteal artery angioplasty/stent on Plavix, atrial fibrillation started on Eliquis, upper GI bleed with gastric angioectasias treated with APC 08/2023 who was recently admitted 05/14/2024 and
discharged on 05/20/2024 for acute heart failure. The patient states that last week she took 6 pills of metolazone instead of 1 by accident. She was vomiting and had dark-colored stools for 1 week that are OB positive. She was found to have a
hemoglobin of 5.8. We are asked to evaluate for the same.
Impression:
Melena
OB positive stools
Vomiting
Acute on chronic anemia
History of gastric AVMs status post APC 08/2023
STEVEN on CKD
Paroxysmal A-fib on Eliquis (last dosed 06/06/2024 in the PM)
HFpEF
Chronic hypoxic respiratory failure on 4 L O2
PAD status post femoropopliteal artery angioplasty/stent on Plavix (last dose 06/06/2024)
Severe pulmonary hypertension
Lung cancer status post XRT
Chronic pericardial effusion
Plan:
-Cardiology and nephrology consultations
-Transfusion ordered per internal medicine
-Pantoprazole gtt
-Eliquis and Plavix on hold
-Clear liquid diet, no reds. N.p.o. after midnight.
-CBC, CMP, PT/INR in a.m.
-Further recommendations to be forthcoming
-
-
Thank you for consultation and allowing me to participate in the patient's care. Please call the [facility] attorney GI physician during the after hours with any questions or concerns.
--- NOTE | 2024-06-07 16:34 | W.PN.UPDATE ---
Update Note
Progress Note Update
I saw and examined the patient.
The PARIMUTUEL CLERK or PA's note was reviewed and I agree with the note.
Comment:
74-year-old female with past medical history of CAD status post RCA stent, second-degree AV block status post pacemaker, paroxysmal atrial fibrillation on Eliquis, severe pulmonary hypertension, chronic pericardial effusion, scleroderma, CKD stage
III, lung cancer status post XRT, TIA, carotid enterectomy, PAD status post stent, hypertension, hyperlipidemia, SAURABH, hypothyroidism came to the hospital with fatigue and shortness of breath.� Hemoglobin 5.8 on admission.� Transfused PRBC and
recheck.� Black stools in the ED with heme positive.� Consult GI.� Start PPI drip. �Check iron panel, B12, folate. elevated BNP.� Consult cardiology.� Monitor respiratory status closely.� Chronically on 4 L.� Also has STEVEN on CKD.� Consult nephrology.
Acute on chronic anemia likely secondary to acute GI bleed
Melena
Hemoglobin 5.8, transfuse 2 unit PRBC and monitor
GI consulted
PPI drip
Hold Eliquis and Plavix
Chronic hypoxic respiratory failure on 4 L O2
Chronic CHF with preserved EF
Severe pulmonary artery hypertension
Continue with sildenafil, consult cardiology
Appears to have overdiuresed, hold Bumex at this time and monitor
STEVEN on CKD 3
Monitor renal function
Consult nephrology
Paroxysmal atrial fibrillation on Eliquis
Hold Eliquis
Now with pacemaker due to second-degree AV block
CAD status post RCA stents
Hyperlipidemia
Chronic pericardial effusion
Scleroderma
Lung cancer status post XRT
History of TIA status post carotid enterectomy
PAD status post [place]/popliteal artery angioplasty/stent
Essential hypertension
Hold amlodipine and Aldactone
SAURABH
Hypothyroidism
Continue Synthroid
DVT prophylaxis
SCDs
DNR/DNI, discussed on admission
I spent a total of 78 minutes with the patient or on the floor. More than 50% of this time involved counseling and coordination of care.
[2024-06-07 16:54] LABS: Iron 32 ug/dl (37-170); Percent Saturation 6 % (20-50); Total Iron Binding Capacity 486 ug/dl (265-497)
--- NOTE | 2024-06-07 17:27 | W.CON.NEPH ---
Consultation
-
Date/Time Consultation Requested: 06/07/24, 4:15 PM
Date/Time Consultation Performed: 06/07/24, 5:00 PM
Requesting Provider: Dr. Turk
Performing Provider: Dr. Loomis
Reason for Consultation: acute kidney injury
Medical History
-
Chief Complaint: STEVEN
History of Present Illness:
Patient is a 74-year-old female with past medical history significant for HFpEF (maintained on Bumex metolazone and Aldactone), CKD (baseline creatinine around 2), pulmonary hypertension (with cardiomems inplant), pacemaker ,CAD (RCA stent) on
plavix ,asa, and statin therapy), COPD, HTN , AFIB on Eliquis,hypercholesterolemia and hypothyroidism who presented to [place] ED for evaluation of Profound fatigue and weakness And dyspnea on exertion. The patient notes dark stools over the
past week. On presentation, her hemoglobin was depressed at 5.8 and she had associated acute kidney injury with a creatinine of 2.5 and a BUN of 133. The patient also noted that she was hypotensive last evening. She had been continuing to take
her high-dose diuretic regimen over the past week inn the setting of her congestive heart failure and pulmonary HTN
Past Medical History
HFpEF
pulmonary hypertension
CAD
COPD
HTN
hypercholesterolemia
hypothyroidism
CKD 4 ~2
Pacemaker
Left carotid stenosis
History of [place]/RCA stent
Social History
Tobacco: Former Smoker
Alcohol: None
Drug: None
Family History
no ckd
Allergies / Home Medications
Allergy/AdvReac Type Severity Reaction Status Date / Time
iodine Allergy allergic Verified 06/07/24 11:47
to shrimp
shrimp Allergy VIOLENTLY Verified 06/07/24 11:47
SICK
�Medication �Instructions �Recorded �Confirmed �Type
cholecalciferol (vitamin D3) 50 50 mcg PO DAILY Supplement 09/02/23 06/07/24 History
mcg (2,000 unit) tablet (Vitamin
D3)
levothyroxine 50 mcg tablet 50 mcg PO DAILY Thyroid 09/02/23 06/07/24 History
(Synthroid)
macitentan 10 mg tablet (Opsumit) 10 mg PO DAILY Lung Issues 09/02/23 06/07/24 History
polyethylene glycol 3350 17 gram 17 g PO DAILYPRN PRN constipation 09/02/23 06/07/24 History
oral powder packet (Miralax)
rosuvastatin 10 mg tablet (Crestor) 10 mg PO DAILY High Cholesterol 09/02/23 06/07/24 History
tadalafil (pulm. hypertension) 20 40 mg PO DAILY pulmonary 09/02/23 06/07/24 History
mg tablet (pulmonary hypertension) hypertension
umeclidinium 62.5 mcg-vilanterol 1 inh inhalation R DAILY 09/02/23 06/07/24 History
25 mcg/actuation powdr for Lung/Breathing Issues
inhalation (Anoro Ellipta)
clopidogrel 75 mg tablet 75 mg PO DAILY Blood clot 09/04/23 06/07/24 Rx
prevention/tx #0 tabs
fluoxetine 20 mg capsule 40 mg PO DAILY Mental 04/22/24 06/07/24 History
Health/Anxiety
pantoprazole 40 mg tablet,delayed 40 mg PO DAILY Gastrointestinal 04/22/24 06/07/24 History
release issue
albuterol sulfate 90 mcg/actuation 2 puff inhalation R Q6HPRN PRN SOB 05/15/24 06/07/24 History
aerosol inhaler
amlodipine 5 mg tablet (Norvasc) 5 mg PO DAILY Blood Pressure 05/15/24 06/07/24 History
apixaban 5 mg tablet (Eliquis) 5 mg PO BID Blood Clot 05/15/24 06/07/24 History
Prevention/Tx
bumetanide 2 mg tablet 6 mg (3 x 2 mg) PO BID Heart 05/20/24 06/07/24 Rx
Failure #180 tabs
acetaminophen 325 mg tablet 650 mg PO Q4HPRN PRN mild pain 06/07/24 06/07/24 History
(Tylenol)
alprazolam 0.25 mg tablet 0.25 mg PO BID 06/07/24 06/07/24 History
cyanocobalamin (vitamin B-12) 500 500 mcg PO DAILY 06/07/24 06/07/24 History
mcg tablet
spironolactone 25 mg tablet 25 mg PO DAILY 06/07/24 06/07/24 History
tramadol 50 mg tablet 50 mg PO TIDPRN PRN moderate pains 06/07/24 06/07/24 History
Review of Systems
-
History Source: Patient
All other systems: Negative unless noted
Constitutional: Weight Loss (11pounds over past week) and Fatigue
Respiratory: Cough and Trouble Breathing (with exertion)
Cardiac: No Symptoms
Abdomen/GI: Bloody Stools
: No Symptoms
Musculoskeletal: No Symptoms
Skin: No Symptoms
Neurological: No Symptoms
Endocrine: No Symptoms
Hematologic/Lymphatic: No Symptoms
Physical Exam
Vital Signs
Vital Signs
Temp Pulse Resp BP Pulse Ox
98.5 F 64 15 116/55 99
06/07/24 17:05 06/07/24 17:05 06/07/24 17:05 06/07/24 17:05 06/07/24 17:05
Lab Results
WBC 8.0 10^3/uL (4.8-10.8) 06/07/24 12:11
RBC 2.45 10^6/uL (4.20-5.40) L 06/07/24 12:11
Plt Count 319 10^3/uL (130-400) 06/07/24 12:11
Sodium 129 mmol/L (135-145) L 06/07/24 12:11
Potassium 2.9 mmol/L (3.5-5.1) L 06/07/24 12:11
Chloride 84 mmol/L (98-107) L 06/07/24 12:11
Carbon Dioxide 32 mmol/L (22-30) H 06/07/24 12:11
BUN 133 mg/dl (7-17) H* 06/07/24 12:11
Creatinine 2.5 mg/dL (0.6-1.0) H 06/07/24 12:11
eGFR 19.44 06/07/24 12:11
Glucose 135 mg/dl (70-99) H 06/07/24 12:11
Calcium 9.1 mg/dl (8.4-10.2) 06/07/24 12:11
Evm-J-Vpirvfpuaoe Pept 86518 pg/ml 06/07/24 12:11
Albumin 3.8 g/dl (3.5-5.0) 06/07/24 12:11
Physical Exam
General: AOx3, No Distress and Nontoxic
HEENT: PERRL, EOMI, Anicteric, Conjunctivae Clear (pale), Ear/Nose Intact, Hearing Normal, Oropharynx Clear/Moist, Dentition Intact, Neck Supple, Trachea Midline, No JVD and No Thyromegaly
Respiratory: Wheezes, Normal Excursion, Nonlabored Respirations and Other (Coarse breath sounds with profoundly decreased breath sounds at the bases)
Cardiac: S1/S2 and Regular Rate/Rhythm
Breast: Deferred by me
Abdomen: Soft, Nontender, Nondistended, Normal Bowel Sounds and No Hepatosplenomegaly
Rectal: Deferred by Provider
Genito-urinary: No Costovertebral Tender and Clear Urine
Musculoskeletal: No Cyanosis and No Edema
Skin: No Rash
Neuro: Nonfocal/Grossly Intact
Hematologic/Lymphatic: No Cervical Lymphadenopathy, No Submandibular Lymphadenopathy and No Supraclavicular Lymphadenopathy
Psych: Mood/afflect pleasant
Data Reviewed
-
Medical Tests (Nuc Med, Echo etc): Other (. EKG report personally reviewed. Noted a ventricular paced rhythm at 61 bpm)
Labs: Labs Reviewed by me ( BMP, CBC)
Old Records: Reviewed ( the previous creatinine level of 1.8 from date 05/20/24)
Assessment/Plan
-
Impression:
Profound anemia (hemoglobin 5.8)with GI bleeding
Acute renal failure 2.5 with BUN ~133
Chronic kidney disease stage IV with baseline creatinine of 2
Pulmonary hypertension (has Cardiomems)
Coronary artery disease
COPD (home 4L O2)
Hypertension
Hypothyroidism
PAD
History of TIA
History of lung cancer status post XRT
Atrial fibrillation on chronic oral anticoagulation therapy
Chronic pericardial effusion
History of endarterectomy in January 2012
Pacemaker
Plan:
STEVEN:
-Likely a function of strong Prerenal stimulus in setting of high-dose diuretic regimen , hypotension, and profound anemia in setting of GI bleed
-High BUN is likely exacerbated by acute GI bleeding with gut reabsorption
-Would hold oral diuretics at this time. Concur with 2 unit blood transfusion
-IV Bumex can be provided if there is symptoms of congestive heart failure during transfusion
-.Previous acute kidney injury during April admission was actually higher with noted creatinine of 3.3 and BUN of 146
-Therefore, no indication for acute dialysis
-previous CKD is thought to be due to underlying cardiorenal syndrome given normal kidney ultrasound and bland urine sediment
[2024-06-07 17:48] LABS: Folate 6.4 ng/ml (2.76-20); Vitamin B12 > 1000 pg/ml (239-931)
[2024-06-07] MEDS: PROTONIX 100 IV (18:48)
[2024-06-07] MEDS: TYLENOL 650 MG PO (20:15)
[2024-06-07] MEDS: XANAX 0.25 MG PO (22:40)
[2024-06-07 23:32] LABS: Hemoglobin 7.5 g/dL (12.0-16.0)
[2024-06-08] VITALS (15 sets, daily range): BP systolic 97–129; BP diastolic 36–84
[2024-06-08] MEDS: PROTONIX 100 IV ×3 (04:04→22:12)
[2024-06-08 07:02] LABS: Hematocrit 25.1 % (37.0-47.0); Hemoglobin 7.8 g/dL (12.0-16.0); Mean Corp Hgb Conc. 31.1 g/dL (33.0-37.0); Mean Corpuscular Hgb 25.7 pg (27.0-31.0); Mean Corpuscular Volume 82.8 fL (81.0-99.0); Mean Platelet Volume 9.9 fL (7.4-10.4); Platelet Count 287 10^3/uL (130-400); Red Blood Cell Count 3.03 10^6/uL (4.20-5.40); Red Cell Dist. Width 18.9 % (11.5-14.5); White Blood Cell Count 5.2 10^3/uL (4.8-10.8)
[2024-06-08] MEDS: STRIVERDI RESPIMAT 2 PUFF INH (07:14)
[2024-06-08] MEDS: SPIRIVA RESPIMAT 2.5 MCG 2 PUFF INH (07:14)
[2024-06-08 07:31] LABS: ALT (SGPT) < 10 U/L (0-35); AST (SGOT) 17 U/L (14-36); Albumin 3.5 g/dl (3.5-5.0); Alkaline Phosphatase 58 U/L (38-126); Calcium 8.6 mg/dl (8.4-10.2); Carbon Dioxide 33 mmol/L (22-30); Chloride 89 mmol/L (98-107); Estimated Creatinine Clearance 15 ml/min; Glucose 95 mg/dl (70-99); Potassium 3.1 mmol/L (3.5-5.1); Sodium 133 mmol/L (135-145); Total Bilirubin 0.7 mg/dl (0.2-1.3); Total Protein 5.8 g/dl (6.3-8.2); eGFR 20.42
[2024-06-08 07:49] LABS: Blood Urea Nitrogen 124 mg/dl (7-17)
[2024-06-08] MEDS: VITAMIN B-12 500 MCG PO (07:56)
[2024-06-08] MEDS: CRESTOR 10 MG PO (07:56)
[2024-06-08] MEDS: XANAX 0.25 MG PO ×2 (07:56→20:12)
[2024-06-08] MEDS: PROZAC 40 MG PO (07:56)
[2024-06-08] MEDS: SYNTHROID 50 MCG PO (07:57)
[2024-06-08] MEDS: VITAMIN D3 (cholecalciferol) 50 MCG PO (07:57)
--- NOTE | 2024-06-08 09:27 | CON.CAR ---
Addendum entered and electronically signed by Antione Dennis MD 06/08/24 12:34:
I saw and examined the patient.
The Business Management Professor's note was reviewed and I agree with the note.
Comment:
GEN: No distress, awake, Ox3
HEENT: supple, anicteric, mmm
LUNGS: scatt rhonchi
CV: Reg, S1/S2, 05/17 syst LSB, no S3+
ABD: soft, BS+, NT/ND
EXT: No edema
NEURO: Gross non-focal
SKIN: No rash
PLan:
She has a past medical history of scleroderma, pulmonary hypertension, CKD 3-4, peripheral arterial disease, hypertension, hyperlipidemia, chronic heart failure with preserved ejection fraction, coronary artery disease, chronic pericardial effusion,
hypothyroidism, and obstructive sleep apnea. She has had 2 recent hospitalizations for congestive heart failure in April and then in May. She was discharged on Bumex 6 mg p.o. twice daily with metolazone as needed. She was taking
additional metolazone on a daily basis in addition to her Bumex. This past week started noticing dark black stools and has increased fatigue and weakness. She was chronically on Eliquis and Plavix. She presented to [facility] with a
hemoglobin of 5.8 and elevated BUN and creatinine. She denies any chest pains. She still has some baseline dyspnea but this has been relatively stable. She has no fevers or chills. She has no coughing or wheezing.
Chronic heart failure with preserved ejection fraction with CardioMEMS. Would hold diuretics for 1 day then restart in a.m. I suspect she may be slightly on the dry side with the daily metolazone. The elevated BUN though is likely due to GI
bleeding.
Hemoglobin improved to 7.8 status posttransfusion. GI evaluation for scoping. She is stable to proceed with endoscopy or colonoscopy as needed. Hold Eliquis and Plavix for now until GI evaluation.
She is on Eliquis and Plavix. At this point I would recommend decreasing her Eliquis to 2.5 mg p.o. twice daily.
Continue medical therapy for coronary artery disease and peripheral vascular disease.
Continue Opsumit and tadalafil.
Original Note:
Consultation
Consultation Request
Date/Time Consultation Performed: 06/08/24
Requesting Provider: Dr. Albarran
Performing Provider: Roxanne Weber PA-C for Dr. Dennis
Reason for Consultation: dark stools
Medical History
-
Chief Complaint: dark stools
History of Present Illness:
Yani is a 74 year old female followed by Dr. Stokes at [facility] with PMH of chronic respiratory failure on 4L NC, chronic HFpEF w/ cardioMEMs implant, CAD w/ prior stenting, chronic pericardial effusion, pulmonary hypertension, scleroderma,
CKD, lung cancer, prior TIA, carotid artery disease, PAD, HTN, HLD, SAURABH, and hypothyroidism. She was admitted 04/22 - 04/29 at [facility] for heart failure, however then given worsening renal failure was transferred down to [place] and
reports she remained there until [facility]. She underwent right heart cath which showed elevated filling pressures as well as pulmonary hypertension and underwent further diuresis. She also underwent pacemaker implant while there and was
started on OAC with eliquis for new afib. She then presented back for admission with acute CHF 05/15-05/20/24. She required IV bumex gtt. She was discharged on po bumex 6mg BID with metolazone 2.5mg dailyPRN. There was some confusion regarding her
metolazone dose as she states she took it every day for 6 days in addition to her bumex. She reports noting dark stools for the last week, painless, as well as fatigue and weakness. She is chronically on eliquis and plavix. There was question as to
her eliquis dosing last admission as Cr was borderline, was discharged on 5mg BID. Hgb was 5.8 on arrival. Cr up to 2.5. Cardiology consulted for evaluation. Dry weight felt to be 131 pounds.
PMH:
chronic HFpEF
CardioMEMs implant
Chronic hypoxemic respiratory failure on 4L NC
Recently diagnosed atrial fibrillation 04/2024, OAC with eliquis
Second-degree AV block type I, asymptomatic
History second-degree type I; currently rate controlled AF; noted high degree block on telemetry while sleeping (2: 1 versus complete heart block) no evidence during waking hours
s/p PPM at [facility] 04/2024
CAD
Distant inferior wall ND with RCA stents 05/06/2003
Chronic pericardial effusion
Severe pulmonary hypertension
Scleroderma
Mild MR, mild to moderate TR
CKD 3
Lung CA s/p XRT
h/o TIA
s/p carotid endarterectomy 02/07/2012
PAD
s/p fem/popliteal artery angioplasty/stent 08/20/2023HTN
HLD
Former smoker
SAURABH
Hypothyroidism
Past Medical History
Past Medical History: Other (In HPI)
Past Surgical History: Cardiac (PCI to mid RCA 05/06/2003) and Other (peripheral vascular stenting, carotid endarterectomy)
Social History
Tobacco: Former Smoker
Alcohol: None
Drug: None
Personal:
Employment: Retired
Family History
Family History: Hypertension
Allergies / Home Medications
Allergy/AdvReac Type Severity Reaction Status Date / Time
iodine Allergy allergic Verified 06/07/24 11:47
to shrimp
shrimp Allergy VIOLENTLY Verified 06/07/24 11:47
SICK
�Medication �Instructions �Recorded �Confirmed �Type
cholecalciferol (vitamin D3) 50 50 mcg PO DAILY Supplement 09/02/23 06/07/24 History
mcg (2,000 unit) tablet (Vitamin
D3)
levothyroxine 50 mcg tablet 50 mcg PO DAILY Thyroid 09/02/23 06/07/24 History
(Synthroid)
macitentan 10 mg tablet (Opsumit) 10 mg PO DAILY Lung Issues 09/02/23 06/07/24 History
polyethylene glycol 3350 17 gram 17 g PO DAILYPRN PRN constipation 09/02/23 06/07/24 History
oral powder packet (Miralax)
rosuvastatin 10 mg tablet (Crestor) 10 mg PO DAILY High Cholesterol 09/02/23 06/07/24 History
tadalafil (pulm. hypertension) 20 40 mg PO DAILY pulmonary 09/02/23 06/07/24 History
mg tablet (pulmonary hypertension) hypertension
umeclidinium 62.5 mcg-vilanterol 1 inh inhalation R DAILY 09/02/23 06/07/24 History
25 mcg/actuation powdr for Lung/Breathing Issues
inhalation (Anoro Ellipta)
clopidogrel 75 mg tablet 75 mg PO DAILY Blood clot 09/04/23 06/07/24 Rx
prevention/tx #0 tabs
fluoxetine 20 mg capsule 40 mg PO DAILY Mental 04/22/24 06/07/24 History
Health/Anxiety
pantoprazole 40 mg tablet,delayed 40 mg PO DAILY Gastrointestinal 04/22/24 06/07/24 History
release issue
albuterol sulfate 90 mcg/actuation 2 puff inhalation R Q6HPRN PRN SOB 05/15/24 06/07/24 History
aerosol inhaler
amlodipine 5 mg tablet (Norvasc) 5 mg PO DAILY Blood Pressure 05/15/24 06/07/24 History
apixaban 5 mg tablet (Eliquis) 5 mg PO BID Blood Clot 05/15/24 06/07/24 History
Prevention/Tx
bumetanide 2 mg tablet 6 mg (3 x 2 mg) PO BID Heart 05/20/24 06/07/24 Rx
Failure #180 tabs
acetaminophen 325 mg tablet 650 mg PO Q4HPRN PRN mild pain 06/07/24 06/07/24 History
(Tylenol)
alprazolam 0.25 mg tablet 0.25 mg PO BID 06/07/24 06/07/24 History
cyanocobalamin (vitamin B-12) 500 500 mcg PO DAILY 06/07/24 06/07/24 History
mcg tablet
spironolactone 25 mg tablet 25 mg PO DAILY 06/07/24 06/07/24 History
tramadol 50 mg tablet 50 mg PO TIDPRN PRN moderate pains 06/07/24 06/07/24 History
Review of Systems
-
History Source: Patient
All other systems: Negative unless noted
Physical Exam
Vital Signs
Temp Pulse Resp BP Pulse Ox
98.2 F 62 11 100/50 88
06/08/24 08:05 06/08/24 08:00 06/08/24 08:00 06/08/24 08:00 06/08/24 08:00
Lab Results
06/08/24 06:03
06/08/24 06:03
Troponin I 0.046 ng/ml H* 06/07/24 12:11
Bjb-R-Ahdkhthcksf Pept 38098 pg/ml 06/07/24 12:11
Physical Exam
General: No Apparent Distress, Comfortable and Other (on supp O2)
HEENT: Normocephalic, Anicteric and Moist Mucous Membranes
Respiratory: Wheezes (few) and Non Labored Respirations
Cardiac: S1/S2 and Regular Rhythm
GI: Soft, Non Tender, Non Distended and Normal Bowel Sounds
Musculoskeletal: No Clubbing, No Cyanosis and No Edema
Skin: Warm and Dry
Neuro: AO x 3
Impression / Plan
-
PCP: Dr. Reza Ortiz
Yard Coordinator: Dr. Elliott Stokes ([facility] [place])
Impression:
Presented with dark stools, fatigue, weakness
Acute anemia
STEVEN on CKD 3
Chronic HFpEF
CardioMEMs implant
Chronic hypoxemic respiratory failure on 4L NC
Persistent atrial fibrillation, initially diagnosed 04/2024
OAC with Eliquis
Second-degree AV block type I, asymptomatic
History second-degree type I; currently rate controlled AF; noted high degree block on telemetry while sleeping (2: 1 versus complete heart block) no evidence during waking hours
s/p PPM at [facility] 04/2024
CAD
Distant inferior wall ND with RCA stents 05/06/2003.
Chronic pericardial effusion
Severe pulmonary hypertension
Scleroderma
Mild MR, mild to moderate TR
Lung CA s/p XRT
h/o TIA
s/p carotid endarterectomy 02/07/2012
PAD
s/p fem/popliteal artery angioplasty/stent 08/20/2023
HTN
HLD
Former smoker
SAURABH
Hypothyroidism
Echo November 2012: revealed normal LV function, LVH and mild mitral regurgitation.
Echo 07/23/2021: EF 60% with mod to severe LVH, mild MR, biatrial enlargement. Mild to moderate TR, PASP 69 mmHg. Moderate to large pericardial effusion without hemodynamic compromise, 2.7 posteriorly and 2.3 laterally, mildly dilated aortic root.
Echo 08/03/2021: EF 65-70%, moderate to large pericardial effusion without evidence of hemodynamic compromise
Echo 06/13/2023: EF 75-80%, moderate cLVH, grade II diastolic dysfunction, mild MAC, trace MR, mild AI, trace TR, small-moderate pericardial effusion
Echo 04/23/2024: EF 65-70%, mod conc LVH, normal RV size and function, mild TR with PAP 35-40 mmHg
Plan:
-Patient with 2 recent admissions over the last 2 months for CHF now presents back with dark stools, anemia, and STEVEN. She had been taking metolazone every day for the last 6 days instead of daily PRN dosing for weight gain.
-holding eliquis (history of PAF) and plavix (history of PAD). will initiate asa 81mg daily while off OP regimen. when resume eliquis, would consider placing on 2.5mg BID dosing based on current weight and Cr.
-presented with hgb of 5.8, now hgb up to 7.8 s/p 2 U PRBCs. follow hgb. GI following. continue protonix gtt
-Cr up to 2.5. weight below prior dry weight of 131 pounds (currently weight 126 pounds if accurate). holding OP bumex (was on 6mg po BID with metolazone 2.5mg daily PRN) and aldactone. if requires additional blood products would consider for dose
of diuretic post transfusion.
-has cardiomems with goal reading of 30mmHg
-EKG vpaced rhythm. Patient is not chronically on BB due to wheezing. seems patient has been in afib since 04/2024.
-EF preserved at 65% by echo 04/23/24 and stable compared to echo from primary legal instructor 06/13/23
-Patient with known severe PHTN and outpatient doses of tadalafil 40 mg daily and Opsumit 10 mg daily have been continued.
-continue OP Crestor 10 mg daily
-Patient remains on her chronic oxygen at 4 L NC for history of PHTN
Data Reviewed
-
EKG: Tracing Personally Visualized and interpreted
Medical Tests (Nuc Med, Echo etc): Report Reviewed by me
Labs: Labs Reviewed by me
Old Records: Reviewed
[2024-06-08] MEDS: KCL 40 MEQ PO (10:15)
--- NOTE | 2024-06-08 11:04 | W.PN.GI.CBS2 ---
Addendum entered and electronically signed by Delroy Newton DO 06/08/24 17:00:
I saw and examined the patient.
The RN OBGYN's note was reviewed and I agree with the note.
Comment: Suspicious for recurrent gastric AVMs as seen previously during prior EGD back on 08/2023. Suspect recurrent oozing/bleeding AVMs in setting of plavix and eliquis. Has responded appropriately to 2 uPRBCs and only with one episode of dark
black stool. Continue IV PPI gtt and hold eliquis/plavix for upcoming EGD with potential repeat APC for AVMs. Plan for EGD w/ APC later this week, likely on , 06/10/2024, pending clinical course. Of note, patient's last colonoscopy in 2008
however given her extensive chronic medical conditions would defer any further plans for this at this time. See rest of care as outlined below.
GI will continue to follow.
Original Note:
Today's Communication / Plan
-
GI bleed likely exacerbated with Eliquis being recently added on last admission
s/p renal eval and card evaluating at this time
hbg improved to 7.8 after 2 units PRBC's given overnight and only 1 black stool
BUN 133 down to 124 today
cont to trend hbg
-Pantoprazole gtt
-Eliquis and Plavix on hold
-ok for Clear liquid diet no reds at tolerated
consider EGD /Friday if optimized from medical standpoint-- consider sooner if signs of aggressive bleeding
Assessment / Plan
-
74 y/o female with PMH CAD with cardiac stents, COPD with chronic heart failure with cardio mems, lung CA with prior radiation, oxygen dependent currently on 4 L, chronic pericardial effusion, pulmonary hypertension, scleroderma, TIA, HTN, CEA, CKD,
hypothyroidism, renal insufficiency, PAD with femoropopliteal artery angioplasty/stent on Plavix, atrial fibrillation started on Eliquis, upper GI bleed with gastric angioectasias treated with APC 08/2023 who was recently admitted 05/14/2024 and
discharged on 05/20/2024 for acute heart failure. The patient states that last week she took 6 pills of metolazone instead of 1 by accident. She was vomiting and had dark-colored stools for 1 week that are OB positive. She was found to have a
hemoglobin of 5.8.
Laboratory Tests
05/20/24 06/07/24 06/07/24
02:49 12:11 23:15
Hgb 7.9 L 5.8 L* 7.5 L D
06/08/24
06:03
Hgb 7.8 L
Impression:
Melena
OB positive stools
Vomiting
Acute on chronic anemia
History of gastric AVMs status post APC 08/2023
STEVEN on CKD
Paroxysmal A-fib on Eliquis (last dosed 06/06/2024 in the PM)
HFpEF
Chronic hypoxic respiratory failure on 4 L O2
PAD status post femoropopliteal artery angioplasty/stent on Plavix (last dose 06/06/2024)
Severe pulmonary hypertension
Lung cancer status post XRT
Chronic pericardial effusion
Plan:
GI bleed likely exacerbated with Eliquis being recently added on last admission
s/p renal eval and card evaluating at this time
hbg improved to 7.8 after 2 units PRBC's given overnight and only 1 black stool
BUN 133 down to 124 today
cont to trend hbg
-Pantoprazole gtt
-Eliquis and Plavix on hold
-ok for Clear liquid diet no reds at tolerated
consider EGD /Friday if optimized from medical standpoint-- consider sooner if signs of aggressive bleeding
Subjective
Subjective
Date of Service: June 08, 2024
06/08 black stool, NPO-- some nausea but no vomiting
Objective
Data Reviewed
Laboratory Data:
Laboratory Results
06/08/24 06:03
06/08/24 06:03
Laboratory Results
Total Bilirubin 0.7 mg/dl (0.2-1.3) 06/08/24 06:03
AST 17 U/L (14-36) 06/08/24 06:03
ALT < 10 U/L (0-35) 06/08/24 06:03
Alkaline Phosphatase 58 U/L (38-126) 06/08/24 06:03
Vital Signs and I&O:
Vital Signs
Temp Pulse Resp BP Pulse Ox
98.2 F 62 11 100/50 94
06/08/24 08:05 06/08/24 08:00 06/08/24 08:00 06/08/24 08:00 06/08/24 10:22
I&O
06/07/24 06/08/24 06/09/24
06:59 06:59 06:59
Intake Total 600 / 600
Output Total 200 / 200
Balance 400 / 400
Physical Exam
Physical Exam
HEENT: Anicteric and Moist mucous membranes
Cardiology: Normal Sinus Rhythm
Pulmonary: Wheezes
GI: Soft, Non Distended and Tender (minimal epigastric )
Neuro: Non Focal
--- NOTE | 2024-06-08 11:19 | W.PN.NEPH.PH ---
Today's Communication / Plan
-
monitor wts, resume bumex if needed
replace k
Assessment/Plan
-
Impression:
Profound anemia (hemoglobin 5.8)with GI bleeding
Acute renal failure 2.5 with BUN ~133
Chronic kidney disease stage IV with baseline creatinine of 2
Pulmonary hypertension (has Cardiomems)
Coronary artery disease
COPD (home 4L O2)
Hypertension
Hypothyroidism
PAD
History of TIA
History of lung cancer status post XRT
Atrial fibrillation on chronic oral anticoagulation therapy
Chronic pericardial effusion
History of endarterectomy in January 2012
Pacemaker
Plan:
STEVEN: slow to improving
-Likely a function of strong Prerenal stimulus in setting of high-dose diuretic regimen , hypotension, and profound anemia in setting of GI bleed
-High BUN is likely exacerbated by acute GI bleeding with gut reabsorption-improving
-Would hold oral diuretics still at this time. replace k
no indication for acute dialysis
BP stable
-previous CKD is thought to be due to underlying cardiorenal syndrome given normal kidney ultrasound and bland urine sediment
follow labs
-
-
Date of Service: June 08, 2024
CC / HPI / ROS
-
Chief Complaint:
STEVEN with CKD
History of Present Illness:
cr slightly better at 2.4, k low 3.1, sodium 133
BP stable, BUN improving
hb better post 2 PRBC upto 7.8
Review of Systems:
no cp
no sob at rest
no fever
Labs
-
Labs:
WBC 5.2 10^3/uL (4.8-10.8) 06/08/24 06:03
RBC 3.03 10^6/uL (4.20-5.40) L 06/08/24 06:03
Hgb 7.8 g/dL (12.0-16.0) L 06/08/24 06:03
Hct 25.1 % (37.0-47.0) L 06/08/24 06:03
Plt Count 287 10^3/uL (130-400) 06/08/24 06:03
Sodium 133 mmol/L (135-145) L 06/08/24 06:03
Potassium 3.1 mmol/L (3.5-5.1) L 06/08/24 06:03
Chloride 89 mmol/L (98-107) L 06/08/24 06:03
Carbon Dioxide 33 mmol/L (22-30) H 06/08/24 06:03
BUN 124 mg/dl (7-17) H* 06/08/24 06:03
Creatinine 2.4 mg/dL (0.6-1.0) H 06/08/24 06:03
eGFR 20.42 06/08/24 06:03
Glucose 95 mg/dl (70-99) 06/08/24 06:03
Calcium 8.6 mg/dl (8.4-10.2) 06/08/24 06:03
Wev-B-Lshdgtgamsp Pept 13861 pg/ml 06/07/24 12:11
Albumin 3.5 g/dl (3.5-5.0) 06/08/24 06:03
Physical Exam
-
Vital Signs:
Vital Signs
Temp Pulse Resp BP Pulse Ox
98.2 F 62 11 100/50 94
06/08/24 08:05 06/08/24 08:00 06/08/24 08:00 06/08/24 08:00 06/08/24 10:22
Cardiovascular:: Regular rate and rhythm
Respiratory:: Bilateral: Wheeze (mild )
Lung Excursion:: Normal
Abdomen:: Nontender and Soft
Extremity Edema:: None: Bilateral:
Martin Catheter: No
[2024-06-08] MEDS: ZOFRAN 4 MG IV (11:27)
[2024-06-08] MEDS: LOW STRENGTH ASPIRIN 81 MG PO (11:28)
--- NOTE | 2024-06-08 13:18 | W.PN.HOSP.TC ---
Today's Communication/Plan
-
Monitor vital signs see plan
Continue with clears, scope per GI
Continue to hold Eliquis and Plavix
Holding Bumex at this time, monitor volume status closely
Replete potassium
Assessment / Plan
Assessment / Plan
Acute on chronic anemia likely secondary to acute GI bleed
Melena
Hemoglobin 5.8 on admission,s/p 2 unit PRBC; monitor
GI following. Plan for EGD possibly or Friday
PPI drip
Hold Eliquis and Plavix
Chronic hypoxic respiratory failure on 4 L O2
Chronic CHF with preserved EF
Severe pulmonary artery hypertension
Continue with sildenafil, cardiology following
Appears to have overdiuresed, hold Bumex at this time and monitor
STEVEN on CKD 3
Monitor renal function
Nephrology following
Paroxysmal atrial fibrillation on Eliquis
Hold Eliquis
Now with pacemaker due to second-degree AV block
CAD status post RCA stents
Hyperlipidemia
Chronic pericardial effusion
Scleroderma
Lung cancer status post XRT
History of TIA status post carotid enterectomy
PAD status post Finch/popliteal artery angioplasty/stent
Essential hypertension
Hold amlodipine and Aldactone
SAURABH
Hypothyroidism
Continue Synthroid
DVT prophylaxis
SCDs
DNR/DNI, discussed on admission
I spent a total of 52 minutes with the patient or on the floor. More than 50% of this time involved counseling and coordination of care.
Anticipated Discharge: > 48 hours
Subjective/Interval History
-
Date of Service: June 08, 2024
Denies pain
Objective Data
-
Labs:
Laboratory Results
06/08/24
06:03
WBC 5.2
Hgb 7.8 L
Hct 25.1 L
Plt Count 287
Sodium 133 L
Potassium 3.1 L
Chloride 89 L
Carbon Dioxide 33 H
BUN 124 H*
Creatinine 2.4 H
Glucose 95
Calcium 8.6
Total Bilirubin 0.7
AST 17
ALT < 10
Alkaline Phosphatase 58
Vital Signs:
Vital Signs
Temp Pulse Resp BP Pulse Ox
98.2 F 62 11 100/50 94
06/08/24 08:05 06/08/24 08:00 06/08/24 08:00 06/08/24 08:00 06/08/24 10:22
I&O
06/07/24 06/08/24 06/09/24
06:59 06:59 06:59
Intake Total 600 / 600
Output Total 200 / 200
Balance 400 / 400
[2024-06-08 21:24] LABS: Hematocrit 24.8 % (37.0-47.0); Hemoglobin 7.8 g/dL (12.0-16.0)
[2024-06-09 03:30] VITALS: BP 121/47
[2024-06-09] MEDS: SYNTHROID 50 MCG PO (04:34)
[2024-06-09 05:54] LABS: % Eosinophils 4.1 % (0-6); % Immature Granulocytes 0.5 % (0-0.5); % Lymphocytes 7.8 % (20.5-51.1); % Neutrophils 72.6 % (42.2-75.2); Absolute Basophils 0.1 10^3/uL (0-0.2); Absolute Eosinophils 0.3 10^3/uL (0-0.7); Absolute Lymphocytes 0.5 10^3/uL (1.2-3.4); Absolute Monocytes 0.9 10^3/uL (0.1-0.6); Absolute Neutrophils 4.5 10^3/uL (1.4-6.5); Hematocrit 25.5 % (37.0-47.0); Hemoglobin 7.8 g/dL (12.0-16.0); Mean Corp Hgb Conc. 30.6 g/dL (33.0-37.0); Mean Corpuscular Hgb 26.2 pg (27.0-31.0); Mean Corpuscular Volume 85.6 fL (81.0-99.0); Mean Platelet Volume 9.6 fL (7.4-10.4); Nucleated Red Blood Cells % 0 %; Platelet Count 283 10^3/uL (130-400); Red Blood Cell Count 2.98 10^6/uL (4.20-5.40); Red Cell Dist. Width 19.1 % (11.5-14.5); White Blood Cell Count 6.1 10^3/uL (4.8-10.8)
[2024-06-09 06:00] VITALS: BMI 22.7
[2024-06-09 06:22] LABS: Blood Urea Nitrogen 115 mg/dl (7-17); Calcium 8.8 mg/dl (8.4-10.2); Carbon Dioxide 32 mmol/L (22-30); Chloride 92 mmol/L (98-107); Estimated Creatinine Clearance 14 ml/min; Glucose 95 mg/dl (70-99); Potassium 3.8 mmol/L (3.5-5.1); Sodium 137 mmol/L (135-145); eGFR 19.44
[2024-06-09 07:30] VITALS: BP 131/53
[2024-06-09] MEDS: PROZAC 40 MG PO (08:07)
[2024-06-09] MEDS: CRESTOR 10 MG PO (08:07)
[2024-06-09] MEDS: LOW STRENGTH ASPIRIN 81 MG PO (08:07)
[2024-06-09] MEDS: XANAX 0.25 MG PO ×2 (08:07→19:38)
[2024-06-09] MEDS: VITAMIN B-12 500 MCG PO (08:07)
[2024-06-09] MEDS: VITAMIN D3 (cholecalciferol) 50 MCG PO (08:08)
--- NOTE | 2024-06-09 08:21 | W.PN.GI.CBS2 ---
Today's Communication / Plan
-
Transfuse for goal Hgb > 8.0 prior to endoscopy. Eliquis and plavix remain on hold. Keep NPO at WI and plan for EGD tomorrow, 06/10/2024. See rest of care as outlined below.
Assessment / Plan
-
74 y/o female with PMH CAD with cardiac stents, COPD with chronic heart failure with cardio mems, lung CA with prior radiation, oxygen dependent currently on 4 L, chronic pericardial effusion, pulmonary hypertension, scleroderma, TIA, HTN, CEA, CKD,
hypothyroidism, renal insufficiency, PAD with femoropopliteal artery angioplasty/stent on Plavix, atrial fibrillation started on Eliquis, upper GI bleed with gastric angioectasias treated with APC 08/2023 who was recently admitted 05/14/2024 and
discharged on 05/20/2024 for acute heart failure. The patient states that last week she took 6 pills of metolazone instead of 1 by accident. She was vomiting and had dark-colored stools for 1 week that are OB positive. She was found to have a
hemoglobin of 5.8.
#Melena
#OB positive stools
#Acute on chronic anemia
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
#STEVEN on CKD
#Paroxysmal A-fib on Eliquis (last dosed 06/06/2024 in the PM)
#HFpEF
#Chronic hypoxic respiratory failure on 4 L O2
#PAD status post femoropopliteal artery angioplasty/stent on Plavix (last dose 06/06/2024)
#Severe pulmonary hypertension
#Lung cancer status post XRT
#Chronic pericardial effusion
Impression: Etiology of her previous melena and acute on chronic anemia seems most suspicious for recurrent gastric AVMs as seen previously during prior EGD back on 08/2023. Suspect recurrent oozing/bleeding AVMs in setting of plavix and eliquis. Has
responded appropriately to 2 uPRBCs on 06/07 and only with one episode of dark black stool. Continue IV PPI gtt and hold eliquis/plavix for upcoming EGD with potential repeat APC for AVMs. Of note, patient's last colonoscopy in 2008 however given her
extensive chronic medical conditions would defer any further plans for this at this time.
Recommendations:
- Diet as tolerated, keep NPO at MN
- Trend Hgb with serial CBC, transfuse for goal Hgb > 8.0
- Continue IV PPI gtt
- BUN down-trending but suspect component of renal dysfunction and prior diuretics as well contributing
- Continue to hold eliquis/plavix (last dose 06/06- )
- Plan for EGD tomorrow, 06/10/2024, for further evaluation and potential treatment of AVMs
- Cardiology and Nephrology following, appreciate recs regarding optimization prior to procedure
- Rest of care as per primary team
Discussed with primary internal medicine team this AM. GI will continue to follow.
Subjective
Subjective
Date of Service: June 09, 2024
- No acute events overnight
No further bloody stools in discussion with nursing, had brown-green colored stools overnight. No further melena or maroon colored stools. Denies any abdominal pain or discomfort.
Objective
Data Reviewed
Laboratory Data:
Laboratory Results
06/09/24 04:35
06/09/24 04:35
Laboratory Results
Total Bilirubin 0.7 mg/dl (0.2-1.3) 06/08/24 06:03
AST 17 U/L (14-36) 06/08/24 06:03
ALT < 10 U/L (0-35) 06/08/24 06:03
Alkaline Phosphatase 58 U/L (38-126) 06/08/24 06:03
Vital Signs and I&O:
Vital Signs
Temp Pulse Resp BP Pulse Ox
98.1 F 67 16 131/53 96
06/09/24 07:30 06/09/24 07:30 06/09/24 07:30 06/09/24 07:30 06/09/24 07:30
I&O
06/08/24 06/09/24 06/10/24
06:59 06:59 06:59
Intake Total 600 / 600 334 / 334
Output Total 200 / 200
Balance 400 / 400 334 / 334
Physical Exam
Physical Exam
HEENT: Anicteric and Moist mucous membranes
Pulmonary: Other (Normal WOB of breathing)
GI: Soft, Non Distended and Non Tender
Neuro: Non Focal
[2024-06-09] MEDS: PROTONIX 100 IV ×2 (08:44→18:08)
[2024-06-09] MEDS: STRIVERDI RESPIMAT 2 PUFF INH (09:08)
[2024-06-09] MEDS: SPIRIVA RESPIMAT 2.5 MCG 2 PUFF INH (09:09)
--- NOTE | 2024-06-09 10:19 | W.PN.CARDCBS ---
Today's Communication / Plan
-
Eliquis on hold for GI bleed workup
Stable cardiology status for GI procedure without further testing
Bumex 6 mg p.o. twice daily on hold given patient felt to be overdiuresed with worsening creatinine of 2.5 with 1.8 his baseline
Also Aldactone on hold with renal insufficiency
Impression / Plan
-
PCP: Dr. Reza Ortiz
Yard Loader Operator: Dr. Elliott Stokes ([facility] @ [place])
Impression:
Presented with dark stools, fatigue, weakness
Acute anemia
STEVEN on CKD 3
Chronic HFpEF
CardioMEMs implant
Chronic hypoxemic respiratory failure on 4L NC
Persistent atrial fibrillation, initially diagnosed 04/2024
OAC with Eliquis
Second-degree AV block type I, asymptomatic
History second-degree type I; currently rate controlled AF; noted high degree block on telemetry while sleeping (2: 1 versus complete heart block) no evidence during waking hours
s/p PPM at [facility] 04/2024
CAD
Distant inferior wall VT with RCA stents 05/06/2003.
Chronic pericardial effusion
Severe pulmonary hypertension
Scleroderma
Mild MR, mild to moderate TR
Lung CA s/p XRT
h/o TIA
s/p carotid endarterectomy 02/07/2012
PAD
s/p fem/popliteal artery angioplasty/stent 08/20/2023
HTN
HLD
Former smoker
SAURABH
Hypothyroidism
Echo November 2012: revealed normal LV function, LVH and mild mitral regurgitation.
Echo 07/23/2021: EF 60% with mod to severe LVH, mild MR, biatrial enlargement. Mild to moderate TR, PASP 69 mmHg. Moderate to large pericardial effusion without hemodynamic compromise, 2.7 posteriorly and 2.3 laterally, mildly dilated aortic root.
Echo 08/03/2021: EF 65-70%, moderate to large pericardial effusion without evidence of hemodynamic compromise
Echo 06/13/2023: EF 75-80%, moderate cLVH, grade II diastolic dysfunction, mild MAC, trace MR, mild AI, trace TR, small-moderate pericardial effusion
Echo 04/23/2024: EF 65-70%, mod conc LVH, normal RV size and function, mild TR with PAP 35-40 mmHg
Plan:
Stable cardiology status for GI procedure without further testing
Patient was felt to be overdiuresed/dehydrated on admission and was taking metolazone every day instead of as needed
Bumex is on hold and will consider restarting in the next 24 hours (patient was on 6 mg p.o. twice daily Bumex at home)
Aldactone also on hold with renal insufficiency
Creatinine 2.5 on 06/09 and was 1.8 on 05/20
holding eliquis (history of PAF) and plavix (history of PAD) with gi bleed. cont asa 81mg daily while off OP regimen.
when resume eliquis, would place on 2.5 mg BID dosing based on current weight and Cr.
weight below prior dry weight of 131 pounds (weight 120 pounds on 06/09)
has cardiomems with goal reading of 30mmHg
Patient with known severe PHTN and outpatient doses of tadalafil 40 mg daily and Opsumit 10 mg daily have been continued.
Patient remains on her chronic oxygen at 4 L NC for history of PHTN
Progress Note - Yard Loader Operator
Subjective
Date of Service: June 09, 2024
No complaints
Objective
Labs:
06/09/24 04:35
06/09/24 04:35
Labs
Hgb 7.8 g/dL (12.0-16.0) L 06/09/24 04:35
Hct 25.5 % (37.0-47.0) L 06/09/24 04:35
Plt Count 283 10^3/uL (130-400) 06/09/24 04:35
Sodium 137 mmol/L (135-145) 06/09/24 04:35
Potassium 3.8 mmol/L (3.5-5.1) 06/09/24 04:35
BUN 115 mg/dl (7-17) H* 06/09/24 04:35
Creatinine 2.5 mg/dL (0.6-1.0) H 06/09/24 04:35
Glucose 95 mg/dl (70-99) 06/09/24 04:35
Troponins
06/07/24
12:11
Troponin I 0.046 H*
Vital Signs and I&O:
Vital Signs
Temp Pulse Resp BP Pulse Ox
98.1 F 67 16 131/53 96
06/09/24 07:30 06/09/24 07:30 06/09/24 07:30 06/09/24 07:30 06/09/24 07:30
Vital Signs
Temp Pulse Resp BP Pulse Ox
98.1 F 67 16 131/53 96
06/09/24 07:30 06/09/24 07:30 06/09/24 07:30 06/09/24 07:30 06/09/24 07:30
Intake & Output
06/07/24 06/08/24 06/09/24 06/10/24
06:59 06:59 06:59 06:59
Intake Total 600 / 600 334 / 334
Output Total 200 / 200
Balance 400 / 400 334 / 334
Physical Exam
Physical Exam
General: Well developed, well nourished in NAD.
Neck: Supple, no JVD, HJR, carotids +2 B/L, no bruits bilaterally.
Heart: Non displaced PMI, RRR, no murmurs, No S3, S4, no rubs.
Lungs: Scattered rhonchi
Extremities: No clubbing, cyanosis or edema bilaterally.
Neuro: Grossly nonfocal, awake, alert and oriented x3.
[2024-06-09 11:13] VITALS: BP 124/42
--- NOTE | 2024-06-09 11:58 | W.PN.NEPH.PH ---
Today's Communication / Plan
-
bumex
Assessment/Plan
-
Impression:
Profound anemia (hemoglobin 5.8)with GI bleeding
Acute renal failure 2.5 with BUN ~133
Chronic kidney disease stage IV with baseline creatinine of 2
Pulmonary hypertension (has Cardiomems)
Coronary artery disease
COPD (home 4L O2)
Hypertension
Hypothyroidism
PAD
History of TIA
History of lung cancer status post XRT
Atrial fibrillation on chronic oral anticoagulation therapy
Chronic pericardial effusion
History of endarterectomy in January 2012
Pacemaker
Plan:
restart bumex tonight
follow Hgb
follow BMP
no metolazone
-
-
Date of Service: June 09, 2024
CC / HPI / ROS
-
Chief Complaint:
STEVEN with CKD
History of Present Illness:
STEVEN/Cr stable at 2.4
BUN down to 115
BP stable
weights stable
hgb stable at 7.8
Review of Systems:
no cp
no sob at rest
no fever
Labs
-
Labs:
WBC 6.1 10^3/uL (4.8-10.8) 06/09/24 04:35
RBC 2.98 10^6/uL (4.20-5.40) L 06/09/24 04:35
Hgb 7.8 g/dL (12.0-16.0) L 06/09/24 04:35
Hct 25.5 % (37.0-47.0) L 06/09/24 04:35
Plt Count 283 10^3/uL (130-400) 06/09/24 04:35
Sodium 137 mmol/L (135-145) 06/09/24 04:35
Potassium 3.8 mmol/L (3.5-5.1) 06/09/24 04:35
Chloride 92 mmol/L (98-107) L 06/09/24 04:35
Carbon Dioxide 32 mmol/L (22-30) H 06/09/24 04:35
BUN 115 mg/dl (7-17) H* 06/09/24 04:35
Creatinine 2.5 mg/dL (0.6-1.0) H 06/09/24 04:35
eGFR 19.44 06/09/24 04:35
Glucose 95 mg/dl (70-99) 06/09/24 04:35
Calcium 8.8 mg/dl (8.4-10.2) 06/09/24 04:35
Pbt-L-Lmthvyxmoqh Pept 51716 pg/ml 06/07/24 12:11
Albumin 3.5 g/dl (3.5-5.0) 06/08/24 06:03
Physical Exam
-
Vital Signs:
Vital Signs
Temp Pulse Resp BP Pulse Ox
98.4 F 64 18 124/42 99
06/09/24 11:13 06/09/24 11:13 06/09/24 11:13 06/09/24 11:13 06/09/24 11:13
Cardiovascular:: Regular rate and rhythm
Respiratory:: Bilateral: Coarse
Lung Excursion:: Normal
Abdomen:: Nontender and Soft
Bowel Sounds:: Normal
Extremity Edema:: +1: Bilateral:
--- NOTE | 2024-06-09 12:52 | CM ---
Met with pt at bedside
Pt reports she lives with her daughter in a 3 story home; 1 step to enter, 12 steps to 2nd fl
Independent with adl's, uses rollator to ambulate. Daughter assists as needed
DME - rollator, oxygen with [employer]
SNF - denies past hx
HH - [facility]
Has ride at discharge
PCP - Reza Ortiz
Pharm - [facility]
CM will cont to follow for discharge needs
PT/OT pend
Plan - anticipate home with [facility]
--- NOTE | 2024-06-09 13:04 | W.PN.HOSP.TC ---
Today's Communication/Plan
-
Monitor vital signs see plan
Monitor hemoglobin
Continue PPI drip
Plan for EGD tomorrow per GI
PT/OT
Monitor renal function
Assessment / Plan
Assessment / Plan
Acute on chronic anemia likely secondary to acute GI bleed
Melena
Hemoglobin 5.8 on admission,s/p 2 unit PRBC; monitor
GI following. Plan for EGD possibly 06/10
PPI drip
Hold Eliquis and Plavix
Chronic hypoxic respiratory failure on 4 L O2
Chronic CHF with preserved EF
Severe pulmonary artery hypertension
Continue with sildenafil, cardiology following
Appears to have overdiuresed initially. Bumex to start 06/09
STEVEN on CKD 3
Monitor renal function
Nephrology following
Paroxysmal atrial fibrillation on Eliquis
Hold Eliquis
Now with pacemaker due to second-degree AV block
CAD status post RCA stents
Hyperlipidemia
Chronic pericardial effusion
Scleroderma
Lung cancer status post XRT
History of TIA status post carotid enterectomy
PAD status post Finch/popliteal artery angioplasty/stent
Essential hypertension
Hold amlodipine and Aldactone
SAURABH
Hypothyroidism
Continue Synthroid
DVT prophylaxis
SCDs
DNR/DNI, discussed on admission
I spent a total of 51 minutes with the patient or on the floor. More than 50% of this time involved counseling and coordination of care.
Anticipated Discharge: > 48 hours
Subjective/Interval History
-
Date of Service: June 09, 2024
Denies pain
Objective Data
-
Labs:
Laboratory Results
06/09/24
04:35
WBC 6.1
Hgb 7.8 L
Hct 25.5 L
Plt Count 283
Sodium 137
Potassium 3.8
Chloride 92 L
Carbon Dioxide 32 H
BUN 115 H*
Creatinine 2.5 H
Glucose 95
Calcium 8.8
Vital Signs:
Vital Signs
Temp Pulse Resp BP Pulse Ox
98.4 F 64 18 124/42 99
06/09/24 11:13 06/09/24 11:13 06/09/24 11:13 06/09/24 11:13 06/09/24 11:13
I&O
06/08/24 06/09/24 06/10/24
06:59 06:59 06:59
Intake Total 600 / 600 334 / 334
Output Total 200 / 200
Balance 400 / 400 334 / 334
[2024-06-09 15:18] VITALS: BP 128/46
--- NOTE | 2024-06-09 15:24 | PTCARENOTE ---
Patient transferred to room 403-1 for census management. Report given to NEVILLE Luz. Patient remained on Tele and 4 L o2 during transfer. RN accompanied patient with no incident.
--- NOTE | 2024-06-09 15:42 | TRANSFER ---
Received patient from via . Pt [id number]. POx: 97% 4L NC. V-paced on protective signal installer helper. Family at bedside. Call pak within reach. Plan of care ongoing.
[2024-06-09] MEDS: BUMEX 6 MG PO (16:03)
[2024-06-09] MEDS: NON-FORMULARY ITEM 10 MG PO (16:06)
[2024-06-09 19:53] VITALS: BP 124/72
[2024-06-09] MEDS: TYLENOL 650 MG PO (22:41)
[2024-06-09 23:39] VITALS: BP 114/49
[2024-06-10] VITALS (15 sets, daily range): BP systolic 14–153; BP diastolic 48–96; PULSE 64–69; O2SAT 95–96; BMI 22.9
[2024-06-10] MEDS: PROTONIX 100 IV (03:11)
[2024-06-10] MEDS: SYNTHROID PO (04:58)
[2024-06-10 06:58] LABS: % Basophils 1.3 % (0-2); % Eosinophils 5.6 % (0-6); % Immature Granulocytes 0.4 % (0-0.5); % Lymphocytes 10.7 % (20.5-51.1); % Monocytes 17.5 % (1.7-9.3); % Neutrophils 64.5 % (42.2-75.2); Absolute Basophils 0.1 10^3/uL (0-0.2); Absolute Eosinophils 0.3 10^3/uL (0-0.7); Absolute Lymphocytes 0.5 10^3/uL (1.2-3.4); Absolute Monocytes 0.8 10^3/uL (0.1-0.6); Hematocrit 26.5 % (37.0-47.0); Hemoglobin 7.7 g/dL (12.0-16.0); Mean Corp Hgb Conc. 29.1 g/dL (33.0-37.0); Mean Corpuscular Hgb 25.2 pg (27.0-31.0); Mean Corpuscular Volume 86.6 fL (81.0-99.0); Mean Platelet Volume 9.2 fL (7.4-10.4); Nucleated Red Blood Cells % 0 %; Platelet Count 286 10^3/uL (130-400); Red Blood Cell Count 3.06 10^6/uL (4.20-5.40); Red Cell Dist. Width 19.1 % (11.5-14.5); White Blood Cell Count 4.7 10^3/uL (4.8-10.8)
[2024-06-10] MEDS: STRIVERDI RESPIMAT 2 PUFF INH (07:00)
[2024-06-10] MEDS: SPIRIVA RESPIMAT 2.5 MCG 2 PUFF INH (07:00)
[2024-06-10 07:20] LABS: Blood Urea Nitrogen 96 mg/dl (7-17); Calcium 8.5 mg/dl (8.4-10.2); Carbon Dioxide 36 mmol/L (22-30); Chloride 95 mmol/L (98-107); Estimated Creatinine Clearance 16 ml/min; Glucose 107 mg/dl (70-99); Potassium 3.7 mmol/L (3.5-5.1); Sodium 138 mmol/L (135-145); eGFR 21.49
[2024-06-10 08:35] LABS: Transferrin 375 mg/dL (200-360)
[2024-06-10] MEDS: PROZAC 40 MG PO (10:27)
[2024-06-10] MEDS: BUMEX 6 MG PO ×2 (10:27→15:01)
[2024-06-10] MEDS: VITAMIN B-12 500 MCG PO (10:27)
[2024-06-10] MEDS: XANAX 0.25 MG PO ×2 (10:28→19:32)
[2024-06-10] MEDS: NON-FORMULARY ITEM 10 MG PO (10:28)
[2024-06-10] MEDS: CRESTOR 10 MG PO (10:28)
[2024-06-10] MEDS: VITAMIN D3 (cholecalciferol) 50 MCG PO (10:28)
[2024-06-10] MEDS: LOW STRENGTH ASPIRIN 81 MG PO (10:28)
--- NOTE | 2024-06-10 11:08 | PTCARENOTE ---
Addendum entered by Genesis Rausch RN 06/10/24 14:40:
Patient tolerating low fat diet well.
Original Note:
Patient returned from endoscopy. Vital signs stable. Denies pain or other issues. Patient on low fat diet. Patient resting in bed at this time.
--- NOTE | 2024-06-10 12:15 | W.PN.HOSP.TC ---
Addendum entered and electronically signed by Benito Christine MD 06/12/24 11:00:
General: Well Developed, No Apparent Distress, Comfortable and Conversant
HEENT: NormoCephalic, Moist mucous membranes
Respiratory: Clear, no wheezing
Cardiac: S1/S2 and Regular Rhythm
GI: Soft, Non Tender, Non Distended and Normal Bowel Sounds
Neuro: Awake, Alert, AO x 3 and Nonfocal/grossly intact
Psych: Calm and Intact Judgment/Insight
Original Note:
Today's Communication/Plan
-
Monitor vitals
see plan
Continue to monitor hemoglobin
hopeful to restart Plavix and Eliquis tomorrow
Monitor renal function
Assessment / Plan
Assessment / Plan
Acute on chronic anemia likely secondary to acute GI bleed
Melena
Hemoglobin 5.8 on admission,s/p 2 unit PRBC; monitor
GI following. s/p EGD 06/10 with erosive gastropathy. Single nonbleeding AVM. Per GI PPI twice daily for 8 weeks and then once daily. Restart Plavix and Eliquis possibly 06/11 per GI
PPI drip
Hold Eliquis and Plavix
Chronic hypoxic respiratory failure on 4 L O2
Chronic CHF with preserved EF
Severe pulmonary artery hypertension
Continue with sildenafil, cardiology following
Now back on bumex
STEVEN on CKD 3
Monitor renal function
Nephrology following
Paroxysmal atrial fibrillation on Eliquis
Hold Eliquis
Now with pacemaker due to second-degree AV block
CAD status post RCA stents
Hyperlipidemia
Chronic pericardial effusion
Scleroderma
Lung cancer status post XRT
History of TIA status post carotid enterectomy
PAD status post Finch/popliteal artery angioplasty/stent
Essential hypertension
Hold amlodipine and Aldactone; restart when BP high
SAURABH
Hypothyroidism
Continue Synthroid
DVT prophylaxis
SCDs
DNR/DNI, discussed on admission
Anticipated Discharge: Within 24 hours
Subjective/Interval History
-
Date of Service: June 10, 2024
Denies pain
Objective Data
-
Labs:
Laboratory Results
06/10/24
06:06
WBC 4.7 L
Hgb 7.7 L
Hct 26.5 L
Plt Count 286
Sodium 138
Potassium 3.7
Chloride 95 L
Carbon Dioxide 36 H
BUN 96 H
Creatinine 2.3 H
Glucose 107 H
Calcium 8.5
Vital Signs:
Vital Signs
Temp Pulse Resp BP Pulse Ox
98 F 62 20 148/57 100
06/10/24 11:49 06/10/24 11:49 06/10/24 11:49 06/10/24 11:49 06/10/24 11:49
I&O
06/09/24 06/10/24 06/11/24
06:59 06:59 06:59
Intake Total 334 / 334 240 / 240
Balance 334 / 334 240 / 240
[2024-06-10] MEDS: PROTONIX 40 MG PO ×2 (13:10→19:32)
--- NOTE | 2024-06-10 14:07 | W.PN.NEPH.PH ---
Today's Communication / Plan
-
follow BMP
Assessment/Plan
-
Impression:
Profound anemia (hemoglobin 5.8)with GI bleeding
Acute renal failure 2.5 with BUN ~133
Chronic kidney disease stage IV with baseline creatinine of 2
Pulmonary hypertension (has Cardiomems)
Coronary artery disease
COPD (home 4L O2)
Hypertension
Hypothyroidism
PAD
History of TIA
History of lung cancer status post XRT
Atrial fibrillation on chronic oral anticoagulation therapy
Chronic pericardial effusion
History of endarterectomy in January 2012
Pacemaker
Plan:
continue bumex 10/15
follow Hgb
follow BMP
no metolazone for now
-
-
Date of Service: June 10, 2024
CC / HPI / ROS
-
Chief Complaint:
STEVEN with CKD
History of Present Illness:
STEVEN/Cr down to 2.3
BUN down to 96
BP stable
weights stable
hgb stable at 7.7
Review of Systems:
no cp
no sob at rest
no fever
Labs
-
Labs:
WBC 4.7 10^3/uL (4.8-10.8) L 06/10/24 06:06
RBC 3.06 10^6/uL (4.20-5.40) L 06/10/24 06:06
Hgb 7.7 g/dL (12.0-16.0) L 06/10/24 06:06
Hct 26.5 % (37.0-47.0) L 06/10/24 06:06
Plt Count 286 10^3/uL (130-400) 06/10/24 06:06
Sodium 138 mmol/L (135-145) 06/10/24 06:06
Potassium 3.7 mmol/L (3.5-5.1) 06/10/24 06:06
Chloride 95 mmol/L (98-107) L 06/10/24 06:06
Carbon Dioxide 36 mmol/L (22-30) H 06/10/24 06:06
BUN 96 mg/dl (7-17) H 06/10/24 06:06
Creatinine 2.3 mg/dL (0.6-1.0) H 06/10/24 06:06
eGFR 21.49 06/10/24 06:06
Glucose 107 mg/dl (70-99) H 06/10/24 06:06
Calcium 8.5 mg/dl (8.4-10.2) 06/10/24 06:06
Idw-E-Jkdmuqhgznk Pept 70860 pg/ml 06/07/24 12:11
Albumin 3.5 g/dl (3.5-5.0) 06/08/24 06:03
Physical Exam
-
Vital Signs:
Vital Signs
Temp Pulse Resp BP Pulse Ox
98 F 62 20 148/57 100
06/10/24 11:49 06/10/24 11:49 06/10/24 11:49 06/10/24 11:49 06/10/24 11:49
Cardiovascular:: Regular rate and rhythm
Respiratory:: Bilateral: CTA
Lung Excursion:: Normal
Abdomen:: Nontender and Soft
Bowel Sounds:: Normal
Extremity Edema:: None: Bilateral:
--- NOTE | 2024-06-10 14:49 | W.PN.CARDCBS ---
Addendum entered and electronically signed by Malena Bean MD 06/10/24 15:56:
I saw and examined the patient.
The Pulmonary Disease Specialist's note was reviewed and I agree with the note.
Comment: Exam stable. Irregularly irregular. Volume status appears stable. No significant edema.
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
Hemoglobin low but stable being followed by primary service and GI.
Volume status stable. Weight stable and on the lower end of her baseline. Continue usual diuretics.
Pulmonary arterial hypertension followed at [facility]. Continue current treatment.
Per GI okay to resume Plavix and Eliquis tomorrow.
Follow-up with usual integrity engineer as outpatient at [facility]
We will sign off. Please reconsult us if new issues develop.
Original Note:
Today's Communication / Plan
-
GI cleared patient to resume Eliquis and Plavix in AM
Cont usual dose of Bumex 6 mg (three 2 mg tablets) twice a day
Stable from cardiac standpoint
Impression / Plan
-
PCP: Dr. Reza Ortiz
Senior Research Manager: Dr. Elliott Stokes ([facility] [place])
Impression:
Presented with dark stools, fatigue, weakness
Acute anemia
STEVEN on CKD 3
Chronic HFpEF
CardioMEMs implant
Chronic hypoxemic respiratory failure on 4L NC
Persistent atrial fibrillation, initially diagnosed 04/2024
OAC with Eliquis
Second-degree AV block type I, asymptomatic
History second-degree type I; currently rate controlled AF; noted high degree block on telemetry while sleeping (2: 1 versus complete heart block) no evidence during waking hours
s/p PPM at [facility] 04/2024
CAD
Distant inferior wall TX with RCA stents 05/06/2003.
Chronic pericardial effusion
Severe pulmonary hypertension
Scleroderma
Mild MR, mild to moderate TR
Lung CA s/p XRT
h/o TIA
s/p carotid endarterectomy 02/07/2012
PAD
s/p fem/popliteal artery angioplasty/stent 08/20/2023
HTN
HLD
Former smoker
SAURABH
Hypothyroidism
Echo November 2012: revealed normal LV function, LVH and mild mitral regurgitation.
Echo 07/23/2021: EF 60% with mod to severe LVH, mild MR, biatrial enlargement. Mild to moderate TR, PASP 69 mmHg. Moderate to large pericardial effusion without hemodynamic compromise, 2.7 posteriorly and 2.3 laterally, mildly dilated aortic root.
Echo 08/03/2021: EF 65-70%, moderate to large pericardial effusion without evidence of hemodynamic compromise
Echo 06/13/2023: EF 75-80%, moderate cLVH, grade II diastolic dysfunction, mild MAC, trace MR, mild AI, trace TR, small-moderate pericardial effusion
Echo 04/23/2024: EF 65-70%, mod conc LVH, normal RV size and function, mild TR with PAP 35-40 mmHg
Plan:
-GI team completed upper endoscopy on 06/10/2024 that showed a single non-bleeding AVM in the stomach that was treated with argon plasma coagulation. Also with erosive gastropathy with no bleeding and no stigmata of recent bleeding.
-Hgb as low as 5.8 on admission, but stable at 7.7 on 06/10/2024 following 2 units PRBCs this admission
-Patient is allowed to resume previous dosing of Plavix 75 mg daily and Eliquis 5 mg twice daily on 06/11/2019 5 in the AM
-Patient weighed 121 pounds on 06/10/2024 and this is below her previous dry weight.
-Patient with a longstanding history of chronic HFpEF and has a CardioMEMS device implanted that she monitors through Dr. Stokes's office.
-Outpatient dose of Bumex 6 mg twice daily has been continued. Of note patient will often describe that she takes 3 mg twice a day when describing her Bumex dose, but which she actually means is that she takes three 2 mg tablets (6 mg) BID. Patient
also takes metolazone 2.5 mg daily PRN pending the CardioMEMs reading for that day.
-Patient is not chronically on BB due to wheezing.
-EF preserved at 65% by echo 04/23/24 and stable compared to echo from primary integrity engineer 06/13/23
-Patient with known severe PHTN and outpatient doses of tadalafil 40 mg daily and Opsumit 10 mg daily have been continued.
-Patient chronically on Plavix for PAD with fem/popliteal artery angioplasty/stent 08/20/2023
-Patient with known paroxysmal Afib and Eliquis as above. Technically Eliquis dose should be 2.5 mg BID, but Cre up with IV diuresis. Will d/c patient to home on her usual dose of Eliquis and recheck BMP in 3-4 days and if Cre greater than 1.5 with
wt less than 60 kg then she should probably switch to the lower dose.
-Outpatient dose of Crestor 10 mg daily has been continued
-Patient remains on her chronic oxygen at 4 L NC for history of PHTN
Progress Note - Senior Research Manager
Subjective
Date of Service: June 10, 2024
Feels great, appetite is better
Objective
Labs:
06/10/24 06:06
06/10/24 06:06
Labs
Hgb 7.7 g/dL (12.0-16.0) L 06/10/24 06:06
Hct 26.5 % (37.0-47.0) L 06/10/24 06:06
Plt Count 286 10^3/uL (130-400) 06/10/24 06:06
Sodium 138 mmol/L (135-145) 06/10/24 06:06
Potassium 3.7 mmol/L (3.5-5.1) 06/10/24 06:06
BUN 96 mg/dl (7-17) H 06/10/24 06:06
Creatinine 2.3 mg/dL (0.6-1.0) H 06/10/24 06:06
Glucose 107 mg/dl (70-99) H 06/10/24 06:06
Vital Signs and I&O:
Vital Signs
Temp Pulse Resp BP Pulse Ox
98 F 62 20 148/57 100
06/10/24 11:49 06/10/24 11:49 06/10/24 11:49 06/10/24 11:49 06/10/24 11:49
Vital Signs
Temp Pulse Resp BP Pulse Ox
98 F 62 20 148/57 100
06/10/24 11:49 06/10/24 11:49 06/10/24 11:49 06/10/24 11:49 06/10/24 11:49
Intake & Output
06/08/24 06/09/24 06/10/24 06/11/24
06:59 06:59 06:59 06:59
Intake Total 600 / 600 334 / 334 240 / 240
Output Total 200 / 200
Balance 400 / 400 334 / 334 240 / 240
Physical Exam
Physical Exam
GEN: NAD, AAOx3
HEENT: EOMI
LUNGS: 4 L NC. No audible wheeze
CV: SR on tele.
ABD: ND
EXT: No edema B/L
NEURO: Gross non-focal
SKIN: No rash
[2024-06-10] MEDS: TYLENOL 650 MG PO (22:14)
[2024-06-11 03:43] VITALS: BP 119/46
[2024-06-11] MEDS: SYNTHROID 50 MCG PO (05:00)
[2024-06-11 06:00] VITALS: BMI 23.1
[2024-06-11 07:15] VITALS: BP 110/52
[2024-06-11] MEDS: SPIRIVA RESPIMAT 2.5 MCG 2 PUFF INH (07:46)
[2024-06-11] MEDS: STRIVERDI RESPIMAT 2 PUFF INH (07:46)
[2024-06-11 07:49] LABS: % Eosinophils 5.6 % (0-6); % Immature Granulocytes 0.8 % (0-0.5); % Lymphocytes 10.8 % (20.5-51.1); % Monocytes 13.2 % (1.7-9.3); % Neutrophils 68.6 % (42.2-75.2); Absolute Basophils 0.1 10^3/uL (0-0.2); Absolute Eosinophils 0.3 10^3/uL (0-0.7); Absolute Lymphocytes 0.5 10^3/uL (1.2-3.4); Absolute Monocytes 0.7 10^3/uL (0.1-0.6); Absolute Neutrophils 3.4 10^3/uL (1.4-6.5); Hematocrit 25.3 % (37.0-47.0); Hemoglobin 7.3 g/dL (12.0-16.0); Mean Corp Hgb Conc. 28.9 g/dL (33.0-37.0); Mean Corpuscular Hgb 25.1 pg (27.0-31.0); Mean Corpuscular Volume 86.9 fL (81.0-99.0); Mean Platelet Volume 9.5 fL (7.4-10.4); Nucleated Red Blood Cells % 0.4 %; Platelet Count 266 10^3/uL (130-400); Red Blood Cell Count 2.91 10^6/uL (4.20-5.40); Red Cell Dist. Width 18.9 % (11.5-14.5)
[2024-06-11 08:01] LABS: Blood Urea Nitrogen 80 mg/dl (7-17); Calcium 7.9 mg/dl (8.4-10.2); Carbon Dioxide 34 mmol/L (22-30); Chloride 95 mmol/L (98-107); Estimated Creatinine Clearance 18 ml/min; Glucose 92 mg/dl (70-99); Potassium 3.3 mmol/L (3.5-5.1); Sodium 137 mmol/L (135-145); eGFR 25.41
[2024-06-11] MEDS: VITAMIN B-12 500 MCG PO (08:24)
[2024-06-11] MEDS: XANAX 0.25 MG PO ×2 (08:24→20:33)
[2024-06-11] MEDS: BUMEX 6 MG PO ×2 (08:24→16:30)
[2024-06-11] MEDS: PROTONIX 40 MG PO ×2 (08:24→20:33)
[2024-06-11] MEDS: LOW STRENGTH ASPIRIN 81 MG PO (08:24)
[2024-06-11] MEDS: VITAMIN D3 (cholecalciferol) 50 MCG PO (08:24)
[2024-06-11] MEDS: PROZAC 40 MG PO (08:24)
[2024-06-11] MEDS: CRESTOR 10 MG PO (08:25)
[2024-06-11] MEDS: NON-FORMULARY ITEM 10 MG PO (08:25)
[2024-06-11 10:43] LABS: Hematocrit 25.1 % (37.0-47.0); Hemoglobin 7.4 g/dL (12.0-16.0)
[2024-06-11 11:20] VITALS: BP 120/47
--- NOTE | 2024-06-11 12:11 | W.PN.HOSP.TC ---
Addendum entered and electronically signed by Benito Christine MD 06/12/24 11:00:
General: Well Developed, No Apparent Distress, Comfortable and Conversant
HEENT: NormoCephalic, Moist mucous membranes
Respiratory: Clear, Wheezes, Non Labored Respirations and Decreased Breath Sounds
Cardiac: S1/S2 and Regular Rhythm
GI: Soft, Non Tender, Non Distended and Normal Bowel Sounds
Musculoskeletal: No Edema
Neuro: Awake, Alert, AO x 3 and Nonfocal/grossly intact
Psych: Calm and Intact Judgment/Insight
Original Note:
Today's Communication/Plan
-
monitor vitals
see plan
recheck hgb
restart eliquis and plavix; dc aspirin
hopeful dc soon
Assessment / Plan
Assessment / Plan
Acute on chronic anemia likely secondary to acute GI bleed
Melena
Hemoglobin 5.8 on admission,s/p 2 unit PRBC; monitor
GI following. s/p EGD 06/10 with erosive gastropathy. Single nonbleeding AVM. Per GI PPI twice daily for 8 weeks and then once daily. Restart Plavix and Eliquis as recommended by GI and cardiology. Discussed with cardiology and restarted Eliquis
at 2.5 mg twice daily. DC aspirin and start Plavix.
Continue with PPI twice daily
Hemoglobin dropped today to 7.3. Monitor
Chronic hypoxic respiratory failure on 4 L O2
Chronic CHF with preserved EF
Severe pulmonary artery hypertension
Continue with sildenafil, cardiology following
Now back on bumex
STEVEN on CKD 3
Monitor renal function
Nephrology following
Hypokalemia
Replete
Paroxysmal atrial fibrillation on Eliquis
Eliquis
Now with pacemaker due to second-degree AV block
CAD status post RCA stents
Hyperlipidemia
Chronic pericardial effusion
Scleroderma
Lung cancer status post XRT
History of TIA status post carotid enterectomy
PAD status post fem/popliteal artery angioplasty/stent
Essential hypertension
Hold amlodipine and Aldactone; restart when BP high
SAURABH
Hypothyroidism
Continue Synthroid
DVT prophylaxis
SCDs, Eliquis
DNR/DNI, discussed on admission
Anticipated Discharge: Within 24 hours
Subjective/Interval History
-
Date of Service: June 11, 2024
denies pain
Objective Data
-
Labs:
Laboratory Results
06/11/24 06/11/24
06:12 10:39
WBC 5.0
Hgb 7.3 L 7.4 L
Hct 25.3 L 25.1 L
Plt Count 266
Sodium 137
Potassium 3.3 L
Chloride 95 L
Carbon Dioxide 34 H
BUN 80 H
Creatinine 2.0 H
Glucose 92
Calcium 7.9 L
Vital Signs:
Vital Signs
Temp Pulse Resp BP Pulse Ox
98.1 F 71 16 120/47 98
06/11/24 11:20 06/11/24 11:20 06/11/24 11:20 06/11/24 11:20 06/11/24 11:20
I&O
06/10/24 06/11/24 06/12/24
06:59 06:59 06:59
Intake Total 240 / 240 720 / 720
Balance 240 / 240 720 / 720
[2024-06-11] MEDS: KCL 40 MEQ PO (13:42)
[2024-06-11 15:25] VITALS: BP 140/51
--- NOTE | 2024-06-11 17:11 | W.PN.NEPH.PH ---
Today's Communication / Plan
-
cont bumex, daily wts
reaplce k
Assessment/Plan
-
Impression:
Profound anemia (hemoglobin 5.8)with GI bleeding
Acute renal failure 2.5 with BUN ~133
Chronic kidney disease stage IV with baseline creatinine of 2
Pulmonary hypertension (has Cardiomems)
Coronary artery disease
COPD (home 4L O2)
Hypertension
Hypothyroidism
PAD
History of TIA
History of lung cancer status post XRT
Atrial fibrillation on chronic oral anticoagulation therapy
Chronic pericardial effusion
History of endarterectomy in January 2012
Pacemaker
Plan:
improving renal function
continue bumex 10/15
follow Hgb, fe sat only 6%, start IV fe course
follow BMP
no metolazone for now, resume prn
-
-
Date of Service: June 11, 2024
CC / HPI / ROS
-
Chief Complaint:
STEVEN with CKD
History of Present Illness:
STEVEN/Cr down to 2.
BUN down to 96
BP stable
weights slightly uup
hgb low at 7.4
Review of Systems:
no cp
no sob at rest
no fever
Labs
-
Labs:
WBC 5.0 10^3/uL (4.8-10.8) 06/11/24 06:12
RBC 2.91 10^6/uL (4.20-5.40) L 06/11/24 06:12
Hgb 7.4 g/dL (12.0-16.0) L 06/11/24 10:39
Hct 25.1 % (37.0-47.0) L 06/11/24 10:39
Plt Count 266 10^3/uL (130-400) 06/11/24 06:12
Sodium 137 mmol/L (135-145) 06/11/24 06:12
Potassium 3.3 mmol/L (3.5-5.1) L 06/11/24 06:12
Chloride 95 mmol/L (98-107) L 06/11/24 06:12
Carbon Dioxide 34 mmol/L (22-30) H 06/11/24 06:12
BUN 80 mg/dl (7-17) H 06/11/24 06:12
Creatinine 2.0 mg/dL (0.6-1.0) H 06/11/24 06:12
eGFR 25.41 06/11/24 06:12
Glucose 92 mg/dl (70-99) 06/11/24 06:12
Calcium 7.9 mg/dl (8.4-10.2) L 06/11/24 06:12
Lqz-J-Lvsldfqcktl Pept 57236 pg/ml 06/07/24 12:11
Albumin 3.5 g/dl (3.5-5.0) 06/08/24 06:03
Physical Exam
-
Vital Signs:
Vital Signs
Temp Pulse Resp BP Pulse Ox
98.7 F 62 20 140/51 97
06/11/24 15:25 06/11/24 15:25 06/11/24 15:25 06/11/24 16:30 06/11/24 15:25
Cardiovascular:: Regular rate and rhythm
Respiratory:: Bilateral: CTA
Lung Excursion:: Normal
Abdomen:: Nontender and Soft
Extremity Edema:: None: Bilateral:
Martin Catheter: No
--- NOTE | 2024-06-11 17:15 | CM ---
Pt indicated VN .
Pt requested [facility] .Referral placed in care port.
[facility]eren[facility] dgt will drive her home.
PLAN Home with [facility] fax [phone]
[2024-06-11] MEDS: FERRLECIT 110 MG IV (17:55)
[2024-06-11 19:27] VITALS: BP 157/71
[2024-06-11] MEDS: ELIQUIS 2.5 MG PO (20:33)
[2024-06-11] MEDS: ProAIR HFA INHALER 2 PUFF INH (20:41)
[2024-06-11 23:46] VITALS: BP 138/68
[2024-06-12 03:12] VITALS: BP 124/56
[2024-06-12] MEDS: SYNTHROID 50 MCG PO (05:37)
[2024-06-12] MEDS: TYLENOL 650 MG PO ×2 (05:37→10:50)
[2024-06-12 06:00] VITALS: BMI 23.1
[2024-06-12 06:59] LABS: % Basophils 1.4 % (0-2); % Immature Granulocytes 0.7 % (0-0.5); % Lymphocytes 6.8 % (20.5-51.1); % Monocytes 13.5 % (1.7-9.3); % Neutrophils 72.6 % (42.2-75.2); Absolute Basophils 0.1 10^3/uL (0-0.2); Absolute Eosinophils 0.4 10^3/uL (0-0.7); Absolute Immature Granulocytes 0.1 10^3/uL (0-0.05); Absolute Lymphocytes 0.5 10^3/uL (1.2-3.4); Absolute Monocytes 0.9 10^3/uL (0.1-0.6); Absolute Neutrophils 5.1 10^3/uL (1.4-6.5); Hematocrit 25.9 % (37.0-47.0); Hemoglobin 7.5 g/dL (12.0-16.0); Mean Corpuscular Hgb 25.3 pg (27.0-31.0); Mean Corpuscular Volume 87.5 fL (81.0-99.0); Mean Platelet Volume 9.8 fL (7.4-10.4); Nucleated Red Blood Cells % 0.4 %; Platelet Count 284 10^3/uL (130-400); Red Blood Cell Count 2.96 10^6/uL (4.20-5.40)
[2024-06-12 07:19] VITALS: BP 101/49
[2024-06-12 07:33] LABS: Blood Urea Nitrogen 71 mg/dl (7-17); Calcium 8.7 mg/dl (8.4-10.2); Carbon Dioxide 32 mmol/L (22-30); Chloride 98 mmol/L (98-107); Estimated Creatinine Clearance 20 ml/min; Glucose 106 mg/dl (70-99); Potassium 3.6 mmol/L (3.5-5.1); Sodium 139 mmol/L (135-145); eGFR 28.84
[2024-06-12] MEDS: PLAVIX 75 MG PO (07:55)
[2024-06-12] MEDS: BUMEX 6 MG PO (07:55)
[2024-06-12] MEDS: ELIQUIS 2.5 MG PO (07:55)
[2024-06-12] MEDS: CRESTOR 10 MG PO (07:55)
[2024-06-12] MEDS: PROZAC 40 MG PO (07:56)
[2024-06-12] MEDS: VITAMIN D3 (cholecalciferol) 50 MCG PO (07:56)
[2024-06-12] MEDS: VITAMIN B-12 500 MCG PO (07:56)
[2024-06-12] MEDS: PROTONIX 40 MG PO (07:56)
[2024-06-12] MEDS: XANAX 0.25 MG PO (07:56)
[2024-06-12] MEDS: NON-FORMULARY ITEM 10 MG PO (07:57)
[2024-06-12] MEDS: SPIRIVA RESPIMAT 2.5 MCG 2 PUFF INH (08:36)
[2024-06-12] MEDS: STRIVERDI RESPIMAT 2 PUFF INH (08:36)
[2024-06-12 10:25] VITALS: BP 137/50
--- NOTE | 2024-06-12 10:54 | W.PN.HOSP.TC ---
Addendum entered and electronically signed by Benito Christine MD 06/16/24 15:50:
Acute GI bleed likely exacerbated by Eliquis and Plavix
Original Note:
Today's Communication/Plan
-
monitor vitals
see plan
dc today
repeat cbc and bmp next week with pcp
cw bumex
cw Eliquis 2.5 mg twice daily and Plavix
PPI
Time of discharge 38 minutes
Assessment / Plan
Assessment / Plan
Acute on chronic anemia likely secondary to acute GI bleed
Melena
Hemoglobin 5.8 on admission,s/p 2 unit PRBC; monitor
GI following. s/p EGD 06/10 with erosive gastropathy. Single nonbleeding AVM. Per GI PPI twice daily for 8 weeks and then once daily. Restart Plavix and Eliquis as recommended by GI and cardiology. Discussed with cardiology and restarted Eliquis
at 2.5 mg twice daily. DC aspirin and start Plavix.
Continue with PPI twice daily
Hemoglobin improving, now 7.5.
On IV iron
Chronic hypoxic respiratory failure on 4 L O2
Chronic CHF with preserved EF
Severe pulmonary artery hypertension
Continue with sildenafil, cardiology following
Now back on bumex
STEVEN on CKD 3
Monitor renal function
Nephrology following
Now improving, BMP outpatient
Hypokalemia
resolved
Paroxysmal atrial fibrillation on Eliquis
Eliquis
Now with pacemaker due to second-degree AV block
CAD status post RCA stents
Hyperlipidemia
Chronic pericardial effusion
Scleroderma
Lung cancer status post XRT
History of TIA status post carotid enterectomy
PAD status post fem/popliteal artery angioplasty/stent
Essential hypertension
Hold amlodipine and Aldactone; restart when BP high
SAURABH
Hypothyroidism
Continue Synthroid
DVT prophylaxis
SCDs, Eliquis
DNR/DNI, discussed on admission
General: Well Developed, No Apparent Distress, Comfortable and Conversant
HEENT: NormoCephalic, Moist mucous membranes
Respiratory: Clear, Wheezes, Non Labored Respirations and Decreased Breath Sounds
Cardiac: S1/S2 and Regular Rhythm
GI: Soft, Non Tender, Non Distended and Normal Bowel Sounds
Musculoskeletal: No Edema
Neuro: Awake, Alert, AO x 3 and Nonfocal/grossly intact
Psych: Calm and Intact Judgment/Insight
Anticipated Discharge: Today
Subjective/Interval History
-
Date of Service: June 12, 2024
denies pain
Objective Data
-
Labs:
Laboratory Results
06/12/24
06:00
WBC 7.0
Hgb 7.5 L
Hct 25.9 L
Plt Count 284
Sodium 139
Potassium 3.6
Chloride 98
Carbon Dioxide 32 H
BUN 71 H
Creatinine 1.8 H
Glucose 106 H
Calcium 8.7
Vital Signs:
Vital Signs
Temp Pulse Resp BP Pulse Ox
98.2 F 60 18 101/49 99
06/12/24 07:19 06/12/24 08:40 06/12/24 08:40 06/12/24 07:19 06/12/24 08:40
I&O
06/11/24 06/12/24 06/13/24
06:59 06:59 06:59
Intake Total 720 / 720 820 / 820
Balance 720 / 720 820 / 820
--- NOTE | 2024-06-12 11:13 | W.DCSUMMARY ---
Discharge Summary
Discharge Data
Date of Admission: 06/07/24
Date of Discharge: 06/12/24
-
Pending Results: No
Hospital Course
74-year-old female with past medical history of chronic hypoxic respiratory failure, CHF, pulmonary artery hypertension, CKD stage III, paroxysmal atrial fibrillation, CAD, scleroderma, chronic pericardial effusion, lung cancer status postradiation,
history of TIA status post carotid enterectomy, PAD, essential hypertension, SAURABH, hypothyroidism came to the hospital with acute on chronic anemia secondary to GI bleed with melena. Patient went for EGD which showed erosive gastropathy with single
nonbleeding AVM which was treated. Gastroenterology recommended patient to continue PPI twice daily for 8 weeks and then decrease it to once daily. Given patient bleeding cardiology also recommended Eliquis to be decreased to 2.5 mg twice daily.
Once patient hemoglobin continue to improve and her melena stopped, she was then started back on lower dose of Eliquis along with Plavix. Her hemoglobin was stable upon discharge. She also had acute kidney injury on this hospitalization for which
she was seen by nephrology. Her kidney function continue to improve over time. Once her symptoms continue to improve, she was then discharged home with instructions to follow-up with all her physicians outpatient.
Discharge Plan
-
Patient Disposition: Home (Routine Discharge)
Discharge Diagnosis/Procedures: Acute on chronic anemia secondary to acute GI bleed
Chronic hypoxic respiratory failure
STEVEN on CKD
Diet: As tolerated
Activity: As tolerated
Driving Restrictions: As prior to admission
Bathing Restrictions: None
Blood Work: CBC and BMP next week with primary care provider
Specialty Instructions: Weigh Daily- Call MD for wt gain/loss 3 lbs overnight/5 lbs in 1 week
Activity Restrictions/Additional Instructions:
Follow-up with hematology for low hemoglobin
Check your blood pressure at home and if it is greater than 140/90 then you can restart amlodipine and aldactone
Continue with Protonix twice daily for 8 weeks and then decrease to Protonix 40 mg once daily
Referrals:
Sanjiv Palacios DO [Active] -
Reza Ortiz DO [Family Provider] -
Delroy Newton DO [Active] - in one to two weeks
Elliott Stokes MD [Non-Admitting Privileges] - in three to four weeks
Jessica Aquino MD [Active] -
Prescriptions:
New
Eliquis 2.5 mg Tablet
2.5 mg PO BID Qty: 60 0RF
Continued
polyethylene glycol 3350 [Miralax] 17 gram Powder In Packet
17 g PO DAILYPRN PRN (Reason: constipation)
levothyroxine [Synthroid] 50 mcg Tablet
50 mcg PO DAILY
rosuvastatin [Crestor] 10 mg Tablet
10 mg PO DAILY
cholecalciferol (vitamin D3) [Vitamin D3] 50 mcg (2,000 unit) Tablet
50 mcg PO DAILY
Opsumit 10 mg Tablet
10 mg PO DAILY
Anoro Ellipta 62.5-25 mcg/actuation Blister With Device
1 inh INHALATION R DAILY
tadalafil (pulm. hypertension) 20 mg Tablet
40 mg PO DAILY
clopidogrel 75 mg Tablet
75 mg PO DAILY Qty: 0 0RF
fluoxetine 20 mg Capsule
40 mg PO DAILY
albuterol sulfate 90 mcg/actuation Hfa Aerosol Inhaler
2 puff INHALATION R Q6HPRN PRN (Reason: SOB)
bumetanide 2 mg tablet
6 mg PO BID Qty: 180 6RF
alprazolam 0.25 mg tablet
0.25 mg PO BID
acetaminophen [Tylenol] 325 mg Tablet
650 mg PO Q4HPRN PRN (Reason: mild pain)
tramadol 50 mg Tablet
50 mg PO TIDPRN PRN (Reason: moderate pain)
cyanocobalamin (vitamin B-12) 500 mcg Tablet
500 mcg PO DAILY
Changed
pantoprazole 40 mg tablet,delayed release (DR/EC)
40 mg PO BID Qty: 60 0RF
Held
amlodipine [Norvasc] 5 mg Tablet
5 mg PO DAILY
Hold Instructions: Restart when blood pressure is greater than 140/90
spironolactone 25 mg Tablet
25 mg PO DAILY
Hold Instructions: Restart when blood pressure is greater than 140/90
Discontinued
Eliquis 5 mg Tablet
5 mg PO BID
Discharge Orders:
Discharge Patient (As Directed); Ordered 06/12/24
Ordered By: Benito Christine
Discharge Date and Time
Discharge Date/Time: 06/12/24 15:16
Print Language: MOSOTHO
[2024-06-12 11:25] VITALS: BP 137/50
--- NOTE | 2024-06-16 08:28 | PN.CDI ---
CDI
- -
CDI:
Physician Documentation Request
Admit Date: 06/07/24 18:04
Dear Doctor Emmett,
Patient admitted with acute GI bleed.
06/10 PN, 'Acute on chronic anemia likely secondary to acute GI bleed....Hold Eliquis and Plavix.'
Please clarify the relationship between these conditions:
Yes, acute GI bleed is associated with/ enhanced by Eliquis and Plavix
No, acute GI bleed is not associated with/ enhanced by Eliquis and Plavix but it is due to ___. (Please specify)
Unable to determine
Use of terms such as suspected, likely, concern for, or probable (associated with a specific diagnosis that is being evaluated, monitored, or treated as if it exists) are acceptable and can be coded in the inpatient setting, when documented at the
time of discharge.
Thank you,
Yolande SHARPE,RN,CCDS
CDI Specialist
Available via tiger text
Please use your independent medical judgment in providing your response.
== END 2024-06-12 15:16 | disposition home health service (06) | DRG 682 ==
LOC: 4 EAST ACU 18:04
PROVIDERS: Nurse Practitioner Family; Student in an Organized Health Care Education/Training Program; ADMITTING PHYSICIAN Internal Medicine; EMERGENCY PHYSICIAN Emergency Medicine; FAMILY PHYSICIAN Family Medicine; OTHER PHYSICIAN Internal Medicine Cardiovascular Disease; OTHER PHYSICIAN Internal Medicine Gastroenterology; OTHER PHYSICIAN Specialist
PROC: 30233N1 Transfusion of Nonautologous Red Blood Cells into Peripheral Vein, Percutaneous Approach (ICD-10-PCS; 2024-06-07)
PROC: 0DB78ZX Excision of Stomach, Pylorus, Via Natural or Artificial Opening Endoscopic, Diagnostic (ICD-10-PCS; 2024-06-10)
PROC: 0D578ZZ Destruction of Stomach, Pylorus, Via Natural or Artificial Opening Endoscopic (ICD-10-PCS; 2024-06-10)
DX: N17.9 Acute kidney failure, unspecified (principal); K31.811 Angiodysplasia of stomach and duodenum with bleeding; D62 Acute posthemorrhagic anemia; I13.0 Hypertensive heart and chronic kidney disease with heart failure and stage 1 through stage 4 chronic kidney disease, or unspecified chronic kidney disease; I50.32 Chronic diastolic (congestive) heart failure; J96.11 Chronic respiratory failure with hypoxia; I31.39 Other pericardial effusion (noninflammatory); I48.19 Other persistent atrial fibrillation; D68.32 Hemorrhagic disorder due to extrinsic circulating anticoagulants; N18.4 Chronic kidney disease, stage 4 (severe); T45.515A Adverse effect of anticoagulants, initial encounter; E78.00 Pure hypercholesterolemia, unspecified; E89.0 Postprocedural hypothyroidism; I25.10 Atherosclerotic heart disease of native coronary artery without angina pectoris; Z95.5 Presence of coronary angioplasty implant and graft; I25.2 Old myocardial infarction; Z86.73 Personal history of transient ischemic attack (TIA), and cerebral infarction without residual deficits; J44.9 Chronic obstructive pulmonary disease, unspecified; Z87.891 Personal history of nicotine dependence; Z91.041 Radiographic dye allergy status; Z79.890 Hormone replacement therapy; Z79.01 Long term (current) use of anticoagulants; Z79.02 Long term (current) use of antithrombotics/antiplatelets; E11.22 Type 2 diabetes mellitus with diabetic chronic kidney disease; K59.00 Constipation, unspecified; F41.9 Anxiety disorder, unspecified; F32.A Depression, unspecified; I27.21 Secondary pulmonary arterial hypertension; I44.1 Atrioventricular block, second degree; M34.9 Systemic sclerosis, unspecified; Z92.3 Personal history of irradiation; Z85.118 Personal history of other malignant neoplasm of bronchus and lung; G47.33 Obstructive sleep apnea (adult) (pediatric); Z66 Do not resuscitate; E11.51 Type 2 diabetes mellitus with diabetic peripheral angiopathy without gangrene; Z95.0 Presence of cardiac pacemaker; Z79.899 Other long term (current) drug therapy; Z99.81 Dependence on supplemental oxygen; Z11.52 Encounter for screening for COVID-19; K57.30 Diverticulosis of large intestine without perforation or abscess without bleeding; Z90.710 Acquired absence of both cervix and uterus; Z86.018 Personal history of other benign neoplasm
CPT/HCPCS: 88305; 80048; 80053; 82607; 82728; 82746; 83540; 83550; 83880; 84466; 84484; 85014; 85018; 85025; 85027; 86850; 86900; 86901; 86920; 87502; 87811; 88342; 93005; 94640; 96374; 97162; 97166; 99285; J2916; P9016

== ENCOUNTER → 2024-08-26 14:31 | Outpatient (REF) | payer OTHER, SELFPAY | LOC: HWRAD 14:31 | PROVIDERS: ATTENDING PHYSICIAN Internal Medicine; FAMILY PHYSICIAN Family Medicine | DX: E27.8 Other specified disorders of adrenal gland (principal) | CPT/HCPCS: 74150 ==

== ENCOUNTER → 2025-05-10 10:33 | Outpatient (REF) | payer OTHER, SELFPAY | LOC: RST 10:33 | PROVIDERS: ATTENDING PHYSICIAN Nurse Practitioner; FAMILY PHYSICIAN Family Medicine | DX: R13.10 Dysphagia, unspecified (principal) | CPT/HCPCS: 74221; 74230; 92611 ==